=== PATIENT | female | born 1985 | race Caucasian/White ===

== ENCOUNTER 2023-04-29 09:07 | Emergency (ER) | payer OTHER, MEDICAID, SELFPAY ==
[2023-04-29 09:14] VITALS: BP 133/82; PULSE 90; RESP 16; TEMP 37.2; O2SAT 99; BMI 23.1
[2023-04-29 10:16] LABS: Basophils % 0.4 %; Eosinophils # 0.1 10^3/uL (0.0-0.8); Eosinophils % 2.3 %; Hematocrit 39.9 % (36-47); Lymphocytes # 1.1 10^3/uL (0.8-4.8); Lymphocytes % 20.6 %; Mean Corpuscular HGB Conc 32.8 g/dL (30-55); Mean Corpuscular Hemoglobin 31.3 pg (27-33); Mean Corpuscular Volume 95.2 fl (85-98); Mean Platelet Volume 9.7 fL (7.4-10.4); Monocytes # 0.5 10^3/uL (0.2-0.9); Monocytes % 9.4 %; Neutrophils # 3.51 10^3/uL (1.8-7.7); Neutrophils % 66.9 %; Nucleated Red Blood Cells % 0 %; Platelet Count 305 10^3/cmm (157-399); Red Blood Count 4.19 10^6/uL (3.85-5.65); Red Cell Distribution Width 12.2 % (12.1-15.1); White Blood Count 5.24 10^3/uL (3.29-11.43)
[2023-04-29 10:32] LABS: C Reactive Protein 49.7 mg/L (0.0-4.9)
--- NOTE | 2023-04-29 11:10 | ED_ITS ---
HPI - Wound/Laceration General: Chief Complaint: Wound/Laceration Stated Complaint: open wound left ankle Time Seen by Provider: 04/29/23 09:09 Source: patient Mode of arrival: ambulatory History of Present Illness: 37-year-old female presents emergency room with a open sore on the distal tibia anterior medial. 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 Wound has reopened and has slight drainage over the last couple of days.. Onset (ago): day(s) Extremity Location: Left: lower leg Place: home Patient tetanus UTD: Yes Associated symptoms: Denies chills, fever(s), foreign body sensation, inability to move, nausea, numbness, pain, syncope or vomiting Treatments prior to arrival: bandage Review of Systems Const: Denies: fever(s) or chills Card: Denies: chest pain, palpitations or syncope Resp: Denies: dyspnea, productive cough or non-productive cough GI: Denies: abdominal pain, nausea or vomiting Skin/Breast: Reports: sores and new lesions; Denies: rash or pruritus Physical Exam Const: GENERAL APPEARANCE: cooperative and comfortable ORIENTATION/CONSCIOUSNESS: Yes awake, Yes oriented to person, Yes oriented to place and Yes oriented to time HENMT: COMMON NORMALS: normocephalic, atraumatic and hearing grossly normal bilaterally HEAD & SCALP: normocephalic and atraumatic Resp: COMMON NORMALS: normal respiratory effort, No retractions, No use of accessory muscles and clear to auscultation bilaterally AUSCULTATION: clear to auscultation bilaterally Cardio: COMMON NORMALS: regular rate, regular rhythm and No murmurs present (Cardio) RATE: regular rate RHYTHM: regular rhythm Neuro: SENSORIUM/ORIENTATION: Yes oriented to person, Yes oriented to place and Yes oriented to time Skin: COMMON NORMALS: no rashes or lesions noted GENERAL SKIN EXAM: no rashes or lesions noted OTHER: Wet mucousy lesion scant drainage noted localized erythema redness purulence no palpable fluctuance. Wound culture taken. Course Vital Signs: Vital signs: Vital Signs Temperature 98.9 F 04/29/23 09:14 Pulse Rate 90 04/29/23 12:10 Respiratory Rate 16 04/29/23 12:10 Blood Pressure 133/82 04/29/23 12:10 Pulse Oximetry 99 04/29/23 12:10 Oxygen Delivery Me thod Room Air 04/29/23 09:14 MDM - Wound/Laceration Medical Decision Making Apply topical mupirocin. Bactrim 2 tablets p.o. twice daily. X-rays show fracture of the screw in the ankle with the lesion marked it is not overlying any of the screws or components of the hardware. There is a lot of hypertrophy of the bone with callus formation from previous fracture. Discharge patient home on the oral and topical antibiotics set her up to see wound care orthopedics and establish with a primary care doctor Lab Data 04/29/23 10:07 Laboratory Results WBC 5.24 10^3/uL (3.29-11.43) 04/29/23 10:07 RBC 4.19 10^6/uL (3.85-5.65) 04/29/23 10:07 Hgb 13.10 g/dL (11.27-16.99) 04/29/23 10:07 Hct 39.9 % (36-47) 04/29/23 10:07 MCV 95.2 fl (85-98) 04/29/23 10:07 MCH 31.3 pg (27-33) 04/29/23 10:07 MCHC 32.8 g/dL (30-55) 04/29/23 10:07 RDW 12.2 % (12.1-15.1) 04/29/23 10:07 Plt Count 305 10^3/cmm (157-399) 04/29/23 10:07 MPV 9.7 fL (7.4-10.4) 04/29/23 10:07 Neut % (Auto) 66.9 % 04/29/23 10:07 Lymph % (Auto) 20.6 % 04/29/23 10:07 [place] % (Auto) 9.4 % 04/29/23 10:07 Eos % (Auto) 2.3 % 04/29/23 10:07 Baso % (Auto) 0.4 % 04/29/23 10:07 Neut # (Auto) 3.51 10^3/uL (1.8-7.7) 04/29/23 10:07 Lymph # (Auto) 1.1 10^3/uL (0.8-4.8) 04/29/23 10:07 [place] # (Auto) 0.5 10^3/uL (0.2-0.9) 04/29/23 10:07 Eos # (Auto) 0.1 10^3/uL (0.0-0.8) 04/29/23 10:07 Baso # (Auto) 0.0 10^3/uL (0.0-0.1) 04/29/23 10:07 Nucleated RBC % (auto) 0 % 04/29/23 10:07 Nucleated RBCs # 0.0 /100WBC 04/29/23 10:07 C-Reactive Protein 49.7 mg/L (0.0-4.9) H 04/29/23 10:07 Discharge Plan Discharge Patient Disposition: Home Clinical Impression: Chronic wound of extremity Condition: Stable Prescriptions: New Bactrim DS 800-160 mg tablet 2 tab PO BID 7 Days Qty: 28 0RF mupirocin 2 % ointment 1 applic topical BID Qty: 22 0RF No Action acetaminophen 500 mg Tablet 500 mg PO Q6H PRN (Reason: Pain) ibuprofen 200 mg Tablet 200 mg PO Q6H PRN (Reason: Pain) Discharge Orders: Discharge ED (Routine); Ordered 04/29/23 Ordered By: Abe Villatoro Discharge Diet: Usual diet Discharge Activity: Increase activity as tolerated Patient Instructions: Opioid Safety, Pain Management Activity Restrictions/Additional Instructions: compensation and benefits manager will make arrangements for you to follow-up with orthopedics the wound care clinic and establish with a primary care physician. start oral antibiotics 2 pills twice daily and apply the topical antibiotic ointment twice daily to the wound. Coding Level of Care Code ED Cold Strip Feeder for Chantelle Espinoza
--- NOTE | 2023-04-29 11:11 | XR_ITS ---
WS: [id number] EXAMINATION: XR tibia fibula LT 2V 20184 REASON FOR EXAM: Pain previous instrumentation possible infection COMPARISON: None available. ORDER DATE: 04/29/2023 11:11 AM FINDINGS/IMPRESSION: Intramedullary andrez positioning in the tibia is demonstrated with transverse screws proximal and dista l. The distal most screw is fractured. There is some perirod lucency proximally and this could be rel ated to some increased mobility of the prosthesis. Marked cortical thickening and expansion of the di stal tibia from callus at the fracture sites of both tibia and fibula are present. Noted
[2023-04-29 12:10] VITALS: BP 133/82; PULSE 90; RESP 16; O2SAT 99
--- NOTE | 2023-05-03 13:36 | DCPLANNER ---
Addendum entered by Denise Ko 05/06/23 09:52: Simi luther notified case fitter that it is recommended that patient follow up with wound care first, before being seen by ortho. If patient is seen by wound care and she is still needing follow up with ortho, than a new referral could be sent. Patient has been referred to Wound Care, and has an appointment scheduled with Wound Care. collision center manager called the Wound Care clinic and patient and updated them both that referral was sent and that patient needed to be seen by wound care, and than if patient still needed follow up with ortho that a new referral would need to be sent. Addendum entered by Denise Ko 05/05/23 10:50: collision center manager received the following message from the ortho clinic regarding follow up appointment: Per Dr. Dsouza - pt needs to be referred to [place] collision center manager spoke with patient, she stated that she would like the referral sent to [facility] in [place]. collision center manager faxed patients information to the clinic, it will be reviewed, clinic will call patient with appointment information. Original Note: collision center manager had message to schedule a follow up appointment for patient for ortho. collision center manager sent patients information to the front office staff at ortho. Patients information will be printed and reviewed. Clinic will call patient with appointment information.
--- NOTE | 2023-05-03 13:37 | DCPLANNER ---
Addendum entered by Denise Ko 05/13/23 11:21: This appointment was cancelled Addendum entered by Denise Ko 05/05/23 11:31: Patient has a follow up appointment scheduled for Thursday, May 11, 2023 at 9:30 with Rhonda Lawrence at wound care. Addendum entered by Denise Ko 05/04/23 13:53: tea room manager received the following message from the Wound Care clinic regarding follow up appointment: Voicemail was left for pt to call and set up an appt. Original Note: tea room manager had message to schedule a follow up appointment for patient for wound care. tea room manager sent patients information to the front office staff at wound care. Patients information will be printed and reviewed. Clinic will call patient with appointment information.
--- NOTE | 2023-05-03 14:14 | DCPLANNER ---
Addendum entered by Denise Ko 05/13/23 11:26: Patient did not attend this appointment. Original Note: fuel manager had message to speak with patient about getting established with a primary care physician. fuel manager spoke with patient, she stated that she would like help in getting established with a primary care physician. fuel manager called the [facility], a follow up appointment was scheduled for Thursday, May 11, 2023 at 10:00 with Paulette De La Garza. fuel manager gave patient the appointment information.
== END 2023-04-29 12:12 | disposition home or self-care (01) ==
PROVIDERS: Emergency Provider Family Medicine
DX: S91.002A Unspecified open wound, left ankle, initial encounter (principal); X58.XXXA Exposure to other specified factors, initial encounter
CPT/HCPCS: 36415; 73590; 85025; 86140; 87040; 87070; 87075; 87077; 87186; 87205; 99284

== ENCOUNTER 2024-12-09 17:43 | Inpatient (IN) | payer SELFPAY ==
[2024-12-09 17:43] VITALS: BP 121/86; PULSE 95; RESP 17; TEMP 36.8; O2SAT 99; BMI 25.2
--- NOTE | 2024-12-09 18:01 | W.ED.PSYCHS ---
HPI - Psych General: Chief Complaint: Psychiatric Symptoms Stated Complaint: mhe Time Seen by Provider: 12/09/24 18:02 Source: patient and EMS Mode of arrival: ambulatory Limitations: no limitations History of Present Illness: This patient was transported by EMS to the emergency department because of concerns about suicidality. Reportedly she requested police take her to senior living because she was concerned about self-harm. She had not committed any offenses and there was no reason to incarcerate her so therefore EMS brought her to this facility. She states she used meth with a friend yesterday and had been sometime since she had used methamphetamine. She states that she told her boyfriend that she was thinking about harming herself and she continues to harbor thoughts of harming herself. She states she would cut her wrists. She states that she used to take mental health medications which she cannot remember the names but has not taken it for some time. She has previously been hospitalized for mental health issues but has not been in this facility. She states that she smokes tobacco but does not drink alcohol or use or any other street drugs. She has 4 but does not have an active relationship in the same home with these children. She currently denies any other symptoms such as nausea vomiting diarrhea chest pain palpitations fevers chills etc. MD complaint: suicidal ideation and feels depressed Context: recent drug abuse Associated psychiatric symptoms: suicidal ideation Associated symptoms: Reports depression and suicidal ideation; Deny auditory hallucinations or visual hallucinations If self harm: admits thoughts of self harm and has plan Related Data Home Medications ?Medication ?Instructions ?Recorded ?Confirmed acetaminophen 500 mg tablet 500 mg PO Q6H PRN Pain 04/29/23 04/29/23 ibuprofen 200 mg tablet 200 mg PO Q6H PRN Pain 04/29/23 04/29/23 Previous Rx's ?Medication ?Instructions ?Recorded mupirocin 2 % topical ointment 1 applic topical BID #22 grams 04/29/23 Allergies Allergy/AdvReac Type Severity Reaction Status Date / Time No Known Allergies Allergy Verified 04/29/23 09:18 Review of Systems General: Reports: 10 or more systems reviewed and unremarkable except in HPI and below Card: Denies: chest pain, palpitations, syncope or pre-syncope Resp: Denies: productive cough or non-productive cough : Denies: difficulty voiding, dysuria, vaginal bleeding or vaginal discharge Neuro: Denies: headache(s), numbness in extremities or weakness in extremities Psych: Reports: depression and suicidal ideation; Denies: visual hallucinations or auditory hallucinations Physical Exam Narrative: EXAM NARRATIVE: She is alert and responds appropriately to questions. She makes good eye contact. Const: COMMON NORMALS: no acute distress, patient oriented x3 and alert GENERAL APPEARANCE: cooperative, comfortable and disheveled NUTRITIONAL APPEARANCE: overweight HENMT: COMMON NORMALS: atraumatic, Normal nasal mucous membranes and turbinates present, moist oral mucous membranes and oropharynx normal HEAD & SCALP: atraumatic NOSE: Normal nasal mucous membranes and turbinates present Eye: COMMON NORMALS: Equal, round and reactive pupils present, EOMs intact bilaterally and conjunctivae normal CONJUNCTIVA: Yes conjunctivae normal PUPIL: Yes Equal, round and reactive pupils present Neck/C-Spine: COMMON NORMALS: full ROM and Thyroid normal THYROID: Thyroid normal Chest: COMMONS NORMALS: normal inspection of the chest Resp: COMMON NORMALS: normal respiratory effort, No retractions, No use of accessory muscles and clear to auscultation bilaterally AUSCULTATION: clear to auscultation bilaterally Cardio: COMMON NORMALS: regular rate, regular rhythm, No murmurs present (Cardio) and Peripheral pulses 2+ throughout RATE: regular rate RHYTHM: regular rhythm PERIPHERAL PULSES: Peripheral pulses 2+ throughout GI: COMMON NORMALS: Normal to inspection, nondistended, normoactive bowel sounds present Back/Pelvis: COMMON NORMALS: thoracic and lumbar spine normal to inspection, no thoracic nor lumbar tenderness and thoraco-lumbar ROM normal Extremity: COMMON NORMALS: normal to inspection, full ROM and capillary refill normal Neuro: COMMON NORMALS: patient oriented x3, moves all extremities, no focal motor deficits and no sensory deficits noted SENSORIUM/ORIENTATION: Yes alert CRANIAL NERVES: Yes CN normal except as noted Psych: COMMON NORMALS: cooperative, speech normal and denies hallucinations ATTITUDE: Yes calm ACTIVITY/MOTOR BEHAVIOR: Yes appropriate eye contact SPEECH: Yes normal speech MOOD & AFFECT: Yes apathetic THOUGHT PROCESS: Circumstantial thought process present THOUGHT CONTENT: Yes Suicidality present INSIGHT: Fair insight present (Psych) JUDGEMENT: Fair judgement present (Psych) Skin: COMMON NORMALS: no rashes or lesions noted, no wounds and turgor normal GENERAL SKIN EXAM: no rashes or lesions noted and turgor normal Course Reevaluation(s): Reevaluation #1: Patient remains cooperative and stable. Time: 20:42 Consultations: Consultation #1: Spoke with Dr. Lopez and reviewed the current presentation and case and he agreed to admit the patient. Time: 20:43 Vital Signs: Vital signs: Vital Signs Temperature 98.2 F 12/09/24 17:43 Pulse Rate 98 12/09/24 19:07 Respiratory Rate 17 12/09/24 19:07 Blood Pressure 127/87 12/09/24 19:07 Pulse Oximetry 100 12/09/24 19:07 Oxygen Delivery Me thod Room Air 12/09/24 19:07 MDM - Psych Medical Decision Making This patient presented note as noted in the HPI. She has uncertain suicidal risk given her current presentation. She certainly has voiced continued thoughts of self-harm with a plan to slit her wrist. She is cooperative and seemingly willing to continue care. Her medical evaluation clinically appears appropriate for hospitalization but we will do due diligence to laboratory screening and make adjudication of her admission at that time. Medical screening laboratories did reveal an initial low potassium which was orally repleted and her level was rechecked and her repeat level was well within the acceptable range. No evidence of other perturbations in her biochemistry. She interestingly enough was negative for any kind of street drugs on her urine drug screen. Again her suicidality is uncertain given her current presentation and endorsing thoughts of self-harm. Will go ahead and place her in the [facility] for further psychiatric evaluation. Stable appropriate for admission. Lab Data I reviewed the patient's lab results. 12/09/24 18:11 12/09/24 20:11 Laboratory Results WBC 12.30 10^3/uL (3.29-11.43) H 12/09/24 18:11 RBC 4.47 10^6/uL (3.85-5.65) 12/09/24 18:11 Hgb 13.90 g/dL (11.27-16.99) 12/09/24 18:11 Hct 40.9 % (36-47) 12/09/24 18:11 MCV 91.5 fl (85-98) 12/09/24 18:11 MCH 31.1 pg (27-33) 12/09/24 18:11 MCHC 34.0 g/dL (30-55) 12/09/24 18:11 RDW 12.1 % (12.1-15.1) 12/09/24 18:11 Plt Count 326 10^3/cmm (157-399) 12/09/24 18:11 MPV 9.9 fL (7.4-10.4) 12/09/24 18:11 Neut % (Auto) 77.2 % 12/09/24 18:11 Lymph % (Auto) 14.2 % 12/09/24 18:11 [place] % (Auto) 7.2 % 12/09/24 18:11 Eos % (Auto) 0.2 % 12/09/24 18:11 Baso % (Auto) 0.3 % 12/09/24 18:11 Neut # (Auto) 9.50 10^3/uL (1.8-7.7) H 12/09/24 18:11 Lymph # (Auto) 1.8 10^3/uL (0.8-4.8) 12/09/24 18:11 [place] # (Auto) 0.9 10^3/uL (0.2-0.9) 12/09/24 18:11 Eos # (Auto) 0.0 10^3/uL (0.0-0.8) 12/09/24 18:11 Baso # (Auto) 0.0 10^3/uL (0.0-0.1) 12/09/24 18:11 Nucleated RBC % (auto) 0 % 12/09/24 18:11 Nucleated RBCs # 0.0 /100WBC 12/09/24 18:11 Sodium 139 mmol/L (136-145) 12/09/24 18:11 Potassium 3.7 mmol/L (3.5-5.1) 12/09/24 20:11 Chloride 97 mmol/L (98-107) L 12/09/24 18:11 Carbon Dioxide 30 mmol/L (22-29) H 12/09/24 18:11 Anion Gap 14.6 (5-19) 12/09/24 18:11 BUN 3 mg/dL (6-20) L 12/09/24 18:11 Creatinine 0.5 mg/dL (0.5-0.9) 12/09/24 18:11 GFR Calculation 137.4 mL/min (90-130) H 12/09/24 18:11 Glucose 109 mg/dL (65-115) 12/09/24 18:11 Calculated Osmolality 285 mOsm/kg (285-295) 12/09/24 18:11 Calcium 9.5 mg/dL (8.5-10.5) 12/09/24 18:11 Total Bilirubin 0.3 mg/dL (0.15-1.2) 12/09/24 18:11 AST 22 U/L (0-32) 12/09/24 18:11 ALT 26 U/L (0-33) 12/09/24 18:11 Alkaline Phosphatase 88 U/L (35-105) 12/09/24 18:11 Total Protein 7.3 g/dL (6.6-8.7) 12/09/24 18:11 Albumin 4.1 g/dL (3.5-5.2) 12/09/24 18:11 Globulin 3.2 g/dL (1.3-4.6) 12/09/24 18:11 HCG, Qual Negative (Negative) 12/09/24 17:51 Urine Color Yellow (Yellow) 12/09/24 17:51 Urine Appearance Clear (CLEAR) 12/09/24 17:51 Urine pH 7 (5-7) 12/09/24 17:51 Ur Specific [place] 1.005 (1.005-1.030) 12/09/24 17:51 Urine Protein Neg (Negative) 12/09/24 17:51 Urine Glucose (UA) Norm (Normal) 12/09/24 17:51 Urine Ketones Negative (Negative) 12/09/24 17:51 Urine Blood Neg (Negative) 12/09/24 17:51 Urine Nitrate Negative (Negative) 12/09/24 17:51 Urine Bilirubin Neg (Negative) 12/09/24 17:51 Urine Urobilinogen Norm mg/dL (Negative) 12/09/24 17:51 Ur Leukocyte Esterase Negative (Negative) 12/09/24 17:51 Amorphous Sediment Not Reportable 12/09/24 17:51 Salicylates < 0.3 mg/dL (3-10) L 12/09/24 18:11 Urine Opiates Screen Negative ng/mL (Negative) 12/09/24 17:51 Acetaminophen < 5.0 ug/mL (10-30) L 12/09/24 18:11 Ur Barbiturates Screen Negative ng/mL (Negative) 12/09/24 17:51 Ur Phencyclidine Scrn Negative ng/mL (Negative) 12/09/24 17:51 Ur Amphetamines Screen Negative ng/mL (Negative) 12/09/24 17:51 U Benzodiazepines Scrn Negative ng/mL (Negative) 12/09/24 17:51 Urine Cocaine Screen Negative ng/mL (Negative) 12/09/24 17:51 U Marijuana (THC) Screen Negative ng/mL (Negative) 12/09/24 17:51 Ethyl Alcohol < 10 mg/dL (0-10) 12/09/24 18:11 No radiology studies performed this visit EKG Data EKG 1: I personally reviewed and interpreted this EKG as follows: Interpretation: Contemporaneous review of EKG reveals a borderline sinus tachycardia. She has a normal SD interval, QRS duration, corrected to QT interval and normal axis. She has no ischemic ST-T wave changes noted at this time. Discharge Plan Discharge Patient Disposition: Admitted As Inpatient Clinical Impression: Suicidal ideation Condition: Stable Coding Level of Care Code ED Mainframe Software Developer for Chantelle Espinoza
[2024-12-09 18:10] LABS: HCG Qualitative Urine. Negative (Negative)
[2024-12-09 18:11] LABS: Add Urine Microscopic? NO
[2024-12-09 18:13] LABS: Bilirubin Urine Neg (Negative); Blood Urine Neg (Negative); Charge for UA Resulting for Rev; Glucose Urine UA Norm (Normal); Ketones Urine Negative (Negative); Leukocyte Esterase Urine Negative (Negative); Nitrate Urine Negative (Negative); Protein Urine Neg (Negative); Specific Gravity, Urine 1.005 (1.005-1.030); Urine Appearance Clear (CLEAR); Urine Color Yellow (Yellow); Urobilinogen Urine Norm (Negative); pH Urine 7 (5-7)
[2024-12-09 18:17] LABS: Basophils % 0.3 %; Eosinophils % 0.2 %; Hematocrit 40.9 % (36-47); Lymphocytes # 1.8 10^3/uL (0.8-4.8); Lymphocytes % 14.2 %; Mean Corpuscular Hemoglobin 31.1 pg (27-33); Mean Corpuscular Volume 91.5 fl (85-98); Mean Platelet Volume 9.9 fL (7.4-10.4); Monocytes # 0.9 10^3/uL (0.2-0.9); Monocytes % 7.2 %; Neutrophils % 77.2 %; Nucleated Red Blood Cells % 0 %; Platelet Count 326 10^3/cmm (157-399); Red Blood Count 4.47 10^6/uL (3.85-5.65); Red Cell Distribution Width 12.1 % (12.1-15.1)
[2024-12-09 18:22] LABS: Amphetamines Screen Urine Negative (Negative); Barbiturates Screen Urine Negative (Negative); Benzodiazepines Screen Urine Negative (Negative); Cocaine Screen Urine Negative (Negative); Opiate Screen Urine Negative (Negative); PCP Screen Urine Negative (Negative); THC Screen Urine Negative (Negative)
[2024-12-09 18:34] LABS: Alanine Aminotransferase 26 U/L (0-33); Albumin Level 4.1 g/dL (3.5-5.2); Alkaline Phosphatase 88 U/L (35-105); Anion Gap 14.6 (5-19); Aspartate Amino Transferase 22 U/L (0-32); Blood Urea Nitrogen 3 mg/dL (6-20); Calcium 9.5 mg/dL (8.5-10.5); Carbon Dioxide 30 mmol/L (22-29); Chloride 97 mmol/L (98-107); Creatinine Clr Calc Pharmacy 152.3456; Globulin 3.2 g/dL (1.3-4.6); Glomerular Filtration Rate 137.4 mL/min (90-130); Glucose 109 mg/dL (65-115); Osmolality Calculated 285 mOsm/kg (285-295); Sodium 139 mmol/L (136-145); Total Bilirubin 0.3 mg/dL (0.15-1.2); Total Protein 7.3 g/dL (6.6-8.7)
[2024-12-09 18:35] LABS: Acetaminophen < 5.0 ug/mL (10-30); Alcohol Level < 10 mg/dL (0-10); Salicylate < 0.3 mg/dL (3-10)
[2024-12-09 18:36] LABS: Potassium 2.6 mmol/L (3.5-5.1)
[2024-12-09] MEDS: potassium bicarb 25 mEq Tablet 50 MEQ PO ×2 (18:57→19:25)
[2024-12-09 19:07] VITALS: BP 127/87; PULSE 98; RESP 17; O2SAT 100
--- NOTE | 2024-12-09 19:25 | ECG_ITS ---
Orbiter Test Date: 2024-12-09 Pat Name: Suri Moreno Department: Room: Gender: Female Line Out Worker: : 1985 Requested By: Lakhwinder Jarrett Order Number: [id number] Ana Paula MD: FUNMI STOUT Measurements Intervals [place] Rate: 103 P: 14 IL: 128 QRS: 47 QRSD: 93 T: 19 QT: 345 QTc: 452 Interpretive Statements SINUS TACHYCARDIA INCOMPLETE RIGHT BUNDLE BRANCH BLOCK [90+ ms QRS DURATION, TERMINAL R IN V1/V2, 40+ ms S IN I/aVL/V4/V5/V6] ABNORMAL RHYTHM ECG No previous ECG available for comparison Electronically Signed On 12-10-2024 22:06:10 CDT by FUNMI STOUT [email or web address]
[2024-12-09 20:36] LABS: Potassium 3.7 mmol/L (3.5-5.1)
[2024-12-09 20:49] VITALS: BP 116/80; PULSE 101; RESP 18; TEMP 36.8; O2SAT 96
--- NOTE | 2024-12-09 21:18 | PC.NURSE ---
96 Hour Hold Education provided to patient regarding 96 hour hold placement. When asked if patient understood what this meant, patient said yes. Rights read to patient with care nurse KATERINE Cortes and copy of rights left at bedside. Patient verbalized understanding, stated no further questions.
[2024-12-09 21:53] VITALS: BP 142/92; PULSE 107; RESP 16; O2SAT 96
[2024-12-09 22:00] VITALS: BP 116/80; PULSE 101; RESP 18; TEMP 36.8; O2SAT 96
[2024-12-10] MEDS: trazodone 50 mg Tablet PO ×3 (00:19→20:12)
[2024-12-10] MEDS: OLANZapine 5 mg ODT PO ×2 (02:25→16:09)
[2024-12-10] MEDS: hyDROXYzine 25 mg Capsule 50 MG PO ×3 (02:25→20:12)
[2024-12-10] MEDS: haloperidol 5 mg Tablet PO ×2 (03:02→13:43)
[2024-12-10 06:00] VITALS: RESP 18; BMI 25.2
[2024-12-10 06:30] VITALS: PULSE 120; RESP 18; TEMP 36.5; O2SAT 96
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
[2024-12-10 14:00] VITALS: BP 133/71; PULSE 100; RESP 18; TEMP 36.6; O2SAT 95
[2024-12-10] MEDS: paliperidone ER 6 mg Tablet PO (14:51)
[2024-12-10 19:40] VITALS: BP 122/57; PULSE 107; RESP 18; TEMP 36.5; O2SAT 98
[2024-12-11 02:19] VITALS: BP 116/56; PULSE 96; RESP 18; O2SAT 94
[2024-12-11] MEDS: OLANZapine 5 mg ODT PO (04:33)
[2024-12-11] MEDS: paliperidone ER 6 mg Tablet PO (08:09)
[2024-12-11] MEDS: LORazepam 2 mg/mL INJ 1 mL IM (13:07)
[2024-12-11] MEDS: haloperidol inj 5 mg/mL INJ 1 mL IM (13:07)
[2024-12-11] MEDS: diphenhydrAMINE 50 mg/mL SDV 1mL IM (13:07)
--- NOTE | 2024-12-11 13:30 | PC.NURSE ---
Addendum entered and electronically signed by Kary Johnson RN 12/11/24 16:31: PT ATTEMPTED TO GET THROUGH THE DOOR AT 1305, NOT 1310. Original Note: AT APPROXIMATELY 1310 THIS RN WAS ASSISTING ANOTHER PT OUT TO [facility] WHEN THE PT ASKED THIS RN A QUESTION, RESULTING IN THIS RN TURNING AROUND TO ADDRESS THE PT. DOOR GOING TO THE LOBBY WAS OPENED SLIGHTLY WITH THIS RN STANDING IN THE DOORWAY WHEN PT ATTEMPTED TO PUSH THROUGH THE DOOR AND LEAVE NORTH SIDE AND PROCEED INTO THE LOBBY AREA. THIS RN WAS POSITIONED IN FRONT OF THE DOOR AND WAS ABLE TO ASSIST THE PT BACK INSIDE. PT CONTINUED TO SAY I WANT TO LEAVE I DON'T WANT TO BE HERE NO MORE. PT IS HAVING DELUSIONS AND NURSE REPORTS SHE HAS NOT SLEPT ALL NIGHT. PT WAS ASSISTED TO ROOM, SECURITY WAS ON UNIT ALREADY AND WAS ABLE TO ASSIST STAFF. PT WENT TO ROOM WITHOUT DIFFICULTY AND SAT ON BED. STAFF ENCOURAGED AND OFFERED MEDICATIONS WHICH THE PT DID EVENTUALLY TAKE. SUPPORT VOICED.
[2024-12-11 14:00] VITALS: BP 105/74; PULSE 100; RESP 16; TEMP 37.1; O2SAT 96
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
--- NOTE | 2024-12-11 14:47 | PC.NURSE ---
At approximately 1300, the pt was starting to become agitated wanting to leave. The pt had come up to the nurses station window asking when can I leave and when was educated on having to speak with the psychiatrist first, she stated well I am just going to leave and at the same time, the charge nurse had badged the door to come back inside from discharge, and the pt stepped past the threshold in an attempt to elope. The charge nurse immediately had reacted and stopped the pt from exiting w/ no issue. This nurse took the pt back to her room and attempted to speak with the pt and she left the room and the information security director came out to attempt to help talk with the pt. While the information security director spoke with the pt, this nurse and another RN letty up a B52. This nurse, another RN, a SCHOOL ADJUSTMENT COUNSELOR and the charge nurse along with security and the live in housekeeper walked the pt to her room and administered the shots. This nurse gave 50mg IM benadryl into the L deltoid and the other RN gave 2mg Ativan and 5mg Haldol into the R deltoid. The pt took the shots with no issues. The pt attempted to attend group after, but was walked back to her room to lay down.
--- NOTE | 2024-12-11 20:14 | PC.NURSE ---
vs not collected resp 16 nurse notified
[2024-12-11] MEDS: hyDROXYzine 25 mg Capsule 50 MG PO (20:26)
[2024-12-11] MEDS: trazodone 50 mg Tablet PO (20:26)
[2024-12-12] MEDS: OLANZapine 5 mg ODT PO ×2 (00:52→16:18)
[2024-12-12] MEDS: trazodone 50 mg Tablet PO ×2 (00:52→21:47)
[2024-12-12 06:00] VITALS: BP 107/68; PULSE 118; RESP 18; O2SAT 98
[2024-12-12] MEDS: paliperidone ER 6 mg Tablet PO (08:41)
[2024-12-12] MEDS: haloperidol 5 mg Tablet PO (11:17)
[2024-12-12] MEDS: hyDROXYzine 25 mg Capsule 50 MG PO ×2 (11:17→21:47)
[2024-12-12 14:00] VITALS: BP 114/72; PULSE 100; RESP 18; O2SAT 99
--- NOTE | 2024-12-12 15:49 | P.NPUPN_ITS ---
Subjective NPU 2 Subjective: 39-year-old female with a past history o f significant methamphetamine abuse admitted with auditory hallucinations and depression while negative on urine drug screen for amphetamines. The patient continued to report hearing voices. She reported no side effects from the medication. She continues to report feeling as if other people were trying to harm her here in the hospital. She had attempted to leave the unit yesterday stating that she was being told by her voice that it was unsafe here. She had reported difficulties with falling asleep. She had continued to report that she felt that she needed to go to skilled nursing but was not able to specify any crime that she had committed. Mental Status Exam 2 MSE Comments: This is an overweight versus obese white female looking older than her stated age in hospital scrubs with poor grooming and limited eye contact. Poor dentition. No abnormal movements except for psychomotor agitation. She was minimally cooperative with exam in moderate distress. Speech was mostly normal in rate and volume and occasionally dysarthric. Mood described as okay. Her affect was odd and subdued and mood incongruent. Thought process was linear. Thought content: Patient denies suicidal or homicidal ideation. She endorsed auditory hallucinations and did appear to be responding to internal stimuli. Attention and concentration were limited as she appeared distracted and memory was limited but none were formally tested.. She is alert and oriented times person and place. Insight and judgment are impaired. Impulse control is poor. Vitals/I&O/Wt Last Vital Signs Temp 98.7 F 12/11/24 14:00 Pulse 100 12/12/24 14:00 Resp 18 12/12/24 14:00 BP 114/72 12/12/24 14:00 Pulse Ox 99 12/12/24 14:00 O2 Del Method Room Air 12/12/24 14:00 Data NPU 12/09/24 18:11 12/09/24 20:11 A&P Assessment and plan (1) Suicidal ideation: (2) Methamphetamine use disorder, severe, dependence: (3) Psychosis: (4) Paranoia: (5) Depression: Plan This is a 39-year-old white female with a long history of mental health and addiction issues who presents after a very confused and unclear what is going on from the standpoint of being in the hospital but she was positive for methamphetamine. The patient is experiencing significant mental health challenges, including depression, anxiety, paranoia, and auditory hallucinations. There is a history of depression predating substance use, indicating a longstanding mental health condition. The patient reports hearing voices and feeling paranoid, with concerns about being harmed. There are also current suicidal thoughts. 1. Continue Invega 6 mg p.o. daily. 2. Continue every 15 minute checks for safety. 3. Encourage individual, group and milieu therapy. 4. Encourage sober living treatment after discharge at the highest level care to which she is willing to commit. 5. Will evaluate against the backdrop of 96-hour hold. 6. Obtain collateral information. PDMP PDMP Reviewed: Not Reviewed Involuntary Hold Information 2 Hold Status: Legal Status: 96 Hour Hold Date/Time Hold Expires: 12/15/24 00:01 Attestations NPU 2 Medical Necessity Statement*: Inpatient hospitalization is medically necessary and the clinically appropriate intervention at this time.? We will monitor/initiate medications as indicated. The patient?s likely length of stay is 5-7 days.? Coding Level of Care Code Acute Code for [facility] Diagnoses Suicidal ideation R45.851 Methamphetamine use disorder, severe, dependence F15.20 Psychosis F29 Paranoia F22 Depression F32.A
--- NOTE | 2024-12-12 16:19 | PC.NURSE ---
Pt is currently talking about people coming out of the wall in her room to get her, pt also stated that someone opened her window and they had guns to shoot and kill her. Pt stated that she wants to leave and is confused as to why she is not able to leave. This UTILITY WORKER PRODUCTION reassured pt that no harm would come to her while on the unit, and that it was a secure safe place to be. Administered 5mg Zyprexa Zydis PO.
--- NOTE | 2024-12-12 17:07 | PC.NURSE ---
Pt has asked to leave the unit several times, all redirection has failed, pt is now pushing on every exit door stating that she will just walk home.
[2024-12-12 20:07] VITALS: BP 112/68; PULSE 99; RESP 18; TEMP 37; O2SAT 94
[2024-12-13] MEDS: OLANZapine 5 mg ODT PO ×2 (01:23→08:14)
[2024-12-13] MEDS: trazodone 50 mg Tablet PO (01:23)
[2024-12-13 06:00] VITALS: BP 108/75; PULSE 91; RESP 18; TEMP 36.8; O2SAT 97
[2024-12-13] MEDS: paliperidone ER 6 mg Tablet PO (08:14)
[2024-12-13 14:00] VITALS: BP 133/92; PULSE 100; RESP 16; TEMP 36.8; O2SAT 99
[2024-12-13] MEDS: haloperidol 5 mg Tablet PO (15:07)
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
[2024-12-13 20:01] VITALS: BP 111/63; PULSE 82; RESP 16; TEMP 36.8; O2SAT 100
[2024-12-14 06:00] VITALS: BP 100/67; PULSE 91; RESP 20; TEMP 36.4; O2SAT 98
[2024-12-14] MEDS: paliperidone ER 6 mg Tablet PO (08:00)
[2024-12-14] MEDS: nicotine 4 mg lozenge MUCOUS MEM (08:00)
--- NOTE | 2024-12-14 10:15 | PC.NURSE ---
At approximately 1015, patient continued to state that she wanted to leave and was very aware of doors in and out of unit on the non-acute (north) side of the unit. The decision was made to move her to the acute (south) side of the unit for decreased number of exits and decrease elopement risk. She was tearful upon being re-assigned to her room, stating that she wanted a roommate. I explained that she might get a roommate later today, but she didn't have one right this second. She was tearful, but stated okay . She inquired if she would get to go home today and I let her know that we would be meeting with the physician around 1030 and discussing everyone's plans. She verbalized understanding.
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
[2024-12-14] MEDS: diphenhydrAMINE 50 mg/mL SDV 1mL IM (12:20)
[2024-12-14] MEDS: LORazepam 2 mg/mL INJ 1 mL IM (12:20)
[2024-12-14] MEDS: haloperidol inj 5 mg/mL INJ 1 mL IM (12:20)
[2024-12-14 14:00] VITALS: BP 110/76; PULSE 117; RESP 18; TEMP 36.9; O2SAT 94
--- NOTE | 2024-12-14 14:48 | P.NPUPN_ITS ---
Subjective NPU 2 Subjective: 39-year-old female with a past history o f significant methamphetamine abuse admitted with auditory hallucinations and depression while negative on urine drug screen for amphetamines. The patient had attempted to elope off the unit today stating that she needed to go home. She had received Haldol for agitation. She had reported that her living situation was safe and stated that she missed her boyfriend that she had been residing within there. She had described having limited family supports and had lamented having lost her children. She had reported a long history of methamphetamine use. She had reported some improvement in sleep. She had reported feeling sad at times. She was unable to provide information regarding her longest period of abstinence but did report that she would consider treatment for her methamphetamine use. Mental Status Exam 2 MSE Comments: This is an overweight versus obese white female looking older than her stated age in hospital scrubs with poor grooming and limited eye contact. She appeared excessively sedated today. Poor dentition. No abnormal involuntary motor movements appreciated. She was cooperative on interview. Speech was normal in rate and volume and monotone in quality. Mood described as okay. Her affect was odd and subdued and mood incongruent. Thought process was linear. Thought content: Patient denies suicidal or homicidal ideation. She endorsed auditory hallucinations but did not appear to be responding to internal stimuli. There was continued presence of paranoia. Attention and concentration were limited as she was easily distracted. She is alert and oriented times person and place. Insight and judgment are impaired. Impulse control is poor. Fund of knowledge appeared poor. Vitals/I&O/Wt Last Vital Signs Temp 97.6 F 12/14/24 06:00 Pulse 91 12/14/24 06:00 Resp 20 H 12/14/24 06:00 BP 100/67 12/14/24 06:00 Pulse Ox 98 12/14/24 06:00 O2 Del Method Room Air 12/13/24 20:01 Data NPU 12/09/24 18:11 12/09/24 20:11 A&P Assessment and plan (1) Psychosis: (2) Paranoia: (3) Suicidal ideation: (4) Methamphetamine use disorder, severe, dependence: (5) Depression: Plan This is a 39-year-old white female with a long history of mental health and addiction issues who presents after a very confused and unclear what is going on from the standpoint of being in the hospital but she was positive for methamphetamine. The patient is experiencing significant mental health challenges, including depression, anxiety, paranoia, and auditory hallucinations. There is a history of depression predating substance use, indicating a longstanding mental health condition. The patient reports hearing voices and feeling paranoid, with concerns about being harmed. There are also current suicidal thoughts. 1. Continue Invega 6 mg p.o. daily. 2. Continue every 15 minute checks for safety. 3. Encourage individual, group and milieu therapy. 4. Encourage sober living treatment after discharge at the highest level care to which she is willing to commit. 5. Will evaluate against the backdrop of 96-hour hold. 6. Consider inpatient substance abuse facility. PDMP PDMP Reviewed: Not Reviewed Involuntary Hold Information 2 Hold Status: Legal Status: 96 Hour Hold Date/Time Hold Expires: 12/15/24 00:01 Attestations NPU 2 Medical Necessity Statement*: Inpatient hospitalization is medically necessary and the clinically appropriate intervention at this time.? We will monitor/initiate medications as indicated. The patient?s likely length of stay is 5-7 days.? Coding Level of Care Code Acute Code for [facility] Fwd Diagnoses Psychosis F29 Paranoia F22 Suicidal ideation R45.851 Methamphetamine use disorder, severe, dependence F15.20 Depression F32.A
[2024-12-14 19:50] VITALS: BP 107/67; PULSE 103; RESP 17; TEMP 36.3; O2SAT 96
[2024-12-15] VITALS (8 sets, daily range): BP systolic 99–113; BP diastolic 65–78; PULSE 85–115; RESP 15–18; TEMP 36.6–37.1; O2SAT 92–97
[2024-12-15] MEDS: hyDROXYzine 25 mg Capsule 50 MG PO ×2 (02:40→17:50)
[2024-12-15] MEDS: trazodone 50 mg Tablet PO (02:40)
--- NOTE | 2024-12-15 02:46 | PC.NURSE ---
While pulling bedtime medications there was a problem with the Pix[employer]. It would only allow medications to be pulled one at a time; each time a medication was pulled the Pixus would KICK ME OUT requiring me to log back in for each individual medication. In addition, the pixus was not acknowledging that the medications were pulled! This made it APPEAR that the medications were NOT PULLED even though they were indeed pulled and given. The medications in question (ALL PO) for this patient are as follows: TRAZADONE 50MG AND VISTARIL 50MG. This may ADVERSELY AFFECT the NARCOTIC COUNT as it would not allow me to put in the count. There were three displays on the Pixus: #1 CRITICAL OVERRIDE . #2 PATIENT DATA MAY NOT BE CURRENT : PATIENT INTERFACE PROBLEM FOR 9M . #3 PATIENT ORDERS MAY NOT BE CURRENT : ORDER INTERFACE PROBLEM FOR 20M . Angela GARCIAS the executive housekeeper was notified and advised that I check with / notify IT in case there was an update that we were unaware of. I checked with IT and they said they were not updating at this time. They suggested that I check with pharmacy in the morning. That is what I will do.
--- NOTE | 2024-12-15 08:14 | PC.NURSE ---
Pt states that she didn't sleep well last night. She is worried that she is going to be kicked out of here and not have a place to go. She rates her anxiety a 10/10 and states that she is very depressed. She denies SI/HI. She reports voices telling her to kill herself and states that she sees floaters . She does not recall having a recent bm. Pt is up pacing a lot from her room to the ford and to the phone. This nurse reassured pt that we would not let her leave until she has a place.
[2024-12-15] MEDS: LORazepam 2 mg/mL INJ 1 mL IM (08:45)
[2024-12-15] MEDS: haloperidol inj 5 mg/mL INJ 1 mL IM (08:45)
[2024-12-15] MEDS: diphenhydrAMINE 50 mg/mL SDV 1mL IM (08:45)
--- NOTE | 2024-12-15 09:01 | PC.NURSE ---
Pt became increasingly anxious and stated that she wanted to go outside She was pacing from her room to pt phone and would then begin to push on the doors and say she needed out. We had to turn off the pt phone because she began trying to call 911 to go to the [facility] . She then began to state she was having chest pain. V/s were check bp 132/80 and pulse 147. She attempted multiple times to redirect pt and security [place] took pt out to count includes the [facility] to see if that would help her as well. Pt began to increase her pacing and pushing on doors more and more. The decision was made to give her a b52 injection to help her relax. Pt went back into her room, layed on bed and accepted the injection without incident. See MAR for specifics on the injection. Pt has not got out of bed since.
[2024-12-15] MEDS: paliperidone ER 6 mg Tablet PO (09:03)
--- NOTE | 2024-12-15 15:53 | P.NPUPN_ITS ---
Subjective NPU 2 Subjective: 39-year-old female with a past history o f significant methamphetamine abuse admitted with auditory hallucinations and depression while negative on urine drug screen for amphetamines. The patient had reported that she had been homeless. She had made repeated attempts to try to elope from the unit. The patient had reported that she continued to hear voices but stated that they were quieter. She continued to ask if she could go but reported that she had no idea where she would go when discharged. She had continued to require as needed Haldol for agitation this morning. Patient had isolated herself on the milieu. She had endorsed some depressed mood at this time. Mental Status Exam 2 MSE Comments: This is an overweight versus obese white female looking older than her stated age in hospital scrubs with poor grooming and limited eye contact. She appeared less sedated. Poor dentition. No abnormal involuntary motor movements appreciated. She was cooperative on interview. Speech was normal in rate and volume and monotone in quality. Mood described as okay. Her affect was odd and subdued and mood incongruent. Thought process was linear but concrete. Thought content: Patient denies suicidal or homicidal ideation. She endorsed no auditory hallucinations today and did not appear to be responding to internal stimuli. There was continued presence of paranoia. Attention and concentration were limited as she was easily distracted. She is alert and oriented times person and place. Insight and judgment are impaired. Impulse control is poor. Fund of knowledge appeared poor. Vitals/I&O/Wt Last Vital Signs Temp 98 F 12/15/24 14:00 Pulse 99 12/15/24 14:00 Resp 17 12/15/24 14:00 BP 110/70 12/15/24 14:00 Pulse Ox 95 12/15/24 14:00 O2 Del Method Room Air 12/15/24 06:00 Data NPU 12/09/24 18:11 12/09/24 20:11 A&P Assessment and plan (1) Psychosis: (2) Paranoia: (3) Suicidal ideation: (4) Methamphetamine use disorder, severe, dependence: (5) Depression: Plan This is a 39-year-old white female with a long history of mental health and addiction issues who presents after a very confused and unclear what is going on from the standpoint of being in the hospital but she was positive for methamphetamine. The patient is experiencing significant mental health challenges, including depression, anxiety, paranoia, and auditory hallucinations. There is a history of depression predating substance use, indicating a longstanding mental health condition. 1. Continue Invega 6 mg p.o. daily. 2. Continue every 15 minute checks for safety. 3. Encourage individual, group and milieu therapy. 4. Encourage sober living treatment after discharge at the highest level care to which she is willing to commit. Check DARLENE to examine ability to live independently. 5. Will evaluate against the backdrop of 96-hour hold. 6. Consider inpatient substance abuse facility. PDMP PDMP Reviewed: Not Reviewed Involuntary Hold Information 2 Hold Status: Legal Status: 96 Hour Hold Date/Time Hold Expires: 12/15/24 00:01 Attestations NPU 2 Medical Necessity Statement*: Inpatient hospitalization is medically necessary and the clinically appropriate intervention at this time.? We will monitor/initiate medications as indicated. The patient?s likely length of stay is 5-7 days.? Coding Level of Care Code Acute Code for [facility] Fw Diagnoses Psychosis F29 Paranoia F22 Suicidal ideation R45.851 Methamphetamine use disorder, severe, dependence F15.20 Depression F32.A
--- NOTE | 2024-12-15 17:23 | PC.NURSE ---
Pt PRN B52 was effective. She remained calm and rested the remainder of the day. V/s remained stable see v/c flow sheet.
--- NOTE | 2024-12-15 17:23 | PC.NURSE ---
AT APPROXIMATELY 0830 THIS AM PT WAS UP CHECKING DOORS AND ATTEMPTING TO FOLLOW STAFF INTO THE NURSES STATION MAKING STATEMENTS I WANT TO LEAVE, LET ME LEAVE. PT WAS REDIRECTED SEVERAL TIMES WITH NO RESOLVE. PT WAS EDUCATED ON 96 HOUR HOLD AND 21 DAY HOLD BEING FILED BUT PT DID NOT COMPREHEND THE EDUCATION. PT WAS ASSISTED TO ROOM AND GIVEN MEDICATIONS ORDERED FOR INCREASED ANXIETY. PT RESTED ON AND OFF FOR 2-3 HOURS. MEDICATIONS DEEMED EFFECTIVE. SUPPORT VOICED.
--- NOTE | 2024-12-15 17:48 | PC.NURSE ---
Pt was standing at pt phone with left knee resting on bench. She slipped and tried to catch herself with the phone. She proceeded to fall and her bottom hit the floor and her left ribs hit the bench. Pt was brought to her room and examined by this nurse and Kary RN. No redness was noticed on the left ribs. Pt does state that it hurts really bad. v/s are 123/74 p 105 o2 sat 98%. I walked pt to dayroom so that she could eat dinner and advised her to walk slowly and take her time. A fall mat was placed at pt bedside.
[2024-12-15] MEDS: OLANZapine 5 mg ODT PO (17:51)
[2024-12-16 06:00] VITALS: BP 97/57; PULSE 99; RESP 17; TEMP 36.4; O2SAT 96
--- NOTE | 2024-12-16 07:30 | PC.NURSE ---
PT CONTINUES TO BE ANXIOUS, RESTLESS AND AGITATED, CHECKING DOORS AND ATTEMPTING TO LEAVE THE UNIT BY PUSHING ON DOORS AND DEMANDING TO LEAVE, LET ME GO, I WANT TO GET BACK TO THE STREETS, PT WAS GIVEN CHOICES TO LAY DOWN, WATCH TV OR EAT A SNACK. PT STATED NO I'M LEAVING. PT IS OBSERVED STANDING AT THE DESK AND MOVING HER FEET CONSTANTLY LIKE SHE CAN NOT STOP. PT ASKED WHY SHE IS CONSTANTLY MOVING AND STATES I JUST CAN'T STOP. REPORTED TO DR. MEZA TO SEE IF HE WOULD LIKE TO GIVE INSTRUCTIONS OR ORDERS FOR BENADRYL OR COGENTIN. SUPPORT VOICED. NICOTINE PATCH PLACED TO ASSIST WITH NICOTINE WITHDRAWAL.
[2024-12-16] MEDS: nicotine 21 mg Patch 1 PATCH TRANSDERMA (07:31)
[2024-12-16] MEDS: ziprasidone 20 mg/mL SDV IM (07:40)
[2024-12-16] MEDS: water for injection-sterile 10 ML 1.2 ML (07:40)
[2024-12-16] MEDS: benztropine 1 mg Tablet PO (07:40)
--- NOTE | 2024-12-16 07:43 | PC.NURSE ---
Pt got up from bed this morning and immeditatley began pacing around. She asked if she was going home and stating that she wants to go outside. She then came to the nurses station and requested the shot she received yesterday (B52) because she just wants to sleep. I attempted to redirect pt into trying an oral medication and she began to increase in frustration and attempting to elope. Kary GARCIAS called Dr. Mckinnon and obtained an order for a 1x Geodon 20mg IM injection. Dr. Mckinnon also advised that we put a nicotine patch on pt as well to help with nicotine withdraw. While pt was standing at nurses waiting for the injection to come, she was marching in place. Kary GARCIAS asked her why she was marching in place and she states I can't help it Pt was then given Cogentin to help ease her EPS symptoms.
[2024-12-16] MEDS: paliperidone ER 6 mg Tablet PO (08:11)
[2024-12-16 08:45] VITALS: BP 101/67; PULSE 99; RESP 16; TEMP 36.8; O2SAT 96
--- NOTE | 2024-12-16 10:16 | P.NPUPN_ITS ---
Subjective NPU 2 Subjective: 39-year-old female with a past history o f significant methamphetamine abuse admitted with auditory hallucinations and depression while negative on urine drug screen for amphetamines. The patient had stated that she wished to leave here again and attempted to elope. She had required as needed Haldol and significant redirection. She continued to perseverate about her desire to go home and indicated that she felt that people were after her. She had endorsed feeling suspicious of others but was unable to describe this any further. She had continued to pace the ford and reported adequate sleep. She had admitted to using methamphetamine for several years but again was negative for all drugs or alcohol on admission. The patient had described having difficulties with taking care of herself outside of the hospital. She had continued to require prompting for completion of activities of daily living. Mental Status Exam 2 MSE Comments: This is an overweight versus obese white female looking older than her stated age in hospital scrubs with poor grooming and limited eye contact. She was extremely immature Poor dentition. No abnormal involuntary motor movements appreciated. She was minimally cooperative on interview while requesting to leave the hospital. I am not hearing voices, can i go now. Speech was normal in rate and volume and monotone in quality. Mood described as fine, can i go now? Her affect was odd and subdued and mood incongruent. Thought process was linear but concrete. Thought content: Patient denies suicidal or homicidal ideation. She endorsed no auditory hallucinations today and did not appear to be responding to internal stimuli. There was continued presence of paranoia. Attention and concentration were limited as she was easily distracted. She is alert and oriented times person and place. Insight and judgment are impaired. Impulse control is poor. Fund of knowledge appeared poor. Abstraction was poor with evidence of concrete thinking. Vitals/I&O/Wt Last Vital Signs Temp 98.2 F 12/16/24 08:45 Pulse 99 12/16/24 08:45 Resp 16 12/16/24 08:45 BP 101/67 12/16/24 08:45 Pulse Ox 96 12/16/24 08:45 O2 Del Method Room Air 12/16/24 06:00 Data NPU 12/09/24 18:11 12/09/24 20:11 A&P Assessment and plan (1) Psychosis: (2) Paranoia: (3) Suicidal ideation: (4) Methamphetamine use disorder, severe, dependence: (5) Depression: Plan This is a 39-year-old white female with a long history of mental health and addiction issues who presents after a very confused and unclear what is going on from the standpoint of being in the hospital but she was positive for methamphetamine. The patient is experiencing significant mental health challenges, including depression, anxiety, paranoia, and auditory hallucinations. There is a history of depression predating substance use, indicating a longstanding mental health condition. 1. Increase Invega 9 mg p.o. daily. 2. Continue every 15 minute checks for safety. 3. Encourage individual, group and milieu therapy. 4. Encourage sober living treatment after discharge at the highest level care to which she is willing to commit. Check DARLENE to examine ability to live independently. 5. Court hearing for 21 day hold on 12/18/24. 6. Consider inpatient substance abuse facility. PDMP PDMP Reviewed: Not Reviewed Involuntary Hold Information 2 Hold Status: Legal Status: 96 Hour Hold Date/Time Hold Expires: 12/15/24 00:01 Attestations NPU 2 Medical Necessity Statement*: Inpatient hospitalization is medically necessary and the clinically appropriate intervention at this time.? We will monitor/initiate medications as indicated. The patient?s likely length of stay is 5-7 days.? Coding Level of Care Code Acute Code for [facility] Fw Diagnoses Psychosis F29 Paranoia F22 Suicidal ideation R45.851 Methamphetamine use disorder, severe, dependence F15.20 Depression F32.A
--- NOTE | 2024-12-16 10:56 | PC.NURSE ---
Order received from Dr. Mckinnon to order kylah COLON on pt for poor insight and poor self control.
[2024-12-16] MEDS: haloperidol inj 5 mg/mL INJ 1 mL IM (11:07)
[2024-12-16] MEDS: LORazepam 2 mg/mL INJ 1 mL IM (11:07)
[2024-12-16] MEDS: diphenhydrAMINE 50 mg/mL SDV 1mL IM (11:07)
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
[2024-12-16 11:20] VITALS: BP 122/87; PULSE 138; RESP 18; O2SAT 96
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
[2024-12-16 14:00] VITALS: BP 103/61; PULSE 106; RESP 18; TEMP 36.8; O2SAT 94
[2024-12-16] MEDS: hyDROXYzine 25 mg Capsule 50 MG PO (19:59)
[2024-12-16] MEDS: trazodone 50 mg Tablet PO (19:59)
[2024-12-16] MEDS: haloperidol 5 mg Tablet PO (20:00)
[2024-12-16 20:42] VITALS: BP 118/74; PULSE 120; RESP 18; TEMP 37.1; O2SAT 97
[2024-12-17] MEDS: OLANZapine 5 mg ODT PO ×3 (02:48→21:52)
[2024-12-17] MEDS: hyDROXYzine 25 mg Capsule 50 MG PO ×2 (02:48→07:33)
[2024-12-17] MEDS: trazodone 50 mg Tablet PO ×2 (02:48→21:52)
[2024-12-17 06:00] VITALS: BP 90/59; PULSE 96; RESP 17; TEMP 36.6; O2SAT 97; BMI 32.0
[2024-12-17] MEDS: nicotine 4 mg lozenge MUCOUS MEM ×2 (06:39→14:58)
[2024-12-17] MEDS: haloperidol 5 mg Tablet PO ×2 (06:39→13:17)
[2024-12-17] MEDS: nicotine 21 mg Patch 1 PATCH TRANSDERMA (08:32)
[2024-12-17] MEDS: paliperidone ER 9 mg Tablet PO (08:32)
[2024-12-17] MEDS: benztropine 1 mg Tablet PO (08:32)
--- NOTE | 2024-12-17 09:40 | PC.NURSE ---
Dr. Mckinnon ordered a UA on pt. Tim noticed that she was frequently visiting the restroom. I asked pt is it burned when she urinated and she stated yes . Will collect a UA.
[2024-12-17 10:13] LABS: Urine Appearance Clear (CLEAR); Urine Color Yellow (Yellow)
[2024-12-17 10:17] LABS: Bilirubin Urine Neg (Negative); Blood Urine Neg (Negative); Glucose Urine UA Norm (Normal); Ketones Urine Negative (Negative); Leukocyte Esterase Urine Negative (Negative); Nitrate Urine Negative (Negative); Protein Urine Neg (Negative); Urobilinogen Urine Neg (Negative); pH Urine 7 (5-7)
[2024-12-17 10:21] LABS: Bacteria Urine None Seen /hpf; Hyaline Casts Urine 0-4 /lpf; RBC Urine 0-2 /hpf (0-2); Squamous Epithelial Cell Urine 0-5 /hpf (0-5); WBC Urine 0-5 /hpf (0-5)
--- NOTE | 2024-12-17 12:55 | PC.NURSE ---
PT CONTINUES TO REQUEST INJECTIONS AND WANTS TO LEAVE. OBSERVED WANDERING AND EXIT SEEKING BEHAVIORS. NEW ORDERS RECEIVED FOR ORAL ATIVAN 2 MG AND BENADRYL 50 MG. PT TO BE GIVEN HALDOL WITH THE ATIVAN AND BENADRYL DUE TO BEHAVIORS. SUPPORT VOICED.
[2024-12-17 14:00] VITALS: BP 141/87; PULSE 130; RESP 18; TEMP 37.6; O2SAT 94
[2024-12-17] MEDS: LORazepam 2 mg Tablet PO (14:46)
[2024-12-17] MEDS: diphenhydrAMINE 50 mg Capsule PO (14:46)
--- NOTE | 2024-12-17 14:47 | PC.NURSE ---
Pt has been trying to go outside since lunch, we reinterated to pt several times that at 1400 we would take her outside for a group and give them all ice cream. Pt did go outside for approx 30 min and sat with aid Shayy and Dejah and also had a snack. She came in after 30 min with resistance. She came to the nurses station repeatedly telling staff that she was leaving. As safety security officer Gold was leaving the nurses station pt lunged at the door and had to be assisted back into the ford. Pt became upset with sitter telling her to get out of my face This nurse went and got medicine for the pt and offered it to her. Pt stated I'm not going to take that After several attempts of trying to convince the pt to take the medication we then let her know that she was going to have to take the meds or go into seclusion, that we couldn't cont to have her trying to leave the unit. Pt wanted to go to seclusion, when we entered the hallway to take her down there she changed her mind and decided that she wanted to go ahead and take the medication. After taking medication, pt again asked for seclusion. This nurse and security walked her down to the room and let her look at it. Pt decided that she didn't want to go to seclusion. Pt was encouraged to walk the ford or sit quietly in her room. Pt has cont to pace the halls stating she is scared Staff cont to support her and let her know that she is safe. We cont to offer fluids, coloring, puzzles, and tv as other forms of distraction. The pacing and request to go outside is beginning to decrease.
--- NOTE | 2024-12-17 16:58 | P.NPUPN_ITS ---
Subjective NPU 2 Subjective: 39-year-old female with a past history o f significant methamphetamine abuse admitted with auditory hallucinations and depression while negative on urine drug screen for amphetamines. The patient continued to perseverate on wanting to leave the unit and required as needed medications once again due to agitation as she attempted to elope. She continued to struggle with remaining in her room and following directions. She had been informed numerous times of the necessity for the patient to remain here and she continued to report having no clear idea where to go when she left here at this time. She had remained compliant with her medication regimen. Patient endorsed hearing voices through chase. Mental Status Exam 2 MSE Comments: This is an overweight versus obese white female looking older than her stated age in hospital scrubs with poor grooming and limited eye contact. She was extremely immature appearing to interact like an 8 year old child. Poor dentition. No abnormal involuntary motor movements appreciated. She was minimally cooperative on interview while requesting to leave the hospital. I am not hearing voices, can i go now. Speech was normal in rate and volume and monotone in quality. Mood described as fine, can i go now? Her affect was odd and subdued and mood incongruent. Thought process was linear but concrete. Thought content: Patient denies suicidal or homicidal ideation. She endorsed no auditory hallucinations today and did not appear to be responding to internal stimuli. There was continued presence of paranoia. Attention and concentration were limited as she was easily distracted. She is alert and oriented times person and place. Insight and judgment are impaired. Impulse control is poor. Fund of knowledge appeared poor. Abstraction was poor with evidence of concrete thinking. Vitals/I&O/Wt Last Vital Signs Temp 99.6 F 12/17/24 14:00 Pulse 130 H 12/17/24 14:00 Resp 18 12/17/24 14:00 BP 141/87 12/17/24 14:00 Pulse Ox 94 12/17/24 14:00 O2 Del Method Room Air 12/17/24 06:00 Weight last 48 hrs Weight 89.902 kg Data NPU 12/09/24 18:11 12/09/24 20:11 A&P Assessment and plan (1) Psychosis: (2) Paranoia: (3) Suicidal ideation: (4) Methamphetamine use disorder, severe, dependence: (5) Depression: Plan This is a 39-year-old white female with a long history of mental health and addiction issues who presents after a very confused and unclear what is going on from the standpoint of being in the hospital but she was positive for methamphetamine. The patient is experiencing significant mental health challenges, including depression, anxiety, paranoia, and auditory hallucinations. There is a history of depression predating substance use, indicating a longstanding mental health condition. 1. Continue Invega 9 mg p.o. daily. 2. Continue every 15 minute checks for safety. 3. Encourage individual, group and milieu therapy. 4. Encourage sober living treatment after discharge at the highest level care to which she is willing to commit. Check DARLENE to examine ability to live independently. 5. Court hearing for 21 day hold on 12/18/24. 6. Consider inpatient substance abuse facility. PDMP PDMP Reviewed: Not Reviewed Involuntary Hold Information 2 Hold Status: Legal Status: 96 Hour Hold Date/Time Hold Expires: 12/15/24 00:01 Attestations NPU 2 Medical Necessity Statement*: Inpatient hospitalization is medically necessary and the clinically appropriate intervention at this time.? We will monitor/initiate medications as indicated. The patient?s likely length of stay is 5-7 days.? Coding Level of Care Code Acute Code for [facility] Fwd Diagnoses Psychosis F29 Paranoia F22 Suicidal ideation R45.851 Methamphetamine use disorder, severe, dependence F15.20 Depression F32.A
[2024-12-17 19:53] VITALS: BP 93/58; PULSE 96; RESP 16; TEMP 36.9; O2SAT 94
[2024-12-18 06:00] VITALS: BP 108/73; PULSE 116; RESP 18; O2SAT 96
[2024-12-18] MEDS: LORazepam 2 mg Tablet PO (08:08)
[2024-12-18] MEDS: haloperidol 5 mg Tablet PO (08:08)
[2024-12-18] MEDS: diphenhydrAMINE 50 mg Capsule PO (08:08)
[2024-12-18] MEDS: paliperidone ER 9 mg Tablet PO (08:08)
--- NOTE | 2024-12-18 08:53 | PC.NURSE ---
Oral B52 Oral B52 administered to patient for agitation. Patient keeps threatening to break out of the unit. Patient pushing on door. Sitter present.
[2024-12-18 14:00] VITALS: BP 103/64; PULSE 88; RESP 16; O2SAT 97
--- NOTE | 2024-12-18 17:31 | W.PM.NPUPNS ---
Subjective NPU Subjective: 39-year-old female with a past history of significant methamphetamine abuse admitted with auditory hallucinations and depression while negative on urine drug screen for amphetamines. The patient had continued to pure agitated requiring as needed medications. The patient had stayed in her room all day while remaining on a one-to-one as she had continued to express desire to leave the hospital. She had stated that she could hear the voices through the wall. She reported that she needed to leave and stated that she would rather be in detention. She did not appear to have any significant problems that would merit her being incarcerated at this time. Patient reported that she did not have a home. Mental Status Exam MSE Comments: This is an overweight versus obese white female looking older than her stated age in hospital scrubs with poor grooming and limited eye contact. She was extremely immature appearing to interact like an 8 year old child. Poor dentition. No abnormal involuntary motor movements appreciated. She was minimally cooperative on interview while requesting to leave the hospital. She endorsed hearing voices through the wall. Speech was normal in rate and volume and monotone in quality. Mood described as mad. Her affect was odd and subdued and mood incongruent. Thought process was linear but concrete. Thought content: Patient denies suicidal or homicidal ideation. She endorsed auditory hallucinations today and did appear to be responding to internal stimuli. There was continued presence of paranoia. Attention and concentration were limited as she was easily distracted. She is alert and oriented times person and place. Insight and judgment are impaired. Impulse control is poor. Fund of knowledge appeared poor. Abstraction was poor with evidence of concrete thinking. Vitals/I&O/Wt Last Vital Signs Temp 98.5 F 12/17/24 19:53 Pulse 88 12/18/24 14:00 Resp 16 12/18/24 14:00 BP 103/64 12/18/24 14:00 Pulse Ox 97 12/18/24 14:00 O2 Del Method Room Air 12/18/24 06:00 Weight last 48 hrs Weight 89.902 kg Data NPU 12/09/24 18:11 12/09/24 20:11 A&P Assessment and plan (1) Psychosis: (2) Paranoia: (3) Suicidal ideation: (4) Methamphetamine use disorder, severe, dependence: (5) Depression: Plan This is a 39-year-old white female with a long history of mental health and addiction issues who presents after a very confused and unclear what is going on from the standpoint of being in the hospital but she was positive for methamphetamine. The patient is experiencing significant mental health challenges, including depression, anxiety, paranoia, and auditory hallucinations. There is a history of depression predating substance use, indicating a longstanding mental health condition. 1. Continue Invega 9 mg p.o. daily. 2. Continue every 15 minute checks for safety. 3. Encourage individual, group and milieu therapy. 4. Encourage sober living treatment after discharge at the highest level care to which she is willing to commit. Check DARLENE to examine ability to live independently. 5. Patient placed on 21 day hold. Patient performed poorly on DARLENE (needed assistance on 06/17 skills tested)-Will likely begin level 2 with plan for guardianship. PDMP PDMP Reviewed: Not Reviewed Involuntary Hold Information Hold Status: Legal Status: 96 Hour Hold Date/Time Hold Expires: 01/08/25 Attestations NPU Medical Necessity Statement*: Inpatient hospitalization is medically necessary and the clinically appropriate intervention at this time.? We will monitor/initiate medications as indicated. The patient?s likely length of stay is 15-20 days as patient remains on 1-[address] appointed guardianship is now being pursued. Coding Level of Care Code Acute Code for [facility] Fwd Diagnoses Psychosis F29 Paranoia F22 Suicidal ideation R45.851 Methamphetamine use disorder, severe, dependence F15.20 Depression F32.A
[2024-12-18 19:47] VITALS: BP 101/65; PULSE 96; RESP 16; O2SAT 99
[2024-12-18] MEDS: OLANZapine 5 mg ODT PO (20:26)
[2024-12-18] MEDS: trazodone 50 mg Tablet PO (20:26)
[2024-12-18] MEDS: nicotine 4 mg lozenge 8 MG MUCOUS MEM (20:30)
[2024-12-19] MEDS: OLANZapine 5 mg ODT PO ×2 (04:04→17:26)
[2024-12-19 06:00] VITALS: BP 101/64; PULSE 88; RESP 16; O2SAT 97
[2024-12-19] MEDS: acetaminophen 325 mg Tablet 650 MG PO (06:15)
[2024-12-19] MEDS: diphenhydrAMINE 50 mg Capsule PO ×2 (06:49→18:23)
[2024-12-19] MEDS: haloperidol 5 mg Tablet PO ×2 (06:49→18:23)
[2024-12-19] MEDS: LORazepam 2 mg Tablet PO ×2 (06:49→18:23)
[2024-12-19 07:00] VITALS: BP 106/67; PULSE 80; RESP 14; O2SAT 95
--- NOTE | 2024-12-19 07:13 | PC.NURSE ---
BEHAVIORAL At approximately 0615 pt came up to nurses station stating that she was going to leave today. Pt then started pushing on the nurses station door and the door to the foyer. Security was called and oral B52 medications were offered and pt agreed. Once medications were pulled pt then stated that she wouldn't take them and that we are fucking bitches for keeping her here. Once all of day shift staff and security arrived on the unit the patient was told that she either needed to take the oral medications or she would be placed into seclusion. Ativan 2mg, Haldol 5mg and Benadryl 50mg PO was given at approximately 0650. Pt continued to push on doors, pull on the glass, thrown things into the nurses station, and tell nursing staff to fuck off . A code 10 was called at 0724 and pt was placed into seclusion at 0724. Pt was released from seclusion at 0733. Pt is now observed laying in bed with sitter at bedside.
--- NOTE | 2024-12-19 07:48 | PC.NURSE ---
Post manual hold/seclusion Patient's VS at 0746: 106/67, HR 80, 95% RA. Patient's arms inspected following manual hold. No redness noted. Patient denies any pain/discomfort on palpation.
--- NOTE | 2024-12-19 07:51 | PC.NURSE ---
CODE 10, manual hold, seclusion On arrival to the unit, this nurse noted that patient was attempting to elope from the unit. Patient trying doors, pulling on glass, etc. KATERINE Ricci had given patient oral B52. After report, patient was at the window demanding to be let into the nursing station. Attempts to verbally desculate were not successful. This contract technical writer went to the ford to talk with patient, expressing options and explaining appropriate verses inappropriate behaviors on the unit. Patient then started ramming her shoulder into the door. Patient was told that if she did not stop, that she would have to be placed into seclusion for her safety. Patient said to this nurse, You aren't big enough . This nurse said that security would assist. Patient said call them . Security notified. Patient then went to dayroom with sitter and began coloring. Kadeem with security counseled patient on appropriate behaviors. Patient become agitated, said that she is going to check the doors. Patient pacing the ford, said she would not touch the doors, just looking. Security stepped off for a moment. Patient then started pulling on the glass surrounding the nursing station. She was putting her hands into the slats in the windows. Through the tissue box toward staff. Tried to pull papers from off the window. The prayer box had to be quickly removed because she was making her way to it. Patient cursed at this nurse. Patient agitated. Patient looked angry and enraged. Security notified. it was decided to place patient into seclusion for her safety as well as for the safety of others. Patient refused to go into seclusion. At 0723 Code 10 called and Kadeem with security and MARLENE Lucas put there hands in the escort hold and escorted patient into the seclusion room. Door closed at 0724. Staff present continuously outside the seclusion room. Patient allowed to exit seclusion at 0733 after patient had calmed down and agreed to be compliant. Dr. Mckinnon notified via text. joseph notified via text. This nurse checked VS shortly after release from seclusion. These are documented and are WNLs. Patient's arms checked for redness and discomfort. no redness. Patient denies pain on palpation. Will continue to monitor.
[2024-12-19] MEDS: paliperidone ER 9 mg Tablet PO (08:15)
--- NOTE | 2024-12-19 11:29 | PC.NURSE ---
Code 10 This nurse arrived to the unit at approx 0645. Pt was at nurses station with shift foreman staff and security, visibly upset and wanting to exit the unit. Pt was offered oral PRN medications to help her relax. Pt would agree to take them and then once they were offered she would quickly decline. Pt did finally take the oral PRN medications at approx 0650. She soon began pushing the doors and insisting on getting out. She made her way to the dayroom and sat for approx 2 min coloring. She made her way back to the nurses station and insisted on getting out the doors again. She would reach inside the window of the nurses station and attempt to remove papers off the window, shake the windows, and she managed to get a box of tissues and throw them into the station. She told Nurse Sneha Go fuck yourself you stupid bitch. She then made her way to her room. The decision was made to move the pt to seclusion to protect herself and others. At 0724 a code 10 was called and a manual hold was used by Kadeem in Security and Shayy CASUALTY CLAIM ADJUSTER. Pt was slightly resistant and tearful, but did finally let staff out of seclusion room. Seclusion started at 0724. She was tearful but spoke to this nurse and Nurse Hoover through the window for a little bit. She apologized for her behaviors. She finally layed down and started to fall asleep. Decision was made to release her from seclusion at 0733 and allow her to rest in her bed. Pt soon began resting with her eyes closed and no further behaviors were noted.
[2024-12-19] MEDS: ibuprofen 600 mg Tablet PO (13:36)
[2024-12-19 14:00] VITALS: BP 90/52; PULSE 88; RESP 16; TEMP 36.6; O2SAT 97
--- NOTE | 2024-12-19 15:35 | P.NPUPN_ITS ---
Subjective NPU 2 Subjective: 39-year-old female with a past history o f significant methamphetamine abuse admitted with auditory hallucinations and depression while negative on urine drug screen for amphetamines. The patient had admitted that she was homeless. She had required seclusion as she had attempted once again to leave the unit. She had continued to report that she wanted to leave but again had no clear direction on where she would go. She had remained confused and was difficult to redirect. She had expressed to staff that she had money for disability but appeared to have only $15 left in her account. She had suggested that another person had been taking money from her account which appeared very likely given that she would have been paid earlier this month. She had spent much of the day sleeping after receiving Haldol. Mental Status Exam 2 MSE Comments: This is an overweight versus obese white female looking older than her stated age in hospital scrubs with poor grooming and limited eye contact. She was extremely immature appearing to interact like an 6 year old child. Poor dentition. No abnormal involuntary motor movements appreciated. She was minimally cooperative on interview while requesting to leave the hospital. Speech was normal in rate and volume and monotone in quality. Mood described as bad. Her affect was odd and subdued and mood incongruent. Thought process was linear but concrete. Perseverated on wanting to leave hospital. Thought content: Patient denies suicidal or homicidal ideation. She endorsed auditory hallucinations today and did appear to be responding to internal stimuli. There was continued presence of paranoia. Attention and concentration were limited as she was easily distracted. She is alert and oriented times person and place. Insight and judgment are impaired. Impulse control is poor. Fund of knowledge appeared poor. Abstraction was poor with evidence of concrete thinking. Vitals/I&O/Wt Last Vital Signs Temp 98.5 F 12/17/24 19:53 Pulse 80 12/19/24 07:00 Resp 14 12/19/24 07:00 BP 106/67 12/19/24 07:00 Pulse Ox 95 12/19/24 07:00 O2 Del Method Room Air 12/19/24 07:00 Data NPU 12/09/24 18:11 12/09/24 20:11 A&P Assessment and plan (1) Psychosis: (2) Paranoia: (3) Suicidal ideation: (4) Methamphetamine use disorder, severe, dependence: (5) Depression: (6) Impulse control disorder, unspecified: Plan This is a 39-year-old white female with a long history of mental health and addiction issues who presents after a very confused and unclear what is going on from the standpoint of being in the hospital but she was positive for methamphetamine. The patient is experiencing significant mental health challenges, including depression, anxiety, paranoia, and auditory hallucinations. There is a history of depression predating substance use, indicating a longstanding mental health condition. She likely also has a developmental disability or cognitive limitations with poor impulse control. 1. Continue Invega 9 mg p.o. daily. Add Depakote for aggression. 2. Continue every 15 minute checks for safety. 3. Encourage individual, group and milieu therapy. 4. Encourage sober living treatment after discharge at the highest level care to which she is willing to commit. Check DARLENE to examine ability to live independently. 5. Patient placed on 21 day hold. Patient performed poorly on DARLENE (needed assistance on 06/17 skills tested)-Will likely begin level 2 with plan for guardianship. PDMP PDMP Reviewed: Not Reviewed Involuntary Hold Information 2 Hold Status: Legal Status: 21 Day Hold Date/Time Hold Expires: 01/15/25 Attestations NPU 2 Medical Necessity Statement*: Inpatient hospitalization is medically necessary and the clinically appropriate intervention at this time.? We will monitor/initiate medications as indicated. The patient?s likely length of stay is 15-20 days as patient remains on 1-[address] appointed guardianship is now being pursued. Coding Level of Care Code Acute Code for [facility] Fwd Diagnoses Psychosis F29 Paranoia F22 Suicidal ideation R45.851 Methamphetamine use disorder, severe, dependence F15.20 Depression F32.A Impulse control disorder, unspecified F63.9
[2024-12-19] MEDS: hyDROXYzine 25 mg Capsule 50 MG PO (17:26)
[2024-12-19] MEDS: nicotine 4 mg lozenge 8 MG MUCOUS MEM (17:29)
--- NOTE | 2024-12-19 18:06 | PC.NURSE ---
Seclusion Patient placed into seclusion at 1755. Patient requested to be placed into seclusion. Patient had been observed by security, pushing on the doors. Sitter present. Kristine Chinchilla R with Security, and supervisor personnel clerks and Jory notified.
--- NOTE | 2024-12-19 18:29 | PC.NURSE ---
Patient removed from seclusion room at 1826. patient was in seclusion for [address] Mckinnon notified in person. Patient anxious in seclusion room, pacing back and forth. Patient requesting injections. Dr. Mckinnon verbalized approval for oral B52 medications. Medications administered with no issue. Patient stated that she is ready to be released that she will quit pushing on the doors. Patient said that she is triggered to start pushing on the doors because she feels like she is in danger and because she is missing her boyfriend. This nurse assured patient that she is safe here on the locked unit. Patient verbalized understanding. patient was offered the phone to call her boyfriend. patient also offered shower supplies, with the notion that perhaps hot water would help her feel better. Patient now in ford with sitter. patient being cooperative at this time.
[2024-12-19 20:35] VITALS: BP 92/53; PULSE 90; RESP 16; TEMP 36.4; O2SAT 94
[2024-12-20 06:00] VITALS: BP 110/63; PULSE 84; RESP 17; TEMP 36.4; O2SAT 98
[2024-12-20] MEDS: divalproex ER 500 mg Tablet (24H) PO (08:20)
[2024-12-20] MEDS: paliperidone ER 9 mg Tablet PO (08:20)
[2024-12-20] MEDS: haloperidol inj 5 mg/mL INJ 1 mL IM (09:01)
[2024-12-20] MEDS: LORazepam 2 mg/mL INJ 1 mL IM (09:01)
[2024-12-20] MEDS: diphenhydrAMINE 50 mg/mL SDV 1mL IM (09:02)
[2024-12-20 13:42] VITALS: BP 108/76; PULSE 105; RESP 16; TEMP 36.4; O2SAT 96
[2024-12-20] MEDS: LORazepam 2 mg Tablet PO (15:12)
[2024-12-20] MEDS: diphenhydrAMINE 50 mg Capsule PO (15:12)
[2024-12-20] MEDS: haloperidol 5 mg Tablet PO (15:12)
--- NOTE | 2024-12-20 17:01 | P.NPUPN_ITS ---
Subjective NPU 2 Subjective: 39-year-old female with a past history o f significant methamphetamine abuse admitted with auditory hallucinations and depression while negative on urine drug screen for amphetamines. The patient became agitated and attempt to strike the adjusto writer operator of the note. The patient had continued to perseverate about wanting to go home. She had required Haldol for agitation once again. She had continued to endorse hallucinations and was difficult to redirect. She continued to have tantrum behavior. Previous evidence supported that the patient has a history of significant cognitive dysfunction and difficulties with managing anger and impulsivity that was compounded by repeated use of methamphetamine for several years. Mental Status Exam 2 MSE Comments: This is an overweight versus obese white female looking older than her stated age in hospital scrubs with poor grooming and limited eye contact. She was extremely immature appearing to interact like an 6 year old child. Poor dentition. No abnormal involuntary motor movements appreciated. She was minimally cooperative on interview while requesting to leave the hospital. Speech was normal in rate and increased in volume and monotone in quality. Mood described as bad. Her affect was odd and subdued and mood incongruent. Thought process was linear but concrete. Perseverated on wanting to leave hospital. Thought content: Patient denies suicidal or homicidal ideation. She endorsed auditory hallucinations today and did appear to be responding to internal stimuli. There was continued presence of paranoia. Attention and concentration were limited as she was easily distracted. She is alert and oriented times person and place. Insight and judgment are impaired. Impulse control is poor. Fund of knowledge appeared poor. Abstraction was poor with evidence of concrete thinking. Vitals/I&O/Wt Last Vital Signs Temp 97.6 F 12/20/24 13:42 Pulse 105 H 12/20/24 13:42 Resp 16 12/20/24 13:42 BP 108/76 12/20/24 13:42 Pulse Ox 96 12/20/24 13:42 O2 Del Method Room Air 12/20/24 13:42 Data NPU 12/09/24 18:11 12/09/24 20:11 A&P Assessment and plan (1) Psychosis: (2) Paranoia: (3) Suicidal ideation: (4) Methamphetamine use disorder, severe, dependence: (5) Depression: (6) Impulse control disorder, unspecified: Plan This is a 39-year-old white female with a long history of mental health and addiction issues who presents after a very confused and unclear what is going on from the standpoint of being in the hospital but she was positive for methamphetamine. The patient is experiencing significant mental health challenges, including depression, anxiety, paranoia, and auditory hallucinations. There is a history of depression predating substance use, indicating a longstanding mental health condition. She likely also has a developmental disability or cognitive limitations with poor impulse control. 1. Continue Invega 9 mg p.o. daily. Increase Depakote to 1000mg ER In am for aggression. 2. Continue every 15 minute checks for safety. 3. Encourage individual, group and milieu therapy. 4. Encourage sober living treatment after discharge at the highest level care to which she is willing to commit. Check DARLENE to examine ability to live independently. 5. Patient placed on 21 day hold. Patient performed poorly on DARLENE (needed assistance on /12 skills tested)-Will likely begin level 2 with plan for guardianship. PDMP PDMP Reviewed: Not Reviewed Involuntary Hold Information 2 Hold Status: Legal Status: 21 Day Hold Date/Time Hold Expires: 01/15/25 Attestations NPU 2 Medical Necessity Statement*: Inpatient hospitalization is medically necessary and the clinically appropriate intervention at this time.? We will monitor/initiate medications as indicated. The patient?s likely length of stay is 15-20 days as patient remains on 1-[address] appointed guardianship is now being pursued. Coding Level of Care Code Acute Code for [facility] Fwd Diagnoses Psychosis F29 Paranoia F22 Suicidal ideation R45.851 Methamphetamine use disorder, severe, dependence F15.20 Depression F32.A Impulse control disorder, unspecified F63.9
[2024-12-20] MEDS: trazodone 50 mg Tablet PO (20:04)
[2024-12-20] MEDS: hyDROXYzine 25 mg Capsule 50 MG PO (20:04)
[2024-12-20 20:09] VITALS: BP 105/73; PULSE 96; RESP 16; TEMP 36.7; O2SAT 95
[2024-12-21 06:00] VITALS: BP 86/52; PULSE 80; RESP 16; TEMP 36.7; O2SAT 98
--- NOTE | 2024-12-21 07:58 | PC.NURSE ---
Pt states that she slept good last night. She denies anxiety and depression. She reports no hallucinations. Denies SI/HI. No reports of pain. She was on the phone early with her man and states that he is coming to see her today. Just was very excited. She ate breakfast and is in room putting fresh linens on her bed. She came to nurses station requesting sleep medication. Pt was instructed that we only do those at night time.
[2024-12-21] MEDS: paliperidone ER 9 mg Tablet PO (08:07)
[2024-12-21] MEDS: divalproex ER 500 mg Tablet (24H) PO (08:07)
[2024-12-21] MEDS: LORazepam 2 mg Tablet PO (08:09)
[2024-12-21] MEDS: haloperidol 5 mg Tablet PO (08:09)
[2024-12-21] MEDS: diphenhydrAMINE 50 mg Capsule PO (08:09)
[2024-12-21 14:00] VITALS: BP 125/81; PULSE 114; RESP 16; TEMP 36.7; O2SAT 95
--- NOTE | 2024-12-21 14:16 | W.PM.NPUPNS ---
Subjective NPU Subjective: 39-year-old female with a past history of significant methamphetamine abuse admitted with auditory hallucinations and depression while negative on urine drug screen for amphetamines. The patient required as needed medications. She continued to make threats towards the video games storywriter of this note. She had stated that she needed to go home and repeatedly attempt to run towards any doors that were open. She had reported that she was having her boyfriend visit today. She had continued to complain about hearing voices through the wall.The patient required one-to-one observation due to her continued episodes of aggression and episodes to elope from the unit.The patient had required seclusion and restraint as well. Vitals/I&O/Wt Last Vital Signs Temp 98.1 F 12/21/24 14:00 Pulse 114 H 12/21/24 14:00 Resp 16 12/21/24 14:00 BP 125/81 12/21/24 14:00 Pulse Ox 95 12/21/24 14:00 O2 Del Method Room Air 12/21/24 14:00 Data NPU 12/09/24 18:11 12/09/24 20:11 A&P Assessment and plan (1) Psychosis: (2) Paranoia: (3) Suicidal ideation: (4) Methamphetamine use disorder, severe, dependence: (5) Depression: (6) Impulse control disorder, unspecified: Plan This is a 39-year-old white female with a long history of mental health and addiction issues who presents after a very confused and unclear what is going on from the standpoint of being in the hospital but she was positive for methamphetamine. The patient is experiencing significant mental health challenges, including depression, anxiety, paranoia, and auditory hallucinations. There is a history of depression predating substance use, indicating a longstanding mental health condition. She likely also has a developmental disability or cognitive limitations with poor impulse control. 1. Continue Invega 9 mg p.o. daily. Increase Depakote to 1000mg ER In am for aggression. 2. Continue every 15 minute checks for safety. 3. Encourage individual, group and milieu therapy. 4. Encourage sober living treatment after discharge at the highest level care to which she is willing to commit. 5. Patient placed on 21 day hold. Patient performed poorly on DARLENE (needed assistance on 06/17 skills tested)-Will likely begin level 2 with plan for guardianship. 6. Patient to have visit from boyfriend today, is he a candidate for guardianship versus state maintained guardianship. PDMP PDMP Reviewed: Not Reviewed Involuntary Hold Information Hold Status: Legal Status: 21 Day Hold Date/Time Hold Expires: 01/15/25 Attestations NPU Medical Necessity Statement*: Inpatient hospitalization is medically necessary and the clinically appropriate intervention at this time.? We will monitor/initiate medications as indicated. The patient?s likely length of stay is 15-20 days as patient remains on 1-[address] appointed guardianship is now being pursued. Coding Level of Care Code Acute Code for [facility] Fwd Diagnoses Psychosis F29 Paranoia F22 Suicidal ideation R45.851 Methamphetamine use disorder, severe, dependence F15.20 Depression F32.A Impulse control disorder, unspecified F63.9
[2024-12-21] MEDS: haloperidol inj 5 mg/mL INJ 1 mL IM (15:55)
[2024-12-21] MEDS: LORazepam 2 mg/mL INJ 1 mL IM (15:56)
[2024-12-21] MEDS: diphenhydrAMINE 50 mg/mL SDV 1mL IM (15:56)
--- NOTE | 2024-12-21 15:57 | PC.NURSE ---
Code 10 Pt had a visitor to show up, boyfriendiandra Sorensen. She was tearful during the entire visit. We kept telling pt that she needed to try and calm down and just enjoy her visit. Pt cont to remain tearful and requesting to be d/c. This nurse went down and spoke to pt attempting to calm her down. Pt stated that if she couldn't leave with pt then she was going to sneak out behind him I informed pt that wasn't a good idea, because it would only prove that she wasn't ready to d/c yet. At 1545 pt boyfriendiandra attempted to leave the unit, because pt told him that she was done. She placed herself between him and the exit door. Staff entered the ford and moved pt out a different exit down the ford and told pt that she had to stay up front. She began to linda after her boyfriend and staff stopped her. She dropped to the floor and began sobbing and then bashing her head on the wall. We talked pt and had her to not hurt herself. She got up and started to pace to the day room. Staff followed and tried to deescalate the pt. She cont to pace and made threats to leave. Pt walked down ford and then as she was coming up she kicked a brown bag with trash in it. Staff cont to follow and deescalate pt. She made her way into the dayroom and began throwing cards. At 1551 a code 10 was called. Pt agreed to come to her room and sit on her bed to get an injection of Haldol, Benadryl and Ativan. After she received her injection she wanted to cont to pace the hallway. She asked again if she was going to be d/c tomorrow and after she was told no she started to get upset again, but deescalate herself. Pt is now laying in her bed resting with sitter at bedside.
[2024-12-21 16:30] VITALS: BP 98/63; PULSE 84; RESP 16; TEMP 36.7; O2SAT 96
[2024-12-21 20:04] VITALS: BP 91/59; PULSE 93; RESP 16; TEMP 36.6; O2SAT 97
[2024-12-21] MEDS: benztropine 1 mg Tablet PO (20:31)
[2024-12-21] MEDS: OLANZapine 5 mg ODT PO (20:31)
[2024-12-21] MEDS: hyDROXYzine 25 mg Capsule 50 MG PO (20:31)
[2024-12-21] MEDS: trazodone 50 mg Tablet PO (20:31)
--- NOTE | 2024-12-21 20:50 | PC.NURSE ---
20:46 and 20:47 documentation was entered in error.
[2024-12-22 06:00] VITALS: BP 99/65; PULSE 82; RESP 16; TEMP 36.5; O2SAT 97
[2024-12-22] MEDS: divalproex ER 500 mg Tablet (24H) 1000 MG PO (07:31)
[2024-12-22] MEDS: hyDROXYzine 25 mg Capsule 50 MG PO ×3 (07:31→20:44)
[2024-12-22] MEDS: paliperidone ER 9 mg Tablet PO (07:31)
[2024-12-22] MEDS: haloperidol 5 mg Tablet PO ×2 (08:41→17:02)
[2024-12-22] MEDS: diphenhydrAMINE 50 mg Capsule PO (09:07)
[2024-12-22] MEDS: LORazepam 1 mg Tablet PO (09:07)
--- NOTE | 2024-12-22 12:13 | PC.NURSE ---
This am pt. was agitated wanting to leave. Pt. was going from door to door pt. was pushing her body weight into the nurses station door attempting to get in. Pt. was waiting on staff to go through the door so she could get through the door the atlassian administrator and staff had to wait and tell pt. to stand at the end of the window and pt. was looking at staffs badges. Signee placed hand over badge security was present outside the nurses station and told her not to be pushing on the doors. Pt. was given an oral B-52 and eventually calmed down.
[2024-12-22] MEDS: benztropine 1 mg Tablet PO (13:06)
[2024-12-22 14:00] VITALS: BP 115/78; PULSE 119; RESP 18; TEMP 36.3; O2SAT 96
--- NOTE | 2024-12-22 15:07 | P.NPUPN_ITS ---
Subjective NPU 2 Subjective: Patient presented today reporting that she is doing fine and is ready to be discharged. We had a lengthy discussion about her poor impulse control as she once again tempted to shop her way into the nurses station today. She was asking about discharge and we discussed the fact that prior to discharge we would need to be able to take her off of one-to-one. Additionally we discussed her situation and that discharge is predicated on being well enough to go and that we would continue to monitor her improvement on the medication and utilize that as a indicator of when discharge would happen not her desire to be discharged. She denied any side effects to the medication. Mental Status Exam 2 MSE Comments: This is an overweight versus obese white female looking older than her stated age in hospital scrubs with poor grooming and limited eye contact. She was extremely immature appearing to interact like an 6 year old child. Poor dentition. No abnormal involuntary motor movements appreciated. She was minimally cooperative on interview while requesting to leave the hospital. Speech was normal in rate and increased in volume and monotone in quality. Mood described as bad. Her affect was odd and subdued and mood incongruent. Thought process was linear but concrete. Perseverated on wanting to leave hospital. Thought content: Patient denies suicidal or homicidal ideation. She endorsed auditory hallucinations today and did appear to be responding to internal stimuli. There was continued presence of paranoia. Attention and concentration were limited as she was easily distracted. She is alert and oriented times person and place. Insight and judgment are impaired. Impulse control is poor. Fund of knowledge appeared poor. Abstraction was poor with evidence of concrete thinking. Vitals/I&O/Wt Last Vital Signs Temp 97.3 F L 12/22/24 14:00 Pulse 119 H 12/22/24 14:00 Resp 18 12/22/24 14:00 BP 115/78 12/22/24 14:00 Pulse Ox 96 12/22/24 14:00 O2 Del Method Room Air 12/22/24 06:00 Data NPU 12/09/24 18:11 12/09/24 20:11 A&P Assessment and plan (1) Psychosis: (2) Paranoia: (3) Suicidal ideation: (4) Methamphetamine use disorder, severe, dependence: (5) Depression: (6) Impulse control disorder, unspecified: Plan This is a 39-year-old white female with a long history of mental health and addiction issues who presents after a very confused and unclear what is going on from the standpoint of being in the hospital but she was positive for methamphetamine. The patient is experiencing significant mental health challenges, including depression, anxiety, paranoia, and auditory hallucinations. There is a history of depression predating substance use, indicating a longstanding mental health condition. She likely also has a developmental disability or cognitive limitations with poor impulse control. 1. Continue Invega 9 mg p.o. daily. Increase Depakote to 1000mg ER In am for aggression. 2. Continue every 15 minute checks for safety. 3. Encourage individual, group and milieu therapy. 4. Encourage sober living treatment after discharge at the highest level care to which she is willing to commit. 5. Patient placed on 21 day hold. Patient performed poorly on DARLENE (needed assistance on 06/17 skills tested)-Will likely begin level 2 with plan for guardianship. 6. We will continue to evaluate and make recommendations about who serves as guardian after we conversed with her significant other. PDMP PDMP Reviewed: Not Reviewed Involuntary Hold Information 2 Hold Status: Legal Status: 21 Day Hold Date/Time Hold Expires: 01/15/25 Attestations NPU 2 Medical Necessity Statement*: Inpatient hospitalization is medically necessary and the clinically appropriate intervention at this time.? We will monitor/initiate medications as indicated. The patient?s likely length of stay is 15-20 days as patient remains on 1-[address] appointed guardianship is now being pursued. Coding Level of Care Code Acute Code for [facility] Fwd Diagnoses Psychosis F29 Paranoia F22 Suicidal ideation R45.851 Methamphetamine use disorder, severe, dependence F15.20 Depression F32.A Impulse control disorder, unspecified F63.9
[2024-12-22] MEDS: nicotine 4 mg lozenge 8 MG MUCOUS MEM (15:51)
--- NOTE | 2024-12-22 17:47 | PC.NURSE ---
around 1725 pt attempted to push her way through [facility] door while it was open by nurse orthopaedic to bring the trash container in. Ginner and security assisted in keeping the pt from further entry than the doorway. pt grabbed door frame so she could maintain access, this senior copywriter removed pt hand from doorway pt assisted by security went into hallway pt continued to struggle in attempt to access door. code 10 called, pt escorted to seclusion room at 1730 seclusion restraint was initiated. doctor Lopez notified, powerhouse mechanic apprentice notified, shaw Shearer notified. At 1740 administered Benadryl 50mg in right deltoid by crater and packer, this senior copywriter administered Haldol 5mg and Ativan 2mg Im in left deltoid. [id number] pt let out of seclusion room. pt stated at that time she would be good and go to her room.
[2024-12-22] MEDS: LORazepam 2 mg/mL INJ 1 mL IM (17:55)
[2024-12-22] MEDS: diphenhydrAMINE 50 mg/mL SDV 1mL IM ×2 (17:55)
--- NOTE | 2024-12-22 17:56 | PC.NURSE ---
Staff member was returning to the nurses station to bring the trash barrel back into the nurses station when pt. rushed and pushed her way through into the nurses station. Staff had the trash barrel in front of pt. in an attempt to keep pt. out, but pt. was still able to get through. One on one sitter was verbally trying to redirect pt, but this was also unsuccessful. Security was sitting at the nurses station and got up and had to push pt. back into the hallway then security walked her to the seclusion room. A code [address] Lopez was in his office and was informed. Jose Thomas RN and Yovany Johnson RN was informed. Dr. Lopez gave the verbal order to give pt. a B-52 which was given. When shots were given pt. was asked to sit down which she did and when the nurses went to get out of the seclusion room pt. rushed at the door and signee had to shut the door very quickly. Pt. was released from seclusion at 1759.
[2024-12-22 18:22] VITALS: BP 98/65; PULSE 108; RESP 18; TEMP 36.7; O2SAT 95
[2024-12-22 20:11] VITALS: BP 93/64; PULSE 87; RESP 16; TEMP 37.1; O2SAT 95
[2024-12-22] MEDS: OLANZapine 5 mg ODT PO (20:44)
[2024-12-22] MEDS: trazodone 50 mg Tablet PO (20:44)
[2024-12-23 06:00] VITALS: BP 92/59; PULSE 94; RESP 18; TEMP 36.4; O2SAT 97
[2024-12-23] MEDS: paliperidone ER 9 mg Tablet PO (08:31)
[2024-12-23] MEDS: hyDROXYzine 25 mg Capsule 50 MG PO ×2 (08:31→17:40)
[2024-12-23] MEDS: haloperidol 5 mg Tablet PO (08:31)
[2024-12-23] MEDS: divalproex ER 500 mg Tablet (24H) 1000 MG PO (08:32)
[2024-12-23] MEDS: calcium carbonate 500 mg Chew Tablet 1000 MG PO (08:57)
[2024-12-23] MEDS: haloperidol inj 5 mg/mL INJ 1 mL IM (09:54)
[2024-12-23] MEDS: diphenhydrAMINE 50 mg/mL SDV 1mL IM (09:54)
[2024-12-23] MEDS: LORazepam 2 mg/mL INJ 1 mL IM (09:54)
--- NOTE | 2024-12-23 09:54 | PC.NURSE ---
IM B52 Patient was given an IM B52 at about 0950 for behaviors. Patient attempting to elope from unit, pressing on the doors and windows. Patient was redirectable initially, but as time passed, patient visibly became anxious. Patient tremulous, raised voice. Patient no longer willing to comply with directions from staff to quit pushing on exit doors and nursing door. Patient attempting to enter other patient's room at the end of the ford. Patient agreeable to injections. IM B52 administered, haldol 5mg and ativan 2mg IM into left deltoid muscle. Benadryl 50mg into right deltoid muscle by MICH Torres. Patient tolerated well. Patient tearful, saying she wants to leave, that she wants to see her boyfriend Edu. support voiced. Sitter present. Dr. Lopez notified.
[2024-12-23 14:00] VITALS: BP 99/58; PULSE 88; RESP 19; TEMP 36.9; O2SAT 97
--- NOTE | 2024-12-23 14:10 | P.NPUPN_ITS ---
Subjective NPU 2 Subjective: Patient presented today reporting that she is doing fine and once again was perseverating about discharge. We had a lengthy discussion about what it would take for her to be discharged and the unlikelihood that that will happen prior to her being placed on guardianship. We discussed the fact that her significant other may pursue that but it is also possible that there be a court appointed guardian. She endorsed not being opposed to her significant other being guardian. We discussed however that she has continued to try to abscond and get out of the facility and that as long as that is the case she will have the one-to-one. And as long as she has one-to-one she will not be leaving the hospital. She reports that she will be good moving forward so that she can get off the one-to-one and that she will stop the behaviors that have led to her getting as needed medications and other interventions. She denied any side effects of the medications. Mental Status Exam 2 MSE Comments: This is an overweight versus obese white female looking older than her stated age in hospital scrubs with poor grooming and limited eye contact. She was extremely immature appearing to interact like an 6 year old child. Poor dentition. No abnormal involuntary motor movements appreciated. She was minimally cooperative on interview while requesting to leave the hospital. Speech was normal in rate and increased in volume and monotone in quality and at times slurred mood described as bad. Her affect was odd and subdued and mood incongruent. Thought process was linear but concrete. Perseverated on wanting to leave hospital. Thought content: Patient denies suicidal or homicidal ideation. She endorsed auditory hallucinations today and did appear to be responding to internal stimuli. There was continued presence of paranoia. Attention and concentration were limited as she was easily distracted. She is alert and oriented times person and place. Insight and judgment are impaired. Impulse control is poor. Fund of knowledge appeared poor. Abstraction was poor with evidence of concrete thinking. Vitals/I&O/Wt Last Vital Signs Temp 97.6 F 12/23/24 06:00 Pulse 94 12/23/24 06:00 Resp 18 12/23/24 06:00 BP 92/59 12/23/24 06:00 Pulse Ox 97 12/23/24 06:00 O2 Del Method Room Air 12/23/24 06:00 Data NPU 12/09/24 18:11 12/09/24 20:11 A&P Assessment and plan (1) Psychosis: (2) Paranoia: (3) Suicidal ideation: (4) Methamphetamine use disorder, severe, dependence: (5) Depression: (6) Impulse control disorder, unspecified: Plan This is a 39-year-old white female with a long history of mental health and addiction issues who presents after a very confused and unclear what is going on from the standpoint of being in the hospital but she was positive for methamphetamine. The patient is experiencing significant mental health challenges, including depression, anxiety, paranoia, and auditory hallucinations. There is a history of depression predating substance use, indicating a longstanding mental health condition. She likely also has a developmental disability or cognitive limitations with poor impulse control. 1. Continue Invega 9 mg p.o. daily. Increase Depakote to 1000mg ER In am for aggression. 2. Continue every 15 minute checks for safety. 3. Encourage individual, group and milieu therapy. 4. Encourage sober living treatment after discharge at the highest level care to which she is willing to commit. 5. Patient placed on 21 day hold. Patient performed poorly on DARLENE (needed assistance on /12 skills tested)-Will likely begin level 2 with plan for guardianship. 6. We will continue to evaluate and make recommendations about who serves as guardian after we conversed with her significant other. PDMP PDMP Reviewed: Not Reviewed Involuntary Hold Information 2 Hold Status: Legal Status: 21 Day Hold Date/Time Hold Expires: 01/15/25 Attestations NPU 2 Medical Necessity Statement*: Inpatient hospitalization is medically necessary and the clinically appropriate intervention at this time.? We will monitor/initiate medications as indicated. The patient?s likely length of stay is 15-20 days as patient remains on 1-[address] appointed guardianship is now being pursued. Coding Level of Care Code Acute Code for [facility] Fwd Diagnoses Psychosis F29 Paranoia F22 Suicidal ideation R45.851 Methamphetamine use disorder, severe, dependence F15.20 Depression F32.A Impulse control disorder, unspecified F63.9
[2024-12-23] MEDS: nicotine 4 mg lozenge 8 MG MUCOUS MEM (15:20)
[2024-12-23] MEDS: OLANZapine 5 mg ODT PO ×2 (15:21→21:29)
[2024-12-23 20:14] VITALS: BP 102/67; PULSE 108; RESP 16; O2SAT 97
[2024-12-23] MEDS: trazodone 50 mg Tablet PO (21:29)
[2024-12-23] MEDS: diphenhydrAMINE 50 mg Capsule PO (21:29)
[2024-12-24 06:00] VITALS: RESP 16
--- NOTE | 2024-12-24 06:06 | PC.NURSE ---
pt refused resp at 16 charge nurse Momo GARCIAS notified
[2024-12-24] MEDS: calcium carbonate 500 mg Chew Tablet 1000 MG PO (06:36)
[2024-12-24] MEDS: haloperidol 5 mg Tablet PO ×2 (07:53→17:17)
[2024-12-24] MEDS: paliperidone ER 9 mg Tablet PO (07:53)
[2024-12-24] MEDS: diphenhydrAMINE 50 mg Capsule PO ×2 (07:53→21:04)
[2024-12-24] MEDS: LORazepam 1 mg Tablet PO ×2 (07:53→21:03)
[2024-12-24] MEDS: divalproex ER 500 mg Tablet (24H) 1000 MG PO (07:53)
--- NOTE | 2024-12-24 08:25 | W.PM.NPUPNS ---
Subjective NPU Subjective: Patient presented today reporting that she is doing okay. She required as needed medication again at the start the day per staff reports. She continues to show limited insight as they report her continuing to check doors and try to get into areas where she does not belong and she continues to ask about discharge even though she is aware of the guardianship process that has been discussed with her multiple times. She continues to have one-to-one and we continued to discuss the need for one-to-one due to her behaviors and we discussed what she would need to do for the 1 that wanted discontinued. She denied any side effects to her medication. Mental Status Exam MSE Comments: This is an overweight versus obese white female looking older than her stated age in hospital scrubs with poor grooming and limited eye contact. She was extremely immature appearing to interact like an 6 year old child. Poor dentition. No abnormal involuntary motor movements appreciated. She was minimally cooperative on interview while requesting to leave the hospital. Speech was normal in rate and increased in volume and monotone in quality and at times slurred mood described as bad. Her affect was odd and subdued and mood incongruent. Thought process was linear but concrete. Perseverated on wanting to leave hospital. Thought content: Patient denies suicidal or homicidal ideation. She endorsed auditory hallucinations today and did appear to be responding to internal stimuli. There was continued presence of paranoia. Attention and concentration were limited as she was easily distracted. She is alert and oriented times person and place. Insight and judgment are impaired. Impulse control is poor. Fund of knowledge appeared poor. Abstraction was poor with evidence of concrete thinking. Vitals/I&O/Wt Last Vital Signs Temp 98.5 F 12/23/24 14:00 Pulse 108 H 12/23/24 20:14 Resp 16 12/24/24 06:00 BP 102/67 12/23/24 20:14 Pulse Ox 97 12/23/24 20:14 O2 Del Method Room Air 12/23/24 14:00 Weight last 48 hrs Weight 91.626 kg Data NPU 12/09/24 18:11 12/09/24 20:11 A&P Assessment and plan (1) Psychosis: (2) Paranoia: (3) Suicidal ideation: (4) Methamphetamine use disorder, severe, dependence: (5) Depression: (6) Impulse control disorder, unspecified: Plan This is a 39-year-old white female with a long history of mental health and addiction issues who presents after a very confused and unclear what is going on from the standpoint of being in the hospital but she was positive for methamphetamine. The patient is experiencing significant mental health challenges, including depression, anxiety, paranoia, and auditory hallucinations. There is a history of depression predating substance use, indicating a longstanding mental health condition. She likely also has a developmental disability or cognitive limitations with poor impulse control. 1. Continue Invega 9 mg p.o. daily. Increase Depakote to 1000mg ER In am for aggression. 2. Continue on one-to-one as she continues to try to abscond from the unit. 3. Encourage individual, group and milieu therapy. 4. Encourage sober living treatment after discharge at the highest level care to which she is willing to commit. 5. Patient placed on 21 day hold. Patient performed poorly on DARLENE (needed assistance on 06/17 skills tested)-Will likely begin level 2 with plan for guardianship. 6. We will continue to evaluate and make recommendations about who serves as guardian after we conversed with her significant other. PDMP PDMP Reviewed: Not Reviewed Involuntary Hold Information Hold Status: Legal Status: 21 Day Hold Date/Time Hold Expires: 01/15/25 Attestations NPU Medical Necessity Statement*: Inpatient hospitalization is medically necessary and the clinically appropriate intervention at this time.? We will monitor/initiate medications as indicated. The patient?s likely length of stay is 15-20 days as patient remains on 1-[address] appointed guardianship is now being pursued. Coding Level of Care Code Acute Code for [facility] Fwd Diagnoses Psychosis F29 Paranoia F22 Suicidal ideation R45.851 Methamphetamine use disorder, severe, dependence F15.20 Depression F32.A Impulse control disorder, unspecified F63.9
--- NOTE | 2024-12-24 11:49 | PC.NURSE ---
Oral B52 This morning, patient attempting to escape the unit. Patient pulling on glass surrounding the nurses' station. Patient pushing on doors. Patient making statements that she is going to get out, regardless of what the staff says or does. Staff attempted to verbally deescalate patient which was temporarily successful. Patient demanding shots. Patient given oral B52.Patient then quickly reverted to pushing on the doors, pulling on glass, and making threats. Patient was presented with her options, either quit or she would have to be placed into seclusion. patient said I will be good, I promise . Staff gave her another chance, but this did not last long, perhaps 30 seconds. MICH Torres was able to convince patient to return to her room. Staff talked with patient about expectations on the unit. Patient verbalized understanding. Patient was eventually able to settle down and rest.
[2024-12-24 14:00] VITALS: BP 103/69; PULSE 97; RESP 17; O2SAT 97
[2024-12-24] MEDS: hyDROXYzine 25 mg Capsule 50 MG PO (17:17)
[2024-12-24 19:28] VITALS: BP 110/69; PULSE 70; RESP 14; TEMP 36.4; O2SAT 95
[2024-12-24] MEDS: benztropine 1 mg Tablet PO (21:04)
[2024-12-24] MEDS: OLANZapine 5 mg ODT PO (21:04)
[2024-12-24] MEDS: trazodone 50 mg Tablet PO (21:04)
[2024-12-25 06:00] VITALS: BP 96/56; PULSE 80; RESP 17; TEMP 36.8; O2SAT 100
[2024-12-25] MEDS: nicotine 4 mg lozenge 8 MG MUCOUS MEM (07:22)
[2024-12-25] MEDS: divalproex ER 500 mg Tablet (24H) 1000 MG PO (08:12)
[2024-12-25] MEDS: paliperidone ER 9 mg Tablet PO (08:12)
[2024-12-25] MEDS: diphenhydrAMINE 50 mg/mL SDV 1mL IM (09:09)
[2024-12-25] MEDS: haloperidol inj 5 mg/mL INJ 1 mL IM (09:09)
[2024-12-25] MEDS: LORazepam 2 mg/mL INJ 1 mL IM (09:10)
[2024-12-25] MEDS: OLANZapine 5 mg ODT PO ×2 (09:42→20:58)
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
--- NOTE | 2024-12-25 10:08 | PC.NURSE ---
out of seclusion, continue to be 1:1 with staff
--- NOTE | 2024-12-25 13:52 | W.PM.NPUPNS ---
Subjective NPU Subjective: Patient presented today reporting that she is feeling fine. We discussed her continued pattern of having at least one moment a day where she needs as needed medication or if she is attempting to absconded from the unit or at least pushed into the nursing station. We continued to discussed that she would be on one-to-one until these behaviors ceased. She endorsed that she would not do this anymore and that this was the last time she was going to need a as needed or would attempt to do something that is against the rules. We discussed the fact that she has stated this before. She denied any side effects of the medication and we discussed the possibility of increasing her Invega to 12 mg soon. Mental Status Exam MSE Comments: This is an overweight versus obese white female looking older than her stated age in hospital scrubs with poor grooming and limited eye contact. She was extremely immature appearing to interact like an 6 year old child. Poor dentition. No abnormal involuntary motor movements appreciated. She was minimally cooperative on interview while requesting to leave the hospital. Speech was normal in rate and increased in volume and monotone in quality and at times slurred mood described as bad. Her affect was odd and subdued and mood incongruent. Thought process was linear but concrete. Perseverated on wanting to leave hospital. Thought content: Patient denies suicidal or homicidal ideation. She endorsed auditory hallucinations today and did appear to be responding to internal stimuli. There was continued presence of paranoia. Attention and concentration were limited as she was easily distracted. She is alert and oriented times person and place. Insight and judgment are impaired. Impulse control is poor. Fund of knowledge appeared poor. Abstraction was poor with evidence of concrete thinking. Vitals/I&O/Wt Last Vital Signs Temp 98.3 F 12/25/24 06:00 Pulse 80 12/25/24 06:00 Resp 17 12/25/24 06:00 BP 96/56 12/25/24 06:00 Pulse Ox 100 12/25/24 06:00 O2 Del Method Room Air 12/25/24 06:00 Weight last 48 hrs Weight 91.626 kg Data NPU 12/09/24 18:11 12/09/24 20:11 A&P Assessment and plan (1) Psychosis: (2) Paranoia: (3) Suicidal ideation: (4) Methamphetamine use disorder, severe, dependence: (5) Depression: (6) Impulse control disorder, unspecified: Plan This is a 39-year-old white female with a long history of mental health and addiction issues who presents after a very confused and unclear what is going on from the standpoint of being in the hospital but she was positive for methamphetamine. The patient is experiencing significant mental health challenges, including depression, anxiety, paranoia, and auditory hallucinations. There is a history of depression predating substance use, indicating a longstanding mental health condition. She likely also has a developmental disability or cognitive limitations with poor impulse control. 1. Continue Invega 9 mg p.o. daily. Increase Depakote to 1000mg ER In am for aggression. 2. Continue on one-to-one as she continues to try to abscond from the unit. 3. Encourage individual, group and milieu therapy. 4. Encourage sober living treatment after discharge at the highest level care to which she is willing to commit. 5. Patient placed on 21 day hold. Patient performed poorly on DARLENE (needed assistance on 06/17 skills tested)-Will likely begin level 2 with plan for guardianship. 6. We will continue to evaluate and make recommendations about who serves as guardian after we conversed with her significant other. PDMP PDMP Reviewed: Not Reviewed Involuntary Hold Information Hold Status: Legal Status: 21 Day Hold Date/Time Hold Expires: 01/15/25 Attestations NPU Medical Necessity Statement*: Inpatient hospitalization is medically necessary and the clinically appropriate intervention at this time.? We will monitor/initiate medications as indicated. The patient?s likely length of stay is 15-20 days as patient remains on 1-[address] appointed guardianship is now being pursued. Coding Level of Care Code Acute Code for [facility] Fwd Diagnoses Psychosis F29 Paranoia F22 Suicidal ideation R45.851 Methamphetamine use disorder, severe, dependence F15.20 Depression F32.A Impulse control disorder, unspecified F63.9
[2024-12-25 14:00] VITALS: BP 94/64; PULSE 80; RESP 18; TEMP 36.8; O2SAT 95
[2024-12-25 20:14] VITALS: BP 107/75; PULSE 101; RESP 18; O2SAT 95
[2024-12-25] MEDS: trazodone 50 mg Tablet PO (20:58)
[2024-12-26] MEDS: hyDROXYzine 25 mg Capsule 50 MG PO ×3 (04:45→14:38)
[2024-12-26 06:00] VITALS: BP 107/53; PULSE 110; RESP 20; O2SAT 97
[2024-12-26] MEDS: haloperidol 5 mg Tablet PO ×2 (07:46→21:01)
[2024-12-26] MEDS: paliperidone ER 9 mg Tablet PO (07:46)
[2024-12-26] MEDS: divalproex ER 500 mg Tablet (24H) 1000 MG PO (07:46)
--- NOTE | 2024-12-26 08:19 | P.NPUPN_ITS ---
Subjective NPU 2 Subjective: Patient presented today reporting that things are going okay. She continued to lack an explanation for her erratic behavior that is led to her getting as needed medications daily. She continued to endorse a desire to go home and initially behaved as if she did not understand why she could not go home but then as we discussed the situation she reported that she understood but seem to be struggling with self-control. We discussed the risks, benefits and alternatives of increasing her Invega to 12 mg p.o. daily and she understood and agreed to proceed as is documented in this note. She denied any specific side effects to the medication. Mental Status Exam 2 MSE Comments: This is an overweight versus obese white female looking older than her stated age in hospital scrubs with poor grooming and limited eye contact. She was extremely immature appearing to interact like an 6 year old child. Poor dentition. No abnormal involuntary motor movements appreciated. She was minimally cooperative on interview while requesting to leave the hospital. Speech was normal in rate and increased in volume and monotone in quality and at times slurred mood described as bad. Her affect was odd and subdued and mood incongruent. Thought process was linear but concrete. Perseverated on wanting to leave hospital. Thought content: Patient denies suicidal or homicidal ideation. She endorsed auditory hallucinations today and did appear to be responding to internal stimuli. There was continued presence of paranoia. Attention and concentration were limited as she was easily distracted. She is alert and oriented times person and place. Insight and judgment are impaired. Impulse control is poor. Fund of knowledge appeared poor. Abstraction was poor with evidence of concrete thinking. Vitals/I&O/Wt Last Vital Signs Temp 98.2 F 12/25/24 14:00 Pulse 110 H 12/26/24 06:00 Resp 20 H 12/26/24 06:00 BP 107/53 12/26/24 06:00 Pulse Ox 97 12/26/24 06:00 O2 Del Method Room Air 12/25/24 14:00 Data NPU 12/09/24 18:11 12/09/24 20:11 A&P Assessment and plan (1) Psychosis: (2) Paranoia: (3) Suicidal ideation: (4) Methamphetamine use disorder, severe, dependence: (5) Depression: (6) Impulse control disorder, unspecified: Plan This is a 39-year-old white female with a long history of mental health and addiction issues who presents after a very confused and unclear what is going on from the standpoint of being in the hospital but she was positive for methamphetamine. The patient is experiencing significant mental health challenges, including depression, anxiety, paranoia, and auditory hallucinations. There is a history of depression predating substance use, indicating a longstanding mental health condition. She likely also has a developmental disability or cognitive limitations with poor impulse control. 1. Increase Invega to 12 mg p.o. daily. Increase Depakote to 1000mg ER In am for aggression. 2. Continue on one-to-one as she continues to try to abscond from the unit. 3. Encourage individual, group and milieu therapy. 4. Encourage sober living treatment after discharge at the highest level care to which she is willing to commit. 5. Patient placed on 21 day hold. Patient performed poorly on DARLENE (needed assistance on 06/17 skills tested)-Will likely begin level 2 with plan for guardianship. 6. We will continue to evaluate and make recommendations about who serves as guardian after we conversed with her significant other. PDMP PDMP Reviewed: Not Reviewed Involuntary Hold Information 2 Hold Status: Legal Status: 21 Day Hold Date/Time Hold Expires: 01/15/25 Attestations NPU 2 Medical Necessity Statement*: Inpatient hospitalization is medically necessary and the clinically appropriate intervention at this time.? We will monitor/initiate medications as indicated. The patient?s likely length of stay is 15-20 days as patient remains on 1-[address] appointed guardianship is now being pursued. Coding Level of Care Code Acute Code for [facility] Fwd Diagnoses Psychosis F29 Paranoia F22 Suicidal ideation R45.851 Methamphetamine use disorder, severe, dependence F15.20 Depression F32.A Impulse control disorder, unspecified F63.9
[2024-12-26] MEDS: diphenhydrAMINE 50 mg/mL SDV 1mL IM (09:09)
[2024-12-26] MEDS: haloperidol inj 5 mg/mL INJ 1 mL IM (09:09)
[2024-12-26] MEDS: LORazepam 2 mg/mL INJ 1 mL IM (09:09)
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
--- NOTE | 2024-12-26 10:04 | PC.NURSE ---
hand Right hand inspected following her punching the glass. Patient denies any pain. Patient's hand is normal color, no redness or swelling observed.
[2024-12-26 14:00] VITALS: BP 98/58; PULSE 82; RESP 18; TEMP 36.3; O2SAT 95
[2024-12-26] MEDS: acetaminophen 325 mg Tablet 650 MG PO (14:38)
[2024-12-26] MEDS: OLANZapine 5 mg ODT PO (16:59)
[2024-12-26] MEDS: ibuprofen 600 mg Tablet PO (16:59)
[2024-12-26] MEDS: paliperidone ER 3 mg Tablet PO (17:56)
[2024-12-26 19:57] VITALS: BP 109/72; PULSE 72; RESP 18; O2SAT 96
[2024-12-26] MEDS: trazodone 50 mg Tablet PO (21:01)
[2024-12-27] MEDS: OLANZapine 5 mg ODT PO ×2 (01:54→09:00)
[2024-12-27] MEDS: trazodone 50 mg Tablet PO ×2 (01:54→20:11)
[2024-12-27] MEDS: ibuprofen 600 mg Tablet PO (05:12)
[2024-12-27 06:00] VITALS: BP 95/59; PULSE 73; RESP 18; O2SAT 96
[2024-12-27] MEDS: LORazepam 1 mg Tablet PO (07:52)
[2024-12-27] MEDS: divalproex ER 500 mg Tablet (24H) 1000 MG PO (07:52)
[2024-12-27] MEDS: haloperidol 5 mg Tablet PO ×3 (07:52→20:11)
[2024-12-27] MEDS: paliperidone ER 6 mg Tablet 12 MG PO (07:52)
[2024-12-27] MEDS: diphenhydrAMINE 50 mg Capsule PO (07:52)
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
--- NOTE | 2024-12-27 08:57 | PC.NURSE ---
Elopement attempt As OT Barbara attempted to enter the nursing station, patient attempted to push through the door. Patient was partially through the door. Ms. Jimenez, MARLENE Lucas and this nurse used our hands to hold the door from opening all the way, to prevent patient from entering the nursing station. Brenda and this nurse went around to the other side and escorted patient away from the door. Dr. Lopez notified
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
[2024-12-27] MEDS: blistex lip oint 7 gm Tube 1 APPLIC TOPICAL (13:44)
[2024-12-27 14:00] VITALS: BP 103/74; PULSE 130; RESP 16; TEMP 36.6; O2SAT 96
--- NOTE | 2024-12-27 15:16 | P.NPUPN_ITS ---
Subjective NPU 2 Subjective: Patient presented today reporting that she is doing okay. She was quite frustrated with this flex o writer operator as she was wanting to be discharged even though she was very clear on questioning what was necessary for discharge to occur. She reports that she wants to go home and that does not want to be here. We discussed the fact that we would continue to manage things in a way that she would be able to discharge once she was shown to be safe. She had no explanation for why she continues to try to push it into rooms that she is not allowed in and tries to absconded from the building. She denies any side effects of the medication as we increased her Invega to 12 mg p.o. daily. She continues to receive as needed medications frequently for her inability to manage her behaviors. Mental Status Exam 2 MSE Comments: This is an overweight versus obese white female looking older than her stated age in hospital scrubs with poor grooming and limited eye contact. She was extremely immature appearing to interact like an 6 year old child. Poor dentition. No abnormal involuntary motor movements appreciated. She was minimally cooperative on interview while requesting to leave the hospital. Speech was normal in rate and increased in volume and monotone in quality and at times slurred mood described as bad. Her affect was odd and subdued and mood incongruent. Thought process was linear but concrete. Perseverated on wanting to leave hospital. Thought content: Patient denies suicidal or homicidal ideation. She endorsed auditory hallucinations today and did appear to be responding to internal stimuli. There was continued presence of paranoia. Attention and concentration were limited as she was easily distracted. She is alert and oriented times person and place. Insight and judgment are impaired. Impulse control is poor. Fund of knowledge appeared poor. Abstraction was poor with evidence of concrete thinking. Vitals/I&O/Wt Last Vital Signs Temp 97.4 F L 12/26/24 14:00 Pulse 73 12/27/24 06:00 Resp 18 12/27/24 06:00 BP 95/59 12/27/24 06:00 Pulse Ox 96 12/27/24 06:00 O2 Del Method Room Air 12/25/24 14:00 Data NPU 12/09/24 18:11 12/09/24 20:11 A&P Assessment and plan (1) Psychosis: (2) Paranoia: (3) Suicidal ideation: (4) Methamphetamine use disorder, severe, dependence: (5) Depression: (6) Impulse control disorder, unspecified: Plan This is a 39-year-old white female with a long history of mental health and addiction issues who presents after a very confused and unclear what is going on from the standpoint of being in the hospital but she was positive for methamphetamine. The patient is experiencing significant mental health challenges, including depression, anxiety, paranoia, and auditory hallucinations. There is a history of depression predating substance use, indicating a longstanding mental health condition. She likely also has a developmental disability or cognitive limitations with poor impulse control. 1. Increase Invega to 12 mg p.o. daily. Increase Depakote to 1000mg ER In am for aggression. 2. Continue on one-to-one as she continues to try to abscond from the unit. 3. Encourage individual, group and milieu therapy. 4. Encourage sober living treatment after discharge at the highest level care to which she is willing to commit. 5. Patient placed on 21 day hold. Patient performed poorly on DARLENE (needed assistance on 06/17 skills tested)-Will likely begin level 2 with plan for guardianship. 6. We will continue to evaluate and make recommendations about who serves as guardian after we conversed with her significant other. PDMP PDMP Reviewed: Not Reviewed Involuntary Hold Information 2 Hold Status: Legal Status: 21 Day Hold Date/Time Hold Expires: 01/15/25 Attestations NPU 2 Medical Necessity Statement*: Inpatient hospitalization is medically necessary and the clinically appropriate intervention at this time.? We will monitor/initiate medications as indicated. The patient?s likely length of stay is 15-20 days as patient remains on 1-[address] appointed guardianship is now being pursued. Coding Level of Care Code Acute Code for [facility] Fwd Diagnoses Psychosis F29 Paranoia F22 Suicidal ideation R45.851 Methamphetamine use disorder, severe, dependence F15.20 Depression F32.A Impulse control disorder, unspecified F63.9
[2024-12-27] MEDS: nicotine 4 mg lozenge 8 MG MUCOUS MEM (15:22)
[2024-12-27] MEDS: hyDROXYzine 25 mg Capsule 50 MG PO ×2 (15:22→20:11)
[2024-12-27] MEDS: ziprasidone 20 mg/mL SDV IM (17:50)
[2024-12-27] MEDS: water for injection-sterile 10 ML (17:51)
--- NOTE | 2024-12-27 18:21 | PC.NURSE ---
SECLUSION AT 1616 FOR HITTING GLASS, PULLING ON GLASS, RAMMING DOOR TO EXIT FACILITY. UNABLE TO VERBALLY DESCALATE PATIENT DESPITE NUMEROUS EFFORTS FROM MULTIPLE STAFF. PATIENT DEMANDING INJECTIONS. THIS NURSE TALKED WITH DR. HUNG WHO VERBAL ORDER FOR 20MG IM GEODON. MEDICATION ADMINISTERED AND PATIENT REMOVED FROM SECLUSION AT 1636. SITTER PRESENT.
[2024-12-27] MEDS: quetiapine 100 mg Tablet PO (18:27)
--- NOTE | 2024-12-27 18:40 | PC.NURSE ---
SECLUSION SECLUSION AT 1808, OUT AT 1828. PATIENT PULLING ON GLASS. STAFF HEARD A POPPING SOUNDS. PATIENT HITTING ON GLASS. PATIENT DEMANDING INJECTIONS. PATIENT PACING BETWEEN WINDOWS AND DOOR ATTEMPTING TO PUSH OPEN THE DOORS AND PUNCH THROUGH GLASS. PATIENT WAS INFORMED THAT SECLUSION IS WHAT HER OPTION IS AT THIS TIME. PATIENT AT FIRST REFUSED, SAYING I'LL BE GOOD, I PROMISE. PATIENT WAS EVENTUALLY AGREEABLE TO GO TO THE SECLUSION ROOM. THIS NURSE HELD HER HAND DOWN TO THE ROOM. NO ISSUES GETTING PATIENT TO ENTER. THIS NURSE CONTACTED DOCTOR ANABELL. VERBAL FOR 100MG SEROQUEL ONCE ONE, AND SEROQUEL 50MG TID. PATIENT BANGING ON GLASS WHILE THIS NURSE WAS ON PHONE WITH DR. HUNG. PATIENT SAID THAT SHE WANTS TO SLEEP. PATIENT SAID THAT SHE WANTS TO GO HOME. PATIENT TOOK THE SEROQUEL. PATIENT RELEASED FROM SECLUSION AT 1828. PATIENT DENIES ANY PAIN IN HER HANDS FROM PUNCHING THE GLASS. PATIENTS HANDS ARE NOT SWOLLEN OR RED.
[2024-12-27 19:38] VITALS: BP 117/77; PULSE 105; RESP 15; TEMP 37.1; O2SAT 94
[2024-12-27] MEDS: quetiapine 25 mg Tablet 50 MG PO (20:16)
[2024-12-28] VITALS (9 sets, daily range): BP systolic 86–139; BP diastolic 54–82; PULSE 78–131; RESP 16–18; TEMP 36.6; O2SAT 94–98
[2024-12-28] MEDS: OLANZapine 5 mg ODT PO ×2 (06:46→21:06)
[2024-12-28] MEDS: diphenhydrAMINE 50 mg/mL SDV 1mL IM ×2 (07:09→15:41)
[2024-12-28] MEDS: haloperidol inj 5 mg/mL INJ 1 mL IM (07:09)
[2024-12-28] MEDS: LORazepam 2 mg/mL INJ 1 mL IM (07:09)
--- NOTE | 2024-12-28 08:09 | PC.NURSE ---
pt in hallway stating she wanted to leave, pt went to window at nurses station reached inside at that time she shoved computer monitor down into floor, then pt attempted to linda though when kelsie rhodes went into nurses station, pt was blocked by this administrative underwriter. pt then went back to shoving computer monitors down in nurses station but was stopped by kelsie rhodes. AT that time security was called, Sivakumar Lynn notified. this administrative underwriter went back into the hallway by room in order to assist with pt deescalation when pt was walking with SIVAKUMAR Jimenez pt made eye contact with this administrative underwriter and stated this bitch she stopped me from leaving, coming towards me with hands raised. I informed pt that she did not want to cause any trouble today and when pt was within arms reach this master cosmetologist grabbed pt hands in order to protect myself, at that time SIVAKUMAR Jimenez caught up with pt asking her if she wanted to walk down to dayroom pt turned walking down hallway.
[2024-12-28] MEDS: paliperidone ER 6 mg Tablet 12 MG PO (08:23)
[2024-12-28] MEDS: quetiapine 25 mg Tablet 50 MG PO ×3 (08:23→21:06)
[2024-12-28] MEDS: benztropine 1 mg Tablet PO ×2 (08:23→21:06)
[2024-12-28] MEDS: divalproex ER 500 mg Tablet (24H) 1000 MG PO (08:23)
--- NOTE | 2024-12-28 10:05 | PC.NURSE ---
Nightshift stated that pt slept well. She denies anxiety and depression at this time. She cont to endorse auditory hallucinations. Denies SI/HI. No pain reported. Pt had behaviors this am and had to receive a B52. She is now laying in bed with eyes closed. 1:1 sitter at bedside.
[2024-12-28] MEDS: haloperidol inj 5 mg/mL INJ 1 mL 10 MG IM (15:40)
--- NOTE | 2024-12-28 16:38 | PC.NURSE ---
Pt woke up this morning and began having behaviors here on the unit. At approx 0705 pt reached through the glass of the nurses station and pushed a monitor off the desk and broke it. Staff began trying to redirect the pt as she cont to reach through the glass and knock off the remaining monitors. Security was called at approx 0706. Pt was directed away from the desk and walked around the ford. Pt began to escalate. She was given the option to go into seclusion or peacefully sit on her bed and receive an injection of Benadryl, Haldol, and Ativan. Pt opted to sit on her bed and receive her injections without incident. Pt received her injections at 0709 see MAR for details. At this time pt was informed that if she had anymore behaviors for the remainder of the day she would have to go straight to seclusion, we could not have her going around vandalizing the unit. Pt verbally agreed that she understood this. Pt got comfortable in bed and began resting for the remainder of the morning.
--- NOTE | 2024-12-28 16:52 | PC.NURSE ---
At approx 1449 pt was getting off the phone with her boyfriend, she began to escalate, because her boyfriend had stated that he was not coming to visit her today. At approx 1450 pt reached into the nurses station for a second time in the day to push a monitor off the desk and break it. As pt was being escorted away from the desk a Code 10 was called at 1451. This nurse and Arina EPPS entered pt room and informed her that she was going to have to go to seclusion. Pt refused and began apologizing for her behaviors. Pt was offered to walk to the seclusion room or we would have to go hands on and escort her down there. Pt still refused to go into seclusion. Security arrived and went on hands on with pt to escort her to seclusion as pt dropped her weight to the floor and the decision was made to bring the restraint bed to her. At 1455 pt was placed in restraints. At 1456 she was in the seclusion room. V/S were obtained immediately BP 139/82 P130 O2sat 96%. All restraints were checked to allow for good circulation. Final Assembly Worker, Dr. Lopez, and Workforce Development Assistant were notified. Dr. Lopez gave a verbal order to give pt an injection of 50mg of Benadryl and 10mg of Haldol. Injections were given at 1512. At 1503 the pt R hand was released. Behaviors were reassessed and at 1507 her L hand was released. The left leg was released at 1510 and the final R leg was released at 1512. She was completely out of seclusion by 1513. Pt was walked down to her room and helped to get settled into bed. At this time 1515 her v/s were reassessed. BP 108/71 P98 95%. Pt is resting with no additional concerns at this time.
--- NOTE | 2024-12-28 17:19 | P.NPUPN_ITS ---
Subjective NPU 2 Subjective: Patient presented today reporting that things are going okay. She continues to show 0 insight into her moments of aggression or agitation that required as needed medications and sometimes seclusion or restraint. Even though we have very calm conversations about what it will take for her to get to being discharge worthy, she continues to have these outburst every morning and require one-to-one. She denied any issue that has led to her behaving this way. She denied any side effects to the medication. Mental Status Exam 2 MSE Comments: This is an overweight versus obese white female looking older than her stated age in hospital scrubs with poor grooming and limited eye contact. She was extremely immature appearing to interact like an 6 year old child. Poor dentition. No abnormal involuntary motor movements appreciated. She was minimally cooperative on interview while requesting to leave the hospital. Speech was normal in rate and increased in volume and monotone in quality and at times slurred mood described as bad. Her affect was odd and subdued and mood incongruent. Thought process was linear but concrete. Perseverated on wanting to leave hospital. Thought content: Patient denies suicidal or homicidal ideation. She endorsed auditory hallucinations today and did appear to be responding to internal stimuli. There was continued presence of paranoia. Attention and concentration were limited as she was easily distracted. She is alert and oriented times person and place. Insight and judgment are impaired. Impulse control is poor. Fund of knowledge appeared poor. Abstraction was poor with evidence of concrete thinking. Vitals/I&O/Wt Last Vital Signs Temp 97.8 F 12/28/24 15:01 Pulse 85 12/28/24 16:15 Resp 16 12/28/24 16:15 BP 100/60 12/28/24 16:15 Pulse Ox 94 12/28/24 16:15 O2 Del Method Room Air 12/28/24 06:00 Data NPU 12/09/24 18:11 12/09/24 20:11 A&P Assessment and plan (1) Psychosis: (2) Paranoia: (3) Suicidal ideation: (4) Methamphetamine use disorder, severe, dependence: (5) Depression: (6) Impulse control disorder, unspecified: Plan This is a 39-year-old white female with a long history of mental health and addiction issues who presents after a very confused and unclear what is going on from the standpoint of being in the hospital but she was positive for methamphetamine. The patient is experiencing significant mental health challenges, including depression, anxiety, paranoia, and auditory hallucinations. There is a history of depression predating substance use, indicating a longstanding mental health condition. She likely also has a developmental disability or cognitive limitations with poor impulse control. 1. Increase Invega to 12 mg p.o. daily. Increase Depakote to 1000mg ER In am for aggression. We started Seroquel 50 mg p.o. 3 times daily to continue to see if we can decrease her aggression and agitation that seems to start in the morning. 2. Continue on one-to-one as she continues to try to abscond from the unit. 3. Encourage individual, group and milieu therapy. 4. Encourage sober living treatment after discharge at the highest level care to which she is willing to commit. 5. Patient placed on 21 day hold. Patient performed poorly on DARLENE (needed assistance on 06/17 skills tested)-Will likely begin level 2 with plan for guardianship. 6. We will continue to evaluate and make recommendations about who serves as guardian after we conversed with her significant other. PDMP PDMP Reviewed: Not Reviewed Involuntary Hold Information 2 Hold Status: Legal Status: 21 Day Hold Date/Time Hold Expires: 01/15/25 Attestations NPU 2 Medical Necessity Statement*: Inpatient hospitalization is medically necessary and the clinically appropriate intervention at this time.? We will monitor/initiate medications as indicated. The patient?s likely length of stay is 15-20 days as patient remains on 1-[address] appointed guardianship is now being pursued. Coding Level of Care Code Acute Code for [facility] Fwd Diagnoses Psychosis F29 Paranoia F22 Suicidal ideation R45.851 Methamphetamine use disorder, severe, dependence F15.20 Depression F32.A Impulse control disorder, unspecified F63.9
[2024-12-28] MEDS: acetaminophen 325 mg Tablet 650 MG PO (18:24)
[2024-12-28] MEDS: trazodone 50 mg Tablet PO (21:06)
[2024-12-28] MEDS: diphenhydrAMINE 50 mg Capsule PO (21:06)
[2024-12-29] MEDS: hyDROXYzine 25 mg Capsule 50 MG PO ×3 (03:03→15:53)
[2024-12-29] MEDS: trazodone 50 mg Tablet PO ×2 (03:03→20:44)
[2024-12-29 06:00] VITALS: BP 96/66; PULSE 77; RESP 17; TEMP 37.1; O2SAT 96
[2024-12-29] MEDS: nicotine 4 mg lozenge 8 MG MUCOUS MEM (06:52)
--- NOTE | 2024-12-29 07:12 | PC.NURSE ---
0650 pt demanding to go home, one on one sitter attempting to verbally deescalate pt with verbal distraction. pt attempted to push her way into nurses station this narrative writer blocked pt from entering until door was shut. at that time this narrative writer backed away from pt but pt followed pt stating you need to leave me alone or i am going to get you. this rope coiling machine operator verbally instructed pt to back away while I was side stepping to remain out of arms reach. at that time requested security to come out into the hallway. pt approached me again with arms raised this narrative writer grabbed her hands and informed her there would not be any hitting on the unit today. Security approached along with cinder block maker and All Terrain Vehicle Technician, pt at that time backed away from this narrative writer going into her room stating she would be good. then attempted to go back into hallway. pt at that time told instrument lens grinder apprentice she was a bossy today raised her had in the process to hit All Terrain Vehicle Technician at that time security and this narrative writer immediately stepped in front of All Terrain Vehicle Technician for her protection. at that time cinder block maker decided isolation with restraint bed to be used until pt calmed down. pt stated she did not want to go into restraints, pt escorted to isolation room then pt sat down in floorway refusing and to move struggling with staff stating she was not going to go. code 10 called Staff members responded from ICU, ER and warehouse receiver. pt placed on restraint bed, vital signs taken.
--- NOTE | 2024-12-29 07:35 | PC.NURSE ---
DR. HUNG NOTIFIED OF INITIATION OF FOUR POINT RESTRAINTS DUE TO PT HITTING WINDOWS AND ATTEMPTING TO RUN THROUGH STAFF TO GET INTO THE NURSES STATION. PT BEHAVIOR PATTERNS ARE NOTED TO START AT 0700 AM EACH MORNING. PT STATES IT IS SO I CAN GET A SHOT, I NEED SHOTS. AFTER IN DEPTH DISCUSSION WITH DR. HUNG OF NOTED DAILY BEHAVIORS AND TIMES OF BEHAVIORS EACH DAY NEW ORDERS WERE RECEIVED TO START HALDOL 10 MG IM AND [id number] MG IM AT [address] HUNG WOULD LIKE THE ATIVAN TO BE USED ONCE DAILY IF POSSIBLE, DUE TO PT DRUG SEEKING BEHAVIORS.
[2024-12-29] MEDS: LORazepam 2 mg/mL INJ 1 mL IM (08:23)
[2024-12-29] MEDS: haloperidol inj 5 mg/mL INJ 1 mL IM (08:24)
[2024-12-29] MEDS: diphenhydrAMINE 50 mg/mL SDV 1mL IM (08:24)
--- NOTE | 2024-12-29 08:29 | PC.NURSE ---
08 this railroad cook over heard EMBROIDERY SPECIALIST telling pt to keep her hands and arms out of windows. at that point this railroad cook responded an observed pt attempting to push computer monitors over on nurses desk, pt did not stop when instructed by staff, salt washer harvesting station was out in hallway attempting to stop pt verbally and by blocking openings in windows physically. security called for assistance, pt escorted to seclusion room placed in restraints, vital signs taken.
[2024-12-29] MEDS: paliperidone ER 6 mg Tablet 12 MG PO (09:00)
[2024-12-29] MEDS: benztropine 1 mg Tablet PO ×2 (09:00→20:44)
[2024-12-29] MEDS: divalproex ER 500 mg Tablet (24H) 1000 MG PO (09:00)
[2024-12-29] MEDS: ibuprofen 600 mg Tablet PO (09:00)
[2024-12-29] MEDS: quetiapine 25 mg Tablet 50 MG PO (09:01)
--- NOTE | 2024-12-29 09:33 | PC.NURSE ---
PT CONTINUES TO HAVE BEHAVIORS THIS AM. THIS RN HAS EDUCATED AND SPOKE IN DEPTH WITH PT SETTING GOALS WITH HER BEHAVIORS AND EXPECTATIONS OF BEHAVIORS PRIOR TO BEING DISCHARGED. PT WILL AGREE WITH THIS RN AND STATE SHE IS AGREEABLE WITH THE GOALS SET BUT THEN EXHIBIT BEHAVIORS OF BEING COMBATIVE WITH STAFF, EXIT SEEKING, CHARGING STAFF TO GET OUT OF DOORS AND ATTEMPTING TO KNOCK OFF THE COMPUTERS AT THE NURSES STATION. PRIOR TO SECOND RESTRAINT THIS RN REMINDED PT OF THE GOALS THAT WERE SET A FEW MINUTES AGO AND MEETING THOSE GOALS WOULD ALLOW HER TO GO HOME WITH BOYFRIEND AND CONTINUE VISITS WHILE HERE IN FACILITY. PT STATED I DON'T CARE I WANT TO GO BACK TO THAT ROOM AND GET MORE MEDICINE. PT THEN ATTEMPTED TO HIT COMPUTERS, MAKE THREATS TO STAFF, COMBATIVE WITH STAFF AND HAD TO BE ASSISTED TO RESTRAINT BED. THIS RN ATTEMPTED AGAIN TO SET SIMPLE GOALS THAT PT COULD UNDERSTAND. PT WAS ABLE TO MEET HER GOAL OF GOING TO BED AND RESTING AND NOT BECOMING AGITATED. PT CURRENTLY RESTING IN BED WITH SITTER AT BEDSIDE. NO DISTRESS NOTED. SEE VITAL SIGN FLOW SHEET FOR VITALS.
--- NOTE | 2024-12-29 12:50 | PC.NURSE ---
ORDERS PLACED FOR GEODON 20 MG IM BID PRN AGITATION AND ANXIETY. RECEIVED BY DR. HUNG.
--- NOTE | 2024-12-29 13:44 | PC.NURSE ---
AT 1250 PT WOKE UP AND CAME TO NURSES STATION ATTEMPTING TO KNOCK OFF COMPUTERS. PT WAS ASKED TO STOP, PT STATED I WANT TO WATCH THEM SHATTER. STAFF OUT TO HALLWAY TO ASSIST PT AWAY FROM DESK. THIS RN REMINDED PT TO MAKE GOOD CHOICES AND TO CHANGE CURRENT BEHAVIORS. PT LOOKED AT RN AND STATE NO TAKE ME TO THE ROOM, I WANT MY SHOT. STAFF ASSISTED PT TO RESTRAINT ROOM, AND BILATERAL WRISTS AND ANKLES RESTRAINED AT 1252. PT CONTINUES TO STATE I'M READY FOR MY SHOT. THIS RN IN TO SEE PT AND IT WAS DECIDED TO REMOVE RESTRAINTS AT THAT TIME AND PLACE PT IN SECLUSION. RESTRAINTS REMOVED AT 1302. PT CONTINUES TO REQUEST INJECTIONS. EDUCATED PT THAT IT IS NOT TIME FOR INJECTIONS AND SHE WILL NEED TO SIT IN SECLUSION UNTIL SHE CALMS DOWN AND CAN CONFIRM SHE WILL STOP BREAKING ITEMS AND BEING COMBATIVE WITH STAFF.
--- NOTE | 2024-12-29 13:56 | PC.NURSE ---
At approx 0650 pt began moving around the unit demanding to get out. She attempted to breach the nurses station, but was stopped by Security [place]. Pt requested an injection and this nurse offered her a po medication for anxiety. Pt finally agreed to this at 0700, see MAR for details. At 0701 she began banding on the window of the nurses station and attempting to reach in to the computers. At 0702 a manual hold was placed on pt and we began to escort her to the seclusion room. Pt dropped her weight to the floor and refused to get up. The manual hold was cont. At 0704 a code 10 was called. Restraint bed was brought to the pt and staff began to lift pt to the bed, she began kicking and fighting staff. At 0707 pt was fully in restraints. At 0708 we had pt in the room. At 0710 pt received an injection of PRN medications, See MAR for details. Staff had a lengthy discussion about her behaviors with pt and how this cont to prolong her d/c and her ability to have visitors on the unit. All pt verbalizes is when are you all going to let me out of here and Do I have to stay here all night At 0717 staff attempted to release wrists to loosen the restraints because they seemed too tight. Pt slid one wrist out after it had been loosened and attempted to get off the bed. Staff worked to lay her back down and tighten the straps back to where we had them. Circulation was good with no complications. At 0739 Rt arm was released. At 0744 Lt arm was released. At 0744 bilateral legs were released and pt was released from seclusion after having yet another discussion with her about how we cannot cont to have these behaviors and she cannot cont to try and destruct property. V/S at time of release BP105/73 P106 at o2sat 92% Pt came into room went potty and then went to dayroom to have breakfast. Will cont to monitor for any issues.
[2024-12-29 14:00] VITALS: BP 122/88; PULSE 122; RESP 19; O2SAT 98
--- NOTE | 2024-12-29 14:19 | PC.NURSE ---
At 08 pt rushed the nurses station and began trying to reach in and knock computers off the nurses station. At this time pt was placed in manual hold and walked to the seclusion room. Pt was in room at 805 and in full restraints at 808. Pt was monitored for one hour in seclusion and released from all 4 at 904. During this time pt was talked too by staff. She cont to ask to be released from restraints and makes promises to not do this again. We cont to reinterate with pt that these behaviors cont to cause her to have to stay longer and not have visitors. She came down to her room and rested in bed. Will cont to monitor.
[2024-12-29 14:21] VITALS: BP 131/78; PULSE 120; RESP 17; O2SAT 96
[2024-12-29 14:22] VITALS: BP 105/73; PULSE 106; RESP 17; O2SAT 92
[2024-12-29 14:23] VITALS: BP 119/77; PULSE 113; RESP 17; O2SAT 96
[2024-12-29] MEDS: ziprasidone 20 mg/mL SDV (14:30)
[2024-12-29] MEDS: water for injection-sterile 10 ML 1.2 ML (14:30)
--- NOTE | 2024-12-29 14:49 | PC.NURSE ---
At 1302 pt was removed from restraints and moved over to the seclusion room at 1303. The decision was made to have pt cont seclusion but without restraint. She remained in seclusion for 62 min. During this time staff tried to talk with pt about how these behaviors cont to cause her to stay. She came down to her bed and rested for a while. Will cont to monitor.
--- NOTE | 2024-12-29 15:03 | PC.NURSE ---
AT NURSES STATION at 1430, PT ATTEMPTED TO KNOCK OVER THE COMPUTERS AT THE NURSES STATION. PTS ARMS GOT STUCK IN THE WINDOW OPENINGS. PT DID MANAGE TO GET HER ARMS OUT WITHOUT ASSISTANCE. PT WAS REDIRECTED TO HER ROOM WITH THE SITTER AT BEDSIDE. THIS RN AND WARP BLEACHING VAT TENDER TO ASSIST WITH PT. PT WAS GIVEN GEODON 20 MG IM TO LEFT DELTOID. SUPPORT VOICED.
--- NOTE | 2024-12-29 15:43 | PC.NURSE ---
NEW ORDERS RECEIVED BY DR. HUNG TO INCREASE SEROQUEL FROM 50 MG TO 100 MG PO TID WITH FIRST DOSE NOW. ATTEMPTED TO EDUCATE PT. PT CAME TO NURSES STATION AND AGAIN ATTEMPTED TO KNOCK OVER COMPUTERS WHILE BOTH SECURITY GUARDS WERE SITTING AT NURSES STATION. PT THEN SPILLED SODA SITTING ON THE DESK FROM KNOCKING THE COMPUTER OVER, WHICH THIS RN CAUGHT AND SAT BACK ON THE DESK.
[2024-12-29] MEDS: quetiapine 100 mg Tablet PO ×2 (15:53→20:44)
[2024-12-29] MEDS: haloperidol 5 mg Tablet PO (15:53)
[2024-12-29] MEDS: diphenhydrAMINE 50 mg Capsule PO ×2 (15:53→20:44)
--- NOTE | 2024-12-29 18:16 | P.NPUPN_ITS ---
Subjective NPU 2 Subjective: Patient presented today reporting that she feels okay but continued to have these outburst and today they were particularly bad. She had multiple episodes of knocking over computers and being agitated and aggressive for no clear indicated reason. We discussed the risk benefits and alternatives of increasing her Seroquel to 100 mg p.o. 3 times daily and she understood and agreed to proceed as is documented in this note. We discussed the fact that we would continue to increase her medication until we got an appropriate outcome with her behavior pattern. She denied any side effects to the medication. Mental Status Exam 2 MSE Comments: This is an overweight versus obese white female looking older than her stated age in hospital scrubs with poor grooming and limited eye contact. She was extremely immature appearing to interact like an 6 year old child. Poor dentition. No abnormal involuntary motor movements appreciated. She was minimally cooperative on interview while requesting to leave the hospital. Speech was normal in rate and increased in volume and monotone in quality and at times slurred mood described as bad. Her affect was odd and subdued and mood incongruent. Thought process was linear but concrete. Perseverated on wanting to leave hospital. Thought content: Patient denies suicidal or homicidal ideation. She endorsed auditory hallucinations today and did appear to be responding to internal stimuli. There was continued presence of paranoia. Attention and concentration were limited as she was easily distracted. She is alert and oriented times person and place. Insight and judgment are impaired. Impulse control is poor. Fund of knowledge appeared poor. Abstraction was poor with evidence of concrete thinking. Vitals/I&O/Wt Last Vital Signs Temp 97.8 F 12/29/24 20:56 Pulse 110 H 12/29/24 20:56 Resp 18 12/29/24 20:56 BP 99/69 12/29/24 20:56 Pulse Ox 93 12/29/24 20:56 O2 Del Method Room Air 12/29/24 20:56 12/29/24 12/29/24 12/30/24 14:59 22:59 06:59 Intake Total 1.2 / 1.2 Balance 1.2 / 1.2 Data NPU 12/09/24 18:11 12/09/24 20:11 A&P Assessment and plan (1) Psychosis: (2) Paranoia: (3) Suicidal ideation: (4) Methamphetamine use disorder, severe, dependence: (5) Depression: (6) Impulse control disorder, unspecified: Plan This is a 39-year-old white female with a long history of mental health and addiction issues who presents after a very confused and unclear what is going on from the standpoint of being in the hospital but she was positive for methamphetamine. The patient is experiencing significant mental health challenges, including depression, anxiety, paranoia, and auditory hallucinations. There is a history of depression predating substance use, indicating a longstanding mental health condition. She likely also has a developmental disability or cognitive limitations with poor impulse control. 1. Increase Invega to 12 mg p.o. daily. Increase Depakote to 1000mg ER In am for aggression. We started Seroquel 50 mg p.o. 3 times daily to continue to see if we can decrease her aggression and agitation that seems to start in the morning. Increase Seroquel to 100 mg p.o. 3 times daily. 2. Continue on one-to-one as she continues to try to abscond from the unit. 3. Encourage individual, group and milieu therapy. 4. Encourage sober living treatment after discharge at the highest level care to which she is willing to commit. 5. Patient placed on 21 day hold. Patient performed poorly on DARLENE (needed assistance on 06/17 skills tested)-Will likely begin level 2 with plan for guardianship. 6. We will continue to evaluate and make recommendations about who serves as guardian after we conversed with her significant other. PDMP PDMP Reviewed: Not Reviewed Involuntary Hold Information 2 Hold Status: Legal Status: 21 Day Hold Date/Time Hold Expires: 01/15/25 Attestations NPU 2 Medical Necessity Statement*: Inpatient hospitalization is medically necessary and the clinically appropriate intervention at this time.? We will monitor/initiate medications as indicated. The patient?s likely length of stay is 15-20 days as patient remains on 1-[address] appointed guardianship is now being pursued. Coding Level of Care Code Acute Code for [facility] Fwd Diagnoses Psychosis F29 Paranoia F22 Suicidal ideation R45.851 Methamphetamine use disorder, severe, dependence F15.20 Depression F32.A Impulse control disorder, unspecified F63.9
[2024-12-29] MEDS: OLANZapine 5 mg ODT PO (20:44)
[2024-12-29 20:56] VITALS: BP 99/69; PULSE 110; RESP 18; TEMP 36.6; O2SAT 93
--- NOTE | 2024-12-29 22:50 | PC.NURSE ---
Code 10: 12/29/24 @ 2000: As floor cleaning staff attempted to come into the South side entry door, Suri pushed past her sitter (Barbara) who was helping her make a phone call @ the patient phone area, et ran, jumped over the floor cleaning apparatus et got past floor crew staff (Jason) who was attempting to enter South side through the wooden entry door. Ezio ROSARIO et Barbara, sitter were directly behind Suri, intervening. @ 2001 I initiated code 10, no other staff was nearby, however Rip from [employer] was apparently close, et responded right behind me. Suri was stopped @ the glass entry door, as she was unable to get through door locks, et wrapped her left arm around the door?s handle bar, bracing herself et lashing out at staff with her right arm et feet, kicking et shouting. She changed demeanor when speaking with myself for a moment, but softened more so toward Rip from security et finally relinquished her hold on the door somewhat. Momo RN approached at that time, et Suri finally agreed to walk with him et back into the unit. Once she was again behind secured doors, this nurse returned to the nursing station et patient care while Momo was with Suri. I noted that other staff had arrived to assist with Code 10 et were surrounding us at that time: Angela RN- Corsets Salesperson, Sharron RN- ICU, Terri RN- ER as well as Rip- Security, Ezio- MARLENE, Barbara- Sitter et Momo RN- charge nurse & myself from NPU.
[2024-12-30] MEDS: hyDROXYzine 25 mg Capsule 50 MG PO ×3 (01:46→20:38)
[2024-12-30] MEDS: trazodone 50 mg Tablet PO ×2 (01:46→20:38)
[2024-12-30] MEDS: haloperidol 5 mg Tablet PO ×2 (01:46→18:14)
[2024-12-30 06:00] VITALS: BP 95/58; PULSE 80; RESP 16; TEMP 36.4; O2SAT 97
[2024-12-30] MEDS: haloperidol inj 5 mg/mL INJ 1 mL 10 MG IM (06:17)
[2024-12-30] MEDS: diphenhydrAMINE 50 mg/mL SDV 1mL IM (06:17)
[2024-12-30] MEDS: paliperidone ER 6 mg Tablet 12 MG PO (08:06)
[2024-12-30] MEDS: benztropine 1 mg Tablet PO ×2 (08:07→18:14)
[2024-12-30] MEDS: LORazepam 1 mg Tablet PO (08:07)
[2024-12-30] MEDS: quetiapine 100 mg Tablet PO ×3 (08:07→20:38)
[2024-12-30] MEDS: divalproex ER 500 mg Tablet (24H) 1000 MG PO (08:07)
[2024-12-30] MEDS: OLANZapine 5 mg ODT PO (13:34)
[2024-12-30] MEDS: calcium carbonate 500 mg Chew Tablet 1000 MG PO (13:34)
[2024-12-30 14:00] VITALS: BP 99/61; PULSE 90; RESP 16; TEMP 36.7; O2SAT 97
--- NOTE | 2024-12-30 19:27 | P.NPUPN_ITS ---
Subjective NPU 2 Subjective: Patient presented today reporting that she is doing okay. We discussed the fact that today she did not have any seclusions or restraints. We discussed continuing to increase the Seroquel as it seems to be the 1 thing that is really helping but she is continuing to have as needed medications. We discussed the desire to have the standing Seroquel replace the sporadic as needed medications. She denied any side effects to the medication. Mental Status Exam 2 MSE Comments: This is an overweight versus obese white female looking older than her stated age in hospital scrubs with poor grooming and limited eye contact. She was extremely immature appearing to interact like an 6 year old child. Poor dentition. No abnormal involuntary motor movements appreciated. She was minimally cooperative on interview while requesting to leave the hospital. Speech was normal in rate and increased in volume and monotone in quality and at times slurred mood described as bad. Her affect was odd and subdued and mood incongruent. Thought process was linear but concrete. Perseverated on wanting to leave hospital. Thought content: Patient denies suicidal or homicidal ideation. She endorsed auditory hallucinations today and did appear to be responding to internal stimuli. There was continued presence of paranoia. Attention and concentration were limited as she was easily distracted. She is alert and oriented times person and place. Insight and judgment are impaired. Impulse control is poor. Fund of knowledge appeared poor. Abstraction was poor with evidence of concrete thinking. Vitals/I&O/Wt Last Vital Signs Temp 98.0 F 12/30/24 14:00 Pulse 90 12/30/24 14:00 Resp 16 12/30/24 14:00 BP 99/61 12/30/24 14:00 Pulse Ox 97 12/30/24 14:00 O2 Del Method Room Air 12/30/24 06:00 Data NPU 12/09/24 18:11 12/09/24 20:11 A&P Assessment and plan (1) Psychosis: (2) Paranoia: (3) Suicidal ideation: (4) Methamphetamine use disorder, severe, dependence: (5) Depression: (6) Impulse control disorder, unspecified: Plan This is a 39-year-old white female with a long history of mental health and addiction issues who presents after a very confused and unclear what is going on from the standpoint of being in the hospital but she was positive for methamphetamine. The patient is experiencing significant mental health challenges, including depression, anxiety, paranoia, and auditory hallucinations. There is a history of depression predating substance use, indicating a longstanding mental health condition. She likely also has a developmental disability or cognitive limitations with poor impulse control. 1. Increase Invega to 12 mg p.o. daily. Increase Depakote to 1000mg ER In am for aggression. We started Seroquel 50 mg p.o. 3 times daily to continue to see if we can decrease her aggression and agitation that seems to start in the morning. Increase Seroquel to 100 mg p.o. 3 times daily. 2. Continue on one-to-one as she continues to try to abscond from the unit. 3. Encourage individual, group and milieu therapy. 4. Encourage sober living treatment after discharge at the highest level care to which she is willing to commit. 5. Patient placed on 21 day hold. Patient performed poorly on DARLENE (needed assistance on 06/17 skills tested)-Will likely begin level 2 with plan for guardianship. 6. We will continue to evaluate and make recommendations about who serves as guardian after we conversed with her significant other. PDMP PDMP Reviewed: Not Reviewed Involuntary Hold Information 2 Hold Status: Legal Status: 21 Day Hold Date/Time Hold Expires: 01/15/25 Attestations NPU 2 Medical Necessity Statement*: Inpatient hospitalization is medically necessary and the clinically appropriate intervention at this time.? We will monitor/initiate medications as indicated. The patient?s likely length of stay is 15-20 days as patient remains on 1-[address] appointed guardianship is now being pursued. Coding Level of Care Code Acute Code for [facility] Fwd Diagnoses Psychosis F29 Paranoia F22 Suicidal ideation R45.851 Methamphetamine use disorder, severe, dependence F15.20 Depression F32.A Impulse control disorder, unspecified F63.9
[2024-12-30 20:40] VITALS: BP 92/67; PULSE 101; RESP 17; TEMP 36.6; O2SAT 97; BMI 32.6
[2024-12-31 06:00] VITALS: BP 96/56; PULSE 75; RESP 17; TEMP 36.5; O2SAT 94
[2024-12-31] MEDS: diphenhydrAMINE 50 mg/mL SDV 1mL IM (06:14)
[2024-12-31] MEDS: haloperidol inj 5 mg/mL INJ 1 mL 10 MG IM (06:14)
[2024-12-31] MEDS: paliperidone ER 6 mg Tablet 12 MG PO (08:17)
[2024-12-31] MEDS: quetiapine 100 mg Tablet PO (08:17)
[2024-12-31] MEDS: divalproex ER 500 mg Tablet (24H) 1000 MG PO (08:17)
--- NOTE | 2024-12-31 13:26 | PC.NURSE ---
Pt came to window while Dr. Lopez was at the nurses station wanting to be d/c today. She became upset when he told her know and made a threat to elope into the nurses station. Dr. Lopez gave a v/o to increase Seroquel to 150mg TID.
[2024-12-31 14:00] VITALS: BP 117/83; PULSE 94; RESP 18; O2SAT 94
[2024-12-31] MEDS: quetiapine 100 mg Tablet 150 MG PO ×2 (14:41→20:53)
--- NOTE | 2024-12-31 16:13 | P.NPUPN_ITS ---
Subjective NPU 2 Subjective: Patient presented today reporting that things are going okay. She identified that she was wanting to leave and for a moment look like she was going to escalate to previous days where she ended up getting placed in seclusion or restraints. However after a momentary lapse she walked away and was able to regain her composure. We discussed the risks, benefits and alternatives of increasing her Seroquel 150 mg p.o. 3 times daily and she understood and agreed to proceed as is documented in this note. She denied any side effects to the medication but continue to focus on discharge and not on discharge were the behaviors. Mental Status Exam 2 MSE Comments: This is an overweight versus obese white female looking older than her stated age in hospital scrubs with poor grooming and limited eye contact. She was extremely immature appearing to interact like an 6 year old child. Poor dentition. No abnormal involuntary motor movements appreciated. She was minimally cooperative on interview while requesting to leave the hospital. Speech was normal in rate and increased in volume and monotone in quality and at times slurred mood described as bad. Her affect was odd and subdued and mood incongruent. Thought process was linear but concrete. Perseverated on wanting to leave hospital. Thought content: Patient denies suicidal or homicidal ideation. She endorsed auditory hallucinations today and did appear to be responding to internal stimuli. There was continued presence of paranoia. Attention and concentration were limited as she was easily distracted. She is alert and oriented times person and place. Insight and judgment are impaired. Impulse control is poor. Fund of knowledge appeared poor. Abstraction was poor with evidence of concrete thinking. Vitals/I&O/Wt Last Vital Signs Temp 97 F L 12/31/24 19:56 Pulse 80 12/31/24 19:56 Resp 18 12/31/24 19:56 BP 93/60 12/31/24 19:56 Pulse Ox 96 12/31/24 19:56 O2 Del Method Room Air 12/31/24 19:56 Weight last 48 hrs Weight 91.739 kg Data NPU 12/09/24 18:11 12/09/24 20:11 A&P Assessment and plan (1) Psychosis: (2) Paranoia: (3) Suicidal ideation: (4) Methamphetamine use disorder, severe, dependence: (5) Depression: (6) Impulse control disorder, unspecified: Plan This is a 39-year-old white female with a long history of mental health and addiction issues who presents after a very confused and unclear what is going on from the standpoint of being in the hospital but she was positive for methamphetamine. The patient is experiencing significant mental health challenges, including depression, anxiety, paranoia, and auditory hallucinations. There is a history of depression predating substance use, indicating a longstanding mental health condition. She likely also has a developmental disability or cognitive limitations with poor impulse control. 1. Increase Invega to 12 mg p.o. daily. Increase Depakote to 1000mg ER In am for aggression. We started Seroquel 50 mg p.o. 3 times daily to continue to see if we can decrease her aggression and agitation that seems to start in the morning. Increased Seroquel to 100 mg p.o. 3 times daily. Increase Seroquel to 150 mg p.o. 3 times daily. 2. Continue on one-to-one as she continues to try to abscond from the unit. 3. Encourage individual, group and milieu therapy. 4. Encourage sober living treatment after discharge at the highest level care to which she is willing to commit. 5. Patient placed on 21 day hold. Patient performed poorly on DARLENE (needed assistance on 06/17 skills tested)-Will likely begin level 2 with plan for guardianship. 6. We will continue to evaluate and make recommendations about who serves as guardian after we conversed with her significant other. PDMP PDMP Reviewed: Not Reviewed Involuntary Hold Information 2 Hold Status: Legal Status: 21 Day Hold Date/Time Hold Expires: 01/15/25 Attestations NPU 2 Medical Necessity Statement*: Inpatient hospitalization is medically necessary and the clinically appropriate intervention at this time.? We will monitor/initiate medications as indicated. The patient?s likely length of stay is 15-20 days as patient remains on 1-[address] appointed guardianship is now being pursued. Coding Level of Care Code Acute Code for [facility] Fwd Diagnoses Psychosis F29 Paranoia F22 Suicidal ideation R45.851 Methamphetamine use disorder, severe, dependence F15.20 Depression F32.A Impulse control disorder, unspecified F63.9
[2024-12-31 19:56] VITALS: BP 93/60; PULSE 80; RESP 18; TEMP 36.1; O2SAT 96
[2024-12-31] MEDS: hyDROXYzine 25 mg Capsule 50 MG PO (20:53)
[2024-12-31] MEDS: trazodone 50 mg Tablet PO (20:54)
[2025-01-01 06:00] VITALS: BP 109/76; PULSE 96; RESP 17; O2SAT 98
[2025-01-01] MEDS: haloperidol inj 5 mg/mL INJ 1 mL 10 MG IM (06:14)
[2025-01-01] MEDS: diphenhydrAMINE 50 mg/mL SDV 1mL IM (06:15)
[2025-01-01] MEDS: paliperidone ER 6 mg Tablet 12 MG PO (08:15)
[2025-01-01] MEDS: divalproex ER 500 mg Tablet (24H) 1000 MG PO (08:15)
[2025-01-01] MEDS: acetaminophen 325 mg Tablet 650 MG PO (08:16)
[2025-01-01] MEDS: quetiapine 100 mg Tablet 150 MG PO ×3 (08:16→20:31)
--- NOTE | 2025-01-01 08:18 | P.NPUPN_ITS ---
Subjective NPU 2 Subjective: Patient presented today reporting that she is doing better when she had been converging on her third day absent being put in restraints or in seclusion. We discussed the possibility of discontinuing her one-to-one if she continues in this pattern and then she could be in a position that we could discuss possible discharge considerations. She denied side effects of medication and would continue to increase the Seroquel. She continues to be focused on going home showing some signs of stabilizing her lability. Mental Status Exam 2 MSE Comments: This is an overweight versus obese white female looking older than her stated age in hospital scrubs with poor grooming and limited eye contact. She was extremely immature appearing to interact like an 6 year old child. Poor dentition. No abnormal involuntary motor movements appreciated. She was minimally cooperative on interview while requesting to leave the hospital. Speech was normal in rate and increased in volume and monotone in quality and at times slurred mood described as bad. Her affect was odd and subdued and mood incongruent. Thought process was linear but concrete. Perseverated on wanting to leave hospital. Thought content: Patient denies suicidal or homicidal ideation. She endorsed auditory hallucinations today and did appear to be responding to internal stimuli. There was continued presence of paranoia. Attention and concentration were limited as she was easily distracted. She is alert and oriented times person and place. Insight and judgment are impaired. Impulse control is poor. Fund of knowledge appeared poor. Abstraction was poor with evidence of concrete thinking. Vitals/I&O/Wt Last Vital Signs Temp 97 F L 12/31/24 19:56 Pulse 96 01/01/25 06:00 Resp 17 01/01/25 06:00 BP 109/76 01/01/25 06:00 Pulse Ox 98 01/01/25 06:00 O2 Del Method Room Air 01/01/25 06:00 Weight last 48 hrs Weight 91.739 kg Data NPU 12/09/24 18:11 12/09/24 20:11 A&P Assessment and plan (1) Psychosis: (2) Paranoia: (3) Suicidal ideation: (4) Methamphetamine use disorder, severe, dependence: (5) Depression: (6) Impulse control disorder, unspecified: Plan This is a 39-year-old white female with a long history of mental health and addiction issues who presents after a very confused and unclear what is going on from the standpoint of being in the hospital but she was positive for methamphetamine. The patient is experiencing significant mental health challenges, including depression, anxiety, paranoia, and auditory hallucinations. There is a history of depression predating substance use, indicating a longstanding mental health condition. She likely also has a developmental disability or cognitive limitations with poor impulse control. 1. Increase Invega to 12 mg p.o. daily. Increase Depakote to 1000mg ER In am for aggression. We started Seroquel 50 mg p.o. 3 times daily to continue to see if we can decrease her aggression and agitation that seems to start in the morning. Increased Seroquel to 100 mg p.o. 3 times daily. Increase Seroquel to 150 mg p.o. 3 times daily. Will consider increase to 200 mg p.o. 3 times daily shortly but might change the dosing pattern. 2. Continue on one-to-one as she continues to try to abscond from the unit. Considering discontinuing one-to-one. 3. Encourage individual, group and milieu therapy. 4. Encourage sober living treatment after discharge at the highest level care to which she is willing to commit. 5. Patient placed on 21 day hold. Patient performed poorly on DARLENE (needed assistance on 06/17 skills tested)-Will likely begin level 2 with plan for guardianship. 6. We will continue to evaluate and make recommendations about who serves as guardian after we conversed with her significant other. PDMP PDMP Reviewed: Not Reviewed Involuntary Hold Information 2 Hold Status: Legal Status: 21 Day Hold Date/Time Hold Expires: 01/15/25 Attestations NPU 2 Medical Necessity Statement*: Inpatient hospitalization is medically necessary and the clinically appropriate intervention at this time.? We will monitor/initiate medications as indicated. The patient?s likely length of stay is 15-20 days as patient remains on 1-[address] appointed guardianship is now being pursued. Coding Level of Care Code Acute Code for [facility] Fwd Diagnoses Psychosis F29 Paranoia F22 Suicidal ideation R45.851 Methamphetamine use disorder, severe, dependence F15.20 Depression F32.A Impulse control disorder, unspecified F63.9
--- NOTE | 2025-01-01 09:40 | PC.NURSE ---
Pt states that she didn't sleep very well last night. She is denying anxiety and depression. No SI/HI. Denies any hallucination today. We talked about her goal of no behaviors today, after she attempted to reach into the nurses station. She agreed with that goal. She has required redirection a few times this morning. She became very emotional and upset after talking to her boyfriend on the phone. I gave her a zydis PRN to just help her relax and be successful in reducing behaviors today.
[2025-01-01 14:00] VITALS: BP 110/81; PULSE 112; RESP 17; O2SAT 95
[2025-01-01] MEDS: OLANZapine 5 mg ODT PO ×2 (14:16→23:57)
[2025-01-01 19:56] VITALS: BP 94/61; PULSE 96; RESP 18; O2SAT 93
[2025-01-01] MEDS: hyDROXYzine 25 mg Capsule 50 MG PO (20:31)
[2025-01-01] MEDS: trazodone 50 mg Tablet PO ×2 (20:31→23:57)
[2025-01-02 05:12] VITALS: BP 120/79; PULSE 101; RESP 17; TEMP 36.1; O2SAT 95
[2025-01-02] MEDS: diphenhydrAMINE 50 mg/mL SDV 1mL IM (05:15)
[2025-01-02] MEDS: haloperidol inj 5 mg/mL INJ 1 mL 10 MG IM (05:15)
[2025-01-02] MEDS: paliperidone ER 6 mg Tablet 12 MG PO (08:21)
[2025-01-02] MEDS: nicotine 4 mg lozenge 8 MG MUCOUS MEM (08:22)
[2025-01-02] MEDS: divalproex ER 500 mg Tablet (24H) 1000 MG PO (08:22)
[2025-01-02] MEDS: quetiapine 100 mg Tablet 150 MG PO ×3 (08:22→19:34)
[2025-01-02] MEDS: diphenhydrAMINE 50 mg Capsule PO (08:22)
--- NOTE | 2025-01-02 13:01 | PC.NURSE ---
At 0800 pt became upset wanting to leave the unit and go home. She attempted to knock computers over at the nurses stations again. When this nurse spoke with the pt she stated that she wanted to leave and when we let her know that wasn't an option today she demanded to have an injection. I informed her that she could have po medication but the Dr didn't want her having anymore injections. Pt went to the dayroom and sat down for a while to eat her breakfast. After breakfast she became increasingly agitated. At approx 0815 she came up the ford demanding an injection. I informed her that wasn't an option that Dr didn't want her having those. She swung at this nurse. I stopped her hand and instructed her that we were not going to be hitting people. She again stated that she wanted an injection, she wanted to lay down and go to sleep. We again offered her a po medication to calm down. Pt stated that she didn't want that and attempted to elope out the unit door. She also cont to reach into the nurses station and knock over computers. She also thought she could use the edge of the glass window to cut herself. We redirected pt multiple times and she finally agreed to take her morning PO medications. Pt then walked down the ford a little ways turned around and as she was coming to the nurses station was attempting to scratch and hurt herself. The decision was made to place the pt in seclusion. At 0831 a code 10 was called and pt was escorted down the hallway to the seclusion room with a manual hold. Pt cont to bang on the door of the seclusion room and demanding to know when she would be let out. We informed pt that she would need to spend some time and work on controlling herself.
[2025-01-02 14:00] VITALS: BP 136/83; PULSE 124; RESP 18; TEMP 36.3; O2SAT 96
--- NOTE | 2025-01-02 15:03 | P.NPUPN_ITS ---
Subjective NPU 2 Subjective: Patient presented today reporting that things are fine. However she was very worked up and frustrated about being in restraints. We discussed the fact that she is needing to demonstrate that she is not going to be aggressive to be let out of restraints. She did not identify why she lost control and why she could not manage her symptoms. We discussed the risks, benefits and alternatives of increasing her Seroquel again and she understood and agreed to proceed as is documented in this note. We continue to review the process by which she can in the one-to-one and possibly look towards discharge if her significant other gets guardianship. She denied any side effects of the medication. Mental Status Exam 2 MSE Comments: This is an overweight versus obese white female looking older than her stated age in hospital scrubs with poor grooming and limited eye contact. She was extremely immature appearing to interact like an 6 year old child. Poor dentition. No abnormal involuntary motor movements appreciated. She was minimally cooperative on interview while requesting to leave the hospital. Speech was normal in rate and increased in volume and monotone in quality and at times slurred mood described as bad. Her affect was odd and subdued and mood incongruent. Thought process was linear but concrete. Perseverated on wanting to leave hospital. Thought content: Patient denies suicidal or homicidal ideation. She endorsed auditory hallucinations today and did appear to be responding to internal stimuli. There was continued presence of paranoia. Attention and concentration were limited as she was easily distracted. She is alert and oriented times person and place. Insight and judgment are impaired. Impulse control is poor. Fund of knowledge appeared poor. Abstraction was poor with evidence of concrete thinking. Vitals/I&O/Wt Last Vital Signs Temp 96.9 F L 01/02/25 05:12 Pulse 101 H 01/02/25 05:12 Resp 17 01/02/25 05:12 BP 120/79 01/02/25 05:12 Pulse Ox 95 01/02/25 05:12 O2 Del Method Room Air 01/02/25 05:12 Data NPU 12/09/24 18:11 12/09/24 20:11 A&P Assessment and plan (1) Psychosis: (2) Paranoia: (3) Suicidal ideation: (4) Methamphetamine use disorder, severe, dependence: (5) Depression: (6) Impulse control disorder, unspecified: Plan This is a 39-year-old white female with a long history of mental health and addiction issues who presents after a very confused and unclear what is going on from the standpoint of being in the hospital but she was positive for methamphetamine. The patient is experiencing significant mental health challenges, including depression, anxiety, paranoia, and auditory hallucinations. There is a history of depression predating substance use, indicating a longstanding mental health condition. She likely also has a developmental disability or cognitive limitations with poor impulse control. 1. Increase Invega to 12 mg p.o. daily. Increase Depakote to 1000mg ER In am for aggression. We started Seroquel 50 mg p.o. 3 times daily to continue to see if we can decrease her aggression and agitation that seems to start in the morning. Increased Seroquel to 100 mg p.o. 3 times daily. Increase Seroquel to 150 mg p.o. 3 times daily. Will increase to 200 mg p.o. 3 times daily shortly but might change the dosing pattern. 2. Continue on one-to-one as she continues to try to abscond from the unit. Considering discontinuing one-to-one. 3. Encourage individual, group and milieu therapy. 4. Encourage sober living treatment after discharge at the highest level care to which she is willing to commit. 5. Patient placed on 21 day hold. Patient performed poorly on DARLENE (needed assistance on 06/17 skills tested)-Will likely begin level 2 with plan for guardianship. 6. We will continue to evaluate and make recommendations about who serves as guardian after we conversed with her significant other. PDMP PDMP Reviewed: Not Reviewed Involuntary Hold Information 2 Hold Status: Legal Status: 21 Day Hold Date/Time Hold Expires: 01/15/25 Attestations NPU 2 Medical Necessity Statement*: Inpatient hospitalization is medically necessary and the clinically appropriate intervention at this time.? We will monitor/initiate medications as indicated. The patient?s likely length of stay is 15-20 days as patient remains on 1-[address] appointed guardianship is now being pursued. Coding Level of Care Code Acute Code for [facility] Fwd Diagnoses Psychosis F29 Paranoia F22 Suicidal ideation R45.851 Methamphetamine use disorder, severe, dependence F15.20 Depression F32.A Impulse control disorder, unspecified F63.9
[2025-01-02] MEDS: OLANZapine 5 mg ODT PO ×2 (15:29→20:36)
--- NOTE | 2025-01-02 15:39 | XRR_ITS ---
PROCEDURE INFORMATION: Exam: XR Right Hand Exam date and time: 01/02/2025 3:52 PM Age: 39 years old Clinical indication: Injury or trauma; Other: Punched a wall; Blunt trauma (contusions or hematomas); Hand; Right; Additional info: Punched a wall, swelling and bruising TECHNIQUE: Imaging protocol: Radiologic exam of the right hand. Views: 3 or more views. COMPARISON: No relevant prior studies available. FINDINGS: Bones/joints: Joint spaces are preserved. No acute fracture. There is ulna minus variance. Alignment is otherwise normal. Soft tissues: Visible soft tissues are unremarkable. XR/XR hand RT min 3V* [id number] IMPRESSION: No acute fracture.
--- NOTE | 2025-01-02 15:40 | PC.NURSE ---
Went in to assess pt and she has swelling and bruising to her Rt hand knuckles where she repeatedly punched the door in seclusion today. Spoke with Dr. Lopez and he has ordered an xray of her rt hand.
[2025-01-02] MEDS: hyDROXYzine 25 mg Capsule 50 MG PO (19:34)
[2025-01-02] MEDS: trazodone 50 mg Tablet PO ×2 (19:36→20:36)
[2025-01-02 20:04] VITALS: BP 97/63; PULSE 83; RESP 18; TEMP 36.4; O2SAT 94
[2025-01-03 02:59] VITALS: BP 106/71; PULSE 81; RESP 17; O2SAT 96
[2025-01-03] MEDS: diphenhydrAMINE 50 mg/mL SDV 1mL IM (05:50)
[2025-01-03] MEDS: haloperidol inj 5 mg/mL INJ 1 mL 10 MG IM (05:50)
[2025-01-03 05:54] VITALS: BP 108/67; PULSE 91; RESP 18; O2SAT 96
--- NOTE | 2025-01-03 08:00 | PC.NURSE ---
Addendum entered and electronically signed by Kary Johnson RN 01/03/25 09:18: WHEN NOTIFYING DR. HUNG NEW ORDERS WERE RECEIVED TO INCREASE SEROQUEL TO 200 MG PO TID. SECLUSION REMOVED AT 0845 AM. PT WAS ABLE TO CONTRACT WITH RN TO HAVE GOOD BEHAVIORS AND TO LET STAFF KNOW WHEN SHE IS BECOMING ANXIOUS SO STAFF CAN ASSIST PT WITH PROCESSING THROUGH FEELINGS. PT STATES SHE WILL. PT CURRENTLY RESTING IN BED WITH SITTER AT SIDE. CALM AND COOPERATIVE. SUPPORT VOICED. VITALS OBTAINED, 101/70, 103, 17, 95% Original Note: PT CAME TO NURSES STATION TWICE IN A PERIOD OF 2-3 MINUTES ATTEMPTING TO PUSH OFF COMPUTER MONITORS. CODE 10 WAS CALLED. STAFF VERBALLY REDIRECTED PT AWAY AND BACK TO ROOM WITH LITTLE SUCCESS. PT AGAIN CAME TO THE NURSES STATION AND ATTEMPTED TO PUSH OFF THE COMPUTERS AGAIN. PT BECAME COMBATIVE WITH STAFF AND REFUSED TO GET UP OFF THE FLOOR AND WALK. PT WAS OFFERED TO TAKE AM MEDICATIONS AND LAY DOWN IN BED BUT DECLINED. DUE TO PT CONTINUING COMBATIVE BEHAVIORS THIS RN INSTRUCTED STAFF TO ASSIST PT TO SECLUSION SO PT WOULD BE SAFE AND COULD CALM DOWN. SECURITY AND SCRIPT COORDINATOR USING SAFE THREE TECHNIQUES ASSISTED PT TO SECLUSION ROOM. MANUAL HOLD PLACED AT 0726 AND PT WAS PLACED IN SECLUSION AT 0727. ONE TO ONE OBSERVATION CONTINUES WHILE IN SECLUSION. PT IS OBSERVED HITTING THE GLASS AND HITTING THE MARIN CONTINUALLY. STOPS ONLY BRIEFLY TO YELL AT STAFF. PT WAS GIVEN BREAKFAST AT 0755. RN INSTRUCTED PT IF SHOULD COULD CALM DOWN AND EAT AND HAVE 30 MINUTES OF CALM BEHAVIORS WITHOUT YELLING AND HITTING MARIN SHE COULD COME OUT. PT AGREED. MARIO GARCIAS NOTIFIED WHILE ON UNIT. NOTIFIED VIA PHONE. [employer] MERCH[employer]ER HERE AND NOTIFIED.
[2025-01-03] MEDS: quetiapine 100 mg Tablet 200 MG PO ×3 (08:48→19:56)
[2025-01-03] MEDS: benztropine 1 mg Tablet PO ×2 (08:48→19:56)
[2025-01-03] MEDS: hyDROXYzine 25 mg Capsule 50 MG PO ×2 (08:48→19:56)
[2025-01-03] MEDS: paliperidone ER 6 mg Tablet 12 MG PO (08:48)
[2025-01-03] MEDS: divalproex ER 500 mg Tablet (24H) 1000 MG PO (08:48)
[2025-01-03] MEDS: OLANZapine 5 mg ODT PO (08:49)
[2025-01-03 09:18] VITALS: BP 101/70; PULSE 103; RESP 16; O2SAT 95
--- NOTE | 2025-01-03 13:38 | P.NPUPN_ITS ---
Subjective NPU 2 Subjective: Patient presented today reporting that she is fine. She continues to be on one-to-one and we continue to discuss what would be necessary to come off of one-to-one. He continues to be responsive and endorse understanding what needs to happen but this continues to be met by her not achieving even close to the goal. We discussed the risks, benefits and alternatives of increasing the Seroquel and she understood and agreed to proceed as is documented in this note. We discussed the desire to have her not taking only as needed medications and having the Seroquel be the representation of her antipsychotic coverage along with Depakote and Invega. She denied any side effects to the medication. Mental Status Exam 2 MSE Comments: This is an overweight versus obese white female looking older than her stated age in hospital scrubs with poor grooming and limited eye contact. She was extremely immature appearing to interact like an 6 year old child. Poor dentition. No abnormal involuntary motor movements appreciated. She was minimally cooperative on interview while requesting to leave the hospital. Speech was normal in rate and increased in volume and monotone in quality and at times slurred mood described as bad. Her affect was odd and subdued and mood incongruent. Thought process was linear but concrete. Perseverated on wanting to leave hospital. Thought content: Patient denies suicidal or homicidal ideation. She endorsed auditory hallucinations today and did appear to be responding to internal stimuli. There was continued presence of paranoia. Attention and concentration were limited as she was easily distracted. She is alert and oriented times person and place. Insight and judgment are impaired. Impulse control is poor. Fund of knowledge appeared poor. Abstraction was poor with evidence of concrete thinking. Vitals/I&O/Wt Last Vital Signs Temp 97.6 F 01/02/25 20:04 Pulse 103 H 01/03/25 09:18 Resp 16 01/03/25 09:18 BP 101/70 01/03/25 09:18 Pulse Ox 95 01/03/25 09:18 O2 Del Method Room Air 01/03/25 05:54 Data NPU 12/09/24 18:11 12/09/24 20:11 A&P Assessment and plan (1) Psychosis: (2) Paranoia: (3) Suicidal ideation: (4) Methamphetamine use disorder, severe, dependence: (5) Depression: (6) Impulse control disorder, unspecified: Plan This is a 39-year-old white female with a long history of mental health and addiction issues who presents after a very confused and unclear what is going on from the standpoint of being in the hospital but she was positive for methamphetamine. The patient is experiencing significant mental health challenges, including depression, anxiety, paranoia, and auditory hallucinations. There is a history of depression predating substance use, indicating a longstanding mental health condition. She likely also has a developmental disability or cognitive limitations with poor impulse control. 1. Increase Invega to 12 mg p.o. daily. Increase Depakote to 1000mg ER In am for aggression. We started Seroquel 50 mg p.o. 3 times daily to continue to see if we can decrease her aggression and agitation that seems to start in the morning. Increased Seroquel to 100 mg p.o. 3 times daily. Increase Seroquel to 150 mg p.o. 3 times daily. Increased to 200 mg p.o. 3 times daily shortly but might change the dosing pattern. 2. Continue on one-to-one as she continues to try to abscond from the unit. Considering discontinuing one-to-one. 3. Encourage individual, group and milieu therapy. 4. Encourage sober living treatment after discharge at the highest level care to which she is willing to commit. 5. Patient placed on 21 day hold. Patient performed poorly on DARLENE (needed assistance on 06/17 skills tested)-Will likely begin level 2 with plan for guardianship. 6. We will continue to evaluate and make recommendations about who serves as guardian after we conversed with her significant other. PDMP PDMP Reviewed: Not Reviewed Involuntary Hold Information 2 Hold Status: Legal Status: 21 Day Hold Date/Time Hold Expires: 01/15/25 Attestations NPU 2 Medical Necessity Statement*: Inpatient hospitalization is medically necessary and the clinically appropriate intervention at this time.? We will monitor/initiate medications as indicated. The patient?s likely length of stay is 15-20 days as patient remains on - and court appointed guardianship is now being pursued. Coding Level of Care Code Acute Code for [facility] Fwd Diagnoses Psychosis F29 Paranoia F22 Suicidal ideation R45.851 Methamphetamine use disorder, severe, dependence F15.20 Depression F32.A Impulse control disorder, unspecified F63.9
[2025-01-03] MEDS: haloperidol 5 mg Tablet PO (13:55)
--- NOTE | 2025-01-03 13:56 | PC.NURSE ---
PT STATES SHE IS FEELING ANXIOUS AND GETTING WORKED UP, HALDOL 5 MG GIVEN ORDERED FOR INCREASED ANXIETY AND AGITATION. SEROQUEL 200 MG GIVEN 5 MINUTES EARLY DUE TO ANXIETY AND AGITATION. SUPPORT VOICED.
[2025-01-03 14:00] VITALS: BP 109/76; PULSE 93; RESP 17; TEMP 36.4; O2SAT 96
[2025-01-03] MEDS: trazodone 50 mg Tablet PO (19:56)
[2025-01-03 20:29] VITALS: BP 110/72; PULSE 88; RESP 17; TEMP 36.4; O2SAT 95
[2025-01-04] MEDS: diphenhydrAMINE 50 mg/mL SDV 1mL IM (05:21)
[2025-01-04] MEDS: haloperidol inj 5 mg/mL INJ 1 mL 10 MG IM (05:21)
[2025-01-04] MEDS: OLANZapine 5 mg ODT PO ×3 (05:21→21:30)
[2025-01-04 06:00] VITALS: BP 124/87; PULSE 85; RESP 17; TEMP 37.2; O2SAT 96
--- NOTE | 2025-01-04 07:20 | P.NPUPN_ITS ---
Subjective NPU 2 Subjective: Patient presented today reporting that things are going fine. She had not been in seclusion or restraints today and appeared to be doing better as the Seroquel increased per staff reports and direct observation. She understood her continued desire to get her out of one-to-one and back to every 15 minute checks. She understood that that is the process by which there would be any chance for discharge. She denied any side effects from medication. Mental Status Exam 2 MSE Comments: This is an overweight versus obese white female looking older than her stated age in hospital scrubs with poor grooming and limited eye contact. She was extremely immature appearing to interact like an 6 year old child. Poor dentition. Hirsutism noticed on her chin. No abnormal involuntary motor movements appreciated. She was minimally cooperative on interview while requesting to leave the hospital. Speech was normal in rate and mostly decreased in volume and monotone in quality and at times slurred. Mood described as okay. Her affect was odd and subdued and mood incongruent. Thought process was linear but concrete. Perseverated on wanting to leave hospital. Thought content: Patient denies suicidal or homicidal ideation. She endorsed auditory hallucinations today and did appear to be responding to internal stimuli. There was continued presence of paranoia. Attention and concentration were limited as she was easily distracted. She is alert and oriented times person and place. Insight and judgment are impaired. Impulse control is poor. Fund of knowledge appeared poor. Abstraction was poor with evidence of concrete thinking. Vitals/I&O/Wt Last Vital Signs Temp 98.9 F 01/04/25 06:00 Pulse 85 01/04/25 06:00 Resp 17 01/04/25 06:00 BP 124/87 01/04/25 06:00 Pulse Ox 96 01/04/25 06:00 O2 Del Method Room Air 01/04/25 06:00 Data NPU 12/09/24 18:11 12/09/24 20:11 A&P Assessment and plan (1) Psychosis: (2) Paranoia: (3) Suicidal ideation: (4) Methamphetamine use disorder, severe, dependence: (5) Depression: (6) Impulse control disorder, unspecified: Plan This is a 39-year-old white female with a long history of mental health and addiction issues who presents after a very confused and unclear what is going on from the standpoint of being in the hospital but she was positive for methamphetamine. The patient is experiencing significant mental health challenges, including depression, anxiety, paranoia, and auditory hallucinations. There is a history of depression predating substance use, indicating a longstanding mental health condition. She likely also has a developmental disability or cognitive limitations with poor impulse control. 1. Increase Invega to 12 mg p.o. daily. Increase Depakote to 1000mg ER In am for aggression. We started Seroquel 50 mg p.o. 3 times daily to continue to see if we can decrease her aggression and agitation that seems to start in the morning. Increased Seroquel to 100 mg p.o. 3 times daily. Increase Seroquel to 150 mg p.o. 3 times daily. Increased to 200 mg p.o. 3 times daily shortly but might change the dosing pattern. Will consider increasing evening dose moving forward and adding a milligram of Klonopin at bedtime to assist with sleep. 2. Continue on one-to-one as she continues to try to abscond from the unit. Considering discontinuing one-to-one. 3. Encourage individual, group and milieu therapy. 4. Encourage sober living treatment after discharge at the highest level care to which she is willing to commit. 5. Patient placed on 21 day hold. Patient performed poorly on DARLENE (needed assistance on 06/17 skills tested)-Will likely begin level 2 with plan for guardianship. 6. We will continue to evaluate and make recommendations about who serves as guardian after we conversed with her significant other. PDMP PDMP Reviewed: Not Reviewed Involuntary Hold Information 2 Hold Status: Legal Status: 21 Day Hold Date/Time Hold Expires: 01/15/25 Attestations NPU 2 Medical Necessity Statement*: Inpatient hospitalization is medically necessary and the clinically appropriate intervention at this time.? We will monitor/initiate medications as indicated. The patient?s likely length of stay is 15-20 days as patient remains on 1-[address] appointed guardianship is now being pursued. Coding Level of Care Code Acute Code for [facility] Fwd Diagnoses Psychosis F29 Paranoia F22 Suicidal ideation R45.851 Methamphetamine use disorder, severe, dependence F15.20 Depression F32.A Impulse control disorder, unspecified F63.9
[2025-01-04] MEDS: divalproex ER 500 mg Tablet (24H) 1000 MG PO (08:40)
[2025-01-04] MEDS: hyDROXYzine 25 mg Capsule 50 MG PO ×2 (08:40→18:05)
[2025-01-04] MEDS: benztropine 1 mg Tablet PO (08:40)
[2025-01-04] MEDS: quetiapine 100 mg Tablet 200 MG PO ×3 (08:40→21:30)
[2025-01-04] MEDS: paliperidone ER 6 mg Tablet 12 MG PO (08:40)
--- NOTE | 2025-01-04 09:21 | PC.NURSE ---
IN BED RESTING. ATTEMPTING TO CALL BOYFRIEND. CONTINUES TO HAVE PARANOIA AND BELIEVES PEOPLE ARE AFTER ME AND I CAN HEAR THEM UPSTAIRS TRYING TO GET ME. PT ASSURED SHE IS SAFE AND THERE IS NO UPSTAIRS AND NO ONE IS HERE TO GET HER. PT ASSURED THAT STAFF WILL KEEP HER SAFE. FLAT AFFECT IS NOTED WITH DEPRESSED MOOD. ANXIOUS AT TIMES. ONE TO ONE OBSERVATION CONTINUES FOR PT, STAFF SAFETY AND HIGH ELOPEMENT RISK. DENIES SI/HI CONTINUES TO ENDORSE AVH AND HIGH PARANOIA. PT REQUIRES FREQUENT REASSURANCE. REMAINS IMPULSIVE WITH LIMITED SELF CONTROL. PT WAS GIVEN VISTARIL 50 MG ORDERED FOR INCREASED ANXIETY AND COGENTIN 1 MG FOR REPETITIVE MOVEMENTS OF FEET/LEGS WITH JAW AND TONGUE MOVEMENT. SUPPORT VOICED.
--- NOTE | 2025-01-04 12:02 | PC.NURSE ---
NEW ORDERS RECEIVED TO GIVE CLONAZEPAM 1 MG PO Q HS, DUE TO PT NOT SLEEPING WELL AT NIGHT. RETAIL FIELD REPRESENTATIVE NURSE REPORTS PT SLEPT 4 HOURS LAST NIGHT AND 2 HOURS THE NIGHT BEFORE. ORDERS RECEIVED BY DR. HUNG.
[2025-01-04 14:00] VITALS: BP 111/70; PULSE 96; RESP 16; TEMP 36.4; O2SAT 95
[2025-01-04] MEDS: haloperidol 5 mg Tablet PO (18:06)
--- NOTE | 2025-01-04 18:23 | PC.NURSE ---
PT ON PHONE CRYING AND TEARFUL, REMAINS PARANOID AT TIMES. HALDOL 5 MG GIVEN FOR AGITATION AND VISTARIL 50 MG GIVEN ORDERED FOR INCREASED ANXIETY. SUPPORT VOICED.
[2025-01-04 20:21] VITALS: BP 100/69; PULSE 89; RESP 18; TEMP 36.3; O2SAT 97
[2025-01-04] MEDS: CLONazepam 1 mg Tablet PO (21:30)
[2025-01-04] MEDS: trazodone 50 mg Tablet PO (21:30)
[2025-01-05 06:00] VITALS: BP 103/68; PULSE 88; RESP 17; TEMP 37; O2SAT 96
[2025-01-05] MEDS: haloperidol inj 5 mg/mL INJ 1 mL 10 MG IM (06:24)
[2025-01-05] MEDS: diphenhydrAMINE 50 mg/mL SDV 1mL IM (06:24)
--- NOTE | 2025-01-05 07:46 | PC.NURSE ---
NEW ORDERS RECEIVED BY DR. HUNG TO START PT ON COGENTIN 1 MG PO BID. ORDERS PLACED AND PT EDUCATED ON NEW ORDERS. PT STATED OKAY OKAY. SUPPORT VOICED.
[2025-01-05] MEDS: hyDROXYzine 25 mg Capsule 50 MG PO ×2 (08:09→20:35)
[2025-01-05] MEDS: divalproex ER 500 mg Tablet (24H) 1000 MG PO (08:09)
[2025-01-05] MEDS: paliperidone ER 6 mg Tablet 12 MG PO (08:09)
[2025-01-05] MEDS: quetiapine 100 mg Tablet 200 MG PO ×2 (08:09→14:03)
[2025-01-05] MEDS: benztropine 1 mg Tablet PO ×2 (08:09→17:54)
--- NOTE | 2025-01-05 08:19 | PC.NURSE ---
PT CONTINUES TO BE TEARFUL AT TIMES WHILE SPEAKING TO BOYFRIEND ON THE PHONE. VISTARIL 50 MG GIVEN NEEDED FOR ANXIETY. DENIES SI/HI AND AVH AT THIS TIME. ONE TO ONE OBSERVATION CONTINUES FOR SAFETY ISSUES AND PT IMPULSIVENESS. WITHDRAWN AT TIMES. FLAT AFFECT, ANXIOUS AND DEPRESSED MOOD NOTED. SUPPORT VOICED.
--- NOTE | 2025-01-05 11:03 | PC.NURSE ---
NEW ORDERS RECEIVED FROM DR. HUNG TO INCREASE 2100 DOSE OF SEROQUEL TO 300 MG PO AT BEDTIME. ORDERS PLACED. SUPPORT VOICED.
[2025-01-05 14:00] VITALS: BP 93/58; PULSE 89; RESP 17; TEMP 36.6; O2SAT 98
--- NOTE | 2025-01-05 19:43 | W.PM.NPUPNS ---
Subjective NPU Subjective: Patient presented today reporting that she is feeling a little better. She had another day without restraint or seclusion and slept very well per staff reports and direct observation. We discussed continuing the 1 mg of Klonopin to assist with sleep moving forward and increasing the Seroquel to 300 mg p.o. nightly continuing a plan to increase the Seroquel and hopefully eliminate the as needed antipsychotic medications she was getting during her seclusions and outburst. She endorsed that she is feeling better and we discussed trying to move towards getting away from the one-to-one. She denied any side effects to her medication. Mental Status Exam MSE Comments: This is an overweight versus obese white female looking older than her stated age in hospital scrubs with poor grooming and limited eye contact. She was extremely immature appearing to interact like an 6 year old child. Poor dentition. Hirsutism noticed on her chin. No abnormal involuntary motor movements appreciated except for some tremulousness. She was more cooperative on interview. Speech was normal in rate and mostly decreased in volume and monotone in quality and at times slurred. Mood described as okay. Her affect was odd and subdued and mood incongruent. Thought process was linear but concrete. Thought content: Patient denies suicidal or homicidal ideation. She endorsed auditory hallucinations today and did appear to be responding to internal stimuli. There was continued presence of paranoia. Attention and concentration were improving as she was the less distracted. She is alert and oriented times person and place. Insight and judgment are impaired. Impulse control is poor. Fund of knowledge appeared poor. Abstraction was poor with evidence of concrete thinking. Vitals/I&O/Wt Last Vital Signs Temp 97.3 F L 01/05/25 19:50 Pulse 92 01/05/25 19:50 Resp 16 01/05/25 19:50 BP 105/80 01/05/25 19:50 Pulse Ox 96 01/05/25 19:50 O2 Del Method Room Air 01/05/25 06:00 Data NPU 12/09/24 18:11 12/09/24 20:11 A&P Assessment and plan (1) Psychosis: (2) Paranoia: (3) Suicidal ideation: (4) Methamphetamine use disorder, severe, dependence: (5) Depression: (6) Impulse control disorder, unspecified: Plan This is a 39-year-old white female with a long history of mental health and addiction issues who presents after a very confused and unclear what is going on from the standpoint of being in the hospital but she was positive for methamphetamine. The patient is experiencing significant mental health challenges, including depression, anxiety, paranoia, and auditory hallucinations. There is a history of depression predating substance use, indicating a longstanding mental health condition. She likely also has a developmental disability or cognitive limitations with poor impulse control. 1. Increase Invega to 12 mg p.o. daily. Increase Depakote to 1000mg ER In am for aggression. We started Seroquel 50 mg p.o. 3 times daily to continue to see if we can decrease her aggression and agitation that seems to start in the morning. Increased Seroquel to 100 mg p.o. 3 times daily. Increase Seroquel to 150 mg p.o. 3 times daily. Increased to 200 mg p.o. 3 times daily shortly but might change the dosing pattern. Increased evening dose of Seroquel to 300 mg p.o. nightly moving forward and addeda milligram of Klonopin at bedtime to assist with sleep with good response thus far. 2. Continue on one-to-one as she continues to try to abscond from the unit. Considering discontinuing one-to-one. 3. Encourage individual, group and milieu therapy. 4. Encourage sober living treatment after discharge at the highest level care to which she is willing to commit. 5. Patient placed on 21 day hold. Patient performed poorly on DARLENE (needed assistance on 06/17 skills tested)-Will likely begin level 2 with plan for guardianship. 6. We will continue to evaluate and make recommendations about who serves as guardian after we conversed with her significant other. PDMP PDMP Reviewed: Not Reviewed Involuntary Hold Information Hold Status: Legal Status: 21 Day Hold Date/Time Hold Expires: 01/15/25 Attestations NPU Medical Necessity Statement*: Inpatient hospitalization is medically necessary and the clinically appropriate intervention at this time.? We will monitor/initiate medications as indicated. The patient?s likely length of stay is 15-20 days as patient remains on 1-[address] appointed guardianship is now being pursued. Coding Level of Care Code Acute Code for [facility] Fwd Diagnoses Psychosis F29 Paranoia F22 Suicidal ideation R45.851 Methamphetamine use disorder, severe, dependence F15.20 Depression F32.A Impulse control disorder, unspecified F63.9
[2025-01-05 19:50] VITALS: BP 105/80; PULSE 92; RESP 16; TEMP 36.3; O2SAT 96
[2025-01-05] MEDS: CLONazepam 1 mg Tablet PO (20:35)
[2025-01-05] MEDS: quetiapine 100 mg Tablet 300 MG PO (20:35)
[2025-01-05] MEDS: trazodone 50 mg Tablet PO (20:35)
[2025-01-06 06:00] VITALS: BP 98/74; PULSE 81; RESP 16; O2SAT 94
[2025-01-06] MEDS: haloperidol inj 5 mg/mL INJ 1 mL 10 MG IM (06:23)
[2025-01-06] MEDS: diphenhydrAMINE 50 mg/mL SDV 1mL IM (06:24)
[2025-01-06] MEDS: quetiapine 100 mg Tablet 200 MG PO ×2 (08:19→15:25)
[2025-01-06] MEDS: paliperidone ER 6 mg Tablet 12 MG PO (08:19)
[2025-01-06] MEDS: benztropine 1 mg Tablet PO ×2 (08:19→17:44)
[2025-01-06] MEDS: divalproex ER 500 mg Tablet (24H) 1000 MG PO (08:19)
[2025-01-06 14:00] VITALS: BP 93/68; PULSE 83; RESP 18; TEMP 37.1; O2SAT 98
[2025-01-06] MEDS: hyDROXYzine 25 mg Capsule 50 MG PO (16:07)
--- NOTE | 2025-01-06 16:44 | P.NPUPN_ITS ---
Subjective NPU 2 Subjective: Patient presented today reporting that she might be feeling better. We discussed continuing to titrate her nighttime Seroquel to help with sleep. We discussed the long-term goal of getting her off the Klonopin that is helping her sleep. We discussed short-term goal of getting her on home one-to-one so she can prove her safety independently. We discussed that Dr. Mckinnon would be back tomorrow working on this same plan and in hopes that guardianship paperwork will be in treating well enough to possibly go home with the tentative guardian she denied any side effects of the medication Mental Status Exam 2 MSE Comments: This is an overweight versus obese white female looking older than her stated age in hospital scrubs with poor grooming and limited eye contact. She was extremely immature appearing to interact like an 6 year old child. Poor dentition. Hirsutism noticed on her chin. No abnormal involuntary motor movements appreciated except for some tremulousness. She was more cooperative on interview. Speech was normal in rate and mostly decreased in volume and monotone in quality and at times slurred. Mood described as okay. Her affect was odd and subdued and mood incongruent. Thought process was linear but concrete. Thought content: Patient denies suicidal or homicidal ideation. She endorsed auditory hallucinations today and did appear to be responding to internal stimuli. There was continued presence of paranoia. Attention and concentration were improving as she was the less distracted. She is alert and oriented times person and place. Insight and judgment are impaired. Impulse control is poor. Fund of knowledge appeared poor. Abstraction was poor with evidence of concrete thinking. Vitals/I&O/Wt Last Vital Signs Temp 98.7 F 01/06/25 14:00 Pulse 83 01/06/25 14:00 Resp 18 01/06/25 14:00 BP 93/68 01/06/25 14:00 Pulse Ox 98 01/06/25 14:00 O2 Del Method Room Air 01/06/25 14:00 Data NPU 12/09/24 18:11 12/09/24 20:11 A&P Assessment and plan (1) Psychosis: (2) Paranoia: (3) Suicidal ideation: (4) Methamphetamine use disorder, severe, dependence: (5) Depression: (6) Impulse control disorder, unspecified: Plan This is a 39-year-old white female with a long history of mental health and addiction issues who presents after a very confused and unclear what is going on from the standpoint of being in the hospital but she was positive for methamphetamine. The patient is experiencing significant mental health challenges, including depression, anxiety, paranoia, and auditory hallucinations. There is a history of depression predating substance use, indicating a longstanding mental health condition. She likely also has a developmental disability or cognitive limitations with poor impulse control. 1. Increase Invega to 12 mg p.o. daily. Increase Depakote to 1000mg ER In am for aggression. We started Seroquel 50 mg p.o. 3 times daily to continue to see if we can decrease her aggression and agitation that seems to start in the morning. Increased Seroquel to 100 mg p.o. 3 times daily. Increase Seroquel to 150 mg p.o. 3 times daily. Increased to 200 mg p.o. 3 times daily shortly but might change the dosing pattern. Increased evening dose of Seroquel to 300 mg p.o. nightly moving forward and addeda milligram of Klonopin at bedtime to assist with sleep with good response thus far. 2. Continue on one-to-one as she continues to try to abscond from the unit. Considering discontinuing one-to-one. 3. Encourage individual, group and milieu therapy. 4. Encourage sober living treatment after discharge at the highest level care to which she is willing to commit. 5. Patient placed on 21 day hold. Patient performed poorly on DARLENE (needed assistance on 06/17 skills tested)-Will likely begin level 2 with plan for guardianship. 6. We will continue to evaluate and make recommendations about who serves as guardian after we conversed with her significant other. PDMP PDMP Reviewed: Not Reviewed Involuntary Hold Information 2 Hold Status: Legal Status: 21 Day Hold Date/Time Hold Expires: 01/15/25 Attestations NPU 2 Medical Necessity Statement*: Inpatient hospitalization is medically necessary and the clinically appropriate intervention at this time.? We will monitor/initiate medications as indicated. The patient?s likely length of stay is 15-20 days as patient remains on 09-[address] appointed guardianship is now being pursued. Coding Level of Care Code Acute Code for [facility] Fw Diagnoses Psychosis F29 Paranoia F22 Suicidal ideation R45.851 Methamphetamine use disorder, severe, dependence F15.20 Depression F32.A Impulse control disorder, unspecified F63.9
[2025-01-06 21:27] VITALS: BP 168/92; PULSE 82; RESP 16; TEMP 36.7; O2SAT 92
[2025-01-06] MEDS: CLONazepam 1 mg Tablet PO (21:49)
[2025-01-06] MEDS: quetiapine 100 mg Tablet 300 MG PO (21:49)
[2025-01-06] MEDS: trazodone 50 mg Tablet PO (21:49)
[2025-01-07 06:00] VITALS: BP 90/61; PULSE 68; RESP 18; TEMP 36.5; O2SAT 96
[2025-01-07] MEDS: haloperidol inj 5 mg/mL INJ 1 mL 10 MG IM (06:23)
[2025-01-07] MEDS: diphenhydrAMINE 50 mg/mL SDV 1mL IM (06:24)
[2025-01-07] MEDS: quetiapine 100 mg Tablet 200 MG PO ×2 (08:18→15:48)
[2025-01-07] MEDS: benztropine 1 mg Tablet PO ×2 (08:18→17:21)
[2025-01-07] MEDS: paliperidone ER 6 mg Tablet 12 MG PO (08:18)
[2025-01-07] MEDS: divalproex ER 500 mg Tablet (24H) 1000 MG PO (08:18)
[2025-01-07 14:00] VITALS: BP 105/74; PULSE 78; RESP 16; TEMP 36.4; O2SAT 98
--- NOTE | 2025-01-07 16:58 | P.NPUPN_ITS ---
Subjective NPU 2 Subjective: 39-year-old female with a past history o f significant methamphetamine abuse admitted with auditory hallucinations and depression while negative on urine drug screen for amphetamines. The patient remained on one-to-one at this time with staff outside of her room. She had a conversation on the phone with her boyfriend that appeared to be difficult for the patient to tolerate. She had stated that she had been sad. She continued to show evidence of poor impulse control but did report that her sleep was better. She did not report any side effects from her medication regimen. She had continued to show evidence of relative distrust towards others but did not endorse hearing voices today. Mental Status Exam 2 MSE Comments: This is an overweight versus obese white female looking older than her stated age in hospital scrubs with poor grooming and limited eye contact. She was extremely immature appearing to interact like an 6 year old child. Poor dentition. Hirsutism noticed on her chin. No abnormal involuntary motor movements appreciated except for some tremulousness. She was minimally cooperative on interview. Speech was normal in rate and mostly decreased in volume and monotone in quality and at times slurred. Mood described as allright. Her affect was odd and subdued and mood incongruent. Thought process was linear but concrete. Thought content: Patient denies suicidal or homicidal ideation. She denied auditory hallucinations today and did not actively appear to be responding to internal stimuli. There was continued presence of paranoia. Attention and concentration were improving as she was the less distracted. She is alert and oriented times person and place. Insight and judgment are impaired. Impulse control is poor. Fund of knowledge appeared poor. Abstraction was poor with evidence of concrete thinking. Vitals/I&O/Wt Last Vital Signs Temp 97.7 F 01/07/25 06:00 Pulse 68 01/07/25 06:00 Resp 18 01/07/25 06:00 BP 90/61 01/07/25 06:00 Pulse Ox 96 01/07/25 06:00 O2 Del Method Room Air 01/07/25 06:00 Weight last 48 hrs Weight 94.801 kg Data NPU 12/09/24 18:11 12/09/24 20:11 A&P Assessment and plan (1) Psychosis: (2) Paranoia: (3) Suicidal ideation: (4) Methamphetamine use disorder, severe, dependence: (5) Depression: (6) Impulse control disorder, unspecified: Plan This is a 39-year-old white female with a long history of mental health and addiction issues who presents after a very confused and unclear what is going on from the standpoint of being in the hospital but she was positive for methamphetamine. The patient is experiencing significant mental health challenges, including depression, anxiety, paranoia, and auditory hallucinations. There is a history of depression predating substance use, indicating a longstanding mental health condition. She likely also has a developmental disability or cognitive limitations with poor impulse control. 1. Continue Invega to 12 mg p.o. daily. Continue Depakote to 1000mg ER In am for aggression. and continue Klonopin 1mg at bedtime to assist with sleep with good response thus far. Continue Seroquel with titration up to 800mg/day now (200bid +400 at night) 2. Continue on one-to-one as she continues to try to abscond from the unit. Considering discontinuing one-to-one. 3. Encourage individual, group and milieu therapy. 4. Encourage sober living treatment after discharge at the highest level care to which she is willing to commit. 5. Patient placed on 21 day hold. Patient performed poorly on DARLENE (needed assistance on 06/17 skills tested)-Will likely begin level 2 with plan for guardianship. 6. We will continue to evaluate and make recommendations about who serves as guardian after we conversed with her significant other. PDMP PDMP Reviewed: Not Reviewed Involuntary Hold Information 2 Hold Status: Legal Status: 21 Day Hold Date/Time Hold Expires: 01/15/25 Attestations NPU 2 Medical Necessity Statement*: Inpatient hospitalization is medically necessary and the clinically appropriate intervention at this time.? We will monitor/initiate medications as indicated. The patient?s likely length of stay is 15-20 days as patient remains on 1-[address] appointed guardianship is now being pursued. Coding Level of Care Code Acute Code for [facility] Fwd Diagnoses Psychosis F29 Paranoia F22 Suicidal ideation R45.851 Methamphetamine use disorder, severe, dependence F15.20 Depression F32.A Impulse control disorder, unspecified F63.9
[2025-01-07] MEDS: quetiapine 100 mg Tablet 400 MG PO (20:08)
[2025-01-07] MEDS: CLONazepam 1 mg Tablet PO (20:08)
[2025-01-07] MEDS: trazodone 50 mg Tablet PO (20:08)
[2025-01-07] MEDS: hyDROXYzine 25 mg Capsule 50 MG PO (20:08)
[2025-01-07 21:04] VITALS: BP 95/70; PULSE 79; RESP 16; TEMP 36.4; O2SAT 95
[2025-01-08] MEDS: diphenhydrAMINE 50 mg/mL SDV 1mL IM (05:56)
[2025-01-08] MEDS: haloperidol inj 5 mg/mL INJ 1 mL 10 MG IM (05:56)
[2025-01-08 06:00] VITALS: BP 91/59; PULSE 73; RESP 16; TEMP 36.5; O2SAT 95
[2025-01-08] MEDS: benztropine 1 mg Tablet PO ×2 (09:05→17:53)
[2025-01-08] MEDS: quetiapine 100 mg Tablet 200 MG PO ×2 (09:05→16:39)
[2025-01-08] MEDS: paliperidone ER 6 mg Tablet 12 MG PO (09:05)
[2025-01-08] MEDS: divalproex ER 500 mg Tablet (24H) 1000 MG PO (09:05)
--- NOTE | 2025-01-08 12:18 | PC.NURSE ---
Patient off unit at 1215 with [employer] for [facility]. Security present. No issues.
[2025-01-08 14:00] VITALS: BP 118/86; PULSE 98; RESP 15; TEMP 36.3; O2SAT 95
--- NOTE | 2025-01-08 14:30 | PC.NURSE ---
1:1 Dr. Mckinnon gave verbal for stopping of 1:1. Patient agreeable to have this done. Patient now resting in bed. Molecular Modeler made aware
--- NOTE | 2025-01-08 16:53 | P.NPUPN_ITS ---
Subjective NPU 2 Subjective: 39-year-old female with a past history o f significant methamphetamine abuse admitted with auditory hallucinations and depression while negative on urine drug screen for amphetamines. The patient had reported hope that she would be able to live with Edu. She reported no side effects from her medication. She had continued to require some as needed medications for agitation. She had been redirectable with no aggression appreciated. Patient had reported improved sleep with the increase in Klonopin. The patient had denied hearing voices today. She did appear to have periods of time where she was more distracted by her thoughts but continued to report that she was not hearing any voices. She had denied any feelings of sadness other than stating that she was upset that she was not able to go home today. Mental Status Exam 2 MSE Comments: This is an overweight versus obese white female looking older than her stated age in hospital scrubs with poor grooming and limited eye contact. She was extremely immature appearing to interact like an 6 year old child. Poor dentition. Hirsutism noticed on her chin. No abnormal involuntary motor movements appreciated except for some tremulousness. She was minimally cooperative on interview. Speech was normal in rate and mostly decreased in volume and monotone in quality and at times slurred. Mood described as okay. Her affect was odd and subdued and mood incongruent. Thought process was linear but concrete. Thought content: Patient denies suicidal or homicidal ideation. She denied auditory hallucinations today and did not actively appear to be responding to internal stimuli. There was continued presence of paranoia. Attention and concentration were improving as she was the less distracted. She is alert and oriented times person and place. Insight and judgment are impaired. Impulse control is poor. Fund of knowledge appeared poor. Abstraction was poor with evidence of concrete thinking. Vitals/I&O/Wt Last Vital Signs Temp 97.4 F L 01/08/25 14:00 Pulse 98 01/08/25 14:00 Resp 15 01/08/25 14:00 BP 118/86 01/08/25 14:00 Pulse Ox 95 01/08/25 14:00 O2 Del Method Room Air 01/08/25 14:00 01/08/25 01/08/25 01/08/25 06:59 14:59 22:59 Intake Total 358 / 358 Balance 358 / 358 Weight last 48 hrs Weight 94.801 kg Data NPU 12/09/24 18:11 12/09/24 20:11 A&P Assessment and plan (1) Psychosis: (2) Paranoia: (3) Suicidal ideation: (4) Methamphetamine use disorder, severe, dependence: (5) Depression: (6) Impulse control disorder, unspecified: Plan This is a 39-year-old white female with a long history of mental health and addiction issues who presents after a very confused and unclear what is going on from the standpoint of being in the hospital but she was positive for methamphetamine. The patient is experiencing significant mental health challenges, including depression, anxiety, paranoia, and auditory hallucinations. There is a history of depression predating substance use, indicating a longstanding mental health condition. She likely also has a developmental disability or cognitive limitations with poor impulse control. 1. Continue Invega to 12 mg p.o. daily. Continue Depakote to 1000mg ER In am for aggression. and continue Klonopin 1mg at bedtime to assist with sleep with good response thus far. Continue Seroquel with titration up to 800mg/day now (200bid +400 at night) 2. Continue on one-to-one as she continues to try to abscond from the unit. Considering discontinuing one-to-one. 3. Encourage individual, group and milieu therapy. 4. Encourage sober living treatment after discharge at the highest level care to which she is willing to commit. 5. Patient placed on 21 day hold. Patient performed poorly on DARLENE (needed assistance on 06/17 skills tested)-Will likely begin level 2 with plan for guardianship. 6. We will continue to evaluate and make recommendations about who serves as guardian after we conversed with her significant other. PDMP PDMP Reviewed: Not Reviewed Involuntary Hold Information 2 Hold Status: Legal Status: 21 Day Hold Date/Time Hold Expires: 01/15/25 Attestations NPU 2 Medical Necessity Statement*: Inpatient hospitalization is medically necessary and the clinically appropriate intervention at this time.? We will monitor/initiate medications as indicated. The patient?s likely length of stay is 15-20 days as patient remains on 1-[address] appointed guardianship is now being pursued. Coding Level of Care Code Acute Code for [facility] Fw Diagnoses Psychosis F29 Paranoia F22 Suicidal ideation R45.851 Methamphetamine use disorder, severe, dependence F15.20 Depression F32.A Impulse control disorder, unspecified F63.9
[2025-01-08 20:14] VITALS: BP 98/65; PULSE 81; RESP 17; TEMP 36.4; O2SAT 95
[2025-01-08] MEDS: hyDROXYzine 25 mg Capsule 50 MG PO (20:38)
[2025-01-08] MEDS: haloperidol 5 mg Tablet PO (20:38)
[2025-01-08] MEDS: trazodone 50 mg Tablet PO (20:38)
[2025-01-08] MEDS: CLONazepam 1 mg Tablet PO (21:49)
[2025-01-08] MEDS: quetiapine 100 mg Tablet 400 MG PO (21:49)
[2025-01-09 06:00] VITALS: BP 88/61; PULSE 74; RESP 16; TEMP 36.5; O2SAT 95
[2025-01-09] MEDS: diphenhydrAMINE 50 mg/mL SDV 1mL IM (06:11)
[2025-01-09] MEDS: haloperidol inj 5 mg/mL INJ 1 mL 10 MG IM (06:11)
[2025-01-09] MEDS: divalproex ER 500 mg Tablet (24H) 1000 MG PO (08:41)
[2025-01-09] MEDS: paliperidone ER 6 mg Tablet 12 MG PO (08:42)
[2025-01-09] MEDS: quetiapine 100 mg Tablet 200 MG PO ×2 (08:42→15:10)
[2025-01-09] MEDS: benztropine 1 mg Tablet PO ×2 (08:42→17:52)
[2025-01-09 14:00] VITALS: BP 112/79; PULSE 111; RESP 17; O2SAT 95
--- NOTE | 2025-01-09 15:36 | P.NPUPN_ITS ---
Subjective NPU 2 Subjective: 39-year-old female with a past history o f significant methamphetamine abuse admitted with auditory hallucinations and depression while negative on urine drug screen for amphetamines. Patient was no longer on one-to-one observation. She had appeared more redirectable and was able to attend groups. She had reported that she was feeling better. She had denied having any hallucinations at this time. She had reported improved sleep. The patient had not required any as needed medications today. She had continued to reiterate her desire to live with Edu her boyfriend. Mental Status Exam 2 MSE Comments: This is an overweight versus obese white female looking older than her stated age in hospital scrubs with poor grooming and limited eye contact. She was extremely immature appearing to interact like an 6 year old child. Poor dentition. Hirsutism noticed on her chin. No abnormal involuntary motor movements appreciated except for some tremulousness. She was minimally cooperative on interview. Speech was normal in rate and mostly decreased in volume and monotone in quality and at times slurred. Mood described as good. Her affect was odd and subdued. Thought process was linear but concrete. Thought content: Patient denies suicidal or homicidal ideation. She denied auditory hallucinations today and did not actively appear to be responding to internal stimuli. There was less paranoia appreciated. Attention and concentration were improving as she was the less distracted. She is alert and oriented times person and place. Insight and judgment are impaired. Impulse control is poor. Fund of knowledge appeared poor. Abstraction was poor with evidence of concrete thinking. Vitals/I&O/Wt Last Vital Signs Temp 97.7 F 01/09/25 06:00 Pulse 111 H 01/09/25 14:00 Resp 17 01/09/25 14:00 BP 112/79 01/09/25 14:00 Pulse Ox 95 01/09/25 14:00 O2 Del Method Room Air 01/09/25 06:00 Data NPU 12/09/24 18:11 12/09/24 20:11 A&P Assessment and plan (1) Psychosis: (2) Paranoia: (3) Suicidal ideation: (4) Methamphetamine use disorder, severe, dependence: (5) Depression: (6) Impulse control disorder, unspecified: Plan This is a 39-year-old white female with a long history of mental health and addiction issues who presents after a very confused and unclear what is going on from the standpoint of being in the hospital but she was positive for methamphetamine. The patient is experiencing significant mental health challenges, including depression, anxiety, paranoia, and auditory hallucinations. There is a history of depression predating substance use, indicating a longstanding mental health condition. She likely also has a developmental disability or cognitive limitations with poor impulse control. 1. Continue Invega to 12 mg p.o. daily. Continue Depakote to 1000mg ER In am for aggression. and continue Klonopin 1mg at bedtime to assist with sleep with good response thus far. Switch seroquel to 200mg in am 600mg at night. 2. Continue on one-to-one as she continues to try to abscond from the unit. Considering discontinuing one-to-one. 3. Encourage individual, group and milieu therapy. 4. Encourage sober living treatment after discharge at the highest level care to which she is willing to commit. 5. Patient placed on 21 day hold. Patient performed poorly on DARLENE (needed assistance on 06/17 skills tested)-Will likely begin level 2 with plan for guardianship. 6. We will continue to evaluate and make recommendations about who serves as guardian after we conversed with her significant other. PDMP PDMP Reviewed: Not Reviewed Involuntary Hold Information 2 Hold Status: Legal Status: 21 Day Hold Date/Time Hold Expires: 01/15/25 Attestations NPU 2 Medical Necessity Statement*: Inpatient hospitalization is medically necessary and the clinically appropriate intervention at this time.? We will monitor/initiate medications as indicated. Patient now likely to have boyfriend pursuing guardianship with patient likely length of stay hopefully 5-7 days. Coding Level of Care Code Acute Code for [facility] Fwd Diagnoses Psychosis F29 Paranoia F22 Suicidal ideation R45.851 Methamphetamine use disorder, severe, dependence F15.20 Depression F32.A Impulse control disorder, unspecified F63.9
[2025-01-09 19:43] VITALS: BP 121/80; PULSE 83; RESP 18; TEMP 36.5; O2SAT 96
[2025-01-09] MEDS: quetiapine 100 mg Tablet 400 MG PO (20:04)
[2025-01-09] MEDS: CLONazepam 1 mg Tablet PO (20:05)
[2025-01-09] MEDS: trazodone 50 mg Tablet PO (20:05)
[2025-01-09] MEDS: OLANZapine 5 mg ODT PO (20:05)
[2025-01-10 06:00] VITALS: BP 102/64; PULSE 80; RESP 16; TEMP 36.6; O2SAT 96
[2025-01-10] MEDS: haloperidol inj 5 mg/mL INJ 1 mL 10 MG IM (06:18)
[2025-01-10] MEDS: diphenhydrAMINE 50 mg/mL SDV 1mL IM (06:19)
[2025-01-10] MEDS: divalproex ER 500 mg Tablet (24H) 1000 MG PO (08:22)
[2025-01-10] MEDS: quetiapine 100 mg Tablet 200 MG PO (08:22)
[2025-01-10] MEDS: paliperidone ER 6 mg Tablet 12 MG PO (08:22)
[2025-01-10] MEDS: benztropine 1 mg Tablet PO ×2 (08:23→17:33)
[2025-01-10 14:00] VITALS: BP 109/67; PULSE 129; RESP 18; O2SAT 95
[2025-01-10] MEDS: ondansetron 4 MG Tablet PO (15:01)
[2025-01-10] MEDS: OLANZapine 5 mg ODT PO ×2 (16:20→20:17)
--- NOTE | 2025-01-10 16:33 | P.NPUPN_ITS ---
Subjective NPU 2 Subjective: 39-year-old female with a past history o f significant methamphetamine abuse admitted with auditory hallucinations and depression while negative on urine drug screen for amphetamines. Patient had no acts of aggression. She had reported that she felt ready to go home with her boyfriend Edu. She had no longer required one-on-one. She had reported no side effects from her medication. She had reported adequate sleep. She had denied hearing any voices at this time. She had been more redirectable and was able to attend groups without any issue. Mental Status Exam 2 MSE Comments: This is an overweight versus obese white female looking older than her stated age in hospital scrubs with poor grooming and limited eye contact. She was extremely immature appearing to interact like an 6 year old child. Poor dentition. Hirsutism noticed on her right chin. No abnormal involuntary motor movements appreciated today. She was minimally cooperative on interview. Speech was normal in rate and mostly decreased in volume and monotone in quality and at times slurred. Mood described as good. Her affect was odd and subdued. Thought process was linear but concrete. Thought content: Patient denies suicidal or homicidal ideation. She denied auditory hallucinations today and did not actively appear to be responding to internal stimuli. There was less paranoia appreciated. Attention and concentration were improving as she was the less distracted. She is alert and oriented times person and place. Insight was limited. Judgment is guarded. Impulse control is improving. Fund of knowledge appeared poor. Abstraction was poor with evidence of concrete thinking. Vitals/I&O/Wt Last Vital Signs Temp 97.9 F 01/10/25 06:00 Pulse 129 H 01/10/25 14:00 Resp 18 01/10/25 14:00 BP 109/67 01/10/25 14:00 Pulse Ox 95 01/10/25 14:00 O2 Del Method Room Air 01/10/25 06:00 Data NPU 12/09/24 18:11 12/09/24 20:11 A&P Assessment and plan (1) Psychosis: (2) Paranoia: (3) Suicidal ideation: (4) Methamphetamine use disorder, severe, dependence: (5) Depression: (6) Impulse control disorder, unspecified: Plan This is a 39-year-old white female with a long history of mental health and addiction issues who presents after a very confused and unclear what is going on from the standpoint of being in the hospital but she was positive for methamphetamine. The patient is experiencing significant mental health challenges, including depression, anxiety, paranoia, and auditory hallucinations. There is a history of depression predating substance use, indicating a longstanding mental health condition. She likely also has a developmental disability or cognitive limitations with poor impulse control. 1. Continue Invega to 9 mg p.o. daily. Continue Depakote to 1000mg ER In am for aggression. and continue Klonopin 1mg at bedtime to assist with sleep with good response thus far. Switched seroquel to 200mg in am 600mg at night. Continue cogentin 1mg bid. 2. Patient no longer on 1-1. 3. Encourage individual, group and milieu therapy. 4. Encourage sober living treatment after discharge at the highest level care to which she is willing to commit. 5. Patient placed on 21 day hold. Patient performed poorly on DARLENE (needed assistance on 06/17 skills tested)-Will likely begin level 2 with plan for guardianship. 6. We will continue to evaluate and make recommendations about who serves as guardian after we conversed with her significant other. PDMP PDMP Reviewed: Last Reviewed 01/10/25 14:50 EDT by Omid Mckinnon MD Involuntary Hold Information 2 Hold Status: Legal Status: 90 Day Hold Date/Time Hold Expires: 05/09/25 Attestations NPU 2 Medical Necessity Statement*: Inpatient hospitalization is medically necessary and the clinically appropriate intervention at this time.? We will monitor/initiate medications as indicated. Patient now likely to have boyfriend pursuing guardianship with patient likely to be discharged in 1-2 days. Coding Level of Care Code Acute Code for [facility] Fwd Diagnoses Psychosis F29 Paranoia F22 Suicidal ideation R45.851 Methamphetamine use disorder, severe, dependence F15.20 Depression F32.A Impulse control disorder, unspecified F63.9
[2025-01-10] MEDS: loperamide 2 mg Capsule PO ×2 (17:45→20:58)
[2025-01-10] MEDS: CLONazepam 1 mg Tablet PO (20:17)
[2025-01-10] MEDS: trazodone 50 mg Tablet PO (20:17)
[2025-01-10] MEDS: quetiapine 300 mg Tablet 600 MG PO (20:17)
--- NOTE | 2025-01-10 23:21 | PC.NURSE ---
Unable to take vital, patient would not stop moving, charge notified resp 19
[2025-01-11] VITALS (87 sets, daily range): BP systolic 89–130; BP diastolic 58–86; PULSE 86–122; RESP 12–30; TEMP 36.4–36.7; O2SAT 93–98
--- NOTE | 2025-01-11 01:17 | XRR_ITS ---
PROCEDURE INFORMATION: Exam: XR Abdomen Exam date and time: 01/11/2025 1:40 AM Age: 39 years old Clinical indication: Other: Diarrhea TECHNIQUE: Imaging protocol: Radiologic exam of the abdomen. Views: Frontal supine view of the abdomen. 1 View. COMPARISON: No relevant prior studies available. FINDINGS: Gastrointestinal tract: Normal. No bowel dilation. Bones/joints: Unremarkable. XR/XR abdomen 1V* [id number] IMPRESSION: No acute findings.
--- NOTE | 2025-01-11 01:19 | P.CONIM_ITS ---
Providers/Reason For Consult 2 Consulting Physician/Specialty*: Psych Reason for Consult*: Diarrhea Attending Physician: Omid Mckinnon MD History of Present Illness History of Present Illness Suri Moreno is a 39 year old female generally admitted to NPU. Internal medicine consulted for diarrhea. Provide reports diarrhea started about 2 days ago. Patient seen and evaluated. She is a poor historian regarding her symptoms. She does not answer any questions regarding her normal bowel habits. She is unsure how long she has had diarrhea. She endorses mild abdominal discomfort. Described as epigastric. Denies alleviating or aggravating factors. Denies fevers or chills. Review of Systems 2 Narrative: A complete review of systems was obtained and is negative except as stated in HPI. Medications/Allergies Home Medications ?Medication ?Instructions ?Recorded ?Confirmed ?Last Taken ?Type benztropine 1 mg tablet 1 mg PO BID 30 days #60 tabs 01/10/25 Unknown Rx clonazepam 1 mg tablet 1 mg PO BEDTIME 30 days #30 tabs 01/10/25 Unknown Rx divalproex 500 mg tablet,extended 1,000 mg (2 x 500 mg ) PO DAILY 30 01/10/25 Unknown Rx release 24 hr days #60 tabs paliperidone 9 mg tablet,extended 9 mg PO DAILY 30 day s #30 tabs 01/10/25 Unknown Rx release 24 hr (Invega) quetiapine 200 mg tablet 200 mg PO 0900 30 days #30 t abs 01/10/25 Unknown Rx quetiapine 300 mg tablet 600 mg (2 x 300 mg) PO BEDTI ME 30 01/10/25 Unknown Rx days #60 tabs Allergies Allergy/AdvReac Type Severity Reaction Status Date / Time No Known Allergies Allergy Verified 04/29/23 09:18 Current Medications Generic Name Dose Route Start Last Admin Trade Name Freq PRN Reason Stop Dose Admin Acetaminophen 650 mg 12/09/24 20:49 01/01/25 08:16 Acetaminophen 325 Mg Tablet PO 650 mg Q4H PRN Administration MILD PAIN Benztropine Mesylate 1 mg 12/09/24 20:49 01/04/25 08:40 Benztropine 1 Mg Tablet PO 1 mg BID PRN Administration Mild Extrapyramidal symptoms Benztropine Mesylate 1 mg 01/05/25 09:00 01/10/25 17:33 Benztropine 1 Mg Tablet PO 1 mg BID KAVITA Administration Calcium Carbonate 1,000 mg 12/23/24 08:46 12/30/24 13:34 Calcium Carbonate 500 Mg Chew Tablet PO 1,000 mg Q4H PRN Administration HEARTBURN Camphor/Menthol/Phenol 1 applic 12/09/24 20:49 12/27/24 13:44 Blistex Lip Oint 7 Gm Tube TOPICAL 1 applic Q1H PRN Administration DRYNESS Clonazepam 1 mg 01/04/25 21:00 01/10/25 20:17 Clonazepam 1 Mg Tablet PO 1 mg BEDTIME KAVITA Administration Diphenhydramine HCl 50 mg 12/09/24 20:49 12/26/24 09:09 Diphenhydramine 50 Mg/Ml Sdv 1ml IM 50 mg ONCE PRN Administration Severe Extrapyramidal Symptoms Diphenhydramine HCl 50 mg 12/09/24 20:49 12/29/24 08:24 Diphenhydramine 50 Mg/Ml Sdv 1ml IM 50 mg Q4H PRN Administration Severe Aggression Diphenhydramine HCl 50 mg 12/17/24 12:52 01/02/25 08:22 Diphenhydramine 50 Mg Capsule PO 50 mg Q4H PRN Administration AGITATION Diphenhydramine HCl 50 mg 12/30/24 06:00 01/10/25 06:19 Diphenhydramine 50 Mg/Ml Sdv 1ml IM 50 mg 0600 KAVITA Administration Divalproex Sodium 1,000 mg 12/22/24 09:00 01/10/25 08:22 Divalproex Er 500 Mg Tablet (24h) PO 1,000 mg DAILY KAVITA Administration Haloperidol 5 mg 12/09/24 20:49 01/08/25 20:38 Haloperidol 5 Mg Tablet PO 5 mg Q4H PRN Administration AGITATION Haloperidol Lactate 5 mg 12/09/24 20:49 12/29/24 08:24 Haloperidol Inj 5 Mg/Ml Inj 1 Ml IM 5 mg Q4H PRN Administration Severe Aggression Hydroxyzine Pamoate 50 mg 12/09/24 20:49 01/08/25 20:38 Hydroxyzine 25 Mg Capsule PO 50 mg Q6H PRN Administration ANXIETY Ibuprofen 600 mg 12/09/24 22:15 12/29/24 09:00 Ibuprofen 600 Mg Tablet PO 600 mg Q6H PRN Administration MODERATE PAIN Loperamide HCl 2 mg 12/09/24 20:49 01/10/25 17:45 Loperamide 2 Mg Capsule PO 2 mg Q6H PRN Administration DIARRHEA Nicotine 1 patch 12/09/24 20:49 12/17/24 08:32 Nicotine 21 Mg Patch TRANSDERMA 1 patch DAILY PRN Administration NICOTINE WITHDRAWAL Nicotine Polacrilex 8 mg 12/17/24 15:01 01/02/25 08:22 Nicotine 4 Mg Lozenge MUCOUS MEM 8 mg Q2H PRN Administration NICOTINE CRAVINGS Olanzapine 5 mg 12/09/24 20:49 01/10/25 20:17 Olanzapine 5 Mg Odt PO 5 mg Q4H PRN Administration Agitation/Psychosis Ondansetron HCl 4 mg 12/09/24 20:49 01/10/25 15:01 Ondansetron 4 Mg Tablet PO 4 mg Q6H PRN Administration NAUSEA AND VOMITING Quetiapine Fumarate 200 mg 01/10/25 09:00 01/10/25 08:22 Quetiapine 100 Mg Tablet PO 200 mg 0900 KAVITA Administration Quetiapine Fumarate 600 mg 01/10/25 21:00 01/10/25 20:17 Quetiapine 300 Mg Tablet PO 600 mg BEDTIME KAVITA Administration Trazodone HCl 50 mg 12/09/24 20:49 01/10/25 20:17 Trazodone 50 Mg Tablet PO 50 mg BEDTIME PRN Administration SLEEP Vitals/I&O/Wt Last Vital Signs Temp 97.9 F 01/10/25 06:00 Pulse 129 H 01/10/25 14:00 Resp 18 01/10/25 14:00 BP 109/67 01/10/25 14:00 Pulse Ox 95 01/10/25 14:00 O2 Del Method Room Air 01/10/25 06:00 Physical Exam 2 Narrative: General: Patient is awake. Laying in bed. Head: Hirsutism. Neck: No JVD. Cardiovascular: RRR. No gallops. No murmurs. Lungs: Clear to auscultation, no use of accessory muscles, no crackles or wheezes. Skin: No jaundice. No rashes. Abdomen: Bowel sounds present. No distended. Genito Urinary: Genital exam not performed since complaints not related. Rectal: Rectal exam not performed since no symptoms indicated blood loss. Extremities: No cyanosis or clubbing. Musculoskeletal: No swollen or erythematous joints. Neurological: Moves all 4 extremities. No myoclonus. Data 12/09/24 18:11 12/09/24 20:11 A&P Assessment and plan (1) Diarrhea: Check KUB Check CBC CMP, electrolytes Stool studies ordered Check urinalysis for evidence of infection Obtain orthostatic vitals, continue monitoring every 4 hours till diarrhea resolves On multiple meds that can produce orthostasis; consider ongoing needs NS bolus ordered Continue Imodium changed to scheduled x4 doses PDMP PDMP Reviewed: Not Reviewed Consult Attestations 2 Medical Necessity Statement: Per primary Coding Level of Care Code Acute Code for Chg Fwd Diagnoses Diarrhea R19.7
[2025-01-11] MEDS: sodium chloride 0.9% 1,000 ML 999 ML IV (01:35)
[2025-01-11] MEDS: loperamide 2 mg Capsule 4 MG PO (02:16)
[2025-01-11] MEDS: loperamide 2 mg Capsule PO (02:17)
--- NOTE | 2025-01-11 03:43 | PC.NURSE ---
Pt approximately 1954 pt opened door to her room to which staff noticed pt was completely naked. Pt stated that she had a BM in her pants and needed new scrubs. When nursing staff entered pts room fecal matter was all over pts person and the floor to her bathroom. This nurse handed pt toilet paper to use and pt proceeded to trow the toilet paper on the floor, wipe with her bare hand and started rubbing her hands together. Staff cleaned up pts room and got her washed and redressed. About 10 minutes later pt yelled help and when nursing staff arrived to her room she was naked from the waist down and there was fecal matter all over her person, the pts bed and the floor. Nursing staff got pt cleaned, redressed and escorted her to the shower room to take a shower. While in the shower room pt proceeded to have 3 more bowel movements on the floor of the bathroom. This nurse contacted Dr. Lopez at approximately 2023 to update him on pts condition and asked for an extra dose of imodium and he agreed. A one time order for Imodium 2mg Po was ordered at this time. When this nurse gave pt the medication she proceeded to throw the pill into the fecal matter in the floor. A new medications tablet was obtained and pt took medication with no issues. Once pt had finished showering, nursing staff escorted her back to her room and into bed. About 5 minutes later pt yelled help again and when staff entered the room it was noted that pt had another episode of diarrhea. While staff was getting pt cleaned pt told this nurse that she was dizzy and threw herself onto the floor in a tracy cross applesauce position. The fall was witnessed by this nurse and [facility] COMB TENDER. Pt did not hit her head or any extremity on the way down. Staff attempted to get pt to stay seated until vitals were obtained by she refused and stood up. Staff got patient tucked into bed and vitals signs were obtained. Vitals at this time: BP- 82/63, HR- 116, RR- 18, Temp- 97.7, ad O2- 93%. Dr Lopez was contacted at 49 to inform him of pt fall and blood pressure to which he requested a hospitalist consult. This nurse contacted Dr. James at this time and explained the situation. At this time Cr. James ordered a one time dose of Imodium 4mg PO and scheduled Imodium 2mg Po every 4 hours, an abdominal x-ray, urinalysis, stool sample, orthostatic vitals, lab work and ordered this nurse start pt on a liter of IV fluids. materials supervisor inserted a peripheral IV into pts right wrist and fluids were started. Orthostatic vitals were obtained however staff was unable to get pts standing blood pressure due to her continuing to move. Once fluids were finished being administered vital signs were obtained. BP 126/74, HR- 104, RR- 16, Temp- 97.4 and O2- 96%. This nurse contacted Dr. James at this time to notify him of pts improved blood pressure and that staff was unable to get pts standing orthostatic vitals. Physician okayed and ordered we keep pts IV in until the morning just to be sure she does need another bag of fluids. Pt is now observed resting in bed quietly with sitter at bedside. All questions were answered and support was voiced.
[2025-01-11 08:24] LABS: Basophils % 0.2 %; Hematocrit 47.4 % (36-47); Lymphocytes # 1.1 10^3/uL (0.8-4.8); Lymphocytes % 4.7 %; Mean Corpuscular HGB Conc 34.2 g/dL (30-55); Mean Corpuscular Hemoglobin 30.8 pg (27-33); Mean Corpuscular Volume 90.1 fl (85-98); Mean Platelet Volume 10.9 fL (7.4-10.4); Monocytes # 2.8 10^3/uL (0.2-0.9); Monocytes % 11.8 %; Neutrophils # 19.49 10^3/uL (1.8-7.7); Neutrophils % 82.6 %; Nucleated Red Blood Cells % 0 %; Platelet Count 280 10^3/cmm (157-399); Red Blood Count 5.26 10^6/uL (3.85-5.65); Red Cell Distribution Width 12.2 % (12.1-15.1); White Blood Count 23.61 10^3/uL (3.29-11.43)
[2025-01-11 08:31] LABS: Erythrocyte Sedimentation Rate 9 mm/hr (0-15)
--- NOTE | 2025-01-11 08:36 | CT_ITS ---
WS: [id number] CT ABDOMEN PELVIS TECHNIQUE: Noncontrast CT of the abdomen and pelvis with coronal and sagittal reformatted images. CLINICAL INFORMATION: diarrhea, and abdominal pain COMPARISON: None. DLP: 804.[address] scans at [facility] use at least one of these dose optimization techniques: automated exposure control; mA and/or kV adjustment per patient size (includes targeted exams where dose is matched to clinical indication); or iterative reconstruction. FINDINGS: Lung bases are well aerated. Noncontrast liver is normal. Fluid distended stomach. Tiny esophageal hernia. Fluid distended duodenum. Fluid distended transverse colon with air-fluid levels. Descending colon is more normal in appearance. Sigmoid colon is decompressed. No evidence of high-grade obstructio n. Slight wall thickening and induration of the LEFT colon may be due to infectious or inflammatory colitis. Small low-attenuation cystic-appearing lesion in the tail the pancreas measuring 8 mm. This may present a pancreatic cyst or side branch IPMN . Fluid distended gallbladder. No gallbladder wall thickening or pericholecystic fluid. This may be due to fasting state. Fat-containing umbilical hernia. Normal appendix. Small amount of free fluid in the pelvis. Adrenal glands are normal. No hydronephrosis. CT/CT abdomen pelvis wo con [id number] IMPRESSION: 1. Fluid distended stomach and duodenum. 2. Fluid distended transverse colon with air-fluid levels. No evidence of high -grade obstruction. Mild fluid distention of the RIGHT colon. 3. Slight wall thickening and induration of the LEFT colon suspicious for mild infectious or inflammatory colitis. Recommend correlation for colitis symptoms . 4. Normal appendix. 5. Fluid distended gallbladder. 6. Fat-containing umbilical hernia. 7. Low-attenuation cystic lesion in pancreatic tail measuring 9 mm. This can b e followed up with MRI in 6 to 12 months.
[2025-01-11 08:46] LABS: Gamma Glutamyl Transferase 52 U/L (5-36)
[2025-01-11 08:48] LABS: Alanine Aminotransferase 52 U/L (0-33); Albumin Level 3.8 g/dL (3.5-5.2); Alkaline Phosphatase 98 U/L (35-105); Anion Gap 19.1 (5-19); Aspartate Amino Transferase 42 U/L (0-32); Blood Urea Nitrogen 23 mg/dL (6-20); C Reactive Protein 133.6 mg/L (0.0-4.9); Calcium 9.8 mg/dL (8.5-10.5); Carbon Dioxide 23 mmol/L (22-29); Chloride 96 mmol/L (98-107); Creatinine Clr Calc Pharmacy 97.3767; Glomerular Filtration Rate 69.7 mL/min (90-130); Glucose 123 mg/dL (65-115); Lipase 13 U/L (13-60); Magnesium 2.6 mg/dL (1.7-2.3); Osmolality Calculated 281 mOsm/kg (285-295); Phosphorus 4.9 mg/dL (2.5-4.5); Potassium 5.1 mmol/L (3.5-5.1); Sodium 133 mmol/L (136-145); Total Bilirubin 0.6 mg/dL (0.15-1.2); Total Protein 6.8 g/dL (6.6-8.7)
[2025-01-11] MEDS: paliperidone ER 9 mg Tablet PO (08:50)
[2025-01-11] MEDS: divalproex ER 500 mg Tablet (24H) 1000 MG PO (08:50)
[2025-01-11] MEDS: benztropine 1 mg Tablet PO ×2 (08:50→18:00)
[2025-01-11] MEDS: quetiapine 100 mg Tablet 200 MG PO (08:50)
[2025-01-11 08:53] LABS: Procalcitonin 1.88 ng/mL (0-0.5)
[2025-01-11 09:10] LABS: HCG, Serum Qual Negative (Negative)
[2025-01-11] MEDS: haloperidol 5 mg Tablet PO (09:13)
[2025-01-11 10:37] LABS: C.Diff PCR (Lab) NEGATIVE (Negative)
--- NOTE | 2025-01-11 10:41 | US_ITS ---
WS: [id number] RIGHT UPPER QUADRANT ULTRASOUND HISTORY: pain COMPARISON: CT 01/11/2025 Liver: 14.7 cm in length. Normal size liver and echogenicity. No bile duct dilatation or mass. Portal Vein: Normal hepatopetal flow with monophasic waveform. Gallbladder: Gallbladder is mildly hydropic. Stones and sludge within the gallbladder. No significant gallbladder wall thickening. Common bile duct is top normal size to 6.8 mm. Common bile duct was not dilated on the recent CT performed. CBD: 0.68 cm Pancreas: Not well visualized. Right kidney: 11.4 cm in length. Normal size and echogenicity. No hydronephrosis or mass. Aorta and IVC: Unremarkable abdominal aorta and IVC. No ascites. US/US gall bladder [id number] IMPRESSION: 1. Mildly hydropic gallbladder with stones and sludge. No wall thickening or p ericholecystic fluid. 2. Common bile duct is top normal size. Common bile duct was normal on a recen t CT. 3. No intrahepatic duct dilatation.
--- NOTE | 2025-01-11 11:31 | P.PN_ITS ---
Subjective 2 Medications: Medication Review Details: Patient was seen this morning, continues to complain of diarrhea, abdominal pain, no nausea, vomiting, no lightheadedness, no dizziness, denies being , Vitals/I&O/Wt Last Vital Signs Temp 97.5 F L 01/11/25 09:00 Pulse 108 H 01/11/25 09:00 Resp 18 01/11/25 09:00 BP 110/75 01/11/25 09:00 Pulse Ox 96 01/11/25 09:00 O2 Del Method Room Air 01/11/25 09:00 01/10/25 01/11/25 01/11/25 22:59 06:59 14:59 Intake Total 1000 / 1000 Balance 1000 / 1000 Physical Exam 2 Const: COMMON NORMALS: no acute distress and patient oriented x3 Resp: COMMON NORMALS: normal respiratory effort, No retractions, No use of accessory muscles and clear to auscultation bilaterally AUSCULTATION: clear to auscultation bilaterally Cardio: COMMON NORMALS: regular rate, regular rhythm, S1 normal heart sound present and S2 normal heart sound present RATE: regular rate RHYTHM: r egular rhythm HEART SOUNDS: S1 normal heart sound present and S2 normal heart sound present GI: COMMON NORMALS: Normal to inspection, nondistended, normoactive bowel sounds present and non-tender Extremity: COMMON NORMALS: no pedal edema Neuro: COMMON NORMALS: patient oriented x3 Psych: COMMON NORMALS: mental status grossly normal Data 01/11/25 08:06 01/11/25 08:06 Micro: Microbiology 01/11/25 10:27 Blood Culture - Preliminary Blood SPECIMEN COLLECTED 01/11/25 10:22 Blood Culture - Preliminary Blood SPECIMEN COLLECTED 01/11/25 09:31 Stool Lactoferrin - Final Stool Occult Blood (FIT) - Final 01/11/25 02:30 Stool Lactoferrin - Final Stool Occult Blood (FIT) - Final A&P Assessment and plan (1) Colitis: Plan Patient requires hospitalization for concerns for infectious colitis CT/CT abdomen pelvis wo con [id number] IMPRESSION: 1. Fluid distended stomach and duodenum. 2. Fluid distended transverse colon with air-fluid levels. No evidence of high- grade obstruction. Mild fluid distention of the RIGHT colon. 3. Slight wall thickening and induration of the LEFT colon suspicious for mild infectious or inflammatory colitis. Recommend correlation for colitis symptoms. 4. Normal appendix. 5. Fluid distended gallbladder. 6. Fat-containing umbilical hernia. 7. Low-attenuation cystic lesion in pancreatic tail measuring 9 mm. This can be followed up with MRI in 6 to 12 months. - CRP 133.6, Pro-Ld 0.88, WBC 23.61, sed rate 9 - Transaminitis -C. difficile within normal limits - test within normal limits Plan - Moved to medical floors - N.p.o. - IV fluids - Blood cultures - Stool studies - Cipro and Flagyl - Full code - Lovenox for DVT prophylaxis PDMP PDMP Reviewed: Not Reviewed Attestations 2 Medical Necessity Statement*: Patient requires hospitalization for concern for infectious colitis Diagnoses Colitis K52.9
--- NOTE | 2025-01-11 11:36 | PC.NURSE ---
Pt states that she didn't sleep too well from being sick most of the night. She rates her anxiety a 3/10 and depression a 4/10. She denies hallucinations for the morning. No pain. Denies SI/HI. She is very anxious, she was to d/c at 3 today and that is being deferred d/t her acute illness. Onelia is going to let her ride know that she won't be d/c today. Pt is being transferred to ICU 8 d/t elopement risk.
[2025-01-11 12:21] LABS: HIV 1 & 2 Antigen Non-Reactive (Non-Reactiv)
[2025-01-11 12:22] LABS: HIV 1 & 2 Antibody Non-Reactive (Non-Reactiv)
[2025-01-11] MEDS: metroNIDAZOLE IV 500 MG/100 ML PREMIX 100 MG IV ×2 (12:23→18:00)
[2025-01-11] MEDS: ciprofloxacin 400 MG/200 ML PREMIX 200 MG IV ×2 (12:23→22:24)
[2025-01-11 12:24] LABS: Hepatitis A Antibody IgM Non-Reactive (Nonreactive); Hepatitis B Core IgM Non-Reactive (Nonreactive); Hepatitis B Surface Antigen Non-Reactive (Nonreactive); Hepatitis C Virus Antibody Non-Reactive (Nonreactive)
[2025-01-11] MEDS: sodium chloride 0.9% 1,000 ML 75 ML IV ×2 (12:34→23:42)
[2025-01-11] MEDS: enoxaparin 40 mg/0.4 mL Syringe SUBCUT (13:07)
[2025-01-11 14:36] LABS: Bilirubin Urine Negative (Negative); Blood Urine 1+ (Negative); Glucose Urine UA Negative (Normal); Ketones Urine Negative (Negative); Leukocyte Esterase Urine 1+ (Negative); Nitrate Urine Negative (Negative); Protein Urine Negative (Negative); Specific Gravity, Urine 1.011 (1.005-1.030); Urine Appearance Clear (CLEAR); Urine Color Yellow (Yellow); pH Urine 6.5 (5-7)
[2025-01-11 14:41] LABS: Bacteria Urine 2+ /hpf; Hyaline Casts Urine 0-4 /lpf; Squamous Epithelial Cell Urine 0-5 /hpf (0-5); WBC Urine 0-5 /hpf (0-5)
[2025-01-11 14:48] LABS: Add Urine Culture? Yes
--- NOTE | 2025-01-11 16:20 | P.NPUPN_ITS ---
Subjective NPU 2 Subjective: 39-year-old female with a past history o f significant methamphetamine abuse admitted with auditory hallucinations and depression while negative on urine drug screen for amphetamines. The patient had a difficult night last night as she had lost control of her bowels and engaged in some fecal smearing for several hours. She had then begun to report that she was hearing voices through the chase. Patient had endorsed having periods of sadness but stated that she still wished to go to stay with Edu. She had been redirectable on the milieu but was again placed on one-to-one due to her unusual behavior. Mental Status Exam 2 MSE Comments: This is an overweight versus obese white female looking older than her stated age in hospital scrubs with poor grooming and limited eye contact. She was extremely immature appearing to interact like an 6 year old child. Poor dentition. Hirsutism noticed on her right chin. No abnormal involuntary motor movements appreciated today. She was minimally cooperative on interview. Speech was normal in rate and mostly decreased in volume and monotone in quality and at times slurred. Mood described as good. Her affect was odd and subdued. Thought process was linear but concrete. Thought content: Patient denies suicidal or homicidal ideation. She denied auditory hallucinations today and did not actively appear to be responding to internal stimuli. There was continued paranoia appreciated. Attention and concentration were improving as she was the less distracted. She is alert and oriented times person and place. Insight was limited. Judgment is guarded. Impulse control remained poor. Fund of knowledge appeared poor. Abstraction was poor with evidence of concrete thinking. Vitals/I&O/Wt Last Vital Signs Temp 98.0 F 01/11/25 13:10 Pulse 121 H 01/11/25 17:15 Resp 23 H 01/11/25 17:15 BP 111/75 01/11/25 17:00 Pulse Ox 96 01/11/25 17:15 O2 Del Method Room Air 01/11/25 17:15 01/11/25 01/11/25 01/11/25 06:59 14:59 22:59 Intake Total 1000 / 1000 300 / 300 Output Total 900 / 900 Balance 1000 / 1000 -600 / -600 Data NPU 01/11/25 08:06 01/11/25 08:06 Micro: Microbiology 01/11/25 10:27 Blood Culture - Preliminary Blood SPECIMEN COLLECTED 01/11/25 10:22 Blood Culture - Preliminary Blood SPECIMEN COLLECTED 01/11/25 09:31 Stool Lactoferrin - Final Stool Occult Blood (FIT) - Final 01/11/25 02:30 Stool Lactoferrin - Final Stool Occult Blood (FIT) - Final Microbiology 01/11/25 10:27 Blood Blood Culture - Preliminary SPECIMEN COLLECTED 01/11/25 10:22 Blood Blood Culture - Preliminary SPECIMEN COLLECTED 01/11/25 09:31 Stool Stool Lactoferrin - Final 01/11/25 09:31 Stool Occult Blood (FIT) - Final 01/11/25 02:30 Stool Stool Lactoferrin - Final 01/11/25 02:30 Stool Occult Blood (FIT) - Final A&P Assessment and plan (1) Psychosis: (2) Paranoia: (3) Suicidal ideation: (4) Methamphetamine use disorder, severe, dependence: (5) Depression: (6) Impulse control disorder, unspecified: Plan This is a 39-year-old white female with a long history of mental health and addiction issues who presents after a very confused and unclear what is going on from the standpoint of being in the hospital but she was positive for methamphetamine. The patient is experiencing significant mental health challenges, including depression, anxiety, paranoia, and auditory hallucinations. There is a history of depression predating substance use, indicating a longstanding mental health condition. She likely also has a developmental disability or cognitive limitations with poor impulse control. 1. Continue Invega to 9 mg p.o. daily. Continue Depakote to 1000mg ER In am for aggression. and continue Klonopin 1mg at bedtime to assist with sleep with good response thus far. Switched seroquel to 200mg in am 600mg at night. Continue cogentin 1mg bid. Switched to Haldol oral 5mg in am. 2. Patient again on 09-06. Will be placed in ICU with concern about infectious or inflammatory colitis with elevated WBC, elevated neutrophils, and increased inflammatory factors including elevated procalcitonin, and C-reactive protein. 3. Encourage individual, group and milieu therapy. 4. Encourage sober living treatment after discharge at the highest level care to which she is willing to commit. 5. Patient placed on 21 day hold. Patient performed poorly on DARLENE (needed assistance on 06/17 skills tested)-Will likely begin level 2 with plan for guardianship. 6. We will continue to evaluate and make recommendations about who serves as guardian after we conversed with her significant other. PDMP PDMP Reviewed: Last Reviewed 01/10/25 14:50 EDT by Omid Mckinnon MD Involuntary Hold Information 2 Hold Status: Legal Status: 90 Day Hold Date/Time Hold Expires: 05/09/25 Attestations NPU 2 Medical Necessity Statement*: Inpatient psychiatric hospitalization is medically necessary and the clinically appropriate intervention once medically stabilized in ICU. ? We will monitor/initiate medications as indicated. Her likely length of stay is 3-5 days after stabilization. Coding Level of Care Code Acute Code for Chg Fwd Diagnoses Psychosis F29 Paranoia F22 Suicidal ideation R45.851 Methamphetamine use disorder, severe, dependence F15.20 Depression F32.A Impulse control disorder, unspecified F63.9
[2025-01-11 16:26] LABS: HCG Qualitative Urine. Negative (Negative)
[2025-01-11] MEDS: OLANZapine 5 mg ODT PO (16:59)
--- NOTE | 2025-01-11 19:28 | PC.NURSE ---
Shift note: Patient asks repeatedly about a ride home. She has contacted her S/O several times and requests transportation each call. Patient assured each time that she will have a ride home arranged when it is time to go home. Patient tearful when first admitted to ICU and stated to her S/O that she was angry with her Dr. because there was something wrong with her stomach. Patient updated on her condition and that her admission to ICU was merely due to the unit being a locked unit and not that she was requiring intensive care. Patient then stopped crying and rested for a time. S/O Edu was called and given update. Patient has had two loose stool output since arriving to ICU.
[2025-01-11] MEDS: quetiapine 300 mg Tablet 600 MG PO (20:26)
[2025-01-11] MEDS: CLONazepam 1 mg Tablet PO (20:27)
[2025-01-12] VITALS (17 sets, daily range): BP systolic 86–117; BP diastolic 53–83; PULSE 86–106; RESP 12–28; TEMP 36.3–36.8; O2SAT 94–100
[2025-01-12] MEDS: metroNIDAZOLE IV 500 MG/100 ML PREMIX 100 MG IV ×3 (02:02→17:47)
[2025-01-12 03:57] LABS: Basophils # 0.1 10^3/uL (0.0-0.1); Basophils % 0.7 %; Eosinophils # 0.1 10^3/uL (0.0-0.8); Eosinophils % 1.1 %; Hematocrit 38.6 % (36-47); Lymphocytes # 1.4 10^3/uL (0.8-4.8); Lymphocytes % 14.8 %; Mean Corpuscular HGB Conc 33.9 g/dL (30-55); Mean Corpuscular Hemoglobin 31.2 pg (27-33); Mean Corpuscular Volume 91.9 fl (85-98); Mean Platelet Volume 10.8 fL (7.4-10.4); Monocytes # 1.1 10^3/uL (0.2-0.9); Monocytes % 12.4 %; Neutrophils % 69.8 %; Nucleated Red Blood Cells % 0 %; Platelet Count 196 10^3/cmm (157-399); Red Cell Distribution Width 12.4 % (12.1-15.1); White Blood Count 9.17 10^3/uL (3.29-11.43)
[2025-01-12 04:27] LABS: Procalcitonin 0.58 ng/mL (0-0.5)
[2025-01-12 04:28] LABS: Alanine Aminotransferase 31 U/L (0-33); Albumin Level 3.1 g/dL (3.5-5.2); Alkaline Phosphatase 75 U/L (35-105); Anion Gap 12.2 (5-19); Aspartate Amino Transferase 18 U/L (0-32); Blood Urea Nitrogen 9 mg/dL (6-20); Calcium 8.3 mg/dL (8.5-10.5); Carbon Dioxide 27 mmol/L (22-29); Chloride 102 mmol/L (98-107); Creatinine Clr Calc Pharmacy 142.6461; Globulin 2.5 g/dL (1.3-4.6); Glomerular Filtration Rate 111.3 mL/min (90-130); Glucose 98 mg/dL (65-115); Osmolality Calculated 283 mOsm/kg (285-295); Phosphorus 2.1 mg/dL (2.5-4.5); Potassium 4.2 mmol/L (3.5-5.1); Sodium 137 mmol/L (136-145); Total Bilirubin 0.2 mg/dL (0.15-1.2); Total Protein 5.6 g/dL (6.6-8.7)
[2025-01-12] MEDS: divalproex ER 500 mg Tablet (24H) 1000 MG PO (08:01)
[2025-01-12] MEDS: quetiapine 100 mg Tablet 200 MG PO (08:02)
[2025-01-12] MEDS: benztropine 1 mg Tablet PO ×2 (08:02→17:33)
[2025-01-12] MEDS: paliperidone ER 9 mg Tablet PO (08:07)
[2025-01-12] MEDS: haloperidol 5 mg Tablet PO (08:07)
[2025-01-12] MEDS: ciprofloxacin 400 MG/200 ML PREMIX 200 MG IV ×2 (10:33→21:54)
[2025-01-12] MEDS: enoxaparin 40 mg/0.4 mL Syringe SUBCUT (13:40)
--- NOTE | 2025-01-12 13:44 | P.PN_ITS ---
Subjective 2 Subjective: Patient was seen this morning, she her diarrhea has resolved she tells me, no fevers, no fevers, no chills, no nausea, NO vomiting Vitals/I&O/Wt Last Vital Signs Temp 97.4 F L 01/12/25 04:00 Pulse 87 01/12/25 06:00 Resp 13 01/12/25 06:00 BP 110/56 01/12/25 06:00 Pulse Ox 96 01/12/25 06:00 O2 Del Method Room Air 01/12/25 06:00 01/11/25 01/12/25 01/12/25 22:59 06:59 14:59 Intake Total 500 / 800 1135 / 1935 300 / 300 Output Total 800 / 1700 Balance -300 / -900 1135 / 235 300 / 300 Weight last 48 hrs Weight 90.5 kg Physical Exam 2 Const: COMMON NORMALS: no acute distress and patient oriented x3 Resp: COMMON NORMALS: normal respiratory effort, No retractions, No use of accessory muscles and clear to auscultation bilaterally AUSCULTATION: clear to auscultation bilaterally Cardio: COMMON NORMALS: regular rate, regular rhythm, S1 normal heart sound present and S2 normal heart sound present RATE: regular rate RHYTHM: r egular rhythm HEART SOUNDS: S1 normal heart sound present and S2 normal heart sound present GI: COMMON NORMALS: Normal to inspection, nondistended, normoactive bowel sounds present and non-tender Extremity: COMMON NORMALS: no pedal edema Neuro: COMMON NORMALS: patient oriented x3 Psych: COMMON NORMALS: mental status grossly normal Data 01/12/25 03:33 01/12/25 03:33 Micro: Microbiology 01/11/25 10:27 Blood Culture - Preliminary Blood NEGATIVE TO DATE 01/11/25 10:22 Blood Culture - Preliminary Blood NEGATIVE TO DATE 01/11/25 09:31 Stool Lactoferrin - Final Stool Occult Blood (FIT) - Final A&P Assessment and plan (1) Colitis: Plan Patient requires hospitalization for concerns for infectious colitis CT/CT abdomen pelvis wo con [id number] IMPRESSION: 1. Fluid distended stomach and duodenum. 2. Fluid distended transverse colon with air-fluid levels. No evidence of high- grade obstruction. Mild fluid distention of the RIGHT colon. 3. Slight wall thickening and induration of the LEFT colon suspicious for mild infectious or inflammatory colitis. Recommend correlation for colitis symptoms. 4. Normal appendix. 5. Fluid distended gallbladder. 6. Fat-containing umbilical hernia. 7. Low-attenuation cystic lesion in pancreatic tail measuring 9 mm. This can be followed up with MRI in 6 to 12 months. - CRP 133.6, Pro-Ld 0.88, WBC 23.61, sed rate 9 - Transaminitis -C. difficile within normal limits - test within normal limits Plan - Moved to medical floors - Transition to clears - IV fluids - Blood cultures - Stool studies - Cipro and Flagyl - Full code - Lovenox for DVT prophylaxis PDMP PDMP Reviewed: Not Reviewed Attestations 2 Medical Necessity Statement*: Patient requires hospitalization for colitis, requiring IV antibiotics, Diagnoses Colitis K52.9
--- NOTE | 2025-01-12 16:58 | P.NPUPN_ITS ---
Subjective NPU 2 Subjective: 39-year-old female with a past history o f significant methamphetamine abuse admitted with auditory hallucinations and depression while negative on urine drug screen for amphetamines. The patient was seen in the ICU today. She had reported feeling better. She had reported some abdominal discomfort. She had stated that she was sad that she may not be going to see [facility] and was reassured that she would likely be discharged there when stabilized on the intensive care unit. She had no acts of aggression there. She continued to remain compliant with her medication regimen. She had denied any hallucinations at this time. Mental Status Exam 2 MSE Comments: This is an overweight versus obese white female looking older than her stated age in hospital scrubs with poor grooming and fair eye contact in the ICU bed. She was extremely immature appearing to interact like an 6 year old child. Poor dentition. Hirsutism noticed on her right chin. No abnormal involuntary motor movements appreciated today. She was partially cooperative on interview. Speech was normal in rate and mostly decreased in volume and monotone in quality and at times slurred. Mood described as good. Her affect was odd and subdued. Thought process was linear but concrete. Thought content: Patient denies suicidal or homicidal ideation. She denied auditory hallucinations today and did not actively appear to be responding to internal stimuli. There was mild paranoia appreciated. Attention and concentration were improving as she was the less distracted. She is alert and oriented times person and place. Insight was limited. Judgment is guarded. Impulse control remained poor. Fund of knowledge appeared poor. Abstraction was poor with evidence of concrete thinking. Vitals/I&O/Wt Last Vital Signs Temp 98.2 F 01/12/25 14:00 Pulse 104 H 01/12/25 14:00 Resp 28 H 01/12/25 14:00 BP 92/55 01/12/25 14:00 Pulse Ox 99 01/12/25 14:00 O2 Del Method Room Air 01/12/25 14:00 01/12/25 01/12/25 01/12/25 06:59 14:59 22:59 Intake Total 1135 / 1935 1260 / 1260 Balance 1135 / 235 1260 / 1260 Weight last 48 hrs Weight 90.5 kg Data NPU 01/12/25 03:33 01/12/25 03:33 Micro: Microbiology 01/11/25 10:27 Blood Culture - Preliminary Blood NEGATIVE TO DATE 01/11/25 10:22 Blood Culture - Preliminary Blood NEGATIVE TO DATE Microbiology 01/11/25 10:27 Blood Blood Culture - Preliminary NEGATIVE TO DATE 01/11/25 10:22 Blood Blood Culture - Preliminary NEGATIVE TO DATE A&P Assessment and plan (1) Psychosis: (2) Paranoia: (3) Suicidal ideation: (4) Methamphetamine use disorder, severe, dependence: (5) Depression: (6) Impulse control disorder, unspecified: Plan This is a 39-year-old white female with a long history of mental health and addiction issues who presents after a very confused and unclear what is going on from the standpoint of being in the hospital but she was positive for methamphetamine. The patient is experiencing significant mental health challenges, including depression, anxiety, paranoia, and auditory hallucinations. There is a history of depression predating substance use, indicating a longstanding mental health condition. She likely also has a developmental disability or cognitive limitations with poor impulse control. 1. Continue Invega to 9 mg p.o. daily. Continue Depakote to 1000mg ER In am for aggression. and continue Klonopin 1mg at bedtime to assist with sleep with good response thus far. Switched seroquel to 200mg in am 600mg at night. Continue cogentin 1mg bid. Switched to Haldol oral 5mg in am. 2. Patient again on 09-06. Will be placed in ICU with concern about infectious or inflammatory colitis with elevated WBC, elevated neutrophils, and increased inflammatory factors including elevated procalcitonin, and C-reactive protein. 3. Encourage individual, group and milieu therapy. 4. Encourage sober living treatment after discharge at the highest level care to which she is willing to commit. 5. Patient placed on 21 day hold. Patient performed poorly on DARLENE (needed assistance on 06/17 skills tested)-Will likely begin level 2 with plan for guardianship. 6. We will continue to evaluate and make recommendations about who serves as guardian after we conversed with her significant other. PDMP PDMP Reviewed: Last Reviewed 01/10/25 14:50 EDT by Omid Mckinnon MD Involuntary Hold Information 2 Hold Status: Legal Status: 90 Day Hold Date/Time Hold Expires: 05/09/25 Attestations NPU 2 Medical Necessity Statement*: Inpatient psychiatric hospitalization is medically necessary and the clinically appropriate intervention once medically stabilized in ICU. ? We will monitor/initiate medications as indicated. Her likely length of stay is 1-2 days after stabilization. Coding Level of Care Code Acute Code for g Fwd Diagnoses Psychosis F29 Paranoia F22 Suicidal ideation R45.851 Methamphetamine use disorder, severe, dependence F15.20 Depression F32.A Impulse control disorder, unspecified F63.9
--- NOTE | 2025-01-12 17:15 | PC.NURSE ---
Dr. Mckinnon inquired about patient's d/c medications as they were intended to be Meds to Beds, however they were not delivered but sent to the pharmacy on 01/10. I called and spoke with Jan Musa and Jose Agrawal, Pharmacy Directors, and a pharmacy coworker was still on site and brought the medications to NPU. Patient will remain in ICU likely until d/c, however the medications for d/c are in the safe within NPU to ensure they are secured. I informed Chrystal Godoy RN, Vinicio Hardwick LPN, Dr. Mckinnon, and Chrystal Hennessy RN of medication location upon d/c.
[2025-01-12] MEDS: sodium chloride 0.9% 1,000 ML 75 ML IV (17:34)
[2025-01-12] MEDS: CLONazepam 1 mg Tablet PO (21:17)
[2025-01-12] MEDS: quetiapine 300 mg Tablet 600 MG PO (21:17)
[2025-01-13] VITALS (12 sets, daily range): BP systolic 85–117; BP diastolic 52–75; PULSE 83–108; RESP 9–20; TEMP 36.6; O2SAT 95–100
[2025-01-13] MEDS: sodium chloride 0.9% 1,000 ML 75 ML IV ×2 (02:01→09:44)
[2025-01-13] MEDS: metroNIDAZOLE IV 500 MG/100 ML PREMIX 100 MG IV ×2 (02:04→10:21)
[2025-01-13 05:02] LABS: Basophils # 0.1 10^3/uL (0.0-0.1); Basophils % 1.2 %; Eosinophils # 0.1 10^3/uL (0.0-0.8); Eosinophils % 1.7 %; Hematocrit 35.7 % (36-47); Lymphocytes # 1.3 10^3/uL (0.8-4.8); Lymphocytes % 22.2 %; Mean Corpuscular HGB Conc 33.1 g/dL (30-55); Mean Corpuscular Hemoglobin 31.1 pg (27-33); Mean Corpuscular Volume 93.9 fl (85-98); Mean Platelet Volume 11.1 fL (7.4-10.4); Monocytes # 0.9 10^3/uL (0.2-0.9); Monocytes % 14.7 %; Neutrophils # 3.34 10^3/uL (1.8-7.7); Neutrophils % 57.6 %; Nucleated Red Blood Cells % 0 %; Platelet Count 179 10^3/cmm (157-399); Red Cell Distribution Width 12.4 % (12.1-15.1)
[2025-01-13 05:23] LABS: Alanine Aminotransferase 19 U/L (0-33); Alkaline Phosphatase 60 U/L (35-105); Anion Gap 12.9 (5-19); Aspartate Amino Transferase 11 U/L (0-32); Blood Urea Nitrogen 3 mg/dL (6-20); C Reactive Protein 23.5 mg/L (0.0-4.9); Carbon Dioxide 26 mmol/L (22-29); Chloride 106 mmol/L (98-107); Glomerular Filtration Rate 137.4 mL/min (90-130); Glucose 82 mg/dL (65-115); Magnesium 1.9 mg/dL (1.7-2.3); Osmolality Calculated 288 mOsm/kg (285-295); Phosphorus 1.9 mg/dL (2.5-4.5); Potassium 3.9 mmol/L (3.5-5.1); Sodium 141 mmol/L (136-145); Total Bilirubin 0.2 mg/dL (0.15-1.2)
[2025-01-13 05:30] LABS: Procalcitonin 0.32 ng/mL (0-0.5)
--- NOTE | 2025-01-13 07:30 | PC.NURSE ---
Pt denies hallucinations this am. She stated her stomach felt better and she hasn't had any more diarrhea. She denied SI this am. She has a flat affect. SHe is requesting to call her SO at this time
--- NOTE | 2025-01-13 08:00 | PC.NURSE ---
Pt just talked to SO on phone. She stated she was ready to go home. We discussed we had to wait for physician order and they would be by to see her today. Pt verbalized understanding but then asked further questions that indicated poor insight.
--- NOTE | 2025-01-13 09:20 | PC.NURSE ---
It was reported to this nurse by the 1:1 sitter than pt is anxious and tearful. Pt called sitter a liar. Said stafff was lying about her being able to get a ride home. Pt continued with just let them go out and on the street . I just want to leave, walk out and get hit by a car . Reassured pt that if and when she is going home she will have a ride, if [facility] cannot one will be arranged for her. Discussed emotions and the healthier way of expressing them : i.e: I am angry, I am frustrated, etc. Also discussed she wulavinia grier to have Dr Rivero ok her going home today.
[2025-01-13] MEDS: benztropine 1 mg Tablet PO (09:40)
[2025-01-13] MEDS: quetiapine 100 mg Tablet 200 MG PO (09:40)
[2025-01-13] MEDS: paliperidone ER 9 mg Tablet PO (09:41)
[2025-01-13] MEDS: haloperidol 5 mg Tablet PO (09:41)
[2025-01-13] MEDS: divalproex ER 500 mg Tablet (24H) 1000 MG PO (09:41)
[2025-01-13] MEDS: phosphorus 250 mg Tablet PO (09:41)
[2025-01-13] MEDS: ciprofloxacin 400 MG/200 ML PREMIX 20 MG IV (10:22)
--- NOTE | 2025-01-13 11:46 | PC.NURSE ---
Pt is fixated on [facility] not being able to give her a ride home today.
--- NOTE | 2025-01-13 11:59 | PC.NURSE ---
Report called to NPU and given to KATERINE Santoyo. Pt to transfer around 12:30.
--- NOTE | 2025-01-13 12:38 | PC.NURSE ---
Pt transferred to NPU via W/C. No personal belongings with pt in ICU.
--- NOTE | 2025-01-13 12:54 | P.PN_ITS ---
Subjective 2 Subjective: Patient was seen this morning, alert oriented x 3, following all commands, no diarrhea, no abdominal pain, nursing staff report that she has reported suicidal ideation, will go back to n.p.u, switch her to p.o. antibiotics Vitals/I&O/Wt Last Vital Signs Temp 97.9 F 01/13/25 08:00 Pulse 104 H 01/13/25 10:00 Resp 20 H 01/13/25 10:00 BP 98/71 01/13/25 10:00 Pulse Ox 97 01/13/25 10:00 O2 Del Method Room Air 01/13/25 10:00 01/12/25 01/13/25 01/13/25 22:59 06:59 14:59 Intake Total 1060 / 3320 933.75 / 4253.75 1999 Output Total 1900 / 1900 Balance -840 / 1420 933.75 / 2353.75 1999 Weight last 48 hrs Weight 96.797 kg Weight 90.5 kg Physical Exam 2 Const: COMMON NORMALS: no acute distress and patient oriented x3 Resp: COMMON NORMALS: normal respiratory effort, No retractions, No use of accessory muscles and clear to auscultation bilaterally AUSCULTATION: clear to auscultation bilaterally Cardio: COMMON NORMALS: regular rate, regular rhythm, S1 normal heart sound present and S2 normal heart sound present RATE: regular rate RHYTHM: r egular rhythm HEART SOUNDS: S1 normal heart sound present and S2 normal heart sound present GI: COMMON NORMALS: Normal to inspection, nondistended, normoactive bowel sounds present and non-tender Extremity: COMMON NORMALS: no calf tenderness and no pedal edema Neuro: COMMON NORMALS: patient oriented x3 Psych: COMMON NORMALS: mental status grossly normal Data 01/13/25 04:30 01/13/25 04:30 Micro: Microbiology 01/11/25 14:13 Urine Culture - Final Urine,Clean Catch 01/11/25 10:27 Blood Culture - Preliminary Blood NEGATIVE TO DATE 01/11/25 10:22 Blood Culture - Preliminary Blood NEGATIVE TO DATE A&P Assessment and plan (1) Colitis: Plan Patient requires hospitalization for concerns for infectious colitis CT/CT abdomen pelvis wo con [id number] IMPRESSION: 1. Fluid distended stomach and duodenum. 2. Fluid distended transverse colon with air-fluid levels. No evidence of high- grade obstruction. Mild fluid distention of the RIGHT colon. 3. Slight wall thickening and induration of the LEFT colon suspicious for mild infectious or inflammatory colitis. Recommend correlation for colitis symptoms. 4. Normal appendix. 5. Fluid distended gallbladder. 6. Fat-containing umbilical hernia. 7. Low-attenuation cystic lesion in pancreatic tail measuring 9 mm. This can be followed up with MRI in 6 to 12 months. - CRP 133.6, Pro-Ld 0.88, WBC 23.61, sed rate 9 - Transaminitis -C. difficile within normal limits - test within normal limits Plan - Moved to neuropsychiatric unit - Transition to GI soft diet - Blood cultures no growth so far - Stool studies - Cipro and Flagyl p.o. -Will need an outpatient follow-up for colonoscopy in a month, due to Hemoccult positive stools, consideration of HIDA scanning/gallbladder ultrasound, general surgery follow-up - Full code - Lovenox for DVT prophylaxis PDMP PDMP Reviewed: Not Reviewed Attestations 2 Medical Necessity Statement*: Patient requires hospitalization for infectious colitis, clinical improvement, will moved to neuropsychiatric unit Diagnoses Colitis K52.9
--- NOTE | 2025-01-13 13:08 | P.NPUDS_ITS ---
Diagnoses at Discharge Discharge Diagnosis (1) Colitis: Status: Acute Reason for Visit Reason for Visit: mhe Brief History: History of Present Illness Suri Moreno is a 39 year old female Chief Complaint: Psychiatric Symptoms Stated Complaint: mhe Time Seen by Provider: 12/09/24 18:02 Source: patient and EMS Mode of arrival: ambulatory Limitations: no limitations History of Present Illness: This patient was transported by EMS to the emergency department because of concerns about suicidality. Reportedly she requested police take her to intermediate because she was concerned about self-harm. She had not committed any offenses and there was no reason to incarcerate her so therefore EMS brought her to this facility. She states she used meth with a friend yesterday and had been sometime since she had used methamphetamine. She states that she told her boyfriend that she was thinking about harming herself and she continues to harbor thoughts of harming herself. She states she would cut her wrists. She states that she used to take mental health medications which she cannot remember the names but has not taken it for some time. She has previously been hospit alized for mental health issues but has not been in this facility. She states that she smokes tobacco but does not drink alcohol or use or any other street drugs. She has 4 but does not have an active relationship in the same home with these children. She currently denies any other symptoms such as nausea vomiting diarrhea chest pain palpitations fevers chills etc. MD complaint: suicidal ideation and feels depressed Context: recent drug abuse Associated psychiatric symptoms: suicidal ideation Associated symptoms: Reports depression and suicidal ideation; Deny auditory hallucinations or visual hallucinations If self harm: admits thoughts of self harm. Chief complaint Experiencing auditory hallucinations, paranoia, and anxiety, with a history of depression and substance use. History of the present complaint The individual reports a long-standing history of depression and anxiety, which predates any substance use. They have been dealing with these mental health issues for a significant period, indicating that these conditions were present before any drug use began. The individual describes experiencing paranoia, with feelings that people are out to get them and hearing voices. They express a belief that others can hear everything they say and are repeating their conversations. These symptoms contribute to their anxiety and fear, as they feel that people are in the chase and are going to shoot them, although they acknowledge that this is not happening in reality. The individual has a history of substance use, specifically methamphetamine, which they have been using for approximately 20 years, starting in their teenage years. They have attempted to stop using methamphetamine and have been to rehab once, on March 30 of the previous year, but continue to struggle with cessation. They report no use of alcohol or marijuana and have a history of tobacco use since their teenage years. In terms of family history, there is no reported history of mental health issues or addiction on either side of the family. The individual reports experiencing neglect during childhood but denies any physical or sexual abuse. They have a history of speech therapy and special education during school years. The individual is the oldest of three siblings and reports that their parents are , although this occurred some time ago. The individual has been twice, both times to men, and has four biological children, aged 9, 11, 12, and 17. They report living with a partner and two cats in an apartment. They have been on disability, although the specific reason for this is not detailed. The individual has a history of incarceration, having been jailed once for approximately three to four weeks. They also report having high blood pressure but no other significant medical issues or surgeries. The individual expresses current suicidal thoughts but denies any thoughts of harming others. They report hearing voices and seeing things, contributing to their feelings of paranoia and fear. Mental health history Has a long-standing history of depression and anxiety, which began before any drug use. Has been on medications for depression and anxiety in the past. Reports hearing voices, experiencing paranoia, and having suicidal thoughts. No family history of mental health issues. Has been hospitalized in a psychiatric facility before and has received outpatient treatment. Social history Currently unemployed and on disability. Previously worked at [employer]. Smokes tobacco, started as a teenager. No alcohol or cannabis use. Methamphetamine use for approximately 20 years, with a rehab attempt on March 30 of the previous year. No family history of addiction. twice, with four biological children aged 9, 11, 12, and 17. Lives in an apartment with a partner and two cats. No service or adventist beliefs mentioned. Experienced neglect in childhood, but no physical or sexual abuse. Parents are . Has a brother and a sister, and is the oldest sibling. Graduated from high school. Hospital Course Hospital Course The patient had an extended hospitalization here for more than a month. She had shown evidence of considerable problems with maintaining control of her impulses. She had presented with psychosis with complaints of there being people in her chase as she had reported auditory hallucinations. She had been aggressive and very difficult to redirect requiring one-on-one observation due to her consistent aggression. Family members had reported that the patient had been using methamphetamine recently and she had already previously had problems with cognitive impairment since childhood along with problems with impulsivity. An evaluation was completed to determine whether the patient was able to live independently (DARLENE) and the patient had required significant assistance in 10 out of the 12 skills tested. A level 2 was completed with a plan for consideration of guardianship. However, the patient was not recommended for level 2 by the independent evaluators at the time because the patient was on one-to-one observation at the time of the interview. The patient ultimately was agreeable to living with her boyfriend Edu who had excepted and would assume care for the patient. He had stated that he would continue to pursue guardianship for her. In regards to medications, the patient was placed on multiple medications but ultimately placed on Invega titrated up to 12 mg daily but eventually reduced to 9 mg prior to discharge. Depakote was prescribed to be given at 1000 mg extended release for targeting aggression as well. Seroquel was also added and titrated up to a dose of 200 mg daily in the morning and 600 mg at night along with Haldol in the morning and Klonopin at nighttime. Patient had required several as needed medications for agitation and aggression but did appear to have less episodes of aggression and no PRNs at the time of discharge.At the time of discharge, lethality was denied and psychosis was resolving.? Mood and anxiety were well managed.? The patient endorsed a plan to avoid all drugs of abuse and follow up with the aftercare recommendations of the treatment team.? The patient was evaluated and deemed to be absent credible lethality and had achieved the maximum benefit from an inpatient hospitalization, and so was discharged. ?The patient had required placement in the intensive care unit beginning on 01/11/2025 as she had had loss of control of her bowels and had complained of significant pain. She was thought to have infectious colitis and ultrasound had supported that the patient had some potential problems with her gallbladder as well which will require further follow-up in the future. She was also placed on antibiotics to target infectious colitis that she would take on an outpatient basis as well for the next few days. She was eventually transferred back from the ICU on 01/13/2025 to the neuropsychiatric unit where she would await discharge. Involuntary Hold Information Hold Status: Legal Status: 90 Day Hold Date/Time Hold Expires: 05/09/25 Mental Status Exam MSE Comments: This is an overweight versus obese white female looking older than her stated age in hospital scrubs with poor grooming and fair eye contact in the ICU bed. She was extremely immature appearing to interact like an 6 year old child. Poor dentition. Hirsutism noticed on her right chin. No abnormal involuntary motor movements appreciated today. She was partially cooperative on interview. Speech was normal in rate and mostly decreased in volume and monotone in quality and at times slurred. Mood described as good. Her affect was brighter. Thought process was linear but concrete. Thought content: Patient denies suicidal or homicidal ideation. She denied auditory hallucinations today and did not actively appear to be responding to internal stimuli. There was mild paranoia appreciated. Attention and concentration were improving as she was the less distracted. She is alert and oriented times person and place. Insight was limited. Judgment is guarded. Impulse control was adequate. Fund of knowledge appeared poor. Abstraction was poor with evidence of concrete thinking. Discharge Data Studies Completed and Pending: Completed Studies During Hospitalization Category Date Time Status CT abdomen pelvis wo con [id number] Rout ine Cat Scan 01/11/25 08:36 Completed XR abdomen 1V* [id number] Stat Exams 01/11/25 01:17 Completed XR hand RT min 3V * [id number] Routine Exams 01/02/25 15:39 Completed US gall bladder 7 [id number] Routine Ultrasound 01/11/25 10:41 Completed Pending at discharge Category Date Time Status Blood Culture Sta t Lab 01/11/25 10:27 Results OVA and Parasites , Conc and PE Rout ine Lab 01/11/25 02:30 Received Salmonella / Shig bruce / Campy [place] ne Lab 01/11/25 02:30 Received Radiology Impressions Hand X-Ray 01/02/25 15:39 IMPRESSION: No acute fracture. Abdomen X-Ray 01/11/25 01:17 IMPRESSION: No acute findings. Abdomen/Pelvis CT 01/11/25 08:36 IMPRESSION: 1. Fluid distended stomach and duodenum . 2. Fluid distended transverse colon wit h air-fluid levels. No evidence of high- grade obstruction. Mild fluid distention of the RIGHT colon. 3. Slight wall thickening and induratio n of the LEFT colon suspicious for mild infectious or inflammatory colitis. Recommend correlation for colitis symptoms. 4. Normal appendix. 5. Fluid distended gallbladder. 6. Fat-containing umbilical hernia. 7. Low-attenuation cystic lesion in dockery creatic tail measuring 9 mm. This can be followed up with MRI in 6 to 12 months. Gallbladder Ultrasound 01/11/25 10:41 IMPRESSION: 1. Mildly hydropic gallbladder with sto rommel and sludge. No wall thickening or pericholecystic fluid. 2. Common bile duct is top normal size. Common bile duct was normal on a recent CT. 3. No intrahepatic duct dilatation. Laboratory Results WBC 5.80 10^3/uL (3.2 9-11.43) 01/13/25 04:30 RBC 3.80 10^6/uL (3.8 5-5.65) L 01/13/25 04:30 Hgb 11.80 g/dL (11.27 -16.99) 01/13/25 04:30 Hct 35.7 % (36-47) L 01/13/25 04:30 MCV 93.9 fl (85-98) 01/13/25 04:30 MCH 31.1 pg (27-33) 01/13/25 04:30 MCHC 33.1 g/dL (30-55) 01/13/25 04:30 RDW 12.4 % (12.1-15.1 ) 01/13/25 04:30 Plt Count 179 10^3/cmm (157 -399) 01/13/25 04:30 MPV 11.1 fL (7.4-10.4 ) H 01/13/25 04:30 Neut % (Auto) 57.6 % 01/13/25 04:30 Lymph % (Auto) 22.2 % 01/13/25 04:30 Charlton % (Auto) 14.7 % 01/13/25 04:30 Eos % (Auto) 1.7 % 01/13/25 04:30 Baso % (Auto) 1.2 % 01/13/25 04:30 Neut # (Auto) 3.34 10^3/uL (1.8 -7.7) 01/13/25 04:30 Lymph # (Auto) 1.3 10^3/uL (0.8- 4.8) 01/13/25 04:30 Charlton # (Auto) 0.9 10^3/uL (0.2- 0.9) 01/13/25 04:30 Eos # (Auto) 0.1 10^3/uL (0.0- 0.8) 01/13/25 04:30 Baso # (Auto) 0.1 10^3/uL (0.0- 0.1) 01/13/25 04:30 Nucleated RBC % (a uto) 0 % 01/13/25 04:30 Nucleated RBCs # 0.0 /100WBC 01/13/25 04:30 ESR 9 mm/hr (0-15) 01/11/25 08:06 Sodium 141 mmol/L (136-1 45) 01/13/25 04:30 Potassium 3.9 mmol/L (3.5-5 .1) 01/13/25 04:30 Chloride 106 mmol/L (98-10 7) 01/13/25 04:30 Carbon Dioxide 26 mmol/L (22-29) 01/13/25 04:30 Anion Gap 12.9 (5-19) 01/13/25 04:30 BUN 3 mg/dL (6-20) L 01/13/25 04:30 Creatinine 0.5 mg/dL (0.5-0. 9) 01/13/25 04:30 GFR Calculation 137.4 mL/min (90- 130) H 01/13/25 04:30 Glucose 82 mg/dL (65-115) 01/13/25 04:30 Calculated Osmolal ity 288 mOsm/kg (285- 295) 01/13/25 04:30 Calcium 8.0 mg/dL (8.5-10 .5) L 01/13/25 04:30 Phosphorus 1.9 mg/dL (2.5-4. 5) L 01/13/25 04:30 Magnesium 1.9 mg/dL (1.7-2. 3) 01/13/25 04:30 Total Bilirubin 0.2 mg/dL (0.15-1 .2) 01/13/25 04:30 GGT 52 U/L (5-36) H 01/11/25 08:06 AST 11 U/L (0-32) 01/13/25 04:30 ALT 19 U/L (0-33) 01/13/25 04:30 Alkaline Phosphata se 60 U/L (35-105) 01/13/25 04:30 C-Reactive Protein 23.5 mg/L (0.0-4. 9) H 01/13/25 04:30 Total Protein 5.0 g/dL (6.6-8.7 ) L 01/13/25 04:30 Albumin 3.0 g/dL (3.5-5.2 ) L 01/13/25 04:30 Globulin 2.0 g/dL (1.3-4.6 ) 01/13/25 04:30 Lipase 13 U/L (13-60) 01/11/25 08:06 Procalcitonin 0.32 ng/mL (0-0.5 ) 01/13/25 04:30 HCG, Qual Negative (Negati ve) 01/11/25 14:13 Urine Color Yellow (Yellow) 01/11/25 14:13 Urine Appearance Clear (CLEAR) 01/11/25 14:13 Urine pH 6.5 (5-7) 01/11/25 14:13 Ur Specific Gravit y 1.011 (1.005-1.0 30) 01/11/25 14:13 Urine Protein Negative (Negati ve) 01/11/25 14:13 Urine Glucose (UA) Negative (Normal ) 01/11/25 14:13 Urine Ketones Negative (Negati ve) 01/11/25 14:13 Urine Blood 1+ (Negative) A 01/11/25 14:13 Urine Nitrate Negative (Negati ve) 01/11/25 14:13 Urine Bilirubin Negative (Negati ve) 01/11/25 14:13 Urine Urobilinogen 1.0 mg/dL (Negati ve) 01/11/25 14:13 Ur Leukocyte Vilma ase 1+ (Negative) A 01/11/25 14:13 Urine RBC 3-5 /hpf (0-2) 01/11/25 14:13 Urine WBC 0-5 /hpf (0-5) 01/11/25 14:13 Ur Squamous Epith Cells 0-5 /hpf (0-5) 01/11/25 14:13 Amorphous Sediment Not Reportable 01/11/25 14:13 Urine Bacteria 2+ /hpf (NONE) H 01/11/25 14:13 Hyaline Casts 0-4 /lpf H 01/11/25 14:13 Salicylates < 0.3 mg/dL (3-10 ) L 12/09/24 18:11 Urine Opiates Scre en Negative ng/mL (N egative) 12/09/24 17:51 Acetaminophen < 5.0 ug/mL (10-3 0) L 12/09/24 18:11 Ur Barbiturates Sc reen Negative ng/mL (N egative) 12/09/24 17:51 Ur Phencyclidine S crn Negative ng/mL (N egative) 12/09/24 17:51 Ur Amphetamines Sc reen Negative ng/mL (N egative) 12/09/24 17:51 U Benzodiazepines Scrn Negative ng/mL (N egative) 12/09/24 17:51 Urine Cocaine Scre en Negative ng/mL (N egative) 12/09/24 17:51 U Marijuana (THC) Screen Negative ng/mL (N egative) 12/09/24 17:51 Ethyl Alcohol < 10 mg/dL (0-10) 12/09/24 18:11 C. difficile (PCR) Negative (Negati ve) 01/11/25 09:31 Hepatitis A IgM Ab Non-reactive (No nreactive) 01/11/25 08:06 Hep Bs Antigen Non-reactive (No nreactive) 01/11/25 08:06 Hep B Core IgM Ab Non-reactive (No nreactive) 01/11/25 08:06 Hepatitis C Antibo dy Non-reactive (No nreactive) 01/11/25 08:06 HIV 1&2 Ab & HIV 1 Ag Non-reactive (No n-Reactiv) 01/11/25 08:06 HIV 1&2 Antibody Non-reactive (No n-Reactiv) 01/11/25 08:06 Vitals: Last Vital Signs Temp 97.9 F 01/13/25 08:00 Pulse 104 H 01/13/25 10:00 Resp 20 H 01/13/25 10:00 BP 98/71 01/13/25 10:00 Pulse Ox 97 01/13/25 10:00 O2 Del Method Room Air 01/13/25 10:00 Discharge Plan Discharge Patient Disposition: Home Condition: Stable Prescriptions: New benztropine 1 mg Tablet 1 mg PO BID 30 Days Qty: 60 1RF clonazepam 1 mg Tablet 1 mg PO BEDTIME 30 Days Qty: 30 1RF divalproex 500 mg Tablet Extended Release 24 Hr 1,000 mg PO DAILY 30 Days Qty: 60 1RF quetiapine 300 mg Tablet 600 mg PO BEDTIME 30 Days Qty: 60 1RF quetiapine 200 mg tablet 200 mg PO 0900 30 Days Qty: 30 1RF paliperidone [Invega] 9 mg tablet extended release 24hr 9 mg PO DAILY 30 Days Qty: 30 1RF ciprofloxacin HCl 500 mg tablet 500 mg PO BID 10 Days Qty: 20 0RF metronidazole 500 mg tablet 500 mg PO Q8H 10 Days Qty: 30 0RF Discharge Orders: Discharge Order (Routine); Ordered 01/13/25 Ordered By: Omid Mckinnon Referrals: [facility] [Outside] Jared Seo MD [Physician, General Surgery] - 1 month Referral Note: colonoscopy for hemmocult positive stook hidascan/gallbladder Carlos Alberto Concepcion, LOT[facility]IES AGENT-C [Nurse Practitioner, Family Practice] - 01/17/25 9:00 am Discharge Diet: Usual diet Discharge Activity: Resume usual activity Patient Instructions: Opioid Safety Discharge Attestations NPU Time Spent in Discharge Care*: less than 30 min Specific Discharge Activities: Specific discharge activities: educating patient, discussing with telephonic nurse case manager/social workers/dc planners and documenting/other paperwork Coding Level of Care Code Acute Code for Chg Fwd Diagnoses Colitis K52.9
--- NOTE | 2025-01-13 13:13 | PC.NURSE ---
Transfer from ICU. Patient changed out of paper scrubs with no issues. Patient asking about when she will be discharged. Patient currently in dayroom watching TV
[2025-01-13] MEDS: metroNIDAZOLE 500 MG Tablet PO (14:28)
== END 2025-01-13 16:01 | disposition home or self-care (01) | DRG 885 ==
LOC: ER 20:43 → NP 21:21 → ICU 01-11 12:12 → NP 01-13 12:38
PROVIDERS: Family Medicine; Internal Medicine; Admitting Provider Psychiatry & Neurology Psychiatry; Emergency Provider Emergency Medicine; Visit Provider Psychiatry & Neurology Psychiatry
DX: F22 Delusional disorders (principal); R45.851 Suicidal ideations; F15.20 Other stimulant dependence, uncomplicated; A09 Infectious gastroenteritis and colitis, unspecified; F17.210 Nicotine dependence, cigarettes, uncomplicated; F32.9 Major depressive disorder, single episode, unspecified; F41.9 Anxiety disorder, unspecified; E66.9 Obesity, unspecified; F63.9 Impulse disorder, unspecified; Z68.34 Body mass index [BMI] 34.0-34.9, adult
CPT/HCPCS: 36415; 73130; 74018; 74176; 76705; 80053; 80074; 80306; 80307; 81001; 81003; 81025; 82274; 82977; 83630; 83690; 83735; 84100; 84132; 84145; 84703; 85025; 85651; 86140; 87040; 87045; 87086; 87177; 87209; 87427; 87449; 87493; 87806; 93005; 96372; 97150; 97165; 97167; 99285; J0744; J1200; J1630; J1650; J2060; J3486; J3490; J7030; J9999; Q0162; Q0163

== ENCOUNTER 2025-02-16 02:12 | Inpatient (IN) | payer SELFPAY ==
[2025-02-16 02:18] VITALS: BP 130/95; PULSE 93; RESP 16; TEMP 37.1; O2SAT 95; BMI 32.3
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
[2025-02-16 03:02] LABS: Amphetamines Screen Urine Negative (Negative); Barbiturates Screen Urine Negative (Negative); Benzodiazepines Screen Urine Negative (Negative); Cocaine Screen Urine Negative (Negative); Opiate Screen Urine Negative (Negative); PCP Screen Urine Negative (Negative); THC Screen Urine Negative (Negative)
[2025-02-16 03:07] LABS: Basophils # 0.1 10^3/uL (0.0-0.1); Basophils % 0.5 %; Eosinophils % 0.2 %; Lymphocytes # 1.5 10^3/uL (0.8-4.8); Lymphocytes % 14.1 %; Mean Corpuscular HGB Conc 34.5 g/dL (30-55); Mean Corpuscular Hemoglobin 31.2 pg (27-33); Mean Corpuscular Volume 90.5 fl (85-98); Mean Platelet Volume 10.6 fL (7.4-10.4); Monocytes # 1.1 10^3/uL (0.2-0.9); Monocytes % 10.5 %; Neutrophils # 7.65 10^3/uL (1.8-7.7); Neutrophils % 74.2 %; Nucleated Red Blood Cells % 0 %; Platelet Count 268 10^3/cmm (157-399); Red Blood Count 4.42 10^6/uL (3.85-5.65); Red Cell Distribution Width 13.2 % (12.1-15.1)
[2025-02-16 03:27] LABS: Alanine Aminotransferase 44 U/L (0-33); Albumin Level 4.6 g/dL (3.5-5.2); Alkaline Phosphatase 161 U/L (35-105); Anion Gap 17.5 (5-19); Aspartate Amino Transferase 21 U/L (0-32); Blood Urea Nitrogen 7 mg/dL (6-20); Calcium 9.9 mg/dL (8.5-10.5); Carbon Dioxide 25 mmol/L (22-29); Chloride 97 mmol/L (98-107); Globulin 3.7 g/dL (1.3-4.6); Glomerular Filtration Rate 177.7 mL/min (90-130); Glucose 109 mg/dL (65-115); Osmolality Calculated 281 mOsm/kg (285-295); Potassium 3.5 mmol/L (3.5-5.1); Sodium 136 mmol/L (136-145); Total Bilirubin 0.4 mg/dL (0.15-1.2); Total Protein 8.3 g/dL (6.6-8.7)
[2025-02-16 03:35] LABS: Acetaminophen < 5.0 ug/mL (10-30); Salicylate < 0.3 mg/dL (3-10)
[2025-02-16] MEDS: sulfamethoxazole-trimeth DS 160-800 mg Tablet 1 TAB PO (04:10)
[2025-02-16 04:36] VITALS: BP 107/78; BP 107/95; PULSE 89; O2SAT 95
[2025-02-16 04:48] VITALS: BP 120/85; PULSE 91; RESP 19; TEMP 36.3; O2SAT 95
[2025-02-16] MEDS: OLANZapine 5 mg ODT PO ×2 (05:22→08:25)
[2025-02-16 05:28] VITALS: BP 120/85; PULSE 91; RESP 19; TEMP 36.3; O2SAT 95
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
[2025-02-16] MEDS: haloperidol 5 mg Tablet PO (08:04)
[2025-02-16] MEDS: LORazepam 2 mg/mL INJ 1 mL IM (09:02)
[2025-02-16] MEDS: diphenhydrAMINE 50 mg/mL SDV 1mL IM (09:02)
[2025-02-16] MEDS: haloperidol inj 5 mg/mL INJ 1 mL IM (09:03)
--- NOTE | 2025-02-16 09:05 | PC.NURSE ---
Behavior: Pt pacing in the hallways, very tearful and anxious appearing. Pt rambling incoherently about her ex-boyfriend / boyfriend in [place] and the police are not checking in [place] and I need to shower now . The pt was given shower / hygiene box and verbally re-directed in attempt to de-escalate the behavior. Pt continued to escalate and started to yell from her room and cry out / mumble incoherent sentences. zinc furnace charger / mutliple staff members responded to yelling, this RN w/ industrial design engineer direction letty up a B-52. The pt still in room now w/ staff and N[employer] manager alliance in room was directed/helped to sit on the bed to receive injections. This RN gave the pt 5mg Haldol and 2mg Ativan in the left deltoid and the zinc furnace charger gave the pt 50mg Benadryl in the right deltoid. Pt took injections w/out issue. The pt calmed down enough to let the manager alliance check / change the bandage on her left leg. Pt now is laying in the bed, still tearful but calm. RR even and unlabored.
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
[2025-02-16 14:00] VITALS: BP 113/72; PULSE 89; RESP 17; TEMP 36.7; O2SAT 93
--- NOTE | 2025-02-16 16:28 | PC.OT ---
Hold OT evaluation at this time per nursing; will attempt again at later time.
[2025-02-16] MEDS: pantoprazole DR 40 mg Tablet PO (18:47)
[2025-02-16] MEDS: benztropine 1 mg Tablet PO (18:47)
[2025-02-16] MEDS: trazodone 50 mg Tablet PO (20:06)
[2025-02-16] MEDS: CLONazepam 1 mg Tablet PO (20:06)
[2025-02-16] MEDS: quetiapine 300 mg Tablet 600 MG PO (20:06)
[2025-02-16 20:36] VITALS: BP 116/71; PULSE 93; RESP 16; TEMP 37.1; O2SAT 93
[2025-02-17 06:00] VITALS: BP 112/76; PULSE 107; RESP 16; TEMP 37.2; O2SAT 94
[2025-02-17] MEDS: quetiapine 100 mg Tablet 200 MG PO (09:53)
[2025-02-17] MEDS: divalproex ER 500 mg Tablet (24H) 1000 MG PO (09:53)
[2025-02-17] MEDS: benztropine 1 mg Tablet PO ×2 (09:53→19:24)
[2025-02-17] MEDS: pantoprazole DR 40 mg Tablet PO ×2 (09:53→19:25)
[2025-02-17] MEDS: paliperidone ER 9 mg Tablet PO (09:53)
[2025-02-17] MEDS: haloperidol 5 mg Tablet PO ×2 (09:53→13:50)
[2025-02-17 14:00] VITALS: BP 114/80; PULSE 86; RESP 16; TEMP 36.6; O2SAT 94
[2025-02-17] MEDS: hyDROXYzine 25 mg Capsule 50 MG PO (14:41)
[2025-02-17] MEDS: OLANZapine 5 mg ODT PO (14:42)
[2025-02-17] MEDS: diphenhydrAMINE 50 mg/mL SDV 1mL IM (15:41)
[2025-02-17] MEDS: LORazepam 2 mg/mL INJ 1 mL IM (15:41)
[2025-02-17] MEDS: haloperidol inj 5 mg/mL INJ 1 mL IM (15:42)
--- NOTE | 2025-02-17 18:38 | W.PM.NPUPNS ---
Subjective NPU Subjective: Patient presented today unchanged. She continued to have these confused and likely delusional thoughts about her significant other and was very isolative per staff reports and direct observation mostly being found in her room. We had restarted her medications and she denied any significant side effects to that process. Mental Status Exam MSE Comments: This is an overweight versus obese white female looking older than her stated age in hospital scrubs with poor grooming and limited eye contact. Poor dentition. No abnormal movements except for mild psychomotor agitation. Mostly cooperative with exam in mild to moderate distress. Speech was mostly normal rate and volume and occasionally dysarthric. Mood described as okay I just hope you will not kick me out and you can help me fine my significant other, affect congruent. Thought process linear. Thought content: Patient denies suicidal suicidal or homicidal ideations, there were no delusions reported but paranoia and persecutory thinking noted, she denied auditory or visual hallucinations but some of the stories she was telling suggested perceptual disturbances. Attention and concentration appeared intact and memory was limited versus impaired but none were formally tested. She is alert and oriented times person and place. Insight and judgment are impaired, impulse control is limited versus impaired. Vitals/I&O/Wt Last Vital Signs Temp 98 F 02/17/25 14:00 Pulse 86 02/17/25 14:00 Resp 16 02/17/25 14:00 BP 114/80 02/17/25 14:00 Pulse Ox 94 02/17/25 14:00 O2 Del Method Room Air 02/17/25 06:00 Weight last 48 hrs Weight 90.718 kg Data NPU 02/16/25 02:57 02/16/25 02:57 A&P Assessment and plan (1) Suicidal ideation: (2) Methamphetamine use disorder, severe, dependence: (3) Psychosis: (4) Paranoia: (5) Depression: Plan This is a 39-year-old white female with a long history of mental health and addiction issues who presents after a fairly long hospitalization that ended in January after which she was discharged with plans for likely guardianship from her significant other returns seeming confused again and reporting she cannot find her significant other. Once again despite the confusion just like last visit she was not positive for methamphetamine. The patient is experiencing significant mental health challenges, including depression, anxiety, paranoia, and auditory hallucinations. There is a history of depression predating substance use, indicating a longstanding mental health condition. The patient reports hearing voices and feeling paranoid, with concerns about being harmed. There are also current suicidal thoughts. 1. Continue current medication and/or restart any medications she had stopped or has not picked up. 2. Continue every 15 minute checks for safety. 3. Encourage individual, group and milieu therapy. 4. Encourage sober living treatment after discharge at the highest level care to which she is willing to commit. 5. Will evaluate against the backdrop of 96-hour hold. 6. Obtain collateral information. PDMP PDMP Reviewed: Not Reviewed Involuntary Hold Information Hold Status: Legal Status: 96 Hour Hold Date/Time Hold Expires: 02/22/25 Attestations NPU Medical Necessity Statement*: Inpatient hospitalization is medically necessary and the clinically appropriate intervention at this time.? We will monitor/initiate medications as indicated. Likely length of stay is 5-7 days.? Coding Level of Care Code Acute Code for [facility] Fwd Diagnoses Suicidal ideation R45.851 Methamphetamine use disorder, severe, dependence F15.20 Psychosis F29 Paranoia F22 Depression F32.A
[2025-02-17] MEDS: quetiapine 300 mg Tablet 600 MG PO (19:24)
[2025-02-17] MEDS: CLONazepam 1 mg Tablet PO (19:25)
[2025-02-17 19:39] VITALS: BMI 33.9
[2025-02-17 20:02] VITALS: BP 103/70; PULSE 98; RESP 17; TEMP 37.1; O2SAT 93
[2025-02-18 06:00] VITALS: BP 102/72; PULSE 92; RESP 17; TEMP 36.5; O2SAT 97
--- NOTE | 2025-02-18 08:56 | P.NPUPN_ITS ---
Subjective NPU 2 Subjective: Patient presented today reporting that she is still worried about her significant other. She continues to be isolative per staff report and direct observation with her always being found lying in bed. This va underwriter got her to get up to eat and she did do that but then returned to bed. She denied any issues and we discussed that part of the reason why she is likely laying down so much as she was not taking her medication as prescribed and now that she has gotten return to the medication at this point she has physically affected by it because of the quick initiation. She denied any side effects of the medication other than being sleepy. Mental Status Exam 2 MSE Comments: This is an overweight versus obese white female looking older than her stated age in hospital scrubs with poor grooming and limited eye contact. Poor dentition. No abnormal movements except for mild psychomotor agitation. Mostly cooperative with exam in mild to moderate distress. Speech was mostly normal rate and volume and occasionally dysarthric. Mood described as okay I just hope you will not kick me out and you can help me fine my significant other, affect congruent. Thought process linear. Thought content: Patient denies suicidal suicidal or homicidal ideations, there were no delusions reported but paranoia and persecutory thinking noted, she denied auditory or visual hallucinations but some of the stories she was telling suggested perceptual disturbances. Attention and concentration appeared intact and memory was limited versus impaired but none were formally tested. She is alert and oriented times person and place. Insight and judgment are impaired, impulse control is limited versus impaired. Vitals/I&O/Wt Last Vital Signs Temp 97.7 F 02/18/25 06:00 Pulse 92 02/18/25 06:00 Resp 17 02/18/25 06:00 BP 102/72 02/18/25 06:00 Pulse Ox 97 02/18/25 06:00 O2 Del Method Room Air 02/18/25 06:00 Weight last 48 hrs Weight 95.424 kg Data NPU 02/16/25 02:57 02/16/25 02:57 A&P Assessment and plan (1) Suicidal ideation: (2) Methamphetamine use disorder, severe, dependence: (3) Psychosis: (4) Paranoia: (5) Depression: Plan This is a 39-year-old white female with a long history of mental health and addiction issues who presents after a fairly long hospitalization that ended in January after which she was discharged with plans for likely guardianship from her significant other returns seeming confused again and reporting she cannot find her significant other. Once again despite the confusion just like last visit she was not positive for methamphetamine. The patient is experiencing significant mental health challenges, including depression, anxiety, paranoia, and auditory hallucinations. There is a history of depression predating substance use, indicating a longstanding mental health condition. The patient reports hearing voices and feeling paranoid, with concerns about being harmed. There are also current suicidal thoughts. 1. Continue current medication and/or restart any medications she had stopped or has not picked up. 2. Continue every 15 minute checks for safety. 3. Encourage individual, group and milieu therapy. 4. Encourage sober living treatment after discharge at the highest level care to which she is willing to commit. 5. Will evaluate against the backdrop of 96-hour hold. 6. Obtain collateral information. PDMP PDMP Reviewed: Not Reviewed Involuntary Hold Information 2 Hold Status: Legal Status: 96 Hour Hold Date/Time Hold Expires: 02/22/25 Attestations NPU 2 Medical Necessity Statement*: Inpatient hospitalization is medically necessary and the clinically appropriate intervention at this time.? We will monitor/initiate medications as indicated. Likely length of stay is 5-7 days.? Coding Level of Care Code Acute Code for [facility] Diagnoses Suicidal ideation R45.851 Methamphetamine use disorder, severe, dependence F15.20 Psychosis F29 Paranoia F22 Depression F32.A
[2025-02-18] MEDS: benztropine 1 mg Tablet PO ×2 (09:54→17:32)
[2025-02-18] MEDS: hyDROXYzine 25 mg Capsule 50 MG PO (09:54)
[2025-02-18] MEDS: divalproex ER 500 mg Tablet (24H) 1000 MG PO (09:54)
[2025-02-18] MEDS: quetiapine 100 mg Tablet 200 MG PO (09:54)
[2025-02-18] MEDS: pantoprazole DR 40 mg Tablet PO ×2 (09:54→17:32)
[2025-02-18] MEDS: paliperidone ER 9 mg Tablet PO (09:54)
[2025-02-18 14:00] VITALS: BP 120/97; PULSE 130; RESP 18; TEMP 36.7; O2SAT 96
[2025-02-18 20:32] VITALS: BP 107/72; PULSE 88; RESP 21; TEMP 36.6; O2SAT 93
[2025-02-18] MEDS: quetiapine 300 mg Tablet 600 MG PO (20:47)
[2025-02-18] MEDS: CLONazepam 1 mg Tablet PO (20:47)
[2025-02-19 06:00] VITALS: BP 98/65; PULSE 92; RESP 17; TEMP 36.7; O2SAT 95
--- NOTE | 2025-02-19 08:39 | W.PM.NPUPNS ---
Subjective NPU Subjective: Patient presented today reporting that her significant other reportedly called and talked to either the nurses or social work team. She was focused on whether she would be able to discharge and whether she was going to be homeless. We discussed the fact that we would need to talk to her partner to figure out what was going on but that it was not our plan to discharge her to the streets. We discussed the importance of her continuing to take her medication daily even when she is outside the hospital and that we needed to discuss with him where things were to understand whether it would be safe to discharge her back to him or if there is something else that we need to do given her functional limitations. She denied any side effects to the medication. Mental Status Exam MSE Comments: This is an overweight versus obese white female looking older than her stated age in hospital scrubs with poor grooming and limited eye contact. Poor dentition. No abnormal movements except for mild psychomotor agitation. Mostly cooperative with exam in mild to moderate distress. Speech was mostly normal rate and volume and occasionally dysarthric. Mood described as okay I just hope you will not kick me out and you can help me fine my significant other, affect congruent. Thought process linear. Thought content: Patient denies suicidal suicidal or homicidal ideations, there were no delusions reported but paranoia and persecutory thinking noted, she denied auditory or visual hallucinations but some of the stories she was telling suggested perceptual disturbances. Attention and concentration appeared intact and memory was limited versus impaired but none were formally tested. She is alert and oriented times person and place. Insight and judgment are impaired, impulse control is limited versus impaired. Vitals/I&O/Wt Last Vital Signs Temp 98.0 F 02/19/25 06:00 Pulse 92 02/19/25 06:00 Resp 17 02/19/25 06:00 BP 98/65 02/19/25 06:00 Pulse Ox 95 02/19/25 06:00 O2 Del Method Room Air 02/19/25 06:00 Weight last 48 hrs Weight 95.424 kg Data NPU 02/16/25 02:57 02/16/25 02:57 A&P Assessment and plan (1) Suicidal ideation: (2) Methamphetamine use disorder, severe, dependence: (3) Psychosis: (4) Paranoia: (5) Depression: Plan This is a 39-year-old white female with a long history of mental health and addiction issues who presents after a fairly long hospitalization that ended in January after which she was discharged with plans for likely guardianship from her significant other returns seeming confused again and reporting she cannot find her significant other. Once again despite the confusion just like last visit she was not positive for methamphetamine. The patient is experiencing significant mental health challenges, including depression, anxiety, paranoia, and auditory hallucinations. There is a history of depression predating substance use, indicating a longstanding mental health condition. The patient reports hearing voices and feeling paranoid, with concerns about being harmed. There are also current suicidal thoughts. 1. Continue current medication and/or restart any medications she had stopped or has not picked up. 2. Continue every 15 minute checks for safety. 3. Encourage individual, group and milieu therapy. 4. Encourage sober living treatment after discharge at the highest level care to which she is willing to commit. 5. Obtain collateral information. PDMP PDMP Reviewed: Not Reviewed Involuntary Hold Information Hold Status: Legal Status: 96 Hour Hold Date/Time Hold Expires: 02/22/25 Attestations NPU Medical Necessity Statement*: Inpatient hospitalization is medically necessary and the clinically appropriate intervention at this time.? We will monitor/initiate medications as indicated. Likely length of stay is 5-7 days.? Coding Level of Care Code Acute Code for [facility] Fwd Diagnoses Suicidal ideation R45.851 Methamphetamine use disorder, severe, dependence F15.20 Psychosis F29 Paranoia F22 Depression F32.A
[2025-02-19] MEDS: divalproex ER 500 mg Tablet (24H) 1000 MG PO (08:51)
[2025-02-19] MEDS: benztropine 1 mg Tablet PO ×2 (08:51→17:17)
[2025-02-19] MEDS: quetiapine 100 mg Tablet 200 MG PO (08:51)
[2025-02-19] MEDS: paliperidone ER 9 mg Tablet PO (08:51)
[2025-02-19] MEDS: pantoprazole DR 40 mg Tablet PO ×2 (08:51→17:17)
[2025-02-19] MEDS: OLANZapine 5 mg ODT PO (10:50)
[2025-02-19 14:00] VITALS: BP 121/83; PULSE 109; RESP 17; O2SAT 94
[2025-02-19] MEDS: nicotine 4 mg lozenge MUCOUS MEM (17:52)
[2025-02-19 20:23] VITALS: BP 126/96; PULSE 99; RESP 18; TEMP 36.8; O2SAT 96
[2025-02-19] MEDS: CLONazepam 1 mg Tablet PO (20:58)
[2025-02-19] MEDS: quetiapine 300 mg Tablet 600 MG PO (20:58)
[2025-02-20 06:00] VITALS: BP 93/66; PULSE 82; RESP 18; TEMP 36.9; O2SAT 96
[2025-02-20] MEDS: quetiapine 100 mg Tablet 200 MG PO (09:49)
[2025-02-20] MEDS: divalproex ER 500 mg Tablet (24H) 1000 MG PO (09:49)
[2025-02-20] MEDS: paliperidone ER 9 mg Tablet PO (09:49)
[2025-02-20] MEDS: hyDROXYzine 25 mg Capsule 50 MG PO ×2 (09:49→19:06)
[2025-02-20] MEDS: benztropine 1 mg Tablet PO (09:49)
[2025-02-20] MEDS: pantoprazole DR 40 mg Tablet PO ×2 (09:49→17:00)
[2025-02-20 14:00] VITALS: BP 109/84; PULSE 124; RESP 18; TEMP 36.4; O2SAT 92
--- NOTE | 2025-02-20 14:54 | P.NPUPN_ITS ---
Subjective NPU 2 Subjective: Patient presented today reporting that she is doing all right. She started to get tearful when we talked about her going home with Edu because she was interpreting any hesitation in this content writer's speech as an indication that either she was going to be homeless or we were going to block her going home with Edu. We discussed that Edu has called and we are in communication with him. And we are just making sure that he is prepared to come and get her. We understand that he has initiated the Medicaid process and we continue to stressed the importance of her maintaining her medication if we are going to avoid hospitalizations. She is certainly much less aggressive and thought disordered that she was in her last admission and we discussed wanting to support her returning to [facility] but we just need to make sure that Edu is prepared to fill that role given her level of impairment. She denied any side effects to her medications. Mental Status Exam 2 MSE Comments: This is an overweight versus obese white female looking older than her stated age in hospital scrubs with poor grooming and limited eye contact. Poor dentition. No abnormal movements except for mild psychomotor agitation. Mostly cooperative with exam in mild to moderate distress. Speech was mostly normal rate and volume and occasionally dysarthric. Mood described as okay I just hope you will not kick me out and you can help me fine my significant other, affect congruent. Thought process linear. Thought content: Patient denies suicidal suicidal or homicidal ideations, there were no delusions reported but paranoia and persecutory thinking noted, she denied auditory or visual hallucinations but some of the stories she was telling suggested perceptual disturbances. Attention and concentration appeared intact and memory was limited versus impaired but none were formally tested. She is alert and oriented times person and place. Insight and judgment are impaired, impulse control is limited versus impaired. Vitals/I&O/Wt Last Vital Signs Temp 98.5 F 02/20/25 06:00 Pulse 82 02/20/25 06:00 Resp 18 02/20/25 06:00 BP 93/66 02/20/25 06:00 Pulse Ox 96 02/20/25 06:00 O2 Del Method Room Air 02/20/25 06:00 Data NPU 02/22/25 02:45 02/22/25 02:45 A&P Assessment and plan (1) Suicidal ideation: (2) Methamphetamine use disorder, severe, dependence: (3) Psychosis: (4) Paranoia: (5) Depression: Plan This is a 39-year-old white female with a long history of mental health and addiction issues who presents after a fairly long hospitalization that ended in January after which she was discharged with plans for likely guardianship from her significant other returns seeming confused again and reporting she cannot find her significant other. Once again despite the confusion just like last visit she was not positive for methamphetamine. The patient is experiencing significant mental health challenges, including depression, anxiety, paranoia, and auditory hallucinations. There is a history of depression predating substance use, indicating a longstanding mental health condition. The patient reports hearing voices and feeling paranoid, with concerns about being harmed. There are also current suicidal thoughts. 1. Continue current medication. 2. Continue every 15 minute checks for safety. 3. Encourage individual, group and milieu therapy. 4. Encourage sober living treatment after discharge at the highest level care to which she is willing to commit. 5. Obtain collateral information. PDMP PDMP Reviewed: Not Reviewed Involuntary Hold Information 2 Hold Status: Legal Status: 96 Hour Hold Date/Time Hold Expires: 02/22/25 Attestations NPU 2 Medical Necessity Statement*: Inpatient hospitalization is medically necessary and the clinically appropriate intervention at this time.? We will monitor/initiate medications as indicated. Likely length of stay is 1-4 days.? Coding Level of Care Code Acute Code for [facility] Fwd Diagnoses Suicidal ideation R45.851 Methamphetamine use disorder, severe, dependence F15.20 Psychosis F29 Paranoia F22 Depression F32.A
[2025-02-20] MEDS: haloperidol 5 mg Tablet PO (15:27)
[2025-02-20 19:43] VITALS: BP 119/90; PULSE 115; RESP 16; TEMP 36.3; O2SAT 97
[2025-02-20] MEDS: quetiapine 300 mg Tablet 600 MG PO (20:16)
[2025-02-20] MEDS: CLONazepam 1 mg Tablet PO (20:16)
[2025-02-20] MEDS: nicotine 4 mg lozenge MUCOUS MEM (20:16)
--- NOTE | 2025-02-20 23:38 | PC.NURSE ---
Medication 1800 dose of Cogentin Per day shift RN, medication was given at appropriate time. Medication was pulled from xis by day shift RN but medication was not scanned in the NOV.
[2025-02-21 06:00] VITALS: BP 97/67; PULSE 84; RESP 18; TEMP 36.6; O2SAT 95
[2025-02-21] MEDS: divalproex ER 500 mg Tablet (24H) 1000 MG PO (08:58)
[2025-02-21] MEDS: paliperidone ER 9 mg Tablet PO (08:58)
[2025-02-21] MEDS: nicotine 4 mg lozenge MUCOUS MEM ×2 (08:59→21:27)
[2025-02-21] MEDS: benztropine 1 mg Tablet PO ×2 (08:59→17:29)
[2025-02-21] MEDS: quetiapine 100 mg Tablet 200 MG PO (08:59)
[2025-02-21] MEDS: pantoprazole DR 40 mg Tablet PO ×2 (08:59→17:29)
[2025-02-21 14:00] VITALS: BP 112/81; PULSE 101; RESP 16; TEMP 36.4; O2SAT 95
--- NOTE | 2025-02-21 18:03 | W.PM.NPUPNS ---
Subjective NPU Subjective: Patient presented today reporting that she is doing all right. She seemed to be much more trusting of the treatment team in this interview however earlier she was having some emotionality reporting that she felt the treatment team was trying to stop Edu from picking her up. We continued to endorse being supportive of his role in her life. We discussed the possibility of discharge tomorrow if he is available to pick her up. We discussed the risks, benefits and alternatives of getting a hospitalist consult to assess the state of her left lower leg wound and see if there are any interventions necessary prior to her being discharged. She denied any side effects to the medication. Mental Status Exam MSE Comments: This is an overweight versus obese white female looking older than her stated age in hospital scrubs with poor grooming and limited eye contact. Poor dentition. No abnormal movements except for mild psychomotor agitation. Mostly cooperative with exam in mild to moderate distress. Speech was mostly normal rate and volume and occasionally dysarthric. Mood described as better and I feel like I can go home with Edu,, affect congruent. Thought process linear. Thought content: Patient denies suicidal suicidal or homicidal ideations, there were no delusions reported but paranoia and persecutory thinking noted, she denied auditory or visual hallucinations but some of the stories she was telling suggested perceptual disturbances. Attention and concentration appeared intact and memory was limited versus impaired but none were formally tested. She is alert and oriented times person and place. Insight and judgment are impaired, impulse control is limited versus impaired. Vitals/I&O/Wt Last Vital Signs Temp 97.3 F L 02/21/25 19:55 Pulse 85 02/21/25 19:55 Resp 16 02/21/25 19:55 BP 107/74 02/21/25 19:55 Pulse Ox 96 02/21/25 19:55 O2 Del Method Room Air 02/21/25 19:55 Data NPU 02/22/25 02:45 02/22/25 02:45 A&P Assessment and plan (1) Suicidal ideation: (2) Methamphetamine use disorder, severe, dependence: (3) Psychosis: (4) Paranoia: (5) Depression: Plan This is a 39-year-old white female with a long history of mental health and addiction issues who presents after a fairly long hospitalization that ended in January after which she was discharged with plans for likely guardianship from her significant other returns seeming confused again and reporting she cannot find her significant other. Once again despite the confusion just like last visit she was not positive for methamphetamine. The patient is experiencing significant mental health challenges, including depression, anxiety, paranoia, and auditory hallucinations. There is a history of depression predating substance use, indicating a longstanding mental health condition. The patient reports hearing voices and feeling paranoid, with concerns about being harmed. There are also current suicidal thoughts. 1. Continue current medication. 2. Continue every 15 minute checks for safety. 3. Encourage individual, group and milieu therapy. 4. Encourage sober living treatment after discharge at the highest level care to which she is willing to commit. 5. Obtain collateral information. 6. Will obtain hospitalist consult to assess her wound to make sure there are no issues needing addressed prior to possible discharge in the next 48 hours. PDMP PDMP Reviewed: Not Reviewed Involuntary Hold Information Hold Status: Legal Status: 96 Hour Hold Date/Time Hold Expires: 02/22/25 Attestations NPU Medical Necessity Statement*: Inpatient hospitalization is medically necessary and the clinically appropriate intervention at this time.? We will monitor/initiate medications as indicated. Likely length of stay is 1-4 days.? Coding Level of Care Code Acute Code for [facility] Fwd Diagnoses Suicidal ideation R45.851 Methamphetamine use disorder, severe, dependence F15.20 Psychosis F29 Paranoia F22 Depression F32.A
[2025-02-21 19:55] VITALS: BP 107/74; PULSE 85; RESP 16; TEMP 36.3; O2SAT 96
[2025-02-21] MEDS: quetiapine 300 mg Tablet 600 MG PO (21:26)
[2025-02-21] MEDS: CLONazepam 1 mg Tablet PO (21:26)
[2025-02-21] MEDS: hyDROXYzine 25 mg Capsule 50 MG PO (21:26)
[2025-02-21] MEDS: trazodone 50 mg Tablet PO (21:27)
[2025-02-22] VITALS (10 sets, daily range): BP systolic 91–118; BP diastolic 59–85; PULSE 80–144; RESP 18–25; TEMP 36.3–37.2; O2SAT 94–97
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
[2025-02-22 03:42] LABS: Alanine Aminotransferase 14 U/L (0-33); Alkaline Phosphatase 112 U/L (35-105); Aspartate Amino Transferase 11 U/L (0-32); Blood Urea Nitrogen 9 mg/dL (6-20); Calcium 9.6 mg/dL (8.5-10.5); Carbon Dioxide 28 mmol/L (22-29); Chloride 101 mmol/L (98-107); Glomerular Filtration Rate 137.4 mL/min (90-130); Glucose 94 mg/dL (65-115); Osmolality Calculated 288 mOsm/kg (285-295); Sodium 140 mmol/L (136-145); Total Bilirubin 0.3 mg/dL (0.15-1.2)
[2025-02-22 03:47] LABS: Absolute Segmented Neutrophil 3.6 10/cmm (1.6-7.1); Hematocrit 40.8 % (36-47); Mean Corpuscular HGB Conc 34.1 g/dL (30-55); Mean Corpuscular Hemoglobin 31.6 pg (27-33); Mean Corpuscular Volume 92.7 fl (85-98); Mean Platelet Volume 10.4 fL (7.4-10.4); Platelet Count 258 10^3/cmm (157-399); Red Cell Distribution Width 12.9 % (12.1-15.1); Segmented Neutrophils 57 %; Total Cells Counted 100 (0-100); White Blood Count 6.28 10^3/uL (3.29-11.43)
[2025-02-22 03:48] LABS: Absolute Eosinophils 0.2 10^3/cmm (0.0-0.7); Eosinophils 3 %; Lymphocytes 30 %; Monocytes Absolute 0.6 10^3/cmm (0.1-0.6); Platelet Estimate Normal (Normal)
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
[2025-02-22 08:31] LABS: Basophils % 0.7 %; Eosinophils # 0.2 10^3/uL (0.0-0.8); Eosinophils % 2.9 %; Hematocrit 41.8 % (36-47); Lymphocytes # 1.5 10^3/uL (0.8-4.8); Lymphocytes % 25.4 %; Mean Corpuscular HGB Conc 34.4 g/dL (30-55); Mean Corpuscular Hemoglobin 31.6 pg (27-33); Mean Corpuscular Volume 91.9 fl (85-98); Mean Platelet Volume 10.4 fL (7.4-10.4); Monocytes # 0.5 10^3/uL (0.2-0.9); Neutrophils # 3.56 10^3/uL (1.8-7.7); Neutrophils % 61.5 %; Nucleated Red Blood Cells % 0 %; Platelet Count 241 10^3/cmm (157-399); Red Blood Count 4.55 10^6/uL (3.85-5.65); Red Cell Distribution Width 12.9 % (12.1-15.1); White Blood Count 5.79 10^3/uL (3.29-11.43)
[2025-02-22 08:50] LABS: Anion Gap 15.9 (5-19); Blood Urea Nitrogen 10 mg/dL (6-20); Calcium 9.9 mg/dL (8.5-10.5); Carbon Dioxide 28 mmol/L (22-29); Chloride 99 mmol/L (98-107); Glomerular Filtration Rate 111.3 mL/min (90-130); Glucose 93 mg/dL (65-115); Osmolality Calculated 287 mOsm/kg (285-295); Potassium 3.9 mmol/L (3.5-5.1); Sodium 139 mmol/L (136-145)
[2025-02-22 08:52] LABS: Lactic Sepsis W/Reflex 1.1 mmol/L (0.5-2.2)
[2025-02-22] MEDS: pantoprazole DR 40 mg Tablet PO ×2 (09:03→17:29)
[2025-02-22] MEDS: paliperidone ER 9 mg Tablet PO (09:03)
[2025-02-22] MEDS: quetiapine 100 mg Tablet 200 MG PO (09:03)
[2025-02-22] MEDS: benztropine 1 mg Tablet PO ×2 (09:03→17:29)
[2025-02-22] MEDS: doxycycline 100 mg Tablet PO (09:03)
[2025-02-22] MEDS: divalproex ER 500 mg Tablet (24H) 1000 MG PO (09:04)
[2025-02-22] MEDS: amoxicillin-clav 875-125 mg Tablet 1 TAB PO (09:04)
[2025-02-22] MEDS: hyDROXYzine 25 mg Capsule 50 MG PO (09:04)
--- NOTE | 2025-02-22 09:52 | CT_ITS ---
WS: [id number] Noncontrast CT LEFT lower leg TECHNIQUE: Noncontrast CT LEFT lower leg with coronal and sagittal reformatted images. CLINICAL INFORMATION: anterior escalona wound, with erythema DLP: 452.[address] scans at [facility] use at least one of these dose optimization techniques: automated exposure control; mA and/or kV adjustment per patient size (includes targeted exams where dose is matched to clinical indication); or iterative reconstruction. FINDINGS: Stable intramedullary andrez and screw fixation involving the tibia. Fracture of the distal screw unchanged since the recent radiographs. Prior healed fractures of the distal tibia and fibula with callus formation. Peripheral lucency along the proximal intramedullary andrez is unchanged more prominent proximally. Small area of ulceration along the distal anterior escalona with a small amount of fluid and air. Beam-hardening artifact in this area from hardware. Fluid and ulceration extends down to the underlying bone and extends to the intramedullary andrez. This may have been the site of an external fixator in the past. Wide bony defect in this area measures 8 mm although no evidence of acute osteomyelitis. Recommend correlation for cellulitis and infection. Tiny fluid collection measures [address]/CT lower leg LT wo con* [id number] IMPRESSION: 1. See detailed discussion above regarding anterior escalona ulceration
[2025-02-22 10:36] LABS: Erythrocyte Sedimentation Rate 14 mm/hr (0-15)
[2025-02-22 10:41] LABS: Procalcitonin 0.03 ng/mL (0-0.5)
[2025-02-22 10:54] LABS: C Reactive Protein 6.6 mg/L (0.0-4.9)
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
[2025-02-22 13:12] LABS: Lactic Sepsis W/Reflex 1.8 mmol/L (0.5-2.2)
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
--- NOTE | 2025-02-22 15:59 | PC.NURSE ---
Phone #'s Edu Carrillo [phone] [place] Carrillo can get a message to Edu [phone]
--- NOTE | 2025-02-22 16:39 | P.NPUPN_ITS ---
Subjective NPU 2 Subjective: Patient presented today reporting that things are going fine. She was very excited when her significant other came for visitation. We discussed the fact that we would be planning for her to discharge today if she was medically cleared. However studies evaluating her wound suggest that she needs immediate intervention. We discussed the fact that when looking at all of the factors that her taking care of this immediately is the medically recommended approach. We discussed the risks, benefits and alternatives of's completing her management and psychiatry and turning her over to the hospitalist/surgical team for appropriate management of her wound up to and including IV antibiotics and a likely surgical procedure which was also discussed with her significant other and they understood and agreed to proceed as is documented in this note. She denied any side effects of medication. She understood that she would transfer from the neuropsychiatric unit to the ICU and be there until those doctors feel she is medically stable for discharge. Mental Status Exam 2 MSE Comments: This is an overweight versus obese white female looking older than her stated age in hospital scrubs with poor grooming and limited eye contact. Poor dentition. No abnormal movements except for mild psychomotor agitation. Mostly cooperative with exam in mild to moderate distress. Speech was mostly normal rate and volume and occasionally dysarthric. Mood described as better, affect congruent but still odd. Thought process linear. Thought content: Patient denies suicidal suicidal or homicidal ideations, there were no delusions reported but paranoia and persecutory thinking noted, she denied auditory or visual hallucinations. Attention and concentration appeared intact and memory was limited but none were formally tested. She is alert and oriented times 3. Insight and judgment are limited, impulse control is limited but improving. Vitals/I&O/Wt Last Vital Signs Temp 97.3 F L 02/22/25 14:00 Pulse 144 H 02/22/25 14:00 Resp 20 H 02/22/25 14:00 BP 104/77 02/22/25 14:00 Pulse Ox 96 02/22/25 14:00 O2 Del Method Room Air 02/22/25 06:00 Data NPU 02/23/25 03:30 02/23/25 03:30 Micro: Microbiology 02/22/25 12:40 Blood Culture - Preliminary Blood SPECIMEN COLLECTED 02/22/25 12:46 Blood Culture - Preliminary Blood SPECIMEN COLLECTED Microbiology 02/22/25 12:40 Blood Blood Culture - Preliminary SPECIMEN COLLECTED 02/22/25 12:46 Blood Blood Culture - Preliminary SPECIMEN COLLECTED A&P Assessment and plan (1) Suicidal ideation: (2) Methamphetamine use disorder, severe, dependence: (3) Psychosis: (4) Paranoia: (5) Depression: Plan This is a 39-year-old white female with a long history of mental health and addiction issues who presents after a fairly long hospitalization that ended in January after which she was discharged with plans for likely guardianship from her significant other returns seeming confused again and reporting she cannot find her significant other. Once again despite the confusion just like last visit she was not positive for methamphetamine. The patient is experiencing significant mental health challenges, including depression, anxiety, paranoia, and auditory hallucinations. There is a history of depression predating substance use, indicating a longstanding mental health condition. The patient reports hearing voices and feeling paranoid, with concerns about being harmed. There are also current suicidal thoughts. 1. Continue current medication. 2. Continue every 15 minute checks for safety. 3. Encourage individual, group and milieu therapy. 4. Encourage sober living treatment after discharge at the highest level care to which she is willing to commit. 5. Obtain collateral information. 6. Will obtain hospitalist consult to assess her wound to make sure there are no issues needing addressed prior to possible discharge in the next 48 hours. 7. Patient appropriate for discharge from the psychiatric unit but medical team evaluating her wound have determined that immediate intervention and IV antibiotics and likely surgical procedure will be necessary for her to be medically stable for discharge. We discussed this and she understood her situation and the need to address this now. PDMP PDMP Reviewed: Not Reviewed Involuntary Hold Information 2 Hold Status: Legal Status: 96 Hour Hold Date/Time Hold Expires: 02/22/25 Attestations NPU 2 Medical Necessity Statement*: N/A. Please see primary team note for medical necessity.? Coding Level of Care Code Acute Code for [facility] Fwd Diagnoses Suicidal ideation R45.851 Methamphetamine use disorder, severe, dependence F15.20 Psychosis F29 Paranoia F22 Depression F32.A
[2025-02-22] MEDS: vancomycin 2,000 MG/400 ML PIGGYBACK 200 MG IV (21:16)
[2025-02-22] MEDS: CLONazepam 1 mg Tablet PO (21:19)
[2025-02-22] MEDS: enoxaparin 40 mg/0.4 mL Syringe SUBCUT (21:20)
[2025-02-22] MEDS: quetiapine 300 mg Tablet 600 MG PO (21:20)
[2025-02-22] MEDS: pantoprazole 40 mg SDV IVP (21:20)
[2025-02-22] MEDS: piperacillin-tazobactam 3.375 GM in sodium chloride 0.9% (plus) 50 ML IV (23:29)
--- NOTE | 2025-02-22 23:54 | XR_ITS ---
WS: [id number] Left leg including the tibia and fibula, AP and lateral views, 02/22/2025 Clinical Data: Longstanding drainage wound Comparison: Left leg, 04/29/2023 Findings: The long intramedullary andrez extending the length of the tibia remains in the same position. It is fixed with proximal and distal screws. The most distal screw is fractured. The fractures of the distal tibia and fibula have healed and there is no change. The soft tissues are normal. XR/XR tibia fibula LT 2V [id number] Impression: Stable internal fixation of distal left tibial fracture.
[2025-02-23] VITALS (25 sets, daily range): BP systolic 93–135; BP diastolic 60–91; PULSE 68–104; RESP 15–25; TEMP 36.6–36.7; O2SAT 91–99
[2025-02-23] MEDS: piperacillin-tazobactam 3.375 GM in sodium chloride 0.9% (plus) 50 ML IV ×3 (03:34→19:40)
[2025-02-23 03:41] LABS: Basophils % 0.6 %; Eosinophils # 0.2 10^3/uL (0.0-0.8); Eosinophils % 2.3 %; Hematocrit 39.5 % (36-47); Lymphocytes # 1.7 10^3/uL (0.8-4.8); Lymphocytes % 25.5 %; Mean Corpuscular HGB Conc 33.7 g/dL (30-55); Mean Platelet Volume 10.3 fL (7.4-10.4); Monocytes # 0.7 10^3/uL (0.2-0.9); Monocytes % 11.3 %; Neutrophils # 3.86 10^3/uL (1.8-7.7); Neutrophils % 59.5 %; Nucleated Red Blood Cells % 0 %; Platelet Count 235 10^3/cmm (157-399); Red Blood Count 4.16 10^6/uL (3.85-5.65); Red Cell Distribution Width 12.7 % (12.1-15.1); White Blood Count 6.48 10^3/uL (3.29-11.43)
[2025-02-23 03:58] LABS: Alanine Aminotransferase 12 U/L (0-33); Albumin Level 3.9 g/dL (3.5-5.2); Alkaline Phosphatase 107 U/L (35-105); Anion Gap 14.8 (5-19); Aspartate Amino Transferase 9 U/L (0-32); Blood Urea Nitrogen 13 mg/dL (6-20); Calcium 9.6 mg/dL (8.5-10.5); Carbon Dioxide 28 mmol/L (22-29); Chloride 100 mmol/L (98-107); Globulin 2.8 g/dL (1.3-4.6); Glomerular Filtration Rate 111.3 mL/min (90-130); Glucose 112 mg/dL (65-115); Osmolality Calculated 289 mOsm/kg (285-295); Potassium 3.8 mmol/L (3.5-5.1); Sodium 139 mmol/L (136-145); Total Bilirubin 0.3 mg/dL (0.15-1.2); Total Protein 6.7 g/dL (6.6-8.7)
[2025-02-23] MEDS: paliperidone ER 9 mg Tablet PO (08:43)
[2025-02-23] MEDS: quetiapine 100 mg Tablet 200 MG PO (08:43)
[2025-02-23] MEDS: pantoprazole DR 40 mg Tablet PO ×2 (08:43→18:05)
[2025-02-23] MEDS: benztropine 1 mg Tablet PO ×2 (08:43→18:06)
[2025-02-23] MEDS: divalproex ER 500 mg Tablet (24H) 1000 MG PO (08:43)
--- NOTE | 2025-02-23 12:45 | P.PN_ITS ---
Subjective 2 Subjective: Patient is comfortable in the ICU. Plan to do surgery on Wednesday Vitals/I&O/Wt Last Vital Signs Temp 97.8 F 02/23/25 09:00 Pulse 89 02/23/25 09:00 Resp 16 02/23/25 08:00 BP 123/75 02/23/25 09:00 Pulse Ox 96 02/23/25 09:00 O2 Del Method Room Air 02/23/25 09:00 02/22/25 02/23/25 02/23/25 22:59 06:59 14:59 Intake Total 450 / 450 450 / 450 Balance 450 / 450 450 / 450 Data 02/23/25 03:30 02/23/25 03:30 Micro: Microbiology 02/22/25 12:40 Blood Culture - Preliminary Blood SPECIMEN COLLECTED 02/22/25 12:46 Blood Culture - Preliminary Blood SPECIMEN COLLECTED A&P Assessment and plan (1) Open wound, lower leg: Will plan on hardware removal and saucerization and irrigation debridement of the infection/osteomyelitis on Wednesday PDMP PDMP Reviewed: Not Reviewed Attestations 2 Medical Necessity Statement*: Per primary service Coding Level of Care Code Acute Code for Chg Fwd Diagnoses Open wound of right lower leg, initial encounter S81.801A Encounter type: initial encounter Laterality: right
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
--- NOTE | 2025-02-23 16:32 | PHA.VACGOAL ---
Vancomycin Goal - Goal Vancomycin Goal:: 15-20 mg/L Vancomycin Indication:: Osteo - Therapy Day of therpy:: Day []of [] . Actual body weight (kg): 225 lb 15.581 oz - Data Labs: WBC 6.48 10^3/uL (3.29-11.43) 02/23/25 03:30 RBC 4.16 10^6/uL (3.85-5.65) 02/23/25 03:30 Hgb 13.30 g/dL (11.27-16.99) 02/23/25 03:30 Hct 39.5 % (36-47) 02/23/25 03:30 MCV 95.0 fl (85-98) 02/23/25 03:30 MCH 32.0 pg (27-33) 02/23/25 03:30 MCHC 33.7 g/dL (30-55) 02/23/25 03:30 RDW 12.7 % (12.1-15.1) 02/23/25 03:30 Sodium 139 mmol/L (136-145) 02/23/25 03:30 Potassium 3.8 mmol/L (3.5-5.1) 02/23/25 03:30 Chloride 100 mmol/L (98-107) 02/23/25 03:30 Carbon Dioxide 28 mmol/L (22-29) 02/23/25 03:30 Anion Gap 14.8 (5-19) 02/23/25 03:30 BUN 13 mg/dL (6-20) 02/23/25 03:30 Creatinine 0.6 mg/dL (0.5-0.9) 02/23/25 03:30 GFR Calculation 111.3 mL/min (90-130) 02/23/25 03:30 Treatment plan:: new consult Regimen:: 2000 MG Q12H
[2025-02-23] MEDS: vancomycin 2,000 MG/400 ML PIGGYBACK 200 MG IV (17:56)
[2025-02-23] MEDS: acetaminophen 325 mg Tablet 650 MG PO (19:39)
[2025-02-23] MEDS: quetiapine 300 mg Tablet 600 MG PO (21:21)
[2025-02-23] MEDS: morphine 4 mg/mL SDV 1 mL 2 MG IVP (21:21)
[2025-02-23] MEDS: enoxaparin 40 mg/0.4 mL Syringe SUBCUT (21:21)
[2025-02-23] MEDS: pantoprazole 40 mg SDV IVP (21:21)
[2025-02-23] MEDS: CLONazepam 1 mg Tablet PO (21:21)
[2025-02-24] VITALS (23 sets, daily range): BP systolic 93–127; BP diastolic 66–94; PULSE 74–102; RESP 12–27; TEMP 36.1–36.7; O2SAT 91–100
[2025-02-24] MEDS: piperacillin-tazobactam 3.375 GM in sodium chloride 0.9% (plus) 50 ML IV ×3 (03:40→20:32)
[2025-02-24] MEDS: morphine 4 mg/mL SDV 1 mL 2 MG IVP (03:40)
[2025-02-24] MEDS: vancomycin 2,000 MG/400 ML PIGGYBACK 200 MG IV ×2 (03:51→16:39)
[2025-02-24 05:08] LABS: Basophils % 0.7 %; Eosinophils # 0.1 10^3/uL (0.0-0.8); Eosinophils % 2.6 %; Hematocrit 39.5 % (36-47); Lymphocytes # 1.6 10^3/uL (0.8-4.8); Lymphocytes % 29.2 %; Mean Corpuscular HGB Conc 33.7 g/dL (30-55); Mean Corpuscular Volume 95.2 fl (85-98); Mean Platelet Volume 10.7 fL (7.4-10.4); Monocytes # 0.6 10^3/uL (0.2-0.9); Monocytes % 10.8 %; Neutrophils # 3.04 10^3/uL (1.8-7.7); Neutrophils % 55.4 %; Nucleated Red Blood Cells % 0 %; Platelet Count 230 10^3/cmm (157-399); Red Blood Count 4.15 10^6/uL (3.85-5.65); Red Cell Distribution Width 12.8 % (12.1-15.1); White Blood Count 5.48 10^3/uL (3.29-11.43)
[2025-02-24 05:28] LABS: Alanine Aminotransferase 20 U/L (0-33); Albumin Level 3.9 g/dL (3.5-5.2); Alkaline Phosphatase 106 U/L (35-105); Anion Gap 14.9 (5-19); Aspartate Amino Transferase 25 U/L (0-32); Blood Urea Nitrogen 6 mg/dL (6-20); Calcium 8.8 mg/dL (8.5-10.5); Carbon Dioxide 27 mmol/L (22-29); Chloride 102 mmol/L (98-107); Globulin 2.6 g/dL (1.3-4.6); Glomerular Filtration Rate 137.4 mL/min (90-130); Glucose 88 mg/dL (65-115); Osmolality Calculated 287 mOsm/kg (285-295); Potassium 3.9 mmol/L (3.5-5.1); Sodium 140 mmol/L (136-145); Total Bilirubin 0.3 mg/dL (0.15-1.2); Total Protein 6.5 g/dL (6.6-8.7)
[2025-02-24] MEDS: hyDROXYzine 25 mg Capsule 50 MG PO (08:21)
[2025-02-24] MEDS: divalproex ER 500 mg Tablet (24H) 1000 MG PO (08:21)
[2025-02-24] MEDS: quetiapine 100 mg Tablet 200 MG PO (08:21)
[2025-02-24] MEDS: paliperidone ER 9 mg Tablet PO (08:21)
[2025-02-24] MEDS: pantoprazole DR 40 mg Tablet PO ×2 (08:21→17:14)
[2025-02-24] MEDS: benztropine 1 mg Tablet PO ×2 (08:22→17:14)
--- NOTE | 2025-02-24 15:40 | P.PN_ITS ---
Subjective 2 Subjective: Patient was seen this morning, she is alert oriented x 3, following all commands, denies any fevers, no chills, no cough Vitals/I&O/Wt Last Vital Signs Temp 97.8 F 02/24/25 12:00 Pulse 97 02/24/25 14:46 Resp 20 H 02/24/25 14:46 BP 108/82 02/24/25 14:46 Pulse Ox 98 02/24/25 14:46 O2 Del Method Room Air 02/24/25 14:46 02/24/25 02/24/25 02/24/25 06:59 14:59 22:59 Intake Total 1581.042 / 2481.042 600 / 600 Balance 1581.042 / 2481.042 600 / 600 Weight last 48 hrs Weight 47.854 kg Weight 102.5 kg Physical Exam 2 Const: COMMON NORMALS: no acute distress and patient oriented x3 Resp: COMMON NORMALS: normal respiratory effort, No retractions, No use of accessory muscles and clear to auscultation bilaterally AUSCULTATION: clear to auscultation bilaterally Cardio: COMMON NORMALS: regular rate, regular rhythm, S1 normal heart sound present and S2 normal heart sound present RATE: regular rate RHYTHM: r egular rhythm HEART SOUNDS: S1 normal heart sound present and S2 normal heart sound present GI: COMMON NORMALS: Normal to inspection, nondistended, normoactive bowel sounds present and non-tender Extremity: COMMON NORMALS: no pedal edema Neuro: COMMON NORMALS: patient oriented x3 Psych: COMMON NORMALS: mental status grossly normal Data 02/24/25 03:53 02/24/25 03:53 Micro: Microbiology 02/22/25 22:22 Gram Stain - Final Leg - #1 Wound Culture - Preliminary 02/22/25 12:40 Blood Culture - Preliminary Blood NEGATIVE TO DATE 02/22/25 12:46 Blood Culture - Preliminary Blood NEGATIVE TO DATE A&P Assessment and plan (1) Open wound, lower leg: CT imaging FINDINGS: Stable intramedullary andrez and screw fixation involving the tibia. Fracture of the distal screw unchanged since the recent radiographs. Prior healed fractures of the distal tibia and fibula with callus formation. Peripheral lucency along the proximal intramedullary andrez is unchanged more prominent proximally. Small area of ulceration along the distal anterior escalona with a small amount of fluid and air. Beam-hardening artifact in this area from hardware. Fluid and ulceration extends down to the underlying bone and extends to the intramedullary andrez. This may have been the site of an external fixator in the past. Wide bony defect in this area measures 8 mm although no evidence of acute osteomyelitis. Recommend correlation for cellulitis and infection. Tiny fluid collection measures 12 mm. - Concern for underlying hardware infection - Concern for osteomyelitis of the left tibia with history of open fracture -Reported injection of drugs into open sore 2 to 3 months ago Plan - Moved to medical surg status - Blood cultures so far no growth -Superficial cultures so far no growth - Vancomycin - Zosyn - Orthopedic service consulted, n.p.o. midnight for surgical intervention on Wednesday morning - Full code - Lovenox for DVT prophylaxis (2) Suicidal ideation: No active ideation (3) Heartburn: (4) Pancreatic cyst: (5) Bipolar affect, depressed: (6) Schizoaffective disorder: PDMP PDMP Reviewed: Not Reviewed Attestations 2 Medical Necessity Statement*: Patient requires hospitalization for concern for hardware infection requiring IV antibiotics Diagnoses Open wound of right lower leg, initial encounter S81.801A Encounter type: initial encounter Laterality: right Suicidal ideation R45.851 Heartburn R12 Pancreatic cyst K86.2 Bipolar affect, depressed F31.30 Schizoaffective disorder F25.9
--- NOTE | 2025-02-24 17:40 | PC.NURSE ---
Shift SUmmary: Uneventful shift. Rested in bed for most of the day, but up frequently for the bathroom. Received antibiotics as ordered.
[2025-02-24] MEDS: pantoprazole 40 mg SDV IVP (20:31)
[2025-02-24] MEDS: quetiapine 300 mg Tablet 600 MG PO (20:31)
[2025-02-24] MEDS: enoxaparin 40 mg/0.4 mL Syringe SUBCUT (20:31)
[2025-02-25] VITALS (131 sets, daily range): BP systolic 98–134; BP diastolic 64–95; PULSE 80–118; RESP 13–21; TEMP 36.4–37.1; O2SAT 93–99
[2025-02-25] MEDS: piperacillin-tazobactam 3.375 GM in sodium chloride 0.9% (plus) 50 ML IV ×3 (03:16→20:56)
[2025-02-25 05:34] LABS: Basophils # 0.1 10^3/uL (0.0-0.1); Eosinophils # 0.2 10^3/uL (0.0-0.8); Eosinophils % 3.4 %; Hematocrit 37.8 % (36-47); Lymphocytes # 1.5 10^3/uL (0.8-4.8); Lymphocytes % 30.7 %; Mean Corpuscular HGB Conc 33.3 g/dL (30-55); Mean Corpuscular Hemoglobin 31.6 pg (27-33); Mean Corpuscular Volume 94.7 fl (85-98); Monocytes # 0.6 10^3/uL (0.2-0.9); Monocytes % 11.6 %; Neutrophils # 2.59 10^3/uL (1.8-7.7); Neutrophils % 52.1 %; Nucleated Red Blood Cells % 0 %; Platelet Count 211 10^3/cmm (157-399); Red Blood Count 3.99 10^6/uL (3.85-5.65); Red Cell Distribution Width 12.5 % (12.1-15.1); White Blood Count 4.98 10^3/uL (3.29-11.43)
[2025-02-25 05:51] LABS: Vancomycin Trough 13.7 ug/mL (10-15)
[2025-02-25 05:55] LABS: Alanine Aminotransferase 35 U/L (0-33); Albumin Level 3.9 g/dL (3.5-5.2); Alkaline Phosphatase 115 U/L (35-105); Anion Gap 18.9 (5-19); Aspartate Amino Transferase 31 U/L (0-32); Blood Urea Nitrogen 7 mg/dL (6-20); Calcium 8.8 mg/dL (8.5-10.5); Carbon Dioxide 24 mmol/L (22-29); Chloride 103 mmol/L (98-107); Glomerular Filtration Rate 111.3 mL/min (90-130); Glucose 101 mg/dL (65-115); Osmolality Calculated 292 mOsm/kg (285-295); Potassium 3.9 mmol/L (3.5-5.1); Sodium 142 mmol/L (136-145); Total Bilirubin 0.2 mg/dL (0.15-1.2); Total Protein 5.9 g/dL (6.6-8.7)
[2025-02-25] MEDS: vancomycin 2,000 MG/400 ML PIGGYBACK 200 MG IV ×2 (06:21→16:55)
[2025-02-25] MEDS: pantoprazole DR 40 mg Tablet PO ×2 (08:00→17:36)
[2025-02-25] MEDS: divalproex ER 500 mg Tablet (24H) 1000 MG PO (08:00)
[2025-02-25] MEDS: benztropine 1 mg Tablet PO ×2 (08:00→17:36)
[2025-02-25] MEDS: paliperidone ER 9 mg Tablet PO (08:00)
[2025-02-25] MEDS: quetiapine 100 mg Tablet 200 MG PO (08:00)
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
--- NOTE | 2025-02-25 19:25 | PC.NURSE ---
Patient pulled out IV during shift change. Vancomycin complete. Catheter intact.
[2025-02-25] MEDS: trazodone 50 mg Tablet PO (20:56)
[2025-02-25] MEDS: quetiapine 300 mg Tablet 600 MG PO (20:56)
[2025-02-25] MEDS: enoxaparin 40 mg/0.4 mL Syringe SUBCUT (20:56)
[2025-02-25] MEDS: pantoprazole 40 mg SDV IVP (20:57)
[2025-02-26] VITALS (94 sets, daily range): BP systolic 99–158; BP diastolic 64–96; PULSE 80–107; RESP 8–24; TEMP 36.1–36.7; O2SAT 91–99
[2025-02-26 04:20] LABS: Basophils # 0.1 10^3/uL (0.0-0.1); Basophils % 0.9 %; Eosinophils # 0.2 10^3/uL (0.0-0.8); Eosinophils % 3.2 %; Lymphocytes # 1.6 10^3/uL (0.8-4.8); Lymphocytes % 28.9 %; Mean Corpuscular Volume 96.9 fl (85-98); Mean Platelet Volume 11.2 fL (7.4-10.4); Monocytes # 0.7 10^3/uL (0.2-0.9); Monocytes % 11.9 %; Neutrophils # 2.99 10^3/uL (1.8-7.7); Neutrophils % 53.3 %; Nucleated Red Blood Cells % 0 %; Platelet Count 211 10^3/cmm (157-399); Red Blood Count 4.13 10^6/uL (3.85-5.65); Red Cell Distribution Width 12.5 % (12.1-15.1); White Blood Count 5.61 10^3/uL (3.29-11.43)
[2025-02-26 04:36] LABS: Anion Gap 17.9 (5-19); Blood Urea Nitrogen 7 mg/dL (6-20); Calcium 9.1 mg/dL (8.5-10.5); Carbon Dioxide 25 mmol/L (22-29); Chloride 102 mmol/L (98-107); Creatinine Clr Calc Pharmacy 147.0181; Glomerular Filtration Rate 111.3 mL/min (90-130); Glucose 98 mg/dL (65-115); Osmolality Calculated 290 mOsm/kg (285-295); Potassium 3.9 mmol/L (3.5-5.1); Sodium 141 mmol/L (136-145)
[2025-02-26] MEDS: vancomycin 2,000 MG/400 ML PIGGYBACK 200 MG IV (04:42)
[2025-02-26] MEDS: morphine 4 mg/mL SDV 1 mL 2 MG IVP ×2 (05:38→20:37)
[2025-02-26] MEDS: piperacillin-tazobactam 3.375 GM in sodium chloride 0.9% (plus) 50 ML IV ×3 (06:48→20:36)
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
--- NOTE | 2025-02-26 12:40 | W.PM.OPSUD ---
Surgery/Procedure H&P Update DATE OF PROCEDURE: February 26, 2025 DATE H&P PERFORMED: 02/23/25 H&P UPDATE INFORMATION: I have reviewed H&P completed within last 30 days, I have examined patient prior to procedure and No changes to prior documentation PLANNED PROCEDURE: Operation Date: 02/26/25 14:00 Proposed Procedures p Hardware Removal Trochanteric Nail Gamma Nail Removal(Left) - Shayan Álvarez DO
--- NOTE | 2025-02-26 13:20 | PC.NURSE ---
Surgery team escorted patient to surgery for procedure
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
[2025-02-26 13:39] LABS: OR HCG Qualitative Urine Negative (Negative)
[2025-02-26] MEDS: sodium chloride 0.9% 1,000 ML 30 ML IV ×2 (13:42→17:34)
[2025-02-26] MEDS: vancomycin 1,000 MG SDV 1000 MG INTRA-ARTI (15:03)
--- NOTE | 2025-02-26 15:31 | XR_ITS ---
WS: [id number] Exam: XR tibia fibula LT 2V [id number] Date/Time of Exam: 02/26/2025 3:32 PM Reason For Exam: OR PICS Limited AP intraoperative C-arm images of the LEFT tibia are submitted. The images depict removal of a long intramedullary andrez from the tibia. A single screw fragment is retained in the distal LEFT tibia. Again noted are old fractures of the tibia and fibula. Postoperative changes in the soft tissues.
--- NOTE | 2025-02-26 15:43 | PM.OP ---
Operative Report Date of procedure: February 26, 2025 Pre-op diagnosis: Osteomyelitis of left tibia Post-op diagnosis: same Procedure done: 1. Removal of deep hardware from left tibia 2. Irrigation debridement down to bone of left tibia 3. Saucerization of osteomyelitis of left tibia 4. Complex closure of wound 1 cm wide and 2 cm long. And half centimeter deep. Surgeon: Shayan Álvarez DO Estimated blood loss (mL): 100 Procedure: 1. Removal of deep hardware from left tibia 2. Irrigation debridement down to bone of left tibia 3. Saucerization of osteomyelitis of left tibia 4. Complex closure of wound 1 cm wide and 2 cm long. And half centimeter deep. Patient brought to the operative suite after an Gonasi was placed in the supine position all eyes and patient well-padded. Patient's prepped draped also fashion. Rossi was placed into the left leg. Skin incision is made using previous incision of the patella tendon. Patella tendon was identified and split. The top the nail was identified. And Was removed. And the extraction bolt was then inserted into the top of the nail. Next attention was brought to removing the interlocking screws. There are 2 screws removed proximally. This is done by making skin incision over the medial aspect the tibia proximally. Screw heads were identified and screwdriver was used to remove the screw heads. Next attention was brought to the distal screws. There is 1 anterior. Anterior medial. Again incisions were made and blunt dissection is made and the screws screws were removed the most distal screw was broken the medial piece was left in. The nail was then back slapped out. Next attention was brought to the wound where there was purulent fluid coming out of. This wound was ellipsed once the ellipse was complete then this was down to the bone. Were tracked to a sinus track in the bone. The extent of the sinus tract was identified. And using a high-speed bur the sinus tract was saucerized out using a high-speed bur drilling a hole into the bone. And debriding back to bleeding bone. Bone and intramedullary tissue was then removed. Guidewire was then passed down the tibia. Reamers were then sequentially used up to 11 mm. Irrigation debridement was then had the after the reamers were done up to 10 mm and clear irrigation fluid which came out of the wound medially. Canal was reamed with saline and irrigated. All the bone was debrided out. Cultures were taken intramedullary as well as superficial in the wound. Next attention was brought to the wound was ellipsed. This was closed with PDS and 2-0 nylon. In a layered fashion. This wound was approximately 2 cm long by 1 cm wide and half centimeter deep. It was down to the bone where the sinus tract was. Rest the wounds distally were closed with 0 Vicryl 2-0 Vicryl and nylon. The knee wound was closed with patella tendon was closed with 0 Vicryl 2-0 Vicryl and then skin was closed with jeffrey. And the 2 medial proximal wounds were closed with 2-0 Vicryl and jeffrey. Sterile dressings were applied and Deshawn wrap was placed and patient was transferred to the PACU in stable addition.
[2025-02-26] MEDS: fentaNYL 50 mcg/mL INJ 2mL IVP ×2 (15:47→15:53)
[2025-02-26] MEDS: HYDROmorphone 1 mg/mL INJ 1ml 0.5 MG IVP (16:08)
[2025-02-26] MEDS: ketorolac 30 mg/mL INJ IVP (16:17)
[2025-02-26] MEDS: acetaminophen 1,000 MG/100 ML PIGGYBACK 400 MG IV (16:19)
--- NOTE | 2025-02-26 16:34 | ANE.PACU2 ---
Inpatient post-anesthesia follow up: Airway intact: Yes Vital signs: Temperature 97.0 F Pulse Rate 92 Respiratory Rate 20 Blood Pressure 122/96 Pulse Oximetry 95 Oxygen Delivery Me thod Room Air Oxygen Flow Rate 8 Fraction of Inspir ed Oxygen Hydration adequate: Yes Nausea and vomiting: No Pain level: 8 Mental status: Baseline Additional Comments: Patient in considerable discomfort. Considered nerve block, but there some risk of development of compartment syndrome and decision was made to forgo this measure. Opioids, acetaminophen, and toradol all administered.
--- NOTE | 2025-02-26 16:41 | PC.NURSE ---
1617 - Dr Regan at bedside to give orders -
[2025-02-26] MEDS: benztropine 1 mg Tablet PO (17:40)
[2025-02-26] MEDS: pantoprazole DR 40 mg Tablet PO (17:40)
[2025-02-26] MEDS: ceFAZolin 2,000 mg SDV 2000 MG IVP (17:41)
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
[2025-02-26] MEDS: pantoprazole 40 mg SDV IVP (20:37)
[2025-02-26] MEDS: quetiapine 300 mg Tablet 600 MG PO (20:37)
[2025-02-26] MEDS: enoxaparin 40 mg/0.4 mL Syringe SUBCUT (20:46)
[2025-02-27] VITALS (11 sets, daily range): BP systolic 113–130; BP diastolic 72–84; PULSE 83–107; RESP 14–22; TEMP 36.4–36.9; O2SAT 90–98; BMI 33.9
[2025-02-27] MEDS: ceFAZolin 2,000 mg SDV 2000 MG IVP ×2 (00:01→07:46)
[2025-02-27 02:49] LABS: Basophils % 0.3 %; Hematocrit 36.8 % (36-47); Lymphocytes # 0.7 10^3/uL (0.8-4.8); Lymphocytes % 6.6 %; Mean Corpuscular HGB Conc 33.2 g/dL (30-55); Mean Corpuscular Hemoglobin 31.1 pg (27-33); Mean Corpuscular Volume 93.9 fl (85-98); Mean Platelet Volume 10.5 fL (7.4-10.4); Monocytes # 0.8 10^3/uL (0.2-0.9); Monocytes % 7.2 %; Neutrophils # 9.27 10^3/uL (1.8-7.7); Neutrophils % 85.1 %; Nucleated Red Blood Cells % 0 %; Platelet Count 227 10^3/cmm (157-399); Red Blood Count 3.92 10^6/uL (3.85-5.65); Red Cell Distribution Width 12.4 % (12.1-15.1); White Blood Count 10.89 10^3/uL (3.29-11.43)
[2025-02-27 03:20] LABS: Anion Gap 16.3 (5-19); Blood Urea Nitrogen 10 mg/dL (6-20); Calcium 9.2 mg/dL (8.5-10.5); Carbon Dioxide 26 mmol/L (22-29); Chloride 99 mmol/L (98-107); Glomerular Filtration Rate 111.3 mL/min (90-130); Glucose 146 mg/dL (65-115); Osmolality Calculated 286 mOsm/kg (285-295); Potassium 4.3 mmol/L (3.5-5.1); Sodium 137 mmol/L (136-145)
[2025-02-27] MEDS: vancomycin 2,000 MG/400 ML PIGGYBACK 200 MG IV ×2 (03:44→16:01)
[2025-02-27] MEDS: piperacillin-tazobactam 3.375 GM in sodium chloride 0.9% (plus) 50 ML IV (03:44)
[2025-02-27] MEDS: morphine 4 mg/mL SDV 1 mL 2 MG IVP ×2 (04:13→07:47)
[2025-02-27] MEDS: quetiapine 100 mg Tablet 200 MG PO (07:46)
[2025-02-27] MEDS: divalproex ER 500 mg Tablet (24H) 1000 MG PO (07:46)
[2025-02-27] MEDS: paliperidone ER 9 mg Tablet PO (07:46)
[2025-02-27] MEDS: pantoprazole DR 40 mg Tablet PO ×2 (07:47→17:40)
[2025-02-27] MEDS: benztropine 1 mg Tablet PO ×2 (08:00→17:40)
--- NOTE | 2025-02-27 08:08 | P.PN_ITS ---
Subjective 2 Subjective: Patient is postop day #1 from a left tibia removal and I&D of osteomyelitis. Patient is pain controlled with lying in bed. She is painful to touch otherwise. Dressings are clean dry intact Vitals/I&O/Wt Last Vital Signs Temp 98.5 F 02/27/25 07:42 Pulse 83 02/27/25 07:42 Resp 21 H 02/27/25 07:47 BP 115/84 02/27/25 07:42 Pulse Ox 97 02/27/25 07:47 O2 Del Method Room Air 02/27/25 03:25 O2 Flow Rate 8 02/26/25 15:42 02/26/25 02/27/25 02/27/25 22:59 06:59 14:59 Intake Total 676.5 / 726.5 450 / 1176.5 Output Total 75 / 75 Balance 601.5 / 651.5 450 / 1101.5 Weight last 48 hrs Weight 210 lb 3 oz Weight 217 lb 2.485 oz Physical Exam 2 Narrative: Dressings clean dry intact patient states she cannot feel her toes but when I touch them they are painful. No calf tenderness. Data 02/27/25 02:35 02/27/25 02:35 Micro: Microbiology 02/26/25 14:40 Gram Stain - Final Leg - Left 02/26/25 14:36 Gram Stain - Final Leg - Left 02/22/25 22:22 Gram Stain - Final Leg - #1 Wound Culture - Final Methicillin Resis Staph Aureus A&P Assessment and plan (1) Open wound, lower leg: Postop day #1 I&D and IM nail removal. Open physical therapy weight-bear as tolerated PDMP PDMP Reviewed: Not Reviewed Attestations 2 Medical Necessity Statement*: Per primary service Coding Level of Care Code Acute Code for Chg Fwd Diagnoses Open wound of right lower leg, initial encounter S81.801A Encounter type: initial encounter Laterality: right
[2025-02-27] MEDS: oxyCODONE 5 mg IR Tab/Cap PO ×3 (10:42→21:23)
--- NOTE | 2025-02-27 13:57 | P.PN_ITS ---
Subjective 2 Subjective: Patient was seen this morning , following all commands, denies any fevers, chills, no cough Vitals/I&O/Wt Last Vital Signs Temp 98.5 F 02/27/25 07:42 Pulse 94 02/27/25 11:13 Resp 22 H 02/27/25 11:13 BP 130/84 02/27/25 11:13 Pulse Ox 94 02/27/25 11:13 O2 Del Method Room Air 02/27/25 11:13 O2 Flow Rate 8 02/26/25 15:42 02/26/25 02/27/25 02/27/25 22:59 06:59 14:59 Intake Total 676.5 / 726.5 450 / 1176.5 410 / 410 Output Total 75 / 75 Balance 601.5 / 651.5 450 / 1101.5 410 / 410 Weight last 48 hrs Weight 95.339 kg Weight 98.5 kg Physical Exam 2 Const: COMMON NORMALS: no acute distress and patient oriented x3 Resp: COMMON NORMALS: normal respiratory effort, No retractions, No use of accessory muscles and clear to auscultation bilaterally AUSCULTATION: clear to auscultation bilaterally Cardio: COMMON NORMALS: regular rate, regular rhythm, S1 normal heart sound present and S2 normal heart sound present RATE: regular rate RHYTHM: r egular rhythm HEART SOUNDS: S1 normal heart sound present and S2 normal heart sound present GI: COMMON NORMALS: Normal to inspection, nondistended, normoactive bowel sounds present and non-tender Extremity: COMMON NORMALS: no pedal edema Neuro: COMMON NORMALS: patient oriented x3 Psych: COMMON NORMALS: mental status grossly normal Data 02/27/25 02:35 02/27/25 02:35 Micro: Microbiology 02/22/25 12:40 Blood Culture - Final Blood NO GROWTH AFTER 5 DAYS 02/22/25 12:46 Blood Culture - Final Blood NO GROWTH AFTER 5 DAYS 02/26/25 14:40 Gram Stain - Final Leg - Left Wound Culture - Preliminary 02/26/25 14:36 Gram Stain - Final Leg - Left Wound Culture - Preliminary 02/26/25 14:40 Anaerobic Culture - Preliminary Leg - Left 02/26/25 14:36 Anaerobic Culture - Preliminary Leg - Left 02/22/25 22:22 Gram Stain - Final Leg - #1 Wound Culture - Final Methicillin Resis Staph Aureus A&P Assessment and plan (1) Open wound, lower leg: CT imaging FINDINGS: Stable intramedullary andrez and screw fixation involving the tibia. Fracture of the distal screw unchanged since the recent radiographs. Prior healed fractures of the distal tibia and fibula with callus formation. Peripheral lucency along the proximal intramedullary andrez is unchanged more prominent proximally. Small area of ulceration along the distal anterior escalona with a small amount of fluid and air. Beam-hardening artifact in this area from hardware. Fluid and ulceration extends down to the underlying bone and extends to the intramedullary andrez. This may have been the site of an external fixator in the past. Wide bony defect in this area measures 8 mm although no evidence of acute osteomyelitis. Recommend correlation for cellulitis and infection. Tiny fluid collection measures 12 mm. - Concern for underlying hardware infection - Concern for osteomyelitis of the left tibia with history of open fracture -Reported injection of drugs into open sore 2 to 3 months ago -Status post removal of deep hardware left, rotation of the left tibia saucerization of posterior tibia, complex closure of wound postop day 1 - MRSA wound infection Plan - Blood cultures so far no growth -Superficial cultures, growing MRSA - Vancomycin - Zosyn - Orthopedic service consulted, wound care - Full code - Lovenox for DVT prophylaxis (2) Suicidal ideation: No active ideation (3) Heartburn: (4) Pancreatic cyst: (5) Bipolar affect, depressed: (6) Schizoaffective disorder: (7) MRSA infection: Plan Plan for today monitor surgical cultures, monitor blood cultures continue IV antibiotics arrange for long-term IV antibiotics PDMP PDMP Reviewed: Not Reviewed Attestations 2 Medical Necessity Statement*: Patient requires hospitalization for hardware infection requiring IV antibiotics status post surgical invention Diagnoses Open wound of right lower leg, initial encounter S81.801A Encounter type: initial encounter Laterality: right Suicidal ideation R45.851 Heartburn R12 Pancreatic cyst K86.2 Bipolar affect, depressed F31.30 Schizoaffective disorder F25.9 MRSA infection A49.02
[2025-02-27 14:02] LABS: Glucose Point of Care 142 mg/dL (70-110)
[2025-02-27 15:50] LABS: Bilirubin Urine Negative (Negative); Blood Urine Negative (Negative); Glucose Urine UA Negative (Normal); Ketones Urine Negative (Negative); Leukocyte Esterase Urine Negative (Negative); Nitrate Urine Negative (Negative); Protein Urine Negative (Negative); Specific Gravity, Urine 1.012 (1.005-1.030); Urine Appearance Clear (CLEAR); Urine Color Yellow (Yellow); Urobilinogen Urine 0.2 mg/dL (Negative)
[2025-02-27 15:54] LABS: Add Urine Microscopic? YES; Bacteria Urine None Seen /hpf; Hyaline Casts Urine 0.81 /lpf; RBC Urine 0-2 /hpf (0-2); Squamous Epithelial Cell Urine 0-5 /hpf (0-5); WBC Urine 0-5 /hpf (0-5)
[2025-02-27 16:06] LABS: Add Urine Culture? No
--- NOTE | 2025-02-27 17:46 | PC.NURSE ---
patient continues to report breakthrough pain between her Q4 oxy 5. Nurse asked Dr Esposito if he would like to give her something for the breakthrough pain.
[2025-02-27] MEDS: enoxaparin 40 mg/0.4 mL Syringe SUBCUT (21:23)
[2025-02-27] MEDS: quetiapine 300 mg Tablet 600 MG PO (21:23)
[2025-02-27] MEDS: pantoprazole 40 mg SDV IVP (21:24)
[2025-02-28] VITALS (16 sets, daily range): BP systolic 115–124; BP diastolic 74–83; PULSE 95–118; RESP 15–22; TEMP 36.3–37; O2SAT 90–98; BMI 36.8
[2025-02-28] MEDS: oxyCODONE 5 mg IR Tab/Cap PO ×5 (02:36→21:26)
[2025-02-28] MEDS: acetaminophen 325 mg Tablet 650 MG PO ×2 (03:50→23:56)
[2025-02-28] MEDS: vancomycin 2,000 MG/400 ML PIGGYBACK 200 MG IV ×2 (03:50→16:34)
[2025-02-28 03:54] LABS: Basophils % 0.5 %; Eosinophils # 0.2 10^3/uL (0.0-0.8); Eosinophils % 2.6 %; Hematocrit 36.2 % (36-47); Lymphocytes # 1.6 10^3/uL (0.8-4.8); Mean Corpuscular HGB Conc 33.4 g/dL (30-55); Mean Corpuscular Hemoglobin 31.3 pg (27-33); Mean Corpuscular Volume 93.8 fl (85-98); Mean Platelet Volume 10.7 fL (7.4-10.4); Monocytes # 0.6 10^3/uL (0.2-0.9); Monocytes % 9.8 %; Neutrophils # 3.95 10^3/uL (1.8-7.7); Neutrophils % 60.7 %; Nucleated Red Blood Cells % 0 %; Platelet Count 198 10^3/cmm (157-399); Red Blood Count 3.86 10^6/uL (3.85-5.65); Red Cell Distribution Width 12.7 % (12.1-15.1); White Blood Count 6.51 10^3/uL (3.29-11.43)
[2025-02-28 04:20] LABS: Anion Gap 15.6 (5-19); Blood Urea Nitrogen 8 mg/dL (6-20); Calcium 9.2 mg/dL (8.5-10.5); Carbon Dioxide 27 mmol/L (22-29); Chloride 99 mmol/L (98-107); Glomerular Filtration Rate 111.3 mL/min (90-130); Glucose 109 mg/dL (65-115); Osmolality Calculated 285 mOsm/kg (285-295); Potassium 3.6 mmol/L (3.5-5.1); Sodium 138 mmol/L (136-145)
[2025-02-28] MEDS: divalproex ER 500 mg Tablet (24H) 1000 MG PO (07:19)
[2025-02-28] MEDS: benztropine 1 mg Tablet PO ×2 (07:19→16:35)
[2025-02-28] MEDS: paliperidone ER 9 mg Tablet PO (07:19)
[2025-02-28] MEDS: quetiapine 100 mg Tablet 200 MG PO (07:19)
[2025-02-28] MEDS: pantoprazole DR 40 mg Tablet PO ×2 (07:20→16:35)
--- NOTE | 2025-02-28 14:43 | P.PN_ITS ---
Subjective 2 Subjective: Patient was seen this morning, currently alert and x 3, following all commands, denies any fevers, no chills, no cough Vitals/I&O/Wt Last Vital Signs Temp 97.8 F 02/28/25 12:00 Pulse 110 H 02/28/25 12:00 Resp 20 H 02/28/25 12:00 BP 115/82 02/28/25 12:00 Pulse Ox 93 02/28/25 12:00 O2 Del Method Room Air 02/28/25 12:00 O2 Flow Rate 8 02/26/25 15:42 02/27/25 02/28/25 02/28/25 22:59 06:59 14:59 Intake Total 400 / 1170 880 / 2050 720 / 720 Output Total 700 / 700 Balance 400 / 1170 180 / 1350 720 / 720 Weight last 48 hrs Weight 103.419 kg Weight 103.5 kg Weight 95.254 kg Physical Exam 2 Const: COMMON NORMALS: no acute distress and patient oriented x3 Resp: COMMON NORMALS: normal respiratory effort, No retractions, No use of accessory muscles and clear to auscultation bilaterally AUSCULTATION: clear to auscultation bilaterally Cardio: COMMON NORMALS: regular rate, regular rhythm, S1 normal heart sound present and S2 normal heart sound present RATE: regular rate RHYTHM: r egular rhythm HEART SOUNDS: S1 normal heart sound present and S2 normal heart sound present GI: COMMON NORMALS: Normal to inspection, nondistended, normoactive bowel sounds present, Soft to palpation, non-tender, No hepatosplenomegaly present, no masses and no bruits PALPATION: Yes Soft to palpation and Yes No hepatosplenomegaly present Extremity: COMMON NORMALS: no pedal edema NARRATIVE EXTREMITY EXAM: Lower extremity wrapped Neuro: COMMON NORMALS: patient oriented x3 Psych: COMMON NORMALS: mental status grossly normal Data 02/28/25 03:37 02/28/25 03:37 Micro: Microbiology 02/26/25 14:40 Anaerobic Culture - Preliminary Leg - Left 02/26/25 14:36 Anaerobic Culture - Preliminary Leg - Left 02/26/25 14:40 Gram Stain - Final Leg - Left Wound Culture - Preliminary 02/26/25 14:36 Gram Stain - Final Leg - Left Wound Culture - Preliminary 02/22/25 12:40 Blood Culture - Final Blood NO GROWTH AFTER 5 DAYS 02/22/25 12:46 Blood Culture - Final Blood NO GROWTH AFTER 5 DAYS A&P Assessment and plan (1) Open wound, lower leg: CT imaging FINDINGS: Stable intramedullary andrez and screw fixation involving the tibia. Fracture of the distal screw unchanged since the recent radiographs. Prior healed fractures of the distal tibia and fibula with callus formation. Peripheral lucency along the proximal intramedullary andrez is unchanged more prominent proximally. Small area of ulceration along the distal anterior escalona with a small amount of fluid and air. Beam-hardening artifact in this area from hardware. Fluid and ulceration extends down to the underlying bone and extends to the intramedullary andrez. This may have been the site of an external fixator in the past. Wide bony defect in this area measures 8 mm although no evidence of acute osteomyelitis. Recommend correlation for cellulitis and infection. Tiny fluid collection measures 12 mm. - Concern for underlying hardware infection - Concern for osteomyelitis of the left tibia with history of open fracture -Reported injection of drugs into open sore 2 to 3 months ago, with history of IV drug use, high risk for PICC line placement -Status post removal of deep hardware left, rotation of the left tibia saucerization of posterior tibia, complex closure of wound - MRSA wound infection, hardware infection Plan - Blood cultures so far no growth -Superficial cultures, growing MRSA - Vancomycin - Orthopedic service consulted, wound care - Full code - Lovenox for DVT prophylaxis (2) Suicidal ideation: No active ideation (3) Heartburn: (4) Pancreatic cyst: (5) Bipolar affect, depressed: (6) Schizoaffective disorder: (7) MRSA infection: Plan Plan for today monitor surgical cultures, monitor blood cultures continue IV antibiotics arrange for long-term IV antibiotics PDMP PDMP Reviewed: Not Reviewed Attestations 2 Medical Necessity Statement*: Patient requires hospitalization for hardware infection requiring IV antibiotics, MRSA infection Diagnoses Open wound of right lower leg, initial encounter S81.801A Encounter type: initial encounter Laterality: right Suicidal ideation R45.851 Heartburn R12 Pancreatic cyst K86.2 Bipolar affect, depressed F31.30 Schizoaffective disorder F25.9 MRSA infection A49.02
[2025-02-28] MEDS: pantoprazole 40 mg SDV IVP (21:26)
[2025-02-28] MEDS: quetiapine 300 mg Tablet 600 MG PO (21:26)
[2025-02-28] MEDS: enoxaparin 40 mg/0.4 mL Syringe SUBCUT (21:27)
[2025-03-01] VITALS (17 sets, daily range): BP systolic 114–123; BP diastolic 69–81; PULSE 89–115; RESP 12–24; TEMP 36.4–37; O2SAT 91–98
[2025-03-01] MEDS: oxyCODONE 5 mg IR Tab/Cap PO ×4 (01:50→20:19)
[2025-03-01 04:49] LABS: Vancomycin Trough 17.7 ug/mL (10-15)
[2025-03-01] MEDS: vancomycin 2,000 MG/400 ML PIGGYBACK 200 MG IV ×2 (05:23→17:20)
[2025-03-01] MEDS: divalproex ER 500 mg Tablet (24H) 1000 MG PO (08:42)
[2025-03-01] MEDS: paliperidone ER 9 mg Tablet PO (08:42)
[2025-03-01] MEDS: quetiapine 100 mg Tablet 200 MG PO (08:43)
[2025-03-01] MEDS: benztropine 1 mg Tablet PO ×2 (08:43→17:21)
[2025-03-01] MEDS: pantoprazole DR 40 mg Tablet PO ×2 (08:43→17:21)
[2025-03-01] MEDS: hyDROXYzine 25 mg Capsule 50 MG PO ×2 (09:48→17:22)
--- NOTE | 2025-03-01 14:38 | P.PN_ITS ---
Subjective 2 Subjective: Patient was seen this morning, she has no complaints this morning, no fevers, chills, cough Vitals/I&O/Wt Last Vital Signs Temp 97.7 F 03/01/25 11:52 Pulse 97 03/01/25 11:52 Resp 12 03/01/25 11:52 BP 120/73 03/01/25 11:52 Pulse Ox 98 03/01/25 11:52 O2 Del Method Room Air 03/01/25 09:00 O2 Flow Rate 8 02/26/25 15:42 02/28/25 03/01/25 03/01/25 22:59 06:59 14:59 Intake Total 640 / 1360 1080 / 1080 Output Total 1100 / 1100 Balance -460 / 260 1080 / 1080 Weight last 48 hrs Weight 103.419 kg Weight 103.5 kg Physical Exam 2 Const: COMMON NORMALS: no acute distress and patient oriented x3 Resp: COMMON NORMALS: normal respiratory effort, No retractions, No use of accessory muscles and clear to auscultation bilaterally AUSCULTATION: clear to auscultation bilaterally Cardio: COMMON NORMALS: regular rate, regular rhythm, S1 normal heart sound present and S2 normal heart sound present RATE: regular rate RHYTHM: r egular rhythm HEART SOUNDS: S1 normal heart sound present and S2 normal heart sound present GI: COMMON NORMALS: Normal to inspection, nondistended, normoactive bowel sounds present and non-tender Extremity: COMMON NORMALS: no pedal edema Neuro: COMMON NORMALS: patient oriented x3 Psych: COMMON NORMALS: mental status grossly normal Data 02/28/25 03:37 02/28/25 03:37 Micro: Microbiology 02/26/25 14:40 Gram Stain - Final Leg - Left Wound Culture - Preliminary Coag positive Staphylococcus 02/26/25 14:36 Gram Stain - Final Leg - Left Wound Culture - Final 02/26/25 14:40 Anaerobic Culture - Preliminary Leg - Left 02/26/25 14:36 Anaerobic Culture - Preliminary Leg - Left A&P Assessment and plan (1) Open wound, lower leg: CT imaging FINDINGS: Stable intramedullary andrez and screw fixation involving the tibia. Fracture of the distal screw unchanged since the recent radiographs. Prior healed fractures of the distal tibia and fibula with callus formation. Peripheral lucency along the proximal intramedullary andrez is unchanged more prominent proximally. Small area of ulceration along the distal anterior escalona with a small amount of fluid and air. Beam-hardening artifact in this area from hardware. Fluid and ulceration extends down to the underlying bone and extends to the intramedullary andrez. This may have been the site of an external fixator in the past. Wide bony defect in this area measures 8 mm although no evidence of acute osteomyelitis. Recommend correlation for cellulitis and infection. Tiny fluid collection measures 12 mm. - Concern for underlying hardware infection - Concern for osteomyelitis of the left tibia with history of open fracture -Reported injection of drugs into open sore 2 to 3 months ago, with history of IV drug use, high risk for PICC line placement -Status post removal of deep hardware left, rotation of the left tibia saucerization of posterior tibia, complex closure of wound - MRSA wound infection, hardware infection Plan - Blood cultures so far no growth -Superficial cultures, growing MRSA - Vancomycin - Orthopedic service consulted, wound care - Full code - Lovenox for DVT prophylaxis (2) Suicidal ideation: No active ideation (3) Heartburn: (4) Pancreatic cyst: (5) Bipolar affect, depressed: (6) Schizoaffective disorder: (7) MRSA infection: Plan Plan for today monitor surgical cultures, monitor blood cultures continue IV antibiotics arrange for long-term IV antibiotics PDMP PDMP Reviewed: Not Reviewed Attestations 2 Medical Necessity Statement*: Patient requires hospitalization for surgical hardware infection requiring IV antibiotics Diagnoses Open wound of right lower leg, initial encounter S81.801A Encounter type: initial encounter Laterality: right Suicidal ideation R45.851 Heartburn R12 Pancreatic cyst K86.2 Bipolar affect, depressed F31.30 Schizoaffective disorder F25.9 MRSA infection A49.02
[2025-03-01] MEDS: trazodone 50 mg Tablet PO (20:18)
[2025-03-01] MEDS: lactulose oral liq 20 gm/30 mL UDC 10 GM PO (20:18)
[2025-03-01] MEDS: quetiapine 300 mg Tablet 600 MG PO (20:19)
[2025-03-01] MEDS: pantoprazole 40 mg SDV IVP (20:20)
[2025-03-01] MEDS: enoxaparin 40 mg/0.4 mL Syringe SUBCUT (20:24)
[2025-03-01] MEDS: acetaminophen 325 mg Tablet 650 MG PO (22:09)
[2025-03-01] MEDS: OLANZapine 5 mg ODT PO (22:09)
[2025-03-02] VITALS (10 sets, daily range): BP systolic 108–149; BP diastolic 64–97; PULSE 93–117; RESP 16–21; TEMP 36.6–37; O2SAT 95–97
[2025-03-02] MEDS: oxyCODONE 5 mg IR Tab/Cap PO ×4 (00:52→20:10)
[2025-03-02] MEDS: vancomycin 2,000 MG/400 ML PIGGYBACK 200 MG IV ×2 (04:26→17:37)
[2025-03-02] MEDS: DOCUSATE SODIUM 100 MG/10 ML UDC PO (09:46)
[2025-03-02] MEDS: divalproex ER 500 mg Tablet (24H) 1000 MG PO (09:47)
[2025-03-02] MEDS: paliperidone ER 9 mg Tablet PO (09:47)
[2025-03-02] MEDS: quetiapine 100 mg Tablet 200 MG PO (09:47)
[2025-03-02] MEDS: benztropine 1 mg Tablet PO ×2 (09:47→17:40)
[2025-03-02] MEDS: pantoprazole DR 40 mg Tablet PO ×2 (09:47→17:40)
[2025-03-02 10:13] LABS: Basophils % 0.8 %; Eosinophils # 0.2 10^3/uL (0.0-0.8); Lymphocytes # 0.9 10^3/uL (0.8-4.8); Lymphocytes % 17.3 %; Mean Corpuscular HGB Conc 33.5 g/dL (30-55); Mean Corpuscular Hemoglobin 31.8 pg (27-33); Mean Corpuscular Volume 94.7 fl (85-98); Mean Platelet Volume 10.5 fL (7.4-10.4); Monocytes # 0.7 10^3/uL (0.2-0.9); Monocytes % 13.1 %; Neutrophils # 3.34 10^3/uL (1.8-7.7); Neutrophils % 63.7 %; Nucleated Red Blood Cells % 0 %; Platelet Count 188 10^3/cmm (157-399); Red Blood Count 3.59 10^6/uL (3.85-5.65); Red Cell Distribution Width 12.5 % (12.1-15.1); White Blood Count 5.25 10^3/uL (3.29-11.43)
[2025-03-02 10:37] LABS: Alanine Aminotransferase 96 U/L (0-33); Albumin Level 3.4 g/dL (3.5-5.2); Alkaline Phosphatase 202 U/L (35-105); Anion Gap 14.7 (5-19); Aspartate Amino Transferase 95 U/L (0-32); Blood Urea Nitrogen 7 mg/dL (6-20); Calcium 8.9 mg/dL (8.5-10.5); Carbon Dioxide 26 mmol/L (22-29); Chloride 100 mmol/L (98-107); Globulin 2.8 g/dL (1.3-4.6); Glomerular Filtration Rate 137.4 mL/min (90-130); Glucose 90 mg/dL (65-115); Osmolality Calculated 282 mOsm/kg (285-295); Potassium 3.7 mmol/L (3.5-5.1); Sodium 137 mmol/L (136-145); Total Bilirubin 0.2 mg/dL (0.15-1.2); Total Protein 6.2 g/dL (6.6-8.7)
--- NOTE | 2025-03-02 14:34 | P.PN_ITS ---
Subjective 2 Subjective: Infectious disease progress note No new complaints since last being seen. Afebrile, hemodynamically stable. From February 26, 2025 culture updated to reflect MRSA Medications: Reviewed: Yes Vitals/I&O/Wt Last Vital Signs Temp 97.8 F 03/02/25 12:00 Pulse 106 H 03/02/25 12:00 Resp 16 03/02/25 12:00 BP 119/75 03/02/25 12:00 Pulse Ox 96 03/02/25 12:00 O2 Del Method Room Air 03/02/25 12:00 O2 Flow Rate 8 02/26/25 15:42 03/01/25 03/02/25 03/02/25 22:59 06:59 14:59 Intake Total 880 / 2360 400 / 2760 660 / 660 Balance 880 / 2360 400 / 2760 660 / 660 Weight last 48 hrs Weight 102.5 kg Physical Exam 2 Narrative: General: No acute distress, AO x3 HEENT: PERRLA, pupils bilaterally equal and reactive, pallors not present Chest: Normal vesicular breath sounds, no added sounds, equal good air entry bilaterally CVS: S1-S2 regular, no murmurs, no tachycardia, no gallops, no rubs Abdomen: Soft, nontender, no organomegaly, bowel sounds present Neuro: No focal deficits, no facial deformity, AO x3, power 5/5 in all limbs Data 03/02/25 09:42 03/02/25 09:42 Micro: Microbiology 02/26/25 14:40 Gram Stain - Final Leg - Left Wound Culture - Final Methicillin Resis Staph Aureus 02/26/25 14:36 Gram Stain - Final Leg - Left Wound Culture - Final 02/26/25 14:40 Anaerobic Culture - Preliminary Leg - Left 02/26/25 14:36 Anaerobic Culture - Preliminary Leg - Left Gram Stain Final 02/26/25-1627 Result NO ORGANISMS SEEN RARE WHITE BLOOD CELLS Wound Culture Final 03/02/25-1144 Organism 1 Methicillin Resis Staph Aureus Growth RARE DAY 4 CRITICAL RESULT YES/NO: YES CRITICAL CALLED BY: IDALMIS TO AND READ BACK BY: HALLIE DATE: 03/02/25 TIME: 1144 MRSA M.I.C. RX --------- ------ * Ciprofloxacin >2 R * Clindamycin >4 R * Erythromycin >4 R * Gentamicin <=4 S * Levofloxacin >4 R * Linezolid 2 S * Moxifloxacin 4 I * Oxacillin >2 R * Penicillin >8 R * Rifampin <=1 S * Tetracycline <=4 S * Trimethoprim/Sulfamethoxazole <=0.5/9.5 S Vancomycin 2 S Daptomycin <=0.5 S A&P Assessment and plan (1) Infection of lower extremity associated with hardware: (2) Osteomyelitis: (3) MRSA infection: Plan 39-year-old lady with history per consult note, presented for suicidal ideation, noted to have a chronically draining left lower extremity wound in association with underlying hardware. blood cultures negative from admission. s/p removal of deep hardware from the left tibia, saucerization of osteomyelitis I&D down to the bone and complex closure. Post op images note removal of a long intramedullary andrez from the tibia. A single screw fragment is retained in the distal LEFT tibia. OR cultures showing MRSA from February 26, 2025 patient has been on treatment with iv vancomycin during admission. Clinical picture is that of osteomyelitis related to a chronic draining sinus and underlying hardware infection. Patient was planned for 6-week course of IV antibiotic for osteomyelitis and hardware infection, however this is clinically complicated by a past medical history of PICC line, poor medical literacy which makes placement of PICC line and home administration of IV antibiotics impractical and potentially unsafe. Unfortunately attempts at placement at correction facility have not been successful to be able to do IV antibiotics under supervision. Given the above scenario we will plan to transition to oral antibiotics at discharge. There is research to suggest that oral antibiotics may be noninferior to IV antibiotic therapy when used for the for 6 weeks for complex orthopedic infection as assessed by treatment failure at 1 year. (Oral versus Intravenous Antibiotics for Bone and Joint Infection. n engl j med 380;5 nejm[employer]org October 06, 2018. ) Recommend transition to oral Bactrim and Rifampin (given partial retention of hardware) for 6 weeks total duration. Recommend to obtain CMP every 2 weeks while on the above regimen to monitor kidney function electrolytes and LFTs while on the above combination regimen. Patient to follow-up with infectious disease clinic on March 20, 2025 PDMP PDMP Reviewed: Not Reviewed Attestations 2 Medical Necessity Statement*: per admitting Coding Level of Care Code Acute Code for Chg Fwd Diagnoses Infection of lower extremity associated with hardware T84.7XXA Osteomyelitis M86.9 MRSA infection A49.02
--- NOTE | 2025-03-02 14:41 | XR_ITS ---
WS: [id number] Exam: XR tibia fibula LT 2V [id number] Date/Time of Exam: 03/02/2025 2:41 PM Reason For Exam: post op hardware extent Comparison 02/22/2025. Intramedullary andrez is been removed from the tibia. A single screw fragment is retained in the lower tibia. There are healed fractures of the lower tibia and fibula. Anterior surgical skin clips at the knee. Normal soft tissues. XR/XR tibia fibula LT 2V [id number] IMPRESSION: 1. Removal of hardware from the tibia as noted above. Healed tibial and fibular fractures.
--- NOTE | 2025-03-02 14:52 | PC.OT ---
OT TREATMENT ATTEMPTED TWICE; PATIENT SLEEPING SOUNDLY AT BOTH ATTEMPTS
--- NOTE | 2025-03-02 17:39 | P.PN_ITS ---
Subjective 2 Subjective: Patient was seen this morning, currently alert oriented x 3, following all commands, denies any fevers, chills, no cough Vitals/I&O/Wt Last Vital Signs Temp 98.2 F 03/02/25 16:00 Pulse 117 H 03/02/25 16:00 Resp 18 03/02/25 16:00 BP 149/97 03/02/25 16:00 Pulse Ox 96 03/02/25 16:00 O2 Del Method Room Air 03/02/25 16:00 O2 Flow Rate 8 02/26/25 15:42 03/02/25 03/02/25 03/02/25 06:59 14:59 22:59 Intake Total 400 / 2760 660 / 660 Balance 400 / 2760 660 / 660 Weight last 48 hrs Weight 102.5 kg Physical Exam 2 Const: COMMON NORMALS: no acute distress and patient oriented x3 Resp: COMMON NORMALS: normal respiratory effort, No retractions, No use of accessory muscles and clear to auscultation bilaterally AUSCULTATION: clear to auscultation bilaterally Cardio: COMMON NORMALS: regular rate, regular rhythm, S1 normal heart sound present and S2 normal heart sound present RATE: regular rate RHYTHM: r egular rhythm HEART SOUNDS: S1 normal heart sound present and S2 normal heart sound present GI: COMMON NORMALS: Normal to inspection, nondistended, normoactive bowel sounds present and non-tender Extremity: COMMON NORMALS: no pedal edema Neuro: COMMON NORMALS: patient oriented x3 Psych: COMMON NORMALS: mental status grossly normal Data 03/02/25 09:42 03/02/25 09:42 Micro: Microbiology 02/26/25 14:40 Anaerobic Culture - Preliminary Leg - Left 02/26/25 14:36 Anaerobic Culture - Preliminary Leg - Left 02/26/25 14:40 Gram Stain - Final Leg - Left Wound Culture - Final Methicillin Resis Staph Aureus A&P Assessment and plan (1) Open wound, lower leg: CT imaging FINDINGS: Stable intramedullary andrez and screw fixation involving the tibia. Fracture of the distal screw unchanged since the recent radiographs. Prior healed fractures of the distal tibia and fibula with callus formation. Peripheral lucency along the proximal intramedullary andrez is unchanged more prominent proximally. Small area of ulceration along the distal anterior escalona with a small amount of fluid and air. Beam-hardening artifact in this area from hardware. Fluid and ulceration extends down to the underlying bone and extends to the intramedullary andrez. This may have been the site of an external fixator in the past. Wide bony defect in this area measures 8 mm although no evidence of acute osteomyelitis. Recommend correlation for cellulitis and infection. Tiny fluid collection measures 12 mm. - Concern for underlying hardware infection - Concern for osteomyelitis of the left tibia with history of open fracture -Reported injection of drugs into open sore 2 to 3 months ago, with history of IV drug use, high risk for PICC line placement -Status post removal of deep hardware left, rotation of the left tibia saucerization of posterior tibia, complex closure of wound - MRSA wound infection, hardware infection - Surgical cultures growing MRSA Plan - Blood cultures so far no growth -Superficial cultures, growing MRSA -Surgical cultures, left intramedullary tibia growing MRSA - Vancomycin - Orthopedic service consulted, wound care - Full code - Lovenox for DVT prophylaxis (2) Suicidal ideation: No active ideation (3) Heartburn: (4) Pancreatic cyst: (5) Bipolar affect, depressed: (6) Schizoaffective disorder: (7) MRSA infection: Plan Plan for today monitor surgical cultures, monitor blood cultures continue IV antibiotics arrange for long-term IV antibiotics, does have transaminitis, gallbladder ultrasound, monitor LFTs PDMP PDMP Reviewed: Not Reviewed Attestations 2 Medical Necessity Statement*: Patient requires hospitalization for MRSA hardware infection Diagnoses Open wound of right lower leg, initial encounter S81.801A Encounter type: initial encounter Laterality: right Suicidal ideation R45.851 Heartburn R12 Pancreatic cyst K86.2 Bipolar affect, depressed F31.30 Schizoaffective disorder F25.9 MRSA infection A49.02
[2025-03-02] MEDS: sennosides-docusate Tablet 1 TAB PO (17:40)
[2025-03-02 18:12] LABS: Gamma Glutamyl Transferase 232 U/L (5-36); Lipase 14 U/L (13-60)
[2025-03-02] MEDS: quetiapine 300 mg Tablet 600 MG PO (20:11)
[2025-03-02] MEDS: hyDROXYzine 25 mg Capsule 50 MG PO (20:11)
[2025-03-02] MEDS: trazodone 50 mg Tablet PO (20:11)
[2025-03-02] MEDS: pantoprazole 40 mg SDV IVP (20:12)
[2025-03-02] MEDS: enoxaparin 40 mg/0.4 mL Syringe SUBCUT (20:13)
[2025-03-03] VITALS (9 sets, daily range): BP systolic 124–146; BP diastolic 80–93; PULSE 89–116; RESP 18–20; TEMP 36.2–36.8; O2SAT 96–97; BMI 36.1
[2025-03-03] MEDS: vancomycin 2,000 MG/400 ML PIGGYBACK 200 MG IV ×2 (04:10→16:14)
[2025-03-03 05:35] LABS: Basophils # 0.1 10^3/uL (0.0-0.1); Basophils % 0.9 %; Eosinophils # 0.2 10^3/uL (0.0-0.8); Eosinophils % 3.2 %; Hematocrit 35.4 % (36-47); Lymphocytes % 18.1 %; Mean Corpuscular HGB Conc 33.6 g/dL (30-55); Mean Corpuscular Hemoglobin 31.3 pg (27-33); Mean Corpuscular Volume 93.2 fl (85-98); Mean Platelet Volume 10.3 fL (7.4-10.4); Monocytes # 0.7 10^3/uL (0.2-0.9); Monocytes % 12.3 %; Neutrophils # 3.42 10^3/uL (1.8-7.7); Neutrophils % 63.8 %; Nucleated Red Blood Cells % 0 %; Platelet Count 215 10^3/cmm (157-399); Red Cell Distribution Width 12.6 % (12.1-15.1); White Blood Count 5.36 10^3/uL (3.29-11.43)
[2025-03-03 05:56] LABS: Alanine Aminotransferase 82 U/L (0-33); Albumin Level 3.6 g/dL (3.5-5.2); Alkaline Phosphatase 197 U/L (35-105); Anion Gap 15.8 (5-19); Aspartate Amino Transferase 44 U/L (0-32); Blood Urea Nitrogen 9 mg/dL (6-20); C Reactive Protein 13.6 mg/L (0.0-4.9); Calcium 9.2 mg/dL (8.5-10.5); Carbon Dioxide 25 mmol/L (22-29); Chloride 101 mmol/L (98-107); Gamma Glutamyl Transferase 233 U/L (5-36); Globulin 2.7 g/dL (1.3-4.6); Glomerular Filtration Rate 177.7 mL/min (90-130); Glucose 91 mg/dL (65-115); Lipase 12 U/L (13-60); Osmolality Calculated 284 mOsm/kg (285-295); Potassium 3.8 mmol/L (3.5-5.1); Sodium 138 mmol/L (136-145); Total Bilirubin 0.3 mg/dL (0.15-1.2); Total Protein 6.3 g/dL (6.6-8.7)
[2025-03-03 06:01] LABS: Procalcitonin 0.04 ng/mL (0-0.5)
[2025-03-03] MEDS: hyDROXYzine 25 mg Capsule 50 MG PO (06:32)
[2025-03-03] MEDS: oxyCODONE 5 mg IR Tab/Cap PO ×3 (06:32→21:55)
[2025-03-03] MEDS: DOCUSATE SODIUM 100 MG/10 ML UDC PO (09:10)
[2025-03-03] MEDS: divalproex ER 500 mg Tablet (24H) 1000 MG PO (09:11)
[2025-03-03] MEDS: benztropine 1 mg Tablet PO ×2 (09:11→17:31)
[2025-03-03] MEDS: pantoprazole DR 40 mg Tablet PO ×2 (09:11→17:19)
[2025-03-03] MEDS: quetiapine 100 mg Tablet 200 MG PO (09:11)
[2025-03-03] MEDS: paliperidone ER 9 mg Tablet PO (09:11)
--- NOTE | 2025-03-03 14:39 | P.PN_ITS ---
Subjective 2 Subjective: Patient was seen Vitals/I&O/Wt Last Vital Signs Temp 97.5 F L 03/03/25 12:00 Pulse 116 H 03/03/25 12:00 Resp 20 H 03/03/25 12:00 BP 134/86 03/03/25 12:00 Pulse Ox 97 03/03/25 12:00 O2 Del Method Room Air 03/03/25 12:00 O2 Flow Rate 8 02/26/25 15:42 03/02/25 03/03/25 03/03/25 22:59 06:59 14:59 Intake Total 620 / 1280 400 / 1680 360 / 360 Balance 620 / 1280 400 / 1680 360 / 360 Weight last 48 hrs Weight 102.5 kg Physical Exam 2 Const: COMMON NORMALS: no acute distress and patient oriented x3 Resp: COMMON NORMALS: normal respiratory effort, No retractions, No use of accessory muscles and clear to auscultation bilaterally AUSCULTATION: clear to auscultation bilaterally Cardio: COMMON NORMALS: regular rate, regular rhythm, S1 normal heart sound present and S2 normal heart sound present RATE: regular rate RHYTHM: r egular rhythm HEART SOUNDS: S1 normal heart sound present and S2 normal heart sound present GI: COMMON NORMALS: Normal to inspection, nondistended, normoactive bowel sounds present and non-tender Extremity: COMMON NORMALS: no pedal edema Neuro: COMMON NORMALS: patient oriented x3 Psych: COMMON NORMALS: mental status grossly normal Data 03/03/25 05:18 03/03/25 05:18 Micro: Microbiology 02/26/25 14:40 Anaerobic Culture - Preliminary Leg - Left 02/26/25 14:36 Anaerobic Culture - Preliminary Leg - Left 02/26/25 14:40 Gram Stain - Final Leg - Left Wound Culture - Final Methicillin Resis Staph Aureus A&P Assessment and plan (1) Open wound, lower leg: CT imaging FINDINGS: Stable intramedullary andrez and screw fixation involving the tibia. Fracture of the distal screw unchanged since the recent radiographs. Prior healed fractures of the distal tibia and fibula with callus formation. Peripheral lucency along the proximal intramedullary andrez is unchanged more prominent proximally. Small area of ulceration along the distal anterior escalona with a small amount of fluid and air. Beam-hardening artifact in this area from hardware. Fluid and ulceration extends down to the underlying bone and extends to the intramedullary andrez. This may have been the site of an external fixator in the past. Wide bony defect in this area measures 8 mm although no evidence of acute osteomyelitis. Recommend correlation for cellulitis and infection. Tiny fluid collection measures 12 mm. - Concern for underlying hardware infection - Concern for osteomyelitis of the left tibia with history of open fracture -Reported injection of drugs into open sore 2 to 3 months ago, with history of IV drug use, high risk for PICC line placement -Status post removal of deep hardware left, rotation of the left tibia saucerization of posterior tibia, complex closure of wound - MRSA wound infection, hardware infection - Surgical cultures growing MRSA Plan - Blood cultures so far no growth -Superficial cultures, growing MRSA -Surgical cultures, left intramedullary tibia growing MRSA - Vancomycin - Orthopedic service consulted, wound care - Full code - Lovenox for DVT prophylaxis (2) Suicidal ideation: No active ideation (3) Heartburn: (4) Pancreatic cyst: (5) Bipolar affect, depressed: (6) Schizoaffective disorder: (7) MRSA infection: Plan Plan for today monitor surgical cultures, monitor blood cultures continue IV antibiotics arrange for long-term IV antibiotics, does have transaminitis, gallbladder ultrasound, monitor LFTs PDMP PDMP Reviewed: Not Reviewed Attestations 2 Medical Necessity Statement*: Patient requires hospitalization for hardware infection Diagnoses Open wound of right lower leg, initial encounter S81.801A Encounter type: initial encounter Laterality: right Suicidal ideation R45.851 Heartburn R12 Pancreatic cyst K86.2 Bipolar affect, depressed F31.30 Schizoaffective disorder F25.9 MRSA infection A49.02
[2025-03-03] MEDS: sennosides-docusate Tablet 1 TAB PO (17:19)
--- NOTE | 2025-03-03 17:40 | USR_ITS ---
PROCEDURE INFORMATION: Exam: US Abdomen, Limited; Right Upper Quadrant Exam date and time: 03/03/2025 6:57 AM Age: 39 years old Clinical indication: Abnormal findings; Abnormal lab test; Elevated liver enzymes; Additional info: Galbladder and liver TECHNIQUE: Imaging protocol: Real time ultrasound of the abdomen with image documentation. Limited exam focused on the right upper quadrant. COMPARISON: US gall bladder [id number] 01/11/2025 12:51 PM FINDINGS: Liver: Mild hepatic steatosis noted. Gallbladder: There are gallstones and possibly a small amount of gallbladder sludge. No significant gallbladder wall thickening Biliary ducts: Normal. No stones. No dilation. Pancreas: Visualized pancreas is unremarkable. Right kidney: Normal. No mass. No hydronephrosis. US/US abdomen limited [id number] IMPRESSION: Cholelithiasis without convincing evidence of cholecystitis. Consider HIDA scan for further evaluation if clinical concern for cholecystitis persists.
[2025-03-03] MEDS: enoxaparin 40 mg/0.4 mL Syringe SUBCUT (21:54)
[2025-03-03] MEDS: pantoprazole 40 mg SDV IVP (21:55)
[2025-03-03] MEDS: trazodone 50 mg Tablet PO (21:55)
[2025-03-03] MEDS: quetiapine 300 mg Tablet 600 MG PO (21:55)
[2025-03-04] VITALS (10 sets, daily range): BP systolic 116–144; BP diastolic 70–92; PULSE 88–108; RESP 16–20; TEMP 36.4–36.9; O2SAT 91–98
[2025-03-04] MEDS: vancomycin 2,000 MG/400 ML PIGGYBACK 200 MG IV (04:28)
[2025-03-04] MEDS: oxyCODONE 5 mg IR Tab/Cap PO ×3 (04:29→17:42)
[2025-03-04 06:21] LABS: Basophils % 0.6 %; Eosinophils # 0.2 10^3/uL (0.0-0.8); Eosinophils % 2.3 %; Hematocrit 36.8 % (36-47); Lymphocytes # 0.8 10^3/uL (0.8-4.8); Mean Corpuscular HGB Conc 33.7 g/dL (30-55); Mean Corpuscular Hemoglobin 31.6 pg (27-33); Mean Corpuscular Volume 93.9 fl (85-98); Monocytes # 0.9 10^3/uL (0.2-0.9); Neutrophils # 4.83 10^3/uL (1.8-7.7); Neutrophils % 70.9 %; Nucleated Red Blood Cells % 0 %; Platelet Count 216 10^3/cmm (157-399); Red Blood Count 3.92 10^6/uL (3.85-5.65); Red Cell Distribution Width 12.5 % (12.1-15.1); White Blood Count 6.82 10^3/uL (3.29-11.43)
[2025-03-04 06:43] LABS: Alanine Aminotransferase 61 U/L (0-33); Albumin Level 3.9 g/dL (3.5-5.2); Alkaline Phosphatase 224 U/L (35-105); Anion Gap 17.8 (5-19); Aspartate Amino Transferase 23 U/L (0-32); Blood Urea Nitrogen 10 mg/dL (6-20); C Reactive Protein 17.8 mg/L (0.0-4.9); Calcium 9.5 mg/dL (8.5-10.5); Carbon Dioxide 25 mmol/L (22-29); Chloride 99 mmol/L (98-107); Globulin 2.6 g/dL (1.3-4.6); Glomerular Filtration Rate 137.4 mL/min (90-130); Glucose 100 mg/dL (65-115); Osmolality Calculated 285 mOsm/kg (285-295); Potassium 3.8 mmol/L (3.5-5.1); Sodium 138 mmol/L (136-145); Total Bilirubin 0.3 mg/dL (0.15-1.2); Total Protein 6.5 g/dL (6.6-8.7)
[2025-03-04 06:45] LABS: Procalcitonin 0.03 ng/mL (0-0.5)
[2025-03-04] MEDS: divalproex ER 500 mg Tablet (24H) 1000 MG PO (09:25)
[2025-03-04] MEDS: DOCUSATE SODIUM 100 MG/10 ML UDC PO (09:25)
[2025-03-04] MEDS: pantoprazole DR 40 mg Tablet PO (09:26)
[2025-03-04] MEDS: sennosides-docusate Tablet 1 TAB PO ×2 (09:26→17:43)
[2025-03-04] MEDS: paliperidone ER 9 mg Tablet PO (09:26)
[2025-03-04] MEDS: benztropine 1 mg Tablet PO ×2 (09:26→17:43)
[2025-03-04] MEDS: quetiapine 100 mg Tablet 200 MG PO (09:26)
[2025-03-04] MEDS: sulfamethoxazole-trimeth DS 160-800 mg Tablet 1 TAB PO ×2 (11:02→17:42)
--- NOTE | 2025-03-04 12:24 | PM.MISC ---
Miscellaneous Note Purpose of Documentation: Discontinue IV vancomycin today. Transition to Bactrim DS 1 tab p.o. twice daily in anticipation of discharge home tomorrow. This will enable us to make sure patient does not have any allergic reactions to the drug prior to being discharged. Noted to increasing alkaline phosphatase at 224. ALT 61. AST is normalized. Ultrasound of the abdomen did not show any cholecystitis but note made of gallbladder sludge and gallstones. Consider HIDA scan. Leg wound and examined today, he is to be clean dry and intact.
--- NOTE | 2025-03-04 13:13 | P.PN_ITS ---
Subjective 2 Subjective: Patient was seen this morning, no fevers, no chills, no nausea, no vomiting, does have epigastric discomfort Vitals/I&O/Wt Last Vital Signs Temp 97.8 F 03/04/25 12:00 Pulse 108 H 03/04/25 12:00 Resp 20 H 03/04/25 12:00 BP 124/78 03/04/25 12:00 Pulse Ox 95 03/04/25 12:00 O2 Del Method Room Air 03/04/25 12:00 O2 Flow Rate 8 02/26/25 15:42 03/03/25 03/04/25 03/04/25 22:59 06:59 14:59 Intake Total 400 / 760 760 / 760 Balance 400 / 760 760 / 760 Weight last 48 hrs Weight 99 kg Weight 101.718 kg Physical Exam 2 Const: COMMON NORMALS: no acute distress and patient oriented x3 Resp: COMMON NORMALS: normal respiratory effort, No retractions, No use of accessory muscles and clear to auscultation bilaterally AUSCULTATION: clear to auscultation bilaterally Cardio: COMMON NORMALS: regular rate, regular rhythm, S1 normal heart sound present and S2 normal heart sound present RATE: regular rate RHYTHM: r egular rhythm HEART SOUNDS: S1 normal heart sound present and S2 normal heart sound present GI: COMMON NORMALS: Normal to inspection, nondistended, normoactive bowel sounds present OTHER: Epigastric discomfort, to palpation, right upper quadrant pain to palpation Extremity: COMMON NORMALS: no pedal edema Neuro: COMMON NORMALS: patient oriented x3 Psych: COMMON NORMALS: mental status grossly normal Data 03/04/25 06:10 03/04/25 06:10 Micro: Microbiology 02/26/25 14:40 Anaerobic Culture - Preliminary Leg - Left 02/26/25 14:36 Anaerobic Culture - Preliminary Leg - Left A&P Assessment and plan (1) Open wound, lower leg: CT imaging FINDINGS: Stable intramedullary andrez and screw fixation involving the tibia. Fracture of the distal screw unchanged since the recent radiographs. Prior healed fractures of the distal tibia and fibula with callus formation. Peripheral lucency along the proximal intramedullary andrez is unchanged more prominent proximally. Small area of ulceration along the distal anterior escalona with a small amount of fluid and air. Beam-hardening artifact in this area from hardware. Fluid and ulceration extends down to the underlying bone and extends to the intramedullary andrez. This may have been the site of an external fixator in the past. Wide bony defect in this area measures 8 mm although no evidence of acute osteomyelitis. Recommend correlation for cellulitis and infection. Tiny fluid collection measures 12 mm. - Concern for underlying hardware infection - Concern for osteomyelitis of the left tibia with history of open fracture -Reported injection of drugs into open sore 2 to 3 months ago, with history of IV drug use, high risk for PICC line placement -Status post removal of deep hardware left, rotation of the left tibia saucerization of posterior tibia, complex closure of wound - MRSA wound infection, hardware infection - Surgical cultures growing MRSA Plan - Blood cultures so far no growth -Superficial cultures, growing MRSA -Surgical cultures, left intramedullary tibia growing MRSA -Discussed with patient and risk and benefits of p.o. Bactrim and rifampin therapy, they voiced understanding, all question answered, agreed to proceed - Vancomycin, transitioned to Bactrim -Will hold off the rifampin as workup for alk phos and elevated transaminitis is completed - Orthopedic service consulted, wound care - Full code - Lovenox for DVT prophylaxis (2) Suicidal ideation: No active ideation (3) Heartburn: (4) Pancreatic cyst: (5) Bipolar affect, depressed: (6) Schizoaffective disorder: (7) MRSA infection: (8) Transaminitis: - Transaminitis with elevated alk phos - Epigastric discomfort - Ultrasound gallbladder US/US abdomen limited [id number] IMPRESSION: Cholelithiasis without convincing evidence of cholecystitis. Consider HIDA scan for further evaluation if clinical concern for cholecystitis persists. -HIDA scan ordered PDMP PDMP Reviewed: Not Reviewed Attestations 2 Medical Necessity Statement*: Patient requires hospitalization for transaminitis, hardware infection Diagnoses Open wound of right lower leg, initial encounter S81.801A Encounter type: initial encounter Laterality: right Suicidal ideation R45.851 Heartburn R12 Pancreatic cyst K86.2 Bipolar affect, depressed F31.30 Schizoaffective disorder F25.9 MRSA infection A49.02 Transaminitis R74.01
[2025-03-04] MEDS: quetiapine 300 mg Tablet 600 MG PO (20:23)
[2025-03-04] MEDS: enoxaparin 40 mg/0.4 mL Syringe SUBCUT (20:23)
[2025-03-05 04:00] VITALS: BP 128/79; PULSE 103; RESP 16; TEMP 36.4; O2SAT 94
[2025-03-05 04:31] LABS: Basophils % 0.7 %; Eosinophils # 0.1 10^3/uL (0.0-0.8); Hematocrit 38.2 % (36-47); Lymphocytes # 0.5 10^3/uL (0.8-4.8); Mean Corpuscular HGB Conc 34.8 g/dL (30-55); Mean Corpuscular Hemoglobin 31.3 pg (27-33); Mean Corpuscular Volume 89.9 fl (85-98); Mean Platelet Volume 10.1 fL (7.4-10.4); Monocytes # 0.8 10^3/uL (0.2-0.9); Monocytes % 13.3 %; Neutrophils # 4.34 10^3/uL (1.8-7.7); Neutrophils % 73.3 %; Nucleated Red Blood Cells % 0 %; Platelet Count 230 10^3/cmm (157-399); Red Blood Count 4.25 10^6/uL (3.85-5.65); Red Cell Distribution Width 12.5 % (12.1-15.1); White Blood Count 5.92 10^3/uL (3.29-11.43)
[2025-03-05 04:47] LABS: Alanine Aminotransferase 50 U/L (0-33); Albumin Level 3.9 g/dL (3.5-5.2); Alkaline Phosphatase 248 U/L (35-105); Anion Gap 16.8 (5-19); Aspartate Amino Transferase 22 U/L (0-32); Blood Urea Nitrogen 12 mg/dL (6-20); C Reactive Protein 23.8 mg/L (0.0-4.9); Calcium 9.9 mg/dL (8.5-10.5); Carbon Dioxide 25 mmol/L (22-29); Chloride 98 mmol/L (98-107); Creatinine Clr Calc Pharmacy 149.4028; Globulin 3.5 g/dL (1.3-4.6); Glomerular Filtration Rate 111.3 mL/min (90-130); Glucose 102 mg/dL (65-115); Osmolality Calculated 282 mOsm/kg (285-295); Potassium 3.8 mmol/L (3.5-5.1); Sodium 136 mmol/L (136-145); Total Bilirubin 0.3 mg/dL (0.15-1.2); Total Protein 7.4 g/dL (6.6-8.7)
[2025-03-05 04:53] LABS: Procalcitonin 0.06 ng/mL (0-0.5)
[2025-03-05 08:00] VITALS: BP 130/81; PULSE 106; RESP 15; TEMP 36.7; O2SAT 95
[2025-03-05] MEDS: pantoprazole DR 40 mg Tablet PO (09:34)
[2025-03-05] MEDS: benztropine 1 mg Tablet PO (09:34)
[2025-03-05] MEDS: paliperidone ER 9 mg Tablet PO (09:34)
[2025-03-05] MEDS: divalproex ER 500 mg Tablet (24H) 1000 MG PO (09:34)
[2025-03-05] MEDS: quetiapine 100 mg Tablet 200 MG PO (09:34)
[2025-03-05] MEDS: sulfamethoxazole-trimeth DS 160-800 mg Tablet 1 TAB PO (09:34)
--- NOTE | 2025-03-05 11:00 | NM_ITS ---
WS: [id number] NUCLEAR MEDICINE HIDA SCAN CLINICAL INFORMATION: ruq, chest pain, transaminitis, elevated lft TECHNIQUE: Following intravenous administration of 8.4 mCi of technetium 99m mebrofenin, images of the abdomen were obtained over the course of 60 minutes. Next, gallbladder ejection fraction was determined by obtaining preprandial and one-hour postprandial images of the gallbladder following oral ingestion of Ensure. FINDINGS: Normal hepatic uptake at 5 minutes. Normal hepatic excretion. Gallbladder is visualized by 30 minutes. No evidence of acute cholecystitis. Normal common bile duct and small bowel activity. Gallbladder ejection fraction of 56% within normal limits. No evidence of chronic cholecystitis. NM/NM hepatobiliary w phar* [id number] IMPRESSION: 1. No evidence of acute or chronic cholecystitis. 2. Gallbladder ejection fraction 56% within normal limits.
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
[2025-03-05 14:49] VITALS: BP 130/81; PULSE 72; RESP 20; O2SAT 94
--- NOTE | 2025-03-05 15:29 | PC.NURSE ---
Addendum entered by Sherri Dawson RN 03/05/25 15:31: Significant other..they verb understanding of instructions.discharge antibiotics provided by meds to beds program.discharged at this time via w/c to exit.sig.other has arranged ride for then both. Original Note: discharge instructions given and explained to pt and s.1..
== END 2025-03-05 15:34 | disposition home or self-care (01) | DRG 876 ==
LOC: ER 04:28 → NP 04:30 → ICU 02-22 20:12 → CSU 02-26 04:07
PROVIDERS: Anesthesiology; Internal Medicine; Orthopaedic Surgery; Student in an Organized Health Care Education/Training Program; Admitting Provider Psychiatry & Neurology Psychiatry; Emergency Provider Family Medicine; PCP Nurse Practitioner; Visit Provider Family Medicine
PROC: 0QPH04Z Removal of Internal Fixation Device from Left Tibia, Open Approach (ICD-10-PCS; CPT 20680; principal; 2025-02-26 14:00)
DX: F25.9 Schizoaffective disorder, unspecified (principal); R45.851 Suicidal ideations; F15.20 Other stimulant dependence, uncomplicated; K86.2 Cyst of pancreas; M86.9 Osteomyelitis, unspecified; T84.623A Infection and inflammatory reaction due to internal fixation device of left tibia, initial encounter; E66.9 Obesity, unspecified; Z68.35 Body mass index [BMI] 35.0-35.9, adult; Z86.14 Personal history of Methicillin resistant Staphylococcus aureus infection; Z91.51 Personal history of suicidal behavior; T50.906A Underdosing of unspecified drugs, medicaments and biological substances, initial encounter; Z91.120 Patient's intentional underdosing of medication regimen due to financial hardship; F17.210 Nicotine dependence, cigarettes, uncomplicated; R12 Heartburn; S82.202S Unspecified fracture of shaft of left tibia, sequela; V49.9XXS Car occupant (driver) (passenger) injured in unspecified traffic accident, sequela; B95.62 Methicillin resistant Staphylococcus aureus infection as the cause of diseases classified elsewhere; K80.20 Calculus of gallbladder without cholecystitis without obstruction
CPT/HCPCS: 36415; 36416; 73590; 73700; 76000; 76705; 78227; 80048; 80053; 80202; 80306; 80307; 81001; 81025; 82962; 82977; 83605; 83690; 84145; 85007; 85025; 85027; 85651; 86140; 87040; 87070; 87075; 87077; 87186; 87205; 94664; 96372; 96374; 96376; 97110; 97116; 97150; 97161; 97165; 97167; 97535; 99285; A9270; A9537; J0131; J0690; J1100; J1171; J1200; J1630; J1650; J1885; J2060; J2250; J2270; J2405; J2470; J2543; J2704; J3010; J3370; J3372; J7030; J9999

== ENCOUNTER 2025-03-06 23:37 | Inpatient (IN) | payer SELFPAY ==
[2025-03-06 23:42] VITALS: BP 134/87; PULSE 104; RESP 16; TEMP 36.4; O2SAT 95; BMI 34.2
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
[2025-03-07] MEDS: sulfamethoxazole-trimeth DS 160-800 mg Tablet 1 TAB PO ×3 (00:40→17:11)
[2025-03-07 01:03] LABS: Hematocrit 37.9 % (36-47); Hemoglobin 12.90 g/dL (11.27-16.99); Mean Corpuscular HGB Conc 34.0 g/dL (30-55); Mean Corpuscular Hemoglobin 31.2 pg (27-33); Mean Corpuscular Volume 91.8 fl (85-98); Nucleated Red Blood Cells % 0 %; Platelet Count 299 10^3/cmm (157-399); Red Blood Count 4.13 10^6/uL (3.85-5.65); White Blood Count 8.76 10^3/uL (3.29-11.43)
[2025-03-07 01:17] LABS: HCG Qualitative Urine. Negative (Negative)
[2025-03-07 01:23] LABS: Glucose Urine UA Negative (Normal); Nitrate Urine Negative (Negative); Specific Gravity, Urine 1.011 (1.005-1.030)
[2025-03-07 01:28] LABS: Acetaminophen < 5.0 ug/mL (10-30); Alanine Aminotransferase 42 U/L (0-33); Albumin Level 4.2 g/dL (3.5-5.2); Alcohol Level < 10 mg/dL (0-10); Alkaline Phosphatase 264 U/L (35-105); Anion Gap 19.3 (5-19); Aspartate Amino Transferase 22 U/L (0-32); Blood Urea Nitrogen 5 mg/dL (6-20); Calcium 9.8 mg/dL (8.5-10.5); Carbon Dioxide 25 mmol/L (22-29); Chloride 94 mmol/L (98-107); Creatinine Clr Calc Pharmacy 147.1469; Globulin 3.5 g/dL (1.3-4.6); Glucose 158 mg/dL (65-115); Osmolality Calculated 281 mOsm/kg (285-295); Potassium 3.3 mmol/L (3.5-5.1); Salicylate < 0.3 mg/dL (3-10); Sodium 135 mmol/L (136-145); Total Protein 7.7 g/dL (6.6-8.7)
[2025-03-07 01:28] LABS: Add Urine Microscopic? YES
[2025-03-07 01:31] LABS: PCP Screen Urine Negative (Negative)
[2025-03-07 01:34] LABS: Thyroid Stimulating Hormone 1.78 uIU/mL (0.27-4.20)
[2025-03-07 04:03] VITALS: BP 128/84; PULSE 108; RESP 18; O2SAT 94
[2025-03-07 04:29] VITALS: BP 151/90; PULSE 106; RESP 20; TEMP 36.5; O2SAT 95
[2025-03-07 05:35] VITALS: BP 151/70; PULSE 106; RESP 20; TEMP 36.5; O2SAT 95
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
[2025-03-07] MEDS: paliperidone ER 9 mg Tablet PO (08:42)
[2025-03-07] MEDS: divalproex ER 500 mg Tablet (24H) 1000 MG PO (08:43)
[2025-03-07] MEDS: haloperidol inj 5 mg/mL INJ 1 mL IM (12:13)
[2025-03-07] MEDS: LORazepam 1 MG/0.5 ML injection 2 MG IM (12:14)
[2025-03-07] MEDS: diphenhydrAMINE 50 mg/mL SDV 1mL IM (12:14)
[2025-03-07 14:00] VITALS: BP 111/61; PULSE 105; RESP 18; TEMP 36.6; O2SAT 98
--- NOTE | 2025-03-07 15:32 | PC.NURSE ---
At approx 1150 pt began to escalate, reaching into nurses station trying to knock monitors off the desk. She was upset, because she wanted to be d/c home. Pt was redirected and told that she has to just wait to see the Dr. At this time security was called. Dr. Mckinnon was sitting on the bench outside the nurses station seeing another pt and Suri walked up to him and hit his keyboard and began calling him names. Staff jumped out to get Dr. Mckinnon back into the nurses station and Suri was redirected to her room. Pt refused to go to her room and began to resist staff. She was given the choice at this time to go into her room and rest or she would have to go to seclusion. Pt cont to resist staff and was placed in a manual hold and walked down to the Seclusion room. At 1203 pt was placed in seclusion. Dr Mckinnon was made aware at this time that she was place here and orders were given for a B52 (see MAR). At 1210 injections were given. Pt was tearful, but accepted the injections without incident. She sat down and waited. 52 min later pt was released from seclusion, she was then calm and cooperative. She was given Tylenol for the pain in her incisions. She settled into her bed without incident and rested.
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
[2025-03-07] MEDS: RIFABUTIN 150 MG 150 EACH PO (17:11)
[2025-03-07 19:53] VITALS: BP 109/69; PULSE 104; RESP 16; TEMP 37.2; O2SAT 95
[2025-03-07 21:47] VITALS: RESP 16; O2SAT 95
[2025-03-07] MEDS: oxyCODONE 5 mg IR Tab/Cap PO (21:47)
[2025-03-08 06:00] VITALS: BP 106/71; PULSE 94; RESP 16; TEMP 37; O2SAT 95
[2025-03-08] MEDS: RIFABUTIN 150 MG 150 EACH PO (07:47)
[2025-03-08] MEDS: paliperidone ER 9 mg Tablet PO (08:30)
[2025-03-08] MEDS: sulfamethoxazole-trimeth DS 160-800 mg Tablet 1 TAB PO (08:30)
[2025-03-08] MEDS: divalproex ER 500 mg Tablet (24H) 1000 MG PO (08:30)
--- NOTE | 2025-03-08 09:32 | NUR.SHIFT ---
Pt states that she slept good last night. She rated her anxiety and depression a 0/10 on assessment. There are no reports of SI/HI or hallucinations. She denies any pain in her leg. She is asking when she can go home and has already spoke to Edu multiple times this am. She is cooperative on assessment.
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
--- NOTE | 2025-03-08 13:54 | W.PM.NPUDCS ---
Diagnoses at Discharge Discharge Diagnosis (1) Osteomyelitis of left tibia: Status: Acute (2) Open wound of left lower leg with complication: Status: Acute Reason for Visit Reason for Visit: LEG WOUND/CHEST BUTTERFLIES Brief History: History of Present Illness Suri Moreno is a 39 year old female recently discharged yesterday from [facility] after having been on the medical unit where she had an infection from infected hardware with a recent open fracture and active for MRSA. The patient had been discharged from the hospital yesterday to her boyfriend Edu. Unbeknownst to Edu, the patient had presented to the emergency department yesterday complaining of having pain in her leg and wanting it checked out. She had at that time made a threat in the emergency department to slit her throat. The patient had been brought to the neuropsychiatric unit and was continuing to endorse that she wanted to go home but at the same time also reporting that she had plans to slit her throat. She was unable to provide any additional information as she had been agitated and required seclusion and chemical restraint on the neuropsychiatric unit. There did not appear to be any significant changes since her last hospitalization yesterday. The patient had endorsed depression. She had endorsed having suicidal thoughts. She did not appear to be under guardianship at this time. Excerpt from NPU Admission note from 02/16/25 History of Present Illness Suri Moreno is a 39 year old female who presented to the emergency department with the following report: Chief Complaint: Psychiatric Symptoms Stated Complaint: SI Time Seen by Provider: 02/16/25 02:15 History of Present Illness: Emergency Department Visit for Suicidal Ideation and Infected Wound Subjective: Patient presents to the emergency department with suicidal ideation and a possible infected wound. Patient reports a recent suicide attempt a couple days ago involving cutting the left forearm with a knife. Patient acknowledges previous hospitalization for suicidal behavior approximately two weeks ago. Patient states they have run out of medications a couple days ago due to financial constraints. Patient reports having an abscess on the left leg that has been present for a while with yellow purulent drainage. Patient occasionally experiences fever when weight-bearing on the affected leg. Patient has a history of MRSA infections. Patient expresses desire to be admitted for inpatient psychiatric care, stating I need to go back in. Patient has not been taking prescribed medications due to running out of them several days ago because of financial issues. She was admitted to the neuropsychiatric unit for definitive treatment of those issues. She is known to [facility] psychiatry through inpatient and outpatient services with her recent inpatient stay being quite lengthy spanning most of December into the beginning of January of this year. An excerpt of that note is included below for context and the fact that there have been no substantive changes. She is very confused during the interview saying that some kind of attack occurred and she does not know where her significant other is and fears that he is . She seemed quite paranoid but was mostly focused on is not kicking her out and helping her find her partner. We agreed we would get some collateral information, restart her medications and make sure that her significant other is fine and that the plan for her situation moving forward is guardianship. Additionally she presents again negative for any substances of abuse but seeming quite confused. Per her 01/13/2025 [facility] inpatient psychiatric discharge summary: Diagnoses at Discharge Discharge Diagnosis (1) Colitis: Status: Acute Reason for Visit Reason for Visit: mhe Brief History: History of Present Illness Suri Moreno is a 39 year old female Chief Complaint: Psychiatric Symptoms Stated Complaint: mhe Time Seen by Provider: 12/09/24 18:02 Source: patient and EMS Mode of arrival: ambulatory Limitations: no limitations History of Present Illness: This patient was transported by EMS to the emergency department because of concerns about suicidality. Reportedly she requested police take her to retirement because she was concerned about self-harm. She had not committed any offenses and there was no reason to incarcerate her so therefore EMS brought her to this facility. She states she used meth with a friend yesterday and had been sometime since she had used methamphetamine. She states that she told her boyfriend that she was thinking about harming herself and she continues to harbor thoughts of harming herself. She states she would cut her wrists. She states that she used to take mental health medications which she cannot remember the names but has not taken it for some time. She has previously been hospitalized for mental health issues but has not been in this facility. She states that she smokes tobacco but does not drink alcohol or use or any other street drugs. She has 4 but does not have an active relationship in the same home with these children. She currently denies any other symptoms such as nausea vomiting diarrhea chest pain palpitations fevers chills etc. MD complaint: suicidal ideation and feels depressed Context: recent drug abuse Associated psychiatric symptoms: suicidal ideation Associated symptoms: Reports depression and suicidal ideation; Deny auditory hallucinations or visual hallucinations If self harm: admits thoughts of self harm. Chief complaint Experiencing auditory hallucinations, paranoia, and anxiety, with a history of depression and substance use. History of the present complaint The individual reports a long-standing history of depression and anxiety, which predates any substance use. They have been dealing with these mental health issues for a significant period, indicating that these conditions were present before any drug use began. The individual describes experiencing paranoia, with feelings that people are out to get them and hearing voices. They express a belief that others can hear everything they say and are repeating their conversations. These symptoms contribute to their anxiety and fear, as they feel that people are in the chase and are going to shoot them, although they acknowledge that this is not happening in reality. The individual has a history of substance use, specifically methamphetamine, which they have been using for approximately 20 years, starting in their teenage years. They have attempted to stop using methamphetamine and have been to rehab once, on March 30 of the previous year, but continue to struggle with cessation. They report no use of alcohol or marijuana and have a history of tobacco use since their teenage years. In terms of family history, there is no reported history of mental health issues or addiction on either side of the family. The individual reports experiencing neglect during childhood but denies any physical or sexual abuse. They have a history of speech therapy and special education during school years. The individual is the oldest of three siblings and reports that their parents are , although this occurred some time ago. The individual has been twice, both times to men, and has four biological children, aged 9, 11, 12, and 17. They report living with a partner and two cats in an apartment. They have been on disability, although the specific reason for this is not detailed. The individual has a history of incarceration, having been jailed once for approximately three to four weeks. They also report having high blood pressure but no other significant medical issues or surgeries. The individual expresses current suicidal thoughts but denies any thoughts of harming others. They report hearing voices and seeing things, contributing to their feelings of paranoia and fear. Mental health history Has a long-standing history of depression and anxiety, which began before any drug use. Has been on medications for depression and anxiety in the past. Reports hearing voices, experiencing paranoia, and having suicidal thoughts. No family history of mental health issues. Has been hospitalized in a psychiatric facility before and has received outpatient treatment. Social history Currently unemployed and on disability. Previously worked at [employer]. Smokes tobacco, started as a teenager. No alcohol or cannabis use. Methamphetamine use for approximately 20 years, with a rehab attempt on March 30 of the previous year. No family history of addiction. twice, with four biological children aged 9, 11, 12, and 17. Lives in an apartment with a partner and two cats. No service or yazidism beliefs mentioned. Experienced neglect in childhood, but no physical or sexual abuse. Parents are . Has a brother and a sister, and is the oldest sibling. Graduated from high school. Hospital Course The patient had an extended hospitalization here for more than a month. She had shown evidence of considerable problems with maintaining control of her impulses. She had presented with psychosis with complaints of there being people in her chase as she had reported auditory hallucinations. She had been aggressive and very difficult to redirect requiring one-on-one observation due to her consistent aggression. Family members had reported that the patient had been using methamphetamine recently and she had already previously had problems with cognitive impairment since childhood along with problems with impulsivity. An evaluation was completed to determine whether the patient was able to live independently (DARLENE) and the patient had required significant assistance in 10 out of the 12 skills tested. A level 2 was completed with a plan for consideration of guardianship. However, the patient was not recommended for level 2 by the independent evaluators at the time because the patient was on one-to-one observation at the time of the interview. The patient ultimately was agreeable to living with her boyfriend Edu who had excepted and would assume care for the patient. He had stated that he would continue to pursue guardianship for her. In regards to medications, the patient was placed on multiple medications but ultimately placed on Invega titrated up to 12 mg daily but eventually reduced to 9 mg prior to discharge. Depakote was prescribed to be given at 1000 mg extended release for targeting aggression as well. Seroquel was also added and titrated up to a dose of 200 mg daily in the morning and 600 mg at night along with Haldol in the morning and Klonopin at nighttime. Patient had required several as needed medications for agitation and aggression but did appear to have less episodes of aggression and no PRNs at the time of discharge.At the time of discharge, lethality was denied and psychosis was resolving. Mood and anxiety were well managed. The patient endorsed a plan to avoid all drugs of abuse and follow up with the aftercare recommendations of the treatment team. The patient was evaluated and deemed to be absent credible lethality and had achieved the maximum benefit from an inpatient hospitalization, and so was discharged. The patient had required placement in the intensive care unit beginning on 01/11/2025 as she had had loss of control of her bowels and had complained of significant pain. She was thought to have infectious colitis and ultrasound had supported that the patient had some potential problems with her gallbladder as well which will require further follow-up in the future. She was also placed on antibiotics to target infectious colitis that she would take on an outpatient basis as well for the next few days. She was eventually transferred back from the ICU on 01/13/2025 to the neuropsychiatric unit where she would await discharge. Hospital Course Hospital Course She was restarted on outpatient medications. Wound care team assessed her wounds in leg and assured no worsening infection. She was more calm here and was agreeable to returning to home of boyfriend Edu who stated that he would continue to work to file for guardianship. During the hospitalization, the patient had routine laboratory studies which were within normal limits except for a few outliers.? Additionally, there was a general medical evaluation which was also within normal limits and revealed no new acute processes.? At the time of discharge, lethality was denied and psychosis was resolving.? Mood and anxiety were well managed.? The patient endorsed a plan to avoid all drugs of abuse and follow up with the aftercare recommendations of the treatment team.? The patient was evaluated and deemed to be absent credible lethality and had achieved the maximum benefit from an inpatient hospitalization, and so was discharged. ? Mental Status Exam MSE Comments: This is an overweight versus obese white female looking older than her stated age in hospital scrubs with poor grooming and fair eye contact in the ICU bed. She was extremely immature appearing to interact like an 6 year old child. Poor dentition. No abnormal involuntary motor movements appreciated today. She was partially cooperative on interview. Speech was normal in rate and mostly decreased in volume and monotone in quality and at times slurred. Mood described as good. Her affect was brighter. Thought process was linear but concrete. Thought content: Patient denies suicidal or homicidal ideation. She denied auditory hallucinations today and did not actively appear to be responding to internal stimuli. There was mild paranoia appreciated. Attention and concentration were improving as she was the less distracted. She is alert and oriented times person and place. Insight was limited. Judgment is guarded. Impulse control was adequate. Fund of knowledge appeared poor. Abstraction was poor with evidence of concrete thinking. Discharge Data Studies Completed and Pending: Pending at discharge Category Date Time Status Basic Metabolic P selina AM LABS Lab 03/09/25 04:00 Ordered Basic Metabolic P selina AM LABS Lab 03/10/25 04:00 Ordered Basic Metabolic P selina AM LABS Lab 03/11/25 04:00 Ordered Laboratory Results WBC 8.76 10^3/uL (3.2 9-11.43) 03/07/25 00:51 RBC 4.13 10^6/uL (3.8 5-5.65) 03/07/25 00:51 Hgb 12.90 g/dL (11.27 -16.99) 03/07/25 00:51 Hct 37.9 % (36-47) 03/07/25 00:51 MCV 91.8 fl (85-98) 03/07/25 00:51 MCH 31.2 pg (27-33) 03/07/25 00:51 MCHC 34.0 g/dL (30-55) 03/07/25 00:51 RDW 12.6 % (12.1-15.1 ) 03/07/25 00:51 Plt Count 299 10^3/cmm (157 -399) 03/07/25 00:51 MPV 9.9 fL (7.4-10.4) 03/07/25 00:51 Neut % (Auto) 74.9 % 03/07/25 00:51 Lymph % (Auto) 10.3 % 03/07/25 00:51 [place] % (Auto) 12.0 % 03/07/25 00:51 Eos % (Auto) 0.7 % 03/07/25 00:51 Baso % (Auto) 0.5 % 03/07/25 00:51 Neut # (Auto) 6.57 10^3/uL (1.8 -7.7) 03/07/25 00:51 Lymph # (Auto) 0.9 10^3/uL (0.8- 4.8) 03/07/25 00:51 [place] # (Auto) 1.1 10^3/uL (0.2- 0.9) H 03/07/25 00:51 Eos # (Auto) 0.1 10^3/uL (0.0- 0.8) 03/07/25 00:51 Baso # (Auto) 0.0 10^3/uL (0.0- 0.1) 03/07/25 00:51 Nucleated RBC % (a uto) 0 % 03/07/25 00: Nucleated RBCs # 0.0 /100WBC 03/07/25 00:51 Sodium 135 mmol/L (136-1 45) L 03/07/25 00:51 Potassium 3.3 mmol/L (3.5-5 .1) L 03/07/25 00:51 Chloride 94 mmol/L (98-107 ) L 03/07/25 00:51 Carbon Dioxide 25 mmol/L (22-29) 03/07/25 00:51 Anion Gap 19.3 (5-19) H 03/07/25 00:51 BUN 5 mg/dL (6-20) L 03/07/25 00:51 Creatinine 0.6 mg/dL (0.5-0. 9) 03/07/25 00:51 GFR Calculation 111.3 mL/min (90- 130) 03/07/25 00:51 Glucose 158 mg/dL (65-115 ) H 03/07/25 00:51 Calculated Osmolal ity 281 mOsm/kg (285- 295) L 03/07/25 00:51 Calcium 9.8 mg/dL (8.5-10 .5) 03/07/25 00:51 Total Bilirubin 0.3 mg/dL (0.15-1 .2) 03/07/25 00:51 AST 22 U/L (0-32) 03/07/25 00:51 ALT 42 U/L (0-33) H 03/07/25 00:51 Alkaline Phosphata se 264 U/L (35-105) H 03/07/25 00:51 Total Protein 7.7 g/dL (6.6-8.7 ) 03/07/25 00:51 Albumin 4.2 g/dL (3.5-5.2 ) 03/07/25 00:51 Globulin 3.5 g/dL (1.3-4.6 ) 03/07/25 00:51 TSH 1.78 uIU/mL (0.27 -4.20) 03/07/25 00:51 HCG, Qual Negative (Negati ve) 03/07/25 01:07 Urine Color Dark yellow (Yel low) A 03/07/25 01:07 Urine Appearance Clear (CLEAR) 03/07/25 01:07 Urine pH 6.5 (5-7) 03/07/25 01:07 Ur Specific Gravit y 1.011 (1.005-1.0 30) 03/07/25 01:07 Urine Protein Negative (Negati ve) 03/07/25 01:07 Urine Glucose (UA) Negative (Normal ) 03/07/25 01:07 Urine Ketones Negative (Negati ve) 03/07/25 01:07 Urine Blood Negative (Negati ve) 03/07/25 01:07 Urine Nitrate Negative (Negati ve) 03/07/25 01:07 Urine Bilirubin Negative (Negati ve) 03/07/25 01:07 Urine Urobilinogen 1.0 mg/dL (Negati ve) 03/07/25 01:07 Ur Leukocyte Vilma ase Trace (Negative) A 03/07/25 01:07 Urine RBC 0-2 /hpf (0-2) 03/07/25 01:07 Urine WBC 0-5 /hpf (0-5) 03/07/25 01:07 Ur Squamous Epith Cells 0-5 /hpf (0-5) 03/07/25 01:07 Amorphous Sediment Not Reportable 03/07/25 01:07 Urine Bacteria None seen /hpf (N ONE) 03/07/25 01:07 Hyaline Casts 0.40 /lpf 03/07/25 01:07 Salicylates < 0.3 mg/dL (3-10 ) L 03/07/25 00:51 Urine Opiates Scre en Negative ng/mL (N egative) 03/07/25 01:07 Acetaminophen < 5.0 ug/mL (10-3 0) L 03/07/25 00:51 Ur Barbiturates Sc reen Negative ng/mL (N egative) 03/07/25 01:07 Ur Phencyclidine S crn Negative ng/mL (N egative) 03/07/25 01:07 Ur Amphetamines Sc reen Negative ng/mL (N egative) 03/07/25 01:07 U Benzodiazepines Scrn Positive ng/mL (N egative) H 03/07/25 01:07 Urine Cocaine Scre en Negative ng/mL (N egative) 03/07/25 01:07 U Marijuana (THC) Screen Negative ng/mL (N egative) 03/07/25 01:07 Ethyl Alcohol < 10 mg/dL (0-10) 03/07/25 00:51 Vitals: Last Vital Signs Temp 98.6 F 03/08/25 06:00 Pulse 94 03/08/25 06:00 Resp 16 03/08/25 06:00 BP 106/71 03/08/25 06:00 Pulse Ox 95 03/08/25 06:00 O2 Del Method Room Air 03/08/25 06:00 Discharge Plan Discharge Patient Disposition: Home Condition: Stable Prescriptions: New clonazepam [Klonopin] 1 mg tablet 1 mg PO .at night Qty: 30 1RF Continued pantoprazole 40 mg tablet,delayed release (DR/EC) 40 mg PO BID 30 Days Qty: 60 5RF sulfamethoxazole-trimethoprim [Bactrim DS] 800-160 mg tablet 1 tab PO BID 42 Days Qty: 84 0RF oxycodone 5 mg Tablet 5 mg PO Q6H PRN (Reason: Moderate Pain) 5 Days Qty: 30 0RF rifabutin 150 mg capsule 150 mg PO BIDWMEAL Rx Instructions: must administer with a meal/food quetiapine 300 mg Tablet 600 mg PO BEDTIME 30 Days Qty: 60 1RF quetiapine 200 mg tablet 200 mg PO 0900 30 Days Qty: 30 1RF divalproex 500 mg Tablet Extended Release 24 Hr 1,000 mg PO DAILY 30 Days Qty: 60 1RF benztropine 1 mg Tablet 1 mg PO BID 30 Days Qty: 60 1RF paliperidone [Invega] 9 mg tablet extended release 24hr 9 mg PO DAILY 30 Days Qty: 30 1RF Discharge Orders: Discharge Order (Routine); Ordered 03/08/25 Ordered By: Omid Mckinnon Referrals: [facility] [Other] - 03/20/25 3:00 pm [facility] [Outside, Counselor - Professional] - 03/12/25 1:30 pm Referral Note: Assessment for services with Shayan Nielsen DO [Physician, Orthopedics] - 03/15/25 3:30 pm Carlos Alberto Concepcion, ENVIRONMENTAL PROGRAMS SPECIALIST-C [Primary Care Provider, [facility]] - 03/20/25 9:20 am Discharge Diet: Usual diet Discharge Activity: Resume usual activity Patient Instructions: Suicide Prevention (DC), Opioid Safety, Patient Portal & Bre Instructions Activity Restrictions/Additional Instructions: Wound Number 1: Dressing change frequency: Twice Daily Wound Cleansing: Saline Primary Wound Care Dressin/4 inch nugauze Secondary Wound Care Dressing: Island dressing Bathing/Showering/Hygiene: May shower with protection but do not get dressing wet. Discharge Attestations NPU Time Spent in Discharge Care*: less than 30 min Specific Discharge Activities: Specific discharge activities: educating patient, discussing with case resolution specialist/social workers/dc planners and documenting/other paperwork Coding Level of Care Code Acute Code for Chg Fwd Diagnoses Osteomyelitis of left tibia M86.9 Open wound of left lower leg with complication S81.802A
[2025-03-08 14:00] VITALS: BP 87/60; PULSE 96; RESP 17; O2SAT 95
[2025-03-08 14:42] VITALS: BP 87/60; PULSE 96; RESP 17; O2SAT 95
--- NOTE | 2025-03-08 15:23 | PC.NURSE ---
Pt did not receive Klonopin, she didn't have the funds to pay for it. Will have send to [facility]
== END 2025-03-08 15:21 | disposition home or self-care (01) | DRG 886 ==
LOC: ER 03-07 01:08 → NP 03-07 03:57
PROVIDERS: Admitting Provider Psychiatry & Neurology Psychiatry; Emergency Provider Physician Assistant; PCP Nurse Practitioner; Visit Provider Psychiatry & Neurology Psychiatry
DX: F63.9 Impulse disorder, unspecified (principal); R45.851 Suicidal ideations; M86.162 Other acute osteomyelitis, left tibia and fibula; F25.9 Schizoaffective disorder, unspecified; F15.11 Other stimulant abuse, in remission; Z68.34 Body mass index [BMI] 34.0-34.9, adult; F17.210 Nicotine dependence, cigarettes, uncomplicated; Z91.51 Personal history of suicidal behavior; F41.9 Anxiety disorder, unspecified; F31.9 Bipolar disorder, unspecified; S81.802A Unspecified open wound, left lower leg, initial encounter; X58.XXXA Exposure to other specified factors, initial encounter; E66.9 Obesity, unspecified
CPT/HCPCS: 36415; 80053; 80306; 80307; 81001; 81025; 84443; 85025; 96372; 97165; 99285; J1200; J1630; J2060; J9999

== ENCOUNTER → 2025-03-20 10:11 | Outpatient (BNVA) | payer SELFPAY | PROVIDERS: PCP Nurse Practitioner; Visit Provider Nurse Practitioner | DX: N91.2 Amenorrhea, unspecified (principal); M86.462 Chronic osteomyelitis with draining sinus, left tibia and fibula; T84.7XXA Infection and inflammatory reaction due to other internal orthopedic prosthetic devices, implants and grafts, initial encounter; K86.2 Cyst of pancreas | CPT/HCPCS: 80053; 81025; 85025; 86140 ==

== ENCOUNTER 2025-07-06 03:50 | Emergency (ER) | payer MEDICARE, SELFPAY ==
--- NOTE | 2025-07-06 03:55 | ECG_ITS ---
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 Measurements Intervals [place] Rate: 82 P: 17 IL: 123 QRS: 32 QRSD: 94 T: 21 QT: 373 QTc: 436 Interpretive Statements SINUS RHYTHM Compared to ECG 12/09/2024 19:25:05 Sinus tachycardia no longer present Incomplete right bundle-branch block no longer present Electronically Signed On 07-07-2025 20:59:29 CDT by Jaiden Ashraf M.D. [email or web address]
--- NOTE | 2025-07-06 03:56 | XRR_ITS ---
PROCEDURE INFORMATION: Exam: XR Chest Exam date and time: 07/06/2025 4:07 AM Age: 40 years old Clinical indication: Chest pressure; C/O chest pain; Additional info: Cp TECHNIQUE: Imaging protocol: Radiologic exam of the chest. Views: 1 view. COMPARISON: CT abdomen pelvis wo con [id number] 01/11/2025 9:37 AM FINDINGS: Lungs: Unremarkable. No consolidation. Pleural spaces: Unremarkable. No pleural effusion. No pneumothorax. Heart/Mediastinum: Unremarkable. No cardiomegaly. Bones/joints: Unremarkable. XR/XR chest 1V portable [id number] IMPRESSION: No acute findings.
[2025-07-06 04:01] VITALS: BP 143/87; PULSE 87; RESP 16; TEMP 36.6; O2SAT 99; BMI 32.9
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
[2025-07-06 04:19] LABS: Glucose Urine UA Negative (Normal); Nitrate Urine Negative (Negative); Specific Gravity, Urine 1.002 (1.005-1.030)
[2025-07-06 04:24] LABS: Add Urine Microscopic? YES
[2025-07-06 04:26] LABS: PCP Screen Urine Negative (Negative)
[2025-07-06 05:30] LABS: Hematocrit 41.9 % (36-47); Hemoglobin 14.50 g/dL (11.27-16.99); Mean Corpuscular HGB Conc 34.6 g/dL (30-55); Mean Corpuscular Hemoglobin 31.4 pg (27-33); Mean Corpuscular Volume 90.7 fl (85-98); Nucleated Red Blood Cells % 0 %; Platelet Count 252 10^3/cmm (157-399); Red Blood Count 4.62 10^6/uL (3.85-5.65); White Blood Count 7.28 10^3/uL (3.29-11.43)
[2025-07-06 05:54] LABS: Troponin(5th) Baseline < 6 ng/L (0-10)
[2025-07-06 06:04] LABS: Anion Gap 17.4 (5-19); Blood Urea Nitrogen 6 mg/dL (6-20); CRP High Sensitivity Cardiac 0.480 mg/dL (0.0-0.3); Calcium 9.7 mg/dL (8.5-10.5); Carbon Dioxide 26 mmol/L (22-29); Chloride 97 mmol/L (98-107); Creatinine Clr Calc Pharmacy 142.8338; Glucose 96 mg/dL (65-115); Magnesium 2.4 mg/dL (1.7-2.3); NT Pro B Type Natriuretic Pept < 36 pg/mL (0-125); Osmolality Calculated 281 mOsm/kg (285-295); Potassium 3.4 mmol/L (3.5-5.1); Salicylate 1.0 mg/dL (3-10); Sodium 137 mmol/L (136-145)
[2025-07-06 06:05] LABS: Thyroid Stimulating Hormone 1.08 uIU/mL (0.27-4.20)
[2025-07-06 06:08] LABS: Acetaminophen < 5.0 ug/mL (10-30); Alcohol Level < 10 mg/dL (0-10)
[2025-07-06 07:12] LABS: Respiratory Syncytial Virus Ce NEGATIVE (Negative); SARS-CoV-2 PCR NEGATIVE (Negative)
[2025-07-06 07:45] LABS: Troponin 5 2HR < 6.0 ng/L (0-10); Troponin 5 2HR Delta 0 ABS# (0-10)
--- NOTE | 2025-07-06 07:54 | PC.PHAR ---
Patient states she does not rememeber the last time she took her Clonazepam 1mg, last fill date 05/24/25 30days . Patient states she isn't taking anything but the Pantoprazole. I removed Quetiapine 300 at bedtime, Quetiapine 200 at 9am , Dialproex ER 500,Benztropine 1mg, Paliperidone ER 9mg, And [id number], all filled 03/08/25 for 30 days .
[2025-07-06 11:13] VITALS: BP 106/73; PULSE 85; O2SAT 97
--- NOTE | 2025-07-06 12:16 | PC.NURSE ---
Pt was read her 96 hour hold rights at this time with security present
[2025-07-06 19:00] VITALS: BP 129/92; PULSE 96; RESP 14; O2SAT 96
[2025-07-06 21:41] VITALS: BP 126/89; PULSE 91; RESP 16; O2SAT 98
== END 2025-07-06 22:47 | disposition admitted as inpatient to this hospital (09) ==
LOC: ER 06:01 → ER IP 06:08
PROVIDERS: Emergency Provider Student in an Organized Health Care Education/Training Program; PCP Nurse Practitioner
DX: F25.9 Schizoaffective disorder, unspecified (principal); R45.851 Suicidal ideations; F17.210 Nicotine dependence, cigarettes, uncomplicated
CPT/HCPCS: 36415; 71045; 80048; 80306; 80307; 81001; 83735; 83880; 84443; 84484; 85025; 86141; 87637; 93005; 99285; J9999

== ENCOUNTER 2025-07-18 01:49 | Emergency (ER) | payer MEDICARE, SELFPAY ==
[2025-07-18] VITALS (11 sets, daily range): BP systolic 109–122; BP diastolic 70–92; PULSE 86–102; RESP 17–18; TEMP 36.6; O2SAT 93–100; BMI 32.3
--- NOTE | 2025-07-18 01:50 | XRR_ITS ---
PROCEDURE INFORMATION: Exam: XR Chest Exam date and time: 07/18/2025 2:04 AM Age: 40 years old Clinical indication: Pain; Angina pectoris; Additional info: Chest pain TECHNIQUE: Imaging protocol: Radiologic exam of the chest. Views: 1 view. COMPARISON: CR (CHEST, ) 07/06/2025 4:07 AM FINDINGS: Lungs: Left lower lobe airspace opacities. Pleural spaces: Unremarkable. No pleural effusion. No pneumothorax. Heart/Mediastinum: Unremarkable. No cardiomegaly. Bones/joints: Unremarkable. XR/XR chest 1V portable [id number] IMPRESSION: Left lower lobe airspace opacities. Atelectasis and/or pneumonia are included in the differential.
--- NOTE | 2025-07-18 02:02 | ECG_ITS ---
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 Measurements Intervals [place] Rate: 82 P: 50 WI: 136 QRS: 47 QRSD: 93 T: 17 QT: 368 QTc: 430 Interpretive Statements SINUS RHYTHM Compared to ECG 07/06/2025 04:06:53 No significant changes Electronically Signed On 07-18-2025 20:13:03 OSTOMY NURSE by Jaiden Ashraf M.D. [email or web address]
[2025-07-18 02:14] LABS: Hematocrit 41.2 % (36-47); Hemoglobin 13.70 g/dL (11.27-16.99); Mean Corpuscular HGB Conc 33.3 g/dL (30-55); Mean Corpuscular Hemoglobin 31.5 pg (27-33); Mean Corpuscular Volume 94.7 fl (85-98); Nucleated Red Blood Cells % 0 %; Platelet Count 265 10^3/cmm (157-399); Red Blood Count 4.35 10^6/uL (3.85-5.65); White Blood Count 9.80 10^3/uL (3.29-11.43)
[2025-07-18 02:17] LABS: Glucose Urine UA Negative (Normal); Nitrate Urine Negative (Negative); Specific Gravity, Urine 1.004 (1.005-1.030)
[2025-07-18 02:22] LABS: Add Urine Microscopic? YES
[2025-07-18 02:24] LABS: PCP Screen Urine Negative (Negative)
[2025-07-18 02:33] LABS: Troponin(5th) Baseline < 6 ng/L (0-10)
[2025-07-18 02:42] LABS: Alanine Aminotransferase 42 U/L (0-33); Albumin Level 4.5 g/dL (3.5-5.2); Alkaline Phosphatase 178 U/L (35-105); Aspartate Amino Transferase 37 U/L (0-32); Blood Urea Nitrogen 4 mg/dL (6-20); Calcium 9.4 mg/dL (8.5-10.5); Carbon Dioxide 25 mmol/L (22-29); Chloride 101 mmol/L (98-107); Creatinine Clr Calc Pharmacy 169.6864; Globulin 2.2 g/dL (1.3-4.6); Glucose 100 mg/dL (65-115); NT Pro B Type Natriuretic Pept < 36 pg/mL (0-125); Osmolality Calculated 289 mOsm/kg (285-295); Sodium 141 mmol/L (136-145); Total Protein 6.7 g/dL (6.6-8.7)
[2025-07-18 02:45] LABS: Anion Gap 18.6 (5-19); Potassium 3.6 mmol/L (3.5-5.1)
[2025-07-18 03:06] LABS: Salicylate 0.9 mg/dL (3-10)
[2025-07-18 03:08] LABS: Acetaminophen < 5.0 ug/mL (10-30); Alcohol Level < 10 mg/dL (0-10)
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
[2025-07-18 04:24] LABS: Troponin 5 2HR < 6.0 ng/L (0-10); Troponin 5 2HR Delta 0 ABS# (0-10)
--- NOTE | 2025-07-18 09:27 | PC.PHAR ---
Patient states she took her medications a few days ago but can't remember what day it was.
--- NOTE | 2025-07-18 10:03 | PC.NURSE ---
[facility] CALLED AND INFORMED CUSTODIAL MAINTENANCE WORKER THAT THEY ARE UNABLE TO ACCEPT PT NOW DUE TO PT BEING ON ANTIBIOTICS.
== END 2025-07-18 10:55 ==
PROVIDERS: Emergency Provider Emergency Medicine; PCP Nurse Practitioner
DX: R07.89 Other chest pain (principal); R45.851 Suicidal ideations; R44.0 Auditory hallucinations; F17.210 Nicotine dependence, cigarettes, uncomplicated; R91.8 Other nonspecific abnormal finding of lung field; R06.82 Tachypnea, not elsewhere classified; R09.02 Hypoxemia
CPT/HCPCS: 36415; 71045; 80053; 80306; 80307; 81001; 83880; 84484; 85025; 85378; 93005; 99285; J9999

== ENCOUNTER 2025-07-24 10:02 | Emergency (ER) | payer MEDICARE, SELFPAY ==
[2025-07-24 10:04] VITALS: BP 129/107; PULSE 109; RESP 18; O2SAT 95; BMI 37.1
--- NOTE | 2025-07-24 10:05 | XR_ITS ---
WS: [id number] XR chest 1V portable [id number] REASON FOR EXAM: dyspnea/cough FINDINGS: Compared to the previous examination of 07/18/2025, the left lower lung opacities have resolved. No other significant interval change compared to the previous examination. No new findings. XR/XR chest 1V portable [id number] IMPRESSION: Resolution of previous left lower lung opacities with no new findings identifie d. No acute chest abnormality.
--- NOTE | 2025-07-24 10:13 | ECG_ITS ---
[facility] Test Date: 2025-07-24 Pat Name: Suri Moreno Department: Room: Gender: Female Cloth Printing Inspector: : 1985 Requested By: Abe Brooks Order Number: [id number] Ana Paula MD: Carlyn Barahona M.D. Measurements Intervals [place] Rate: 111 P: 50 OR: 131 QRS: 33 QRSD: 84 T: 23 QT: 319 QTc: 434 Interpretive Statements SINUS TACHYCARDIA POSSIBLE LEFT ATRIAL ENLARGEMENT [-0.1mV P-WAVE IN V1/V2] ABNORMAL RHYTHM ECG Compared to ECG 07/18/2025 02:02:16 Sinus rhythm no longer present Electronically Signed On 07-25-2025 08:52:30 PRODUCT DEVELOPER by Carlyn Barahona M.D. [email or web address]
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
[2025-07-24 10:38] LABS: Hematocrit 43.2 % (36-47); Hemoglobin 14.90 g/dL (11.27-16.99); Mean Corpuscular HGB Conc 34.5 g/dL (30-55); Mean Corpuscular Hemoglobin 32.0 pg (27-33); Mean Corpuscular Volume 92.9 fl (85-98); Platelet Count 296 10^3/cmm (157-399); Red Blood Count 4.65 10^6/uL (3.85-5.65); White Blood Count 8.94 10^3/uL (3.29-11.43)
[2025-07-24 10:39] LABS: Nucleated Red Blood Cells % 0 %
[2025-07-24 11:03] LABS: Respiratory Syncytial Virus Ce NEGATIVE (Negative); SARS-CoV-2 PCR NEGATIVE (Negative)
[2025-07-24 11:04] LABS: Alanine Aminotransferase 26 U/L (0-33); Albumin Level 4.4 g/dL (3.5-5.2); Alkaline Phosphatase 178 U/L (35-105); Anion Gap 17.8 (5-19); Aspartate Amino Transferase 18 U/L (0-32); Blood Urea Nitrogen 2 mg/dL (6-20); Calcium 10.0 mg/dL (8.5-10.5); Carbon Dioxide 24 mmol/L (22-29); Chloride 100 mmol/L (98-107); Creatinine Clr Calc Pharmacy 152.1154; Globulin 3.2 g/dL (1.3-4.6); Glucose 100 mg/dL (65-115); Osmolality Calculated 282 mOsm/kg (285-295); Potassium 3.8 mmol/L (3.5-5.1); Sodium 138 mmol/L (136-145); Total Protein 7.6 g/dL (6.6-8.7)
[2025-07-24 11:56] VITALS: BP 121/90; PULSE 107; O2SAT 94
== END 2025-07-24 11:58 | disposition home or self-care (01) ==
PROVIDERS: Emergency Provider Family Medicine; PCP Nurse Practitioner
DX: J40 Bronchitis, not specified as acute or chronic (principal); Z11.52 Encounter for screening for COVID-19; F17.210 Nicotine dependence, cigarettes, uncomplicated
CPT/HCPCS: 71045; 80053; 85025; 87637; 93005; 99285

== ENCOUNTER 2025-07-25 05:27 | Emergency (ER) | payer MEDICARE, SELFPAY ==
[2025-07-25 05:28] VITALS: BP 128/86; PULSE 86; RESP 16; TEMP 36.4; O2SAT 99; BMI 32.3
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
[2025-07-25 05:57] LABS: Glucose Urine UA Negative (Normal); HCG Qualitative Urine. Negative (Negative); Nitrate Urine Negative (Negative); Specific Gravity, Urine 1.007 (1.005-1.030)
[2025-07-25 06:01] LABS: Add Urine Microscopic? YES
[2025-07-25 06:03] LABS: PCP Screen Urine Negative (Negative)
[2025-07-25 06:14] VITALS: RESP 16
[2025-07-25 06:17] LABS: Hematocrit 44.4 % (36-47); Hemoglobin 15.00 g/dL (11.27-16.99); Mean Corpuscular HGB Conc 33.8 g/dL (30-55); Mean Corpuscular Hemoglobin 31.1 pg (27-33); Mean Corpuscular Volume 91.9 fl (85-98); Nucleated Red Blood Cells % 0 %; Platelet Count 255 10^3/cmm (157-399); Red Blood Count 4.83 10^6/uL (3.85-5.65); White Blood Count 8.55 10^3/uL (3.29-11.43)
[2025-07-25 06:37] LABS: Alanine Aminotransferase 26 U/L (0-33); Albumin Level 4.6 g/dL (3.5-5.2); Alkaline Phosphatase 181 U/L (35-105); Anion Gap 16.7 (5-19); Aspartate Amino Transferase 20 U/L (0-32); Blood Urea Nitrogen 2 mg/dL (6-20); Calcium 10.0 mg/dL (8.5-10.5); Carbon Dioxide 26 mmol/L (22-29); Chloride 98 mmol/L (98-107); Creatinine Clr Calc Pharmacy 169.6864; Globulin 3.3 g/dL (1.3-4.6); Glucose 101 mg/dL (65-115); Osmolality Calculated 280 mOsm/kg (285-295); Potassium 3.7 mmol/L (3.5-5.1); Sodium 137 mmol/L (136-145); Total Protein 7.9 g/dL (6.6-8.7)
[2025-07-25 06:39] LABS: Acetaminophen < 5.0 ug/mL (10-30); Alcohol Level < 10 mg/dL (0-10); Salicylate < 0.3 mg/dL (3-10)
--- NOTE | 2025-07-25 06:39 | ECG_ITS ---
[facility] Test Date: 2025-07-25 Pat Name: Suri Moreno Department: Room: Gender: Female Lens Assistant: : 1985 Requested By: Kymberly Brooks Order Number: [id number] Ana Paula MD: Carlyn Barahona M.D. Measurements Intervals [place] Rate: 88 P: 33 HI: 132 QRS: 60 QRSD: 90 T: 22 QT: 355 QTc: 430 Interpretive Statements SINUS RHYTHM Compared to ECG 07/24/2025 10:13:07 Sinus tachycardia no longer present Electronically Signed On 07-25-2025 07:39:25 MECHANICAL ENGINEERING TEACHER by Carlyn Barahona M.D. [email or web address]
--- NOTE | 2025-07-25 06:45 | PC.NURSE ---
96 HH Pt served with 96 HH right form by this RN and Security. Pt A&O and pleasant at this time.
--- NOTE | 2025-07-25 07:13 | PC.NURSE ---
THIS NURSE ASSUMED CARE @ 0700.
[2025-07-25 10:23] LABS: Respiratory Syncytial Virus Ce NEGATIVE (Negative); SARS-CoV-2 PCR NEGATIVE (Negative)
[2025-07-25 17:31] VITALS: BP 122/78; PULSE 95; O2SAT 97
== END 2025-07-25 17:34 ==
PROVIDERS: Student in an Organized Health Care Education/Training Program; Emergency Provider Emergency Medicine; PCP Nurse Practitioner
DX: R45.851 Suicidal ideations (principal); F17.210 Nicotine dependence, cigarettes, uncomplicated
CPT/HCPCS: 36415; 80053; 80306; 80307; 81001; 81025; 85025; 87637; 93005; 99285; J9999

== ENCOUNTER 2025-08-08 19:09 | Emergency (ER) | payer MEDICARE, SELFPAY ==
[2025-08-08 19:09] VITALS: BP 114/79; PULSE 117; RESP 16; TEMP 36.9; O2SAT 94
--- NOTE | 2025-08-08 19:16 | PC.NURSE ---
Friend Edu Carrillo's contact is [phone]
--- NOTE | 2025-08-08 19:22 | PC.NURSE ---
Patient has been dressed out of regular clothes, put ing reen paper scrubs. all belongings removed from patient's room, put in plastic bag, labeled and put in appropriate psych locker. PSA present at bedside.
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
[2025-08-08 19:57] LABS: HCG Qualitative Urine. Negative (Negative)
[2025-08-08 19:59] LABS: Hematocrit 37.8 % (36-47); Hemoglobin 12.90 g/dL (11.27-16.99); Mean Corpuscular HGB Conc 34.1 g/dL (30-55); Mean Corpuscular Hemoglobin 31.9 pg (27-33); Mean Corpuscular Volume 93.6 fl (85-98); Nucleated Red Blood Cells % 0 %; Platelet Count 291 10^3/cmm (157-399); Red Blood Count 4.04 10^6/uL (3.85-5.65); White Blood Count 7.93 10^3/uL (3.29-11.43)
[2025-08-08 20:20] LABS: Alanine Aminotransferase 37 U/L (0-33); Albumin Level 4.0 g/dL (3.5-5.2); Alkaline Phosphatase 131 U/L (35-105); Anion Gap 14.9 (5-19); Aspartate Amino Transferase 14 U/L (0-32); Blood Urea Nitrogen 7 mg/dL (6-20); Calcium 9.5 mg/dL (8.5-10.5); Carbon Dioxide 26 mmol/L (22-29); Chloride 102 mmol/L (98-107); Globulin 2.9 g/dL (1.3-4.6); Glucose 109 mg/dL (65-115); Osmolality Calculated 287 mOsm/kg (285-295); Potassium 3.9 mmol/L (3.5-5.1); Sodium 139 mmol/L (136-145); Total Protein 6.9 g/dL (6.6-8.7)
[2025-08-08 20:23] LABS: Acetaminophen < 5.0 ug/mL (10-30); Alcohol Level < 10 mg/dL (0-10); Salicylate < 0.3 mg/dL (3-10)
[2025-08-08 20:36] LABS: PCP Screen Urine Negative (Negative)
--- NOTE | 2025-08-08 21:03 | ECG_ITS ---
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 Measurements Intervals [place] Rate: 92 P: 21 MI: 135 QRS: 53 QRSD: 94 T: 21 QT: 357 QTc: 443 Interpretive Statements SINUS RHYTHM Compared to ECG 07/25/2025 06:39:27 No significant changes Electronically Signed On 08-08-2025 23:41:16 PET RESORT CONCIERGE by Carlyn Barahona M.D. [email or web address]
[2025-08-08 21:24] LABS: Glucose Urine UA Negative (Normal); Nitrate Urine Negative (Negative); Specific Gravity, Urine 1.007 (1.005-1.030)
[2025-08-08 21:29] LABS: Add Urine Microscopic? YES
[2025-08-08 22:49] LABS: Respiratory Syncytial Virus Ce NEGATIVE (Negative); SARS-CoV-2 PCR NEGATIVE (Negative)
[2025-08-09 03:29] VITALS: BP 107/69; PULSE 87; O2SAT 93
--- NOTE | 2025-08-09 06:50 | PC.NURSE ---
SHIFT CHANGE BEDSIDE REPORT GIVEN TO KATERINE ROQUE.
[2025-08-09 08:29] VITALS: BP 117/83; PULSE 83; RESP 16; O2SAT 96
[2025-08-09 10:27] VITALS: BP 117/83; PULSE 83; O2SAT 96
== END 2025-08-09 10:27 | disposition admitted as inpatient to this hospital (09) ==
PROVIDERS: Emergency Provider Physician Assistant; PCP Nurse Practitioner
DX: R45.851 Suicidal ideations (principal); F17.210 Nicotine dependence, cigarettes, uncomplicated
CPT/HCPCS: 36415; 80053; 80306; 80307; 81001; 81025; 85025; 87637; 93005; 99284